=== PATIENT | female | born 1935 | race Caucasian/White ===

== ENCOUNTER → 2017-08-30 15:19 | Outpatient (CLI) | payer MEDICARE, OTHER, SELFPAY ==
[2017-08-30 16:09] LABS: Absolute Lymphocyte Count 1.06 X10^3/ul (0.83-4.51); Absolute Neutrophil Count 4.4 X10^3/uL (2.0-7.7); Basophil# 0.03 X10^3/uL; Basophil% 0.5 % (0-1); Eosinophil# 0.14 X10^3/uL; Eosinophils% 2.2 % (0-5); Hematocrit 41.1 % (37-47); Lymphocyte # 1.06 X10^3/ul (4.0); Mean Corp Hgb Conc 31.6 g/gl (32-36); Mean Corpuscular Hgb 28.8 pg (27.0-32.0); Mean Corpuscular Volume 90.9 fL (81-99); Mean Platelet Vol. 9.9 fl (6.2-12.0); Monocyte# 0.58 X10^3/uL; Monocyte% 9.3 % (0-10); Neutrophil # 4.42 X10^3/uL (2.7-7.7); Neutrophil % 70.8 % (47-70); Platelet Count 260 K/mm3 (150-450); RBC Distribution Width SD 46.3 fl (35.1-43.9); Red Blood Count 4.52 M/mm3 (4.2-5.4); White Blood Count 6.2 K/mm3 (4.4-11.0)
[2017-08-30 16:11] LABS: POSITIVE COUNT NO; POSITIVE DIFFERENTIAL NO; POSITIVE MORPHOLOGY NO
[2017-08-30 16:44] LABS: Albumin, Serum 3.9 g/dL (3.2-5.0); BUN 18 mg/dL (7-18); BUN/Creat Ratio 18.7 RATIO (10-20); Creatinine, Serum 0.96 mg/dL (0.55-1.02); EST Glomerular Filtration Rate 59 mL/min (>60); Est Glom Filt Rate - Afr Amer 72 mL/min (>60); Globulin 3.9 g/dL (2.2-4.2); Glucose 95 mg/dL (70-110); Protein, Total 7.8 g/dL (6.4-8.2)
[2017-08-30 16:45] LABS: AST(SGOT) 28 U/L (15-37); Alanine Aminotransfer ALT/SGPT 30 U/L (13-56); Alkaline Phosphatase 96 U/L (45-117); Anion Gap 6 (5-15); Calcium,Total 8.9 mg/dL (8.5-10.1); Chloride 104 mmol/L (98-107); Potassium 3.7 mmol/L (3.5-5.1); Sodium Level 139 mmol/L (136-145)
== END ==
PROVIDERS: Family Provider Family Medicine Geriatric Medicine; PCP Family Medicine Geriatric Medicine; Visit Provider Internal Medicine Rheumatology
DX: L40.59 Other psoriatic arthropathy (principal); M35.00 Sjogren syndrome, unspecified; L40.9 Psoriasis, unspecified; M17.0 Bilateral primary osteoarthritis of knee
CPT/HCPCS: 36415; 80053; 85025

== ENCOUNTER → 2017-09-15 12:17 | Outpatient (CLI) | payer MEDICARE, OTHER, SELFPAY ==
[2017-09-15 12:48] LABS: Absolute Lymphocyte Count 1.06 X10^3/ul (0.83-4.51); Absolute Neutrophil Count 4.6 X10^3/uL (2.0-7.7); Basophil# 0.03 X10^3/uL; Basophil% 0.5 % (0-1); Eosinophil# 0.19 X10^3/uL; Hematocrit 41.2 % (37-47); Hemoglobin 13.2 g/dl (12.0-15.0); Lymphocyte # 1.06 X10^3/ul (4.0); Lymphocyte % 16.6 % (19-41); Mean Corpuscular Hgb 28.8 pg (27.0-32.0); Mean Corpuscular Volume 89.8 fL (81-99); Mean Platelet Vol. 9.6 fl (6.2-12.0); Monocyte# 0.53 X10^3/uL; Monocyte% 8.3 % (0-10); Neutrophil # 4.58 X10^3/uL (2.7-7.7); Neutrophil % 71.4 % (47-70); Platelet Count 248 K/mm3 (150-450); RBC Distribution Width SD 45.7 fl (35.1-43.9); Red Blood Count 4.59 M/mm3 (4.2-5.4); White Blood Count 6.4 K/mm3 (4.4-11.0)
[2017-09-15 12:49] LABS: POSITIVE COUNT NO; POSITIVE DIFFERENTIAL NO; POSITIVE MORPHOLOGY NO
[2017-09-15 13:41] LABS: Vitamin B12 976 pg/mL (211-911)
[2017-09-15 14:14] LABS: AST(SGOT) 33 U/L (15-37); Alanine Aminotransfer ALT/SGPT 21 U/L (13-56); Albumin, Serum 3.9 g/dL (3.2-5.0); Alkaline Phosphatase 102 U/L (45-117); Anion Gap 7 (5-15); BUN 16 mg/dL (7-18); BUN/Creat Ratio 17.3 RATIO (10-20); Calcium,Total 8.9 mg/dL (8.5-10.1); Chloride 104 mmol/L (98-107); Creatinine, Serum 0.93 mg/dL (0.55-1.02); EST Glomerular Filtration Rate 62 mL/min (>60); Est Glom Filt Rate - Afr Amer 75 mL/min (>60); Glucose 96 mg/dL (74-106); Potassium 3.8 mmol/L (3.5-5.1); Protein, Total 7.9 g/dL (6.4-8.2); Sodium Level 139 mmol/L (136-145); Thyroid Stim Hormone (TSH) 2.67 uIU/mL (0.358-3.74)
== END ==
PROVIDERS: Family Provider Family Medicine Geriatric Medicine; PCP Family Medicine Geriatric Medicine; Visit Provider Family Medicine Geriatric Medicine
DX: F05 Delirium due to known physiological condition (principal); N39.0 Urinary tract infection, site not specified
CPT/HCPCS: 36415; 80053; 82607; 82746; 84443; 85025; 87086; 87088

== ENCOUNTER → 2017-09-15 12:25 | Outpatient (CLI) | payer MEDICARE, OTHER, SELFPAY ==
--- NOTE | 2017-09-15 12:29 | CT_ITS ---
STUDY: CT BRAIN WITHOUT CONTRAST REASON FOR EXAM: Female, 81 years old. Confusion and delirium. RADIATION DOSAGE (If Supplied By Facility): CTDIvol = ( 44.99 ) mGy, DLP = ( 829.85 ) mGycm TECHNIQUE: Transaxial CT imaging of the brain was performed without administration of intravenous contrast material. Individualized dose optimization techniques were used for this CT. COMPARISON: None. FINDINGS: Normal soft tissue structures. Normal calvarium. There is mild cerebral atrophy with widening of the extra-axial spaces and ventricular dilatation. There are areas of decreased attenuation within the white matter tracts of the supratentorial brain, consistent with microvascular disease changes. Normal basal ganglia and thalami. Normal brainstem. Normal cerebellum. There is no intracranial hemorrhage. There are no findings of an acute ischemic infarction. Atherosclerotic calcification of the cavernous portions of the internal carotid arteries bilaterally. Normal visualized paranasal sinuses. CT/Brain/Head without Contrast IMPRESSION: Chronic involutional changes of the brain. Electronically Signed: Edvin Greco MD at 12:59 EST Tel [phone], Service support ,
== END ==
PROVIDERS: Family Provider Family Medicine Geriatric Medicine; PCP Family Medicine Geriatric Medicine; Visit Provider Family Medicine Geriatric Medicine
DX: R41.0 Disorientation, unspecified (principal)
CPT/HCPCS: 36415; 70450; 80053; 82607; 82746; 84443; 85025; 87086; 87088

== ENCOUNTER → 2017-09-28 10:26 | Outpatient (CLI) | payer MEDICARE, OTHER, SELFPAY ==
--- NOTE | 2017-09-28 12:37 | CT_ITS ---
STUDY: CT ABDOMEN AND PELVIS WITH CONTRAST REASON FOR EXAM: Female, 81 years old. Abdominal pain and diarrhea. RADIATION DOSAGE (If Supplied By Facility): CTDIvol = ( 14.05 ) mGy, DLP = ( 527.60 ) mGycm TECHNIQUE: Transaxial images were obtained from the dome of the diaphragm to the symphysis pubis with oral contrast. 100CC ml of Isovue 300 contrast was administered. Sagittal and coronal images were reconstructed. Individualized dose optimization techniques were used for this CT. COMPARISON: None. FINDINGS: Minimally increased linear markings at the left lung base suggestive of left basilar atelectasis and/or scarring. Coronary artery calcification. Normal liver. There are surgical clips in the gallbladder fossa consistent with a prior cholecystectomy. There are multiple benign calcified granulomata of the spleen. Normal pancreas. Normal bilateral adrenal glands. Normal right kidney. Cortical thinning of the left kidney. Normal visualized stomach. Normal small intestine. Moderate amount of fecal material is seen in the colon. The appendix is visualized and appears normal. There is diffuse atherosclerotic calcification of the abdominal aorta, without a demonstrated aneurysm. Normal inferior vena cava. Normal retroperitoneum. Normal urinary bladder. Normal abdominal wall. 50% loss of height of the L1 vertebrae. CT/Abdomen/Pelvis WITH Contrast IMPRESSION: Moderate amount of fecal material is seen in the colon. Electronically Signed: Edvin Greco MD at 13:36 EST Tel [phone], Service support ,
[2017-09-28 13:39] LABS: Absolute Lymphocyte Count 0.76 X10^3/ul (0.83-4.51); Absolute Neutrophil Count 4.7 X10^3/uL (2.0-7.7); Basophil# 0.02 X10^3/uL; Basophil% 0.3 % (0-1); Eosinophil# 0.08 X10^3/uL; Eosinophils% 1.3 % (0-5); Hematocrit 38.7 % (37-47); Hemoglobin 12.4 g/dl (12.0-15.0); Lymphocyte # 0.76 X10^3/ul (4.0); Lymphocyte % 12.4 % (19-41); Mean Corpuscular Hgb 28.6 pg (27.0-32.0); Mean Corpuscular Volume 89.4 fL (81-99); Mean Platelet Vol. 10.3 fl (6.2-12.0); Monocyte# 0.59 X10^3/uL; Monocyte% 9.7 % (0-10); Neutrophil # 4.65 X10^3/uL (2.7-7.7); Neutrophil % 76.1 % (47-70); Platelet Count 216 K/mm3 (150-450); RBC Distribution Width CV 13.9 % (11.6-14.6); RBC Distribution Width SD 45.8 fl (35.1-43.9); Red Blood Count 4.33 M/mm3 (4.2-5.4); White Blood Count 6.1 K/mm3 (4.4-11.0)
[2017-09-28 13:42] LABS: POSITIVE COUNT NO; POSITIVE DIFFERENTIAL NO; POSITIVE MORPHOLOGY NO
[2017-09-28 14:02] LABS: ALB/GLOB Ratio 1.1 RATIO (0.9-2.4); AST(SGOT) 32 U/L (15-37); Alanine Aminotransfer ALT/SGPT 19 U/L (13-56); Albumin, Serum 3.8 g/dL (3.2-5.0); Alkaline Phosphatase 92 U/L (45-117); Anion Gap 7 (5-15); BUN 14 mg/dL (7-18); BUN/Creat Ratio 15.4 RATIO (10-20); Calcium,Total 8.8 mg/dL (8.5-10.1); Chloride 102 mmol/L (98-107); Creatinine, Serum 0.91 mg/dL (0.55-1.02); EST Glomerular Filtration Rate 63 mL/min (>60); Est Glom Filt Rate - Afr Amer 77 mL/min (>60); Globulin 3.4 g/dL (2.2-4.2); Glucose 95 mg/dL (74-106); Potassium 3.9 mmol/L (3.5-5.1); Protein, Total 7.2 g/dL (6.4-8.2); Sodium Level 136 mmol/L (136-145)
== END ==
PROVIDERS: Family Provider Family Medicine Geriatric Medicine; PCP Family Medicine Geriatric Medicine; Visit Provider Family Medicine Geriatric Medicine
DX: N39.0 Urinary tract infection, site not specified (principal); R10.9 Unspecified abdominal pain; R19.7 Diarrhea, unspecified
CPT/HCPCS: 36415; 74177; 80053; 82274; 83630; 85025; 87086; 87088; 87177; 87186; 87209; 87493; 87506; Q9967

== ENCOUNTER → 2017-12-13 08:54 | Outpatient (CLI) | payer MEDICARE, OTHER, SELFPAY ==
[2017-12-13 13:09] LABS: Absolute Lymphocyte Count 0.97 X10^3/ul (0.83-4.51); Absolute Neutrophil Count 5.3 X10^3/uL (2.0-7.7); Basophil# 0.04 X10^3/uL; Basophil% 0.6 % (0-1); Eosinophil# 0.13 X10^3/uL; Eosinophils% 1.9 % (0-5); Hematocrit 41.6 % (37-47); Hemoglobin 13.2 g/dl (12.0-15.0); Lymphocyte # 0.97 X10^3/ul (4.0); Lymphocyte % 13.9 % (19-41); Mean Corp Hgb Conc 31.7 g/gl (32-36); Mean Corpuscular Hgb 29.3 pg (27.0-32.0); Mean Corpuscular Volume 92.2 fL (81-99); Mean Platelet Vol. 10.1 fl (6.2-12.0); Monocyte% 8.6 % (0-10); Neutrophil # 5.25 X10^3/uL (2.7-7.7); Platelet Count 244 K/mm3 (150-450); RBC Distribution Width CV 14.5 % (11.6-14.6); RBC Distribution Width SD 48.9 fl (35.1-43.9); Red Blood Count 4.51 M/mm3 (4.2-5.4)
[2017-12-13 13:10] LABS: POSITIVE COUNT NO; POSITIVE DIFFERENTIAL NO; POSITIVE MORPHOLOGY NO
[2017-12-13 13:44] LABS: AST(SGOT) 25 U/L (15-37); Alanine Aminotransfer ALT/SGPT 25 U/L (13-56); Albumin, Serum 3.8 g/dL (3.2-5.0); Alkaline Phosphatase 85 U/L (45-117); Anion Gap 7 (5-15); BUN 13 mg/dL (7-18); BUN/Creat Ratio 13.2 RATIO (10-20); Chloride 104 mmol/L (98-107); Creatinine, Serum 0.98 mg/dL (0.55-1.02); EST Glomerular Filtration Rate 58 mL/min (>60); Est Glom Filt Rate - Afr Amer 70 mL/min (>60); Globulin 3.7 g/dL (2.2-4.2); Glucose 82 mg/dL (74-106); Potassium 4.4 mmol/L (3.5-5.1); Protein, Total 7.5 g/dL (6.4-8.2); Sodium Level 140 mmol/L (136-145); Thyroid Stim Hormone (TSH) 2.21 uIU/mL (0.358-3.74)
[2017-12-13 13:49] LABS: Vitamin D,25 Hydroxy 86.2 ng/mL (29.95-100.01)
== END ==
PROVIDERS: Family Provider Family Medicine Geriatric Medicine; PCP Family Medicine Geriatric Medicine; Visit Provider Family Medicine Geriatric Medicine
DX: E03.9 Hypothyroidism, unspecified (principal); E55.9 Vitamin D deficiency, unspecified; I10 Essential (primary) hypertension
CPT/HCPCS: 36415; 80053; 82306; 84443; 85025

== ENCOUNTER 2017-12-29 19:55 | Emergency (ER) | payer MEDICARE, OTHER, SELFPAY ==
[2017-12-29 19:56] VITALS: BP 112/53; PULSE 68; RESP 15; TEMP 36.4; BMI 22.6
--- NOTE | 2017-12-29 20:15 | RAD_ITS ---
XR Foot Min 3 Views INDICATION: fell and hit foot on step, bruising and swelling on lateral aspect of foot, pain COMPARISON: None TECHNIQUE: 3 views of the right foot FINDINGS: There is evidence of a nondisplaced fracture at the proximal tip of the right fifth metatarsal. Osseous structures are osteopenic. Plantar calcaneal spurring is noted. RAD/Foot min 3 Views IMPRESSION: Nondisplaced fracture at the proximal fifth metatarsal. at 2116 Reported and signed by: Oanh Pérez MD Electronically Signed: Oanh Pérez MD at 21:15 EDT Tel , Service support ,
--- NOTE | 2017-12-29 21:29 | ED.VISSUMM ---
- ER Visit Summary Date of Service: 12/29/17 Chief Complaint: Right foot pain History of Present Illness: The patient is a 82 F presenting with right foot pain. Patient states that she was sweeping her steps and stepped off a step and twisted her right foot. She fell to the ground but did not lose consciousness. She complains of right foot pain. She has been able to ambulate with pain. She denies other injuries. Physical Examination: Vitals are stable. Patient is afebrile. Alert no acute distress. HEENT exam is unremarkable. Neck is nontender Lungs are clear and equal bilaterally. Heart is regular rate and rhythm. Extremities right lateral foot tenderness and ecchymosis Skin is warm and dry. No focal neurologic deficit. Remainder of exam is unremarkable. Emergency Department Course and Treatment: X-ray of the right foot shows nondisplaced fracture at the proximal fifth metatarsal. Ice pack was applied. She declined pain medications. She was put in a boot orthosis. Discussed with Dr. Arroyo and she will follow-up in the office. Disposition: Discharge home Impression: Right fifth metatarsal fracture This note was generated with [employer] dictation software. It may contain incorrect words, spelling, and punctuation that were not noted in review of the chart prior to signing ED Disposition - Plan for ED Patient: Chief Complaint: Lower Extremity Injury Referrals: Matty Newsome Chi, MD [Primary Care Provider] -
--- NOTE | 2017-12-29 21:32 | ED.DCSUM_ITS ---
- ER Visit Summary Date of Service: 12/29/17 Chief Complaint: Right foot pain History of Present Illness: The patient is a 82 F presenting with right foot pain. Patient states that she was sweeping her steps and stepped off a step and twisted her right foot. She fell to the ground but did not lose consciousness. She complains of right foot pain. She has been able to ambulate with pain. She denies other injuries. Physical Examination: Vitals are stable. Patient is afebrile. Alert no acute distress. HEENT exam is unremarkable. Neck is nontender Lungs are clear and equal bilaterally. Heart is regular rate and rhythm. Extremities right lateral foot tenderness and ecchymosis Skin is warm and dry. No focal neurologic deficit. Remainder of exam is unremarkable. Emergency Department Course and Treatment: X-ray of the right foot shows nondisplaced fracture at the proximal fifth metatarsal. Ice pack was applied. She declined pain medications. She was put in a boot orthosis. Discussed with Dr. Arroyo and she will follow-up in the office. Disposition: Discharge home Impression: Right fifth metatarsal fracture This note was generated with [employer] dictation software. It may contain incorrect words, spelling, and punctuation that were not noted in review of the chart prior to signing ED Disposition - Plan for ED Patient: Chief Complaint: Lower Extremity Injury Referrals: aMtty Newsome Chi, MD [Primary Care Provider] -
--- NOTE | 2017-12-29 21:32 | ED.DEP ---
ED Disposition - Plan for ED Patient: Chief Complaint: Lower Extremity Injury Instructions: ED Fx Foot Referrals: Matty Newsome Chi, MD [Primary Care Provider] - Parag Arroyo MD [STAFF PHYSICIAN] -
[2017-12-29 22:01] VITALS: BP 110/60; PULSE 67; RESP 18; O2SAT 96
== END 2017-12-29 22:01 | disposition home or self-care (01) ==
LOC: ED 20:14
PROVIDERS: Emergency Provider Emergency Medicine; Family Provider Family Medicine Geriatric Medicine; PCP Family Medicine Geriatric Medicine
DX: S92.354A Nondisplaced fracture of fifth metatarsal bone, right foot, initial encounter for closed fracture (principal); X50.1XXA Overexertion from prolonged static or awkward postures, initial encounter; Y93.E9 Activity, other interior property and clothing maintenance; Y92.009 Unspecified place in unspecified non-institutional (private) residence as the place of occurrence of the external cause; Y99.8 Other external cause status
CPT/HCPCS: 73630; 99283

== ENCOUNTER → 2018-02-21 14:22 | Outpatient (CLI) | payer MEDICARE, OTHER, SELFPAY ==
[2018-02-21 15:10] LABS: Absolute Lymphocyte Count 1.16 X10^3/ul (0.83-4.51); Absolute Neutrophil Count 4.6 X10^3/uL (2.0-7.7); Basophil# 0.02 X10^3/uL; Basophil% 0.3 % (0-1); Eosinophil# 0.12 X10^3/uL; Eosinophils% 1.9 % (0-5); Hemoglobin 12.5 g/dl (12.0-15.0); Lymphocyte # 1.16 X10^3/ul (4.0); Mean Corp Hgb Conc 32.1 g/gl (32-36); Mean Corpuscular Hgb 30.1 pg (27.0-32.0); Mean Platelet Vol. 9.7 fl (6.2-12.0); Monocyte# 0.54 X10^3/uL; Monocyte% 8.4 % (0-10); Neutrophil % 71.2 % (47-70); Platelet Count 199 K/mm3 (150-450); RBC Distribution Width CV 14.5 % (11.6-14.6); RBC Distribution Width SD 49.4 fl (35.1-43.9); Red Blood Count 4.15 M/mm3 (4.2-5.4); White Blood Count 6.5 K/mm3 (4.4-11.0)
[2018-02-21 15:11] LABS: POSITIVE COUNT NO; POSITIVE DIFFERENTIAL NO; POSITIVE MORPHOLOGY NO
[2018-02-21 17:05] LABS: ALB/GLOB Ratio 1.1 RATIO (0.9-2.4); AST(SGOT) 30 U/L (15-37); Alanine Aminotransfer ALT/SGPT 18 U/L (13-56); Albumin, Serum 3.6 g/dL (3.2-5.0); Alkaline Phosphatase 60 U/L (45-117); Anion Gap 6 (5-15); BUN 19 mg/dL (7-18); BUN/Creat Ratio 18.8 RATIO (10-20); Calcium,Total 8.5 mg/dL (8.5-10.1); Chloride 106 mmol/L (98-107); Creatinine, Serum 1.01 mg/dL (0.55-1.02); EST Glomerular Filtration Rate 56 mL/min (>60); Est Glom Filt Rate - Afr Amer 68 mL/min (>60); Globulin 3.4 g/dL (2.2-4.2); Glucose 88 mg/dL (74-106); Potassium 4.5 mmol/L (3.5-5.1); Sodium Level 142 mmol/L (136-145)
== END ==
PROVIDERS: Family Provider Family Medicine Geriatric Medicine; PCP Family Medicine Geriatric Medicine; Visit Provider Internal Medicine Rheumatology
DX: L40.59 Other psoriatic arthropathy (principal); M35.00 Sjogren syndrome, unspecified; L40.9 Psoriasis, unspecified; M17.0 Bilateral primary osteoarthritis of knee; K76.0 Fatty (change of) liver, not elsewhere classified; M48.061 Spinal stenosis, lumbar region without neurogenic claudication; I10 Essential (primary) hypertension; E03.9 Hypothyroidism, unspecified; F32.89 Other specified depressive episodes; I25.10 Atherosclerotic heart disease of native coronary artery without angina pectoris
CPT/HCPCS: 36415; 80053; 85025

== ENCOUNTER → 2018-08-01 14:07 | Outpatient (CLI) | payer MEDICARE, OTHER, SELFPAY ==
[2018-08-01 15:09] LABS: Absolute Neutrophil Count 5.4 X10^3/uL (2.0-7.7); Basophil# 0.03 X10^3/uL; Basophil% 0.4 % (0-1); Eosinophils% 1.4 % (0-5); Hematocrit 40.4 % (37-47); Lymphocyte % 15.6 % (19-41); Mean Corp Hgb Conc 32.2 g/gl (32-36); Mean Corpuscular Hgb 29.7 pg (27.0-32.0); Mean Corpuscular Volume 92.2 fL (81-99); Mean Platelet Vol. 9.7 fl (6.2-12.0); Monocyte# 0.46 X10^3/uL; Monocyte% 6.5 % (0-10); Neutrophil # 5.35 X10^3/uL (2.7-7.7); Platelet Count 224 K/mm3 (150-450); RBC Distribution Width CV 13.5 % (11.6-14.6); RBC Distribution Width SD 45.4 fl (35.1-43.9); Red Blood Count 4.38 M/mm3 (4.2-5.4); White Blood Count 7.1 K/mm3 (4.4-11.0)
[2018-08-01 15:10] LABS: POSITIVE COUNT NO; POSITIVE DIFFERENTIAL NO; POSITIVE MORPHOLOGY NO
[2018-08-01 15:33] LABS: ALB/GLOB Ratio 1.1 RATIO (0.9-2.4); AST(SGOT) 30 U/L (15-37); Alanine Aminotransfer ALT/SGPT 14 U/L (13-56); Albumin, Serum 3.6 g/dL (3.2-5.0); Alkaline Phosphatase 75 U/L (45-117); Anion Gap 8 (5-15); BUN 23 mg/dL (7-18); BUN/Creat Ratio 21.9 RATIO (10-20); Calcium,Total 8.5 mg/dL (8.5-10.1); Chloride 105 mmol/L (98-107); Creatinine, Serum 1.05 mg/dL (0.55-1.02); EST Glomerular Filtration Rate 54 mL/min (>60); Est Glom Filt Rate - Afr Amer 65 mL/min (>60); Globulin 3.3 g/dL (2.2-4.2); Glucose 103 mg/dL (74-106); Potassium 4.4 mmol/L (3.5-5.1); Protein, Total 6.9 g/dL (6.4-8.2); Sodium Level 140 mmol/L (136-145)
== END ==
PROVIDERS: Family Provider Family Medicine Geriatric Medicine; PCP Family Medicine Geriatric Medicine; Referring Provider Internal Medicine Rheumatology; Visit Provider Internal Medicine Rheumatology
DX: L40.59 Other psoriatic arthropathy (principal); M35.00 Sjogren syndrome, unspecified; L40.9 Psoriasis, unspecified; M17.0 Bilateral primary osteoarthritis of knee; K76.0 Fatty (change of) liver, not elsewhere classified; M48.061 Spinal stenosis, lumbar region without neurogenic claudication; I10 Essential (primary) hypertension; E03.9 Hypothyroidism, unspecified; F32.89 Other specified depressive episodes; I25.10 Atherosclerotic heart disease of native coronary artery without angina pectoris; G20 Parkinson's disease; M47.892 Other spondylosis, cervical region
CPT/HCPCS: 36415; 80053; 85025

== ENCOUNTER → 2018-10-08 09:59 | Outpatient (CLI) | payer MEDICARE, OTHER, SELFPAY ==
[2018-10-08 12:54] LABS: Absolute Neutrophil Count 4.3 X10^3/uL (2.0-7.7); Basophil# 0.03 X10^3/uL; Basophil% 0.5 % (0-1); Eosinophils% 1.7 % (0-5); Lymphocyte % 15.7 % (19-41); Mean Corp Hgb Conc 31.6 g/gl (32-36); Mean Corpuscular Hgb 29.5 pg (27.0-32.0); Mean Corpuscular Volume 93.4 fL (81-99); Mean Platelet Vol. 10.3 fl (6.2-12.0); Monocyte# 0.43 X10^3/uL; Monocyte% 7.5 % (0-10); Neutrophil # 4.29 X10^3/uL (2.7-7.7); Neutrophil % 74.6 % (47-70); Platelet Count 215 K/mm3 (150-450); RBC Distribution Width CV 13.6 % (11.6-14.6); RBC Distribution Width SD 46.8 fl (35.1-43.9); Red Blood Count 4.07 M/mm3 (4.2-5.4); White Blood Count 5.8 K/mm3 (4.4-11.0)
[2018-10-08 12:56] LABS: POSITIVE COUNT NO; POSITIVE DIFFERENTIAL NO; POSITIVE MORPHOLOGY NO
[2018-10-08 13:11] LABS: Vitamin D,25 Hydroxy 94.6 ng/mL (29.95-100.01)
[2018-10-08 13:15] LABS: AST(SGOT) 31 U/L (15-37); Alanine Aminotransfer ALT/SGPT 15 U/L (13-56); Albumin, Serum 3.5 g/dL (3.2-5.0); Alkaline Phosphatase 71 U/L (45-117); Anion Gap 9 (5-15); BUN 19 mg/dL (7-18); BUN/Creat Ratio 19.8 RATIO (10-20); Calcium,Total 8.1 mg/dL (8.5-10.1); Chloride 105 mmol/L (98-107); Creatinine, Serum 0.96 mg/dL (0.55-1.02); EST Glomerular Filtration Rate 59 mL/min (>60); Est Glom Filt Rate - Afr Amer 72 mL/min (>60); Globulin 3.4 g/dL (2.2-4.2); Glucose 92 mg/dL (74-106); Potassium 4.2 mmol/L (3.5-5.1); Protein, Total 6.9 g/dL (6.4-8.2); Sodium Level 141 mmol/L (136-145); Thyroid Stim Hormone (TSH) 1.31 uIU/mL (0.358-3.74)
== END ==
PROVIDERS: Family Provider Family Medicine Geriatric Medicine; PCP Family Medicine Geriatric Medicine; Visit Provider Family Medicine Geriatric Medicine
DX: E55.9 Vitamin D deficiency, unspecified (principal); I10 Essential (primary) hypertension
CPT/HCPCS: 36415; 80053; 82306; 84443; 85025

== ENCOUNTER → 2018-11-02 09:33 | Outpatient (CLI) | payer MEDICARE, OTHER, SELFPAY ==
[2018-10-16 13:54] VITALS: BMI 24.0
--- NOTE | 2018-11-02 10:00 | RAD_ITS ---
STUDY: SWALLOWING STUDY REASON FOR EXAM: Female, 82 years old. Dysphagia. Parkinson's disease. TECHNIQUE: The examination was performed with Speech Pathology in attendance. Under fluoroscopic observation, the patient ingested thin barium, thick barium, barium pudding, and barium coated cracker. FLUOROSCOPY TIME: 2:23 minutes/seconds. 2054 images were obtained. RADIOLOGIST INVOLVEMENT: Radiologist was present and providing direct supervision. COMPARISON: None. FINDINGS: The following was observed during swallowing of the various mixtures of barium: Thin Barium: Transient penetration with ingestion of thin liquids. This improved with the chin tuck maneuver. Barium Pudding: There was no evidence of aspiration or laryngeal penetration. Barium Coated Cracker: There was no evidence of aspiration or laryngeal penetration. RAD/Swallowing Function w/Video IMPRESSION: Transient penetration with ingestion of thin liquids. This improves with the chin tuck maneuver. The swallow study findings were discussed with the patient by the speech pathologist at the conclusion of the examination. Please see speech pathology report for more information and recommendations. Electronically Signed: Edvin Greco, at 11:14 EDT , Service support ,
--- NOTE | 2018-11-02 11:00 | SP.MBSS_ITS ---
PRIMARY DIAGNOSIS: Parkinson?s disease (G20) SECONDARY DIAGNOSIS: dysphagia (R13.10) REFERRING PHYSICIAN: Dr. Jd Paul MD. CURRENT DIET: regular textures, nectar thickened liquids DENTITION: WFL MENTAL STATUS: sufficient for participation. RESPIRATORY STATUS: O2 via room air REASON FOR REFERRAL: The Patient is an 82 year old female referred for a modified barium swallow (MBS) study to objectively assess the Patients oropharyngeal swallow function under fluoroscopy secondary to the diagnosis of Parkinson?s disease, with concerns identified during a recent outpatient clinical dysphagia examination. MEDICAL HISTORY: Parkinson?s disease, psoriatic arthritis, Raynaud?s disease, status post right sided cervical fusion, prior transient ischemic attacks, skin cancer, coronary artery disease, hyperlipemia, hypothyroid, osteoarthritis (Chronic) PREVIOUS MODIFIED BARIUM SWALLOW STUDY: none ADDITIONAL OBJECTIVE ASSESSMENT RESULTS: 09/15/2017 CT revealed chronic involutional changes of the brain. 03/01/2017 MRI revealed no MRI evidence of acute ischemic infarct, intracranial mass or acute intracranial abnormality; chronic white matter ischemic changes in both cerebral hemispheres. ASSESSMENT PARAMETERS: The Patient participated in a Modified Barium Swallow (MBS) study on 11/02/2018. Dr. Greco was the radiologist present for this evaluation. This study was recorded in the lateral view and images were sent to PACs for storage. Scoring was completed through each trial using the 8-point Penetration-Aspiration Scale (PAS) and Videofluoroscopic Scale Score (VSS), and summarized via the Modified Barium Swallow Impairment Profile (MBSImP), with severity scoring through the Dysphagia Severity Rating Scale (DSRS) and Swallowing Performance Scale (SPS), and recommended diet textures through the International Dysphagia Diet Standardisation Initiative (IDDSI). RESULTS OF THE EVALUATION: The Patient presents with mild oropharyngeal dysphagia (DSRS: 2; SPS: 3) with overt aspiration of thin liquids during sequential ingestion secondary to the diagnosis of Parkinson?s disease. OBJECTIVE ASSESSMENT OF SWALLOW FUNCTION (QUANTITATIVE ? PER TRIAL): PENETRATION / ASPIRATION SCALE (LIU): 1 = does not enter airway 2 = enters airway/above vocal folds/ejected 3 = enters airway/above vocal folds/not ejected 4 = enters airway/contacts vocal folds/ejected 5 = enters airway/contacts vocal folds/not ejected 6 = enters airway/below vocal folds/ejected 7 = enters airway/below vocal folds/not ejected despite effort 8 = enters airway/below vocal folds/no effort VIDEOFLOROSCOPIC SCALE SCORE (LIU): Grade I = aspiration of material that has penetrated into the laryngeal vestibule, intact cough reflex Grade II = aspiration < 10 % of the bolus, intact cough reflex Grade III = aspiration of < 10 % of the bolus, reduced cough reflex or aspiration of > 10 % of the bolus, intact cough reflex Grade IV = aspiration of > 10 % of the bolus, reduced cough reflex PENETRATION / ASPIRATION SCALE (SCORE) WITH VIDEOFLOROSCOPIC SCALE SCORE: Thin liquid - 5 mL tsp.: 1 Thin liquids via cup (single sip): 2 Thin liquids via cup (single sip): 3 Thin liquids via cup (single sip): 2 Thin liquids via straw (single sip): 2 Thin liquids via straw (sequential swallows): 7 ? Grade I Thin liquids via straw (chin tuck): 1 Thin liquids via straw (chin tuck): 1 Thin liquids via straw (chin tuck): 1 Thin liquids via straw (sequential / chin tuck): 1 Pudding via spoon: 1 Regular textured cookie: 1 Thin liquids via straw (chin tuck): 1 OBJECTIVE ASSESSMENT OF SWALLOW FUNCTION (QUANTITATIVE ? AGGREGATE): MODIFIED BARIUM SWALLOW IMPAIRMENT PROFILE (MBSImP) LABIAL SEAL: 0 (of 4) no labial escape TONGUE CONTROL: 2 (of 3) posterior escape < 50% BOLUS PREPARATION / MASTICATION: 0 (of 3) timely and efficient BOLUS TRANSPORT / LINGUAL MOTION: 2 (of 4) slowed (mild with purees) ORAL RESIDUE: 1 (of 4) trace residue lining oral structures INITIATION OF PHARYNGEAL SWALLOW: 3 (of 4) pyriforms SOFT PALATE ELEVATION: 0 (of 4) normal LARYNGEAL ELEVATION: 0 (of 3) complete movement / approximation ANTERIOR HYOID EXCURSION: 1 (of 2) partial movement EPIGLOTTIC MOVEMENT: 1 (of 2) partial inversion LARYNGEAL VESTIBULE CLOSURE: 1 (of 2) incomplete closure PHARYNGEAL STRIPPING WAVE: 0 (of 2) present / complete PE SEGMENT OPENIN (of 3) complete distension / duration; no obstruction TONGUE BASE RETRACTION: 1 (of 4) trace column of contrast PHARYNGEAL RESIDUE: 1 (of 4) trace residue ESOPHAGEAL BOLUS CLEARANCE: could not view DYSPHAGIA SEVERITY RATING SCALE (DSRS): 2 (mild) SWALLOWING PERFORMANCE SCALE (SPS): 3 (mild) OBJECTIVE ASSESSMENT OF SWALLOW FUNCTION (QUALITATIVE): ORAL PREPARATORY PHASE: oral preparatory phase marked by sufficient mastication rate and quality with sufficient oral containment; preserved management of breathing / bolus formation without disrupted E ? S ? E pattern. ORAL TRANSITIONAL PHASE: oral transitional phase marked by slight prolongation with posterior transfer of pureed textures, though overall sufficient bolus transportation free of discoordinated lingual movements (tremor / undulations); sufficient oral clearance; overall sufficient oral containment with occasional posterior bolus loss to the valleculae. PHARYNGEAL PHASE: pharyngeal phase marked by mild pharyngeal phase dyssynchrony resulting in prandial penetration of thin liquids, with inconsistent laryngeal vestibule pressure generated to expel penetrated material directly contributing to post prandial overt aspiration of thin liquids (< 5% bolus); no signs of pharyngeal dysmotility; no signs of velopharyngeal impairments. ESOPHAGEAL PHASE: no obvious esophageal phase abnormalities observed. 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 Anterior cervical fusion hardware located at the C-6 C-7 level associated with a slight esophageal narrowing at the distal portions of the hardware location, though this did not significantly impact motility. Noted calcification along the anterior vocal folds, though this did not significantly impact image quality. RESPONSE TO STRATEGIES: all deficits ameliorated with execution of chin tuck posture. RECOMMENDATIONS AND CONSIDERATIONS: Would consider annual / bi-annual repeat objective assessment of the oropharyngeal swallow function under fluoroscopy to identify changes in the oropharyngeal swallow function associated with Parkinson?s disease due to the progressive nature of the disease and higher proclivity for silent aspiration as the disease progresses. The Patient requires continued skilled speech- language intervention targeting diet texture management and training / implementation of recommended compensatory strategies; and Patient and caregiver education regarding dysphagia associated with Parkinson?s disease, with likely shift in therapeutic focus to more cognitive ? communication based intervention goals. Results and recommendations were discussed with the Patient immediately following MBS completion, with the Patient verbalizing understanding and agreement with all recommendations and education provided. DIET TEXTURE RECOMMENDATIONS: Will recommend a regular textured (IDDSI: 7), thin liquid diet (IDDSI: 0) diet RECOMMENDED COMPENSATORY STRATEGIES: Chin tuck, reduced bolus volume / rate of ingestion, seated upright at 90 degrees during PO intake (forward / anterior lean) remain upright for 30-60 minutes post meal (GERD precaution), medications one at a time with a liquid chaser. IMAGE COUNT: [id number] Jarod Durand M.A., CCC-MACHINE OPERATOR PACKAGING MBSImP Certified, LSVT Certified [facility] Speech-Language Pathology Department [email or web address]
== END ==
PROVIDERS: Family Provider Family Medicine Geriatric Medicine; PCP Family Medicine Geriatric Medicine; Referring Provider Psychiatry & Neurology Neurology; Visit Provider Psychiatry & Neurology Neurology
DX: G20 Parkinson's disease (principal); R13.10 Dysphagia, unspecified
CPT/HCPCS: 74230; 92611

== ENCOUNTER 2018-12-04 13:00 | Outpatient (RCR) | payer MEDICARE, OTHER, SELFPAY ==
--- NOTE | 2018-08-17 14:45 | HP.PTEVAL ---
Patient's Visit Information YUKI CAIN is a 82 year old F referred to Physical Therapy by JESUS KaplanC with a diagnosis of Dizzyness. Date of Evaluation: 08/17/18 Physical Therapist: Narayan Baez DPT, OCS, CSCS - Visit Plan Frequency: 2x /Week Duration: 2-4 Weeks Plan: 2x/week x 4 weeks for. 1. vOR progress HEP and VOR walking ex in PT. 2. FW weight shifting ex. 3. Turning and bending functionally. 4. habituation with head turns and nods. - Subjective Findings: Balance slowly getting worse adn recently diagnosed with Parkinsons. GOes to 2 days per week parkinsons ex class. Seeing neuro due to staggering last year. Is here to try to figure out appropriate ex. Spins when she turns going through a doorway, turning sensation for 2-3 steps. Lie down and bend over feels like she is moving for a few seconds. Has had problems with crystals in ear before. Moved in with son and . Fell in March moving items on porch on lower step ankle twisted and cracked. It is OK now. Also exercises with stretching, walking. Sleeping good. Basic aDLs are OK cleaninig and dressinbg adn bathroom OK, DTR in law cooks. - Objective Walks well on firm flat surface with light but head movements adn VOR make it very challenging. VOR sitting is OK. LE AROM WFL, strength 4/5 B. reflexes 1/3 patella and achilles. Sensation LE WNL to gross light touch. Coordination slight deficits. - Balance Scores Functional Gait Assessment Score: 22 % Disability: 26.6700 CATSIB Score (Max score 120 seconds): 96 - Goals Goal 1:: FGA to diminish fall risk Goal Time Frame: 2-4 Weeks Goal 2:: Walk with head movements without head stop moving safely. Goal Time Frame: 2-4 Weeks Goal 3:: I approp HEP to minimize future problems Goal Time Frame: 2-4 Weeks - Rehabilitation Potential Physical Therapy Diagnosis: Unsteadiness with vestibular weakness Rehabilitation Potential: Fair - Anticipated Interventions Patient/Client Instruction: Educate patient on: Condition, Plan of Care For the Purpose of:: To improve balance, To improve safety Therapeutic Exercise to Include: Balance training Comment: weight shift and VOR For the Purpose of:: To improve balance, To improve safety Thank you for the opportunity to evaluate your patient. For Medicare and Medicare HMO plans, please review the plan of care and approve it. It will need to be FAXED BACK to us at [phone] for Medicare purposes. For Medicare only, by signing this I certify the plan of care. Please let me know if there are questions or concerns regarding this plan of care. Physician Signature: Date:
--- NOTE | 2018-09-12 13:08 | HP.SP.AD ---
History - History Date of Eval: 09/12/18 Medical Diagnosis (from RX): Dysphagia Date of Onset of Diagnosis: Fall 2016 Previous speech therapy: No Other Relevant Medical History/Diagnoses/Surgery: Heart disease. Medications related to this diagnosis: Carbadopa/levadopa twice daily. Smoking Status: Former smoker Hx Smoking: No - QUIT SMOKING 1974 SMOKED FOR 15 YRS Hx Tobacco Use: No Hx Smoking Exposure: Yes - Pain Is pain an issue with your current prescribed condition?: Yes - Personal Education History: 4 year degree Occupation: Retired Right Hearing Abillity: Use of Hearing Aid Left Hearing Abillity: Use of Hearing Aid Visual Assistive Devices: Glasses Patients Living Arrangements: With Family Patient Allergies - Allergies Allergies amlodipine Allergy (Verified 12/29/17 20:01) Swelling amlodipine besylate [From Norvasc] Allergy (Verified 12/29/17 20:01) Other amoxicillin [Amoxicillin] Allergy (Verified 12/29/17 20:01) Rash enalapril maleate [From Vasotec] Allergy (Verified 12/29/17 20:01) Other enalaprilat dihydrate [From Vasotec] Allergy (Verified 12/29/17 20:01) Other Iodinated Contrast- Oral and IV Dye [Iodinated Contrast Media - IV Dye] Allergy (Verified 12/29/17 20:01) Other lisinopril Allergy (Verified 12/29/17 20:01) Other ranolazine [From Ranexa] Allergy (Verified 12/29/17 20:01) Unknown Sulfa (Sulfonamide Antibiotics) Allergy (Verified 12/29/17 20:01) Swelling Objective Oral Motor - Oral Status Dentition: WNL - Labial Impairment: WNL Closure: WNL Pucker: WNL Retraction: WNL Alternating Pucker/Retraction: WNL Involuntary Movement noted: No - Lingual Impairment: WNL Protrusion: WNL Retraction: WNL Lateralization: WNL Involuntary Movement: No - Jaw Impairment: WNL - Respiratory Status Respiratory Status: Room Air Subjective Dysphagia - Symptoms Reported Symptoms/Problems with: Choking, Difficulty Swallowing Liquids, Difficulty Swallowing Pills - Current Diet Solids Current Diet: Regular - Current Diet Liquids Current Liquids: Thin Objective Dysphagia - Administered by Administered by: Self - Thin Liquids Administred via: Cup Symptoms: Couging, Immediate Laryngeal Elevation: Impaired Oral Holding: No Gagging: No Comments: Patient took multiple drinks. Laryngeal elevation was not complete for swallows. When cued for single drinks, - Regular Impaired Mastication: Mastication was adequate. Patient has no reports of difficulty chewing. Laryngeal Elevation: WFL Oral Holding: No Gagging: No Patient Report: Patient reported no deficits. - Results Swallowing Within Normal Limits: No Swallowing Diagnosis: Dysphagia Unspecified Severity: Mild Dysphagia Assessment - Swallowing Impairment Contributing Factors to Swallowing Impairment: Reduced Laryngeal Excursion - Impact Impact on Safety & Functioning: Risk for Aspiration - Recommendations Modified Barium Swallow/Cookie Swallow Recommended: Yes Swallowing Treatment: Yes - Diet Texture Recommendations Solids Other: Regular Liquids: [place] Thick - Safety Saftey Precautions/Swallowing Recommendations (Check all that Apply): Reduce Distractions, Small Sips & Bites when Eating Plan - Plan Plan: Speech therapy is warranted for dysphagia secondary to parkinsons disease. The patient demonstrated s/s of penetration/aspiration which puts her at risk for pnuemonia. - Recommendations MBS: Yes Treatment Warranted: Yes - Frequency Frequency: 1x/Week Duration: 4 Weeks Visits in this POC: 5 - Prognosis Prognosis: Good - Goals that are Established: Determination:: Goals will be added/modified as deemed necessary and appropriate. Therapy will be discontinued when results of re-evaluation indicate therapy is no longer needed or lack of progress has been documented. - Goal #1-5 Goal #1: The Patient will tolerate the least restrictive means of nutrition to facilitate adequate hydration/nutrition with optimum safety and efficiency of swallowing function during P.O. intake without overt signs and symptoms of aspiration. Goal #2: The Patient will demonstrate and utilize recommended compensatory swallowing techniques to facilitate improved airway protection and decreased risk for aspiration during PO intake, across 3 out of 3 sessions. Goal #3: Pending MBS Education - Patient has Indicated that the Following Identified Educational Needs: None The Patient has indicated that they have no educational or learning abilities that may effect their care.: Yes - Patient Instruction Patient Education: Diagnosis, Treatment Plan Person Taught: Patient Teaching Method: Discussion Response to teaching: Reinforcement needed
--- NOTE | 2018-09-19 15:29 | HP.PTDCSUM ---
HP - PT D/C Summary It has been my pleasure to treat YUKI CAIN under orders from Bridgette Grullon, JUAQUIN-C, for the diagnosis of Dizzyness for a total of 7 visit(s). Discharge Date: 09/19/18 Please see the following information for a summary of their discharge status. - Subjective Subjective: More dizzy this week since last . Intermittently getting up from chair. Lasts short time. Started using cane again around home. - Overall Improvement % Improvement: 25 - Objective Objective/Function: - postional HD tests, - roll tests. Blance walking into PT is good.Pt changed medications about a month ago the time her dizzyness started adn this should be addressed with pharmacist/doctor. She also had some tooth surgery and c/o earache. Since she has negative postional tests today I have recommended she return to Dr. Newsome for other medical options(ENT, meds check, etc) Would be happy to see her again as needed iof appropriate. - Goals Goal 1:: FGA to diminish fall risk Goal Progress: Goal Met Goal 2:: Walk with head movements without head stop moving safely. Goal Progress: Not Progressing Goal 3:: I approp HEP to minimize future problems Goal Progress: Not Progressing - Plan Plan: D/C, pt back to doctor. - D/C Information Discharge Comments: Pt has plateaud with progress and is appropriate to f/u with Chelsea Parmar for other options with how she is feeling including some R ear aches, feeling off intermittently especially considering her change in medication possibly coinciding with these feelings. If there are questions or concerns regarding this patient's physical therapy, please feel free to call me at [phone]. Thank you for the referral of this patient. Sincerely, Narayan Baez, DPT, OCS, CSCS
--- NOTE | 2018-12-31 14:28 | HP.SP.DC ---
ST Discharge Summary - Discharged: Discharge: Jemma Lewis is discharged from [facility] as of October 02, 2018. She attended a total of 5 visits after her initial evaluation on 09-12-18. She initial attended for dysphagia therapy but her MBSS stated that she was not aspirating and recommended a regular diet with thin liquids. She was given a chin tuck, pills one at a time with a liquid chaser, small bites and sips as well as staying upright at 90 degrees. She was able to verbalize and demonstrate use of these strategies. CLQT - all within normal limits, except executive functions which was mild. She stated that she is aware of this and now lives with her son who helps take care of things for her. She was given a list of word finding strategies as she verbalized this was the thing she had trouble with. Overall, she did well with using her strategies. No further therapy is warranted at this time. A copy of this discharge summary will be sent to her referring physician.
== END 2018-12-04 19:00 | disposition home or self-care (01) ==
LOC: SP 13:00
PROVIDERS: Family Provider Family Medicine Geriatric Medicine; PCP Family Medicine Geriatric Medicine; Referring Provider Nurse Practitioner Acute Care; Visit Provider Nurse Practitioner Acute Care
DX: R42 Dizziness and giddiness (principal); R49.9 Unspecified voice and resonance disorder; R13.10 Dysphagia, unspecified; R47.89 Other speech disturbances
CPT/HCPCS: 92507; 92526; 92610; 97110; 97116; 97162; 97530

== ENCOUNTER → 2018-12-19 12:01 | Outpatient (CLI) | payer MEDICARE, OTHER, SELFPAY ==
[2018-10-16 13:54] VITALS: BMI 24.0
[2018-12-19 13:17] LABS: Absolute Lymphocyte Count 1.16 X10^3/ul (0.83-4.51); Absolute Neutrophil Count 4.2 X10^3/uL (2.0-7.7); Basophil# 0.02 X10^3/uL; Basophil% 0.3 % (0-1); Eosinophil# 0.14 X10^3/uL; Eosinophils% 2.3 % (0-5); Hematocrit 37.2 % (37-47); Lymphocyte # 1.16 X10^3/ul (4.0); Lymphocyte % 19.1 % (19-41); Mean Corp Hgb Conc 32.3 g/gl (32-36); Mean Corpuscular Hgb 29.4 pg (27.0-32.0); Mean Corpuscular Volume 91.2 fL (81-99); Mean Platelet Vol. 10.1 fl (6.2-12.0); Monocyte# 0.55 X10^3/uL; Neutrophil % 69.1 % (47-70); Platelet Count 199 K/mm3 (150-450); RBC Distribution Width CV 13.6 % (11.6-14.6); RBC Distribution Width SD 45.2 fl (35.1-43.9); Red Blood Count 4.08 M/mm3 (4.2-5.4); White Blood Count 6.1 K/mm3 (4.4-11.0)
[2018-12-19 13:25] LABS: POSITIVE COUNT NO; POSITIVE DIFFERENTIAL NO; POSITIVE MORPHOLOGY NO
[2018-12-19 13:31] LABS: Vitamin D,25 Hydroxy 92.1 ng/mL (29.95-100.01)
[2018-12-19 13:39] LABS: AST(SGOT) 25 U/L (15-37); Alanine Aminotransfer ALT/SGPT 16 U/L (13-56); Albumin, Serum 3.4 g/dL (3.2-5.0); Alkaline Phosphatase 78 U/L (45-117); Anion Gap 5 (5-15); BUN 17 mg/dL (7-18); BUN/Creat Ratio 17.1 RATIO (10-20); Calcium,Total 8.7 mg/dL (8.5-10.1); Chloride 107 mmol/L (98-107); EST Glomerular Filtration Rate 57 mL/min (>60); Est Glom Filt Rate - Afr Amer 69 mL/min (>60); Globulin 3.5 g/dL (2.2-4.2); Glucose 83 mg/dL (74-106); Potassium 4.5 mmol/L (3.5-5.1); Protein, Total 6.9 g/dL (6.4-8.2); Sodium Level 140 mmol/L (136-145); Thyroid Stim Hormone (TSH) 1.73 uIU/mL (0.358-3.74)
== END ==
PROVIDERS: Family Provider Family Medicine Geriatric Medicine; PCP Family Medicine Geriatric Medicine; Visit Provider Family Medicine Geriatric Medicine
DX: E55.9 Vitamin D deficiency, unspecified (principal); I10 Essential (primary) hypertension
CPT/HCPCS: 36415; 80053; 82306; 84443; 85025

== ENCOUNTER → 2019-01-16 12:11 | Outpatient (CLI) | payer MEDICARE, OTHER, SELFPAY ==
[2018-10-16 13:54] VITALS: BMI 24.0
[2019-01-16 13:02] LABS: Absolute Lymphocyte Count 1.24 X10^3/ul (0.83-4.51); Absolute Neutrophil Count 3.8 X10^3/uL (2.0-7.7); Basophil# 0.02 X10^3/uL; Basophil% 0.4 % (0-1); Eosinophil# 0.14 X10^3/uL; Eosinophils% 2.5 % (0-5); Hematocrit 36.7 % (37-47); Lymphocyte # 1.24 X10^3/ul (4.0); Mean Corp Hgb Conc 32.7 g/gl (32-36); Mean Corpuscular Hgb 29.9 pg (27.0-32.0); Mean Corpuscular Volume 91.3 fL (81-99); Mean Platelet Vol. 9.8 fl (6.2-12.0); Monocyte# 0.45 X10^3/uL; Neutrophil # 3.78 X10^3/uL (2.7-7.7); Neutrophil % 66.9 % (47-70); Platelet Count 196 K/mm3 (150-450); RBC Distribution Width CV 13.4 % (11.6-14.6); RBC Distribution Width SD 44.7 fl (35.1-43.9); Red Blood Count 4.02 M/mm3 (4.2-5.4); White Blood Count 5.6 K/mm3 (4.4-11.0)
[2019-01-16 13:04] LABS: POSITIVE COUNT NO; POSITIVE DIFFERENTIAL NO; POSITIVE MORPHOLOGY NO
[2019-01-16 13:32] LABS: AST(SGOT) 29 U/L (15-37); Alanine Aminotransfer ALT/SGPT 12 U/L (13-56); Albumin, Serum 3.5 g/dL (3.2-5.0); Alkaline Phosphatase 77 U/L (45-117); Anion Gap 6 (5-15); BUN 16 mg/dL (7-18); Chloride 102 mmol/L (98-107); Creatinine, Serum 1.07 mg/dL (0.55-1.02); EST Glomerular Filtration Rate 52 mL/min (>60); Est Glom Filt Rate - Afr Amer 63 mL/min (>60); Globulin 3.4 g/dL (2.2-4.2); Glucose 101 mg/dL (74-106); Potassium 4.7 mmol/L (3.5-5.1); Protein, Total 6.9 g/dL (6.4-8.2); Sodium Level 137 mmol/L (136-145)
== END ==
PROVIDERS: Family Provider Family Medicine Geriatric Medicine; PCP Family Medicine Geriatric Medicine; Referring Provider Internal Medicine Rheumatology; Visit Provider Internal Medicine Rheumatology
DX: L40.59 Other psoriatic arthropathy (principal); M35.00 Sjogren syndrome, unspecified; L40.9 Psoriasis, unspecified; M17.0 Bilateral primary osteoarthritis of knee; K76.0 Fatty (change of) liver, not elsewhere classified; M48.061 Spinal stenosis, lumbar region without neurogenic claudication
CPT/HCPCS: 36415; 80053; 85025

== ENCOUNTER → 2019-02-13 11:53 | Outpatient (CLI) | payer MEDICARE, OTHER, SELFPAY ==
[2018-10-16 13:54] VITALS: BMI 24.0
--- NOTE | 2019-02-13 13:28 | NEURO_ITS ---
NCS and/or EMG Patient Report Ordering Doctor: Matty Newsome Chi DATE OF SERVICE: 02/13/19 Jemma Lewis is an 83-year-old female presents for electrodiagnostic testing of the lower limbs. She reports numbness and tingling in both legs for several years. Electrodiagnostic findings: Peroneal motor nerve demonstrates normal distal latency, amplitude and conduction velocity bilaterally. Normal tibial motor response bilaterally. Normal peroneal and tibial F wave bilaterally. H reflex is within normal limits. Sensory responses are normal. Needle EMG testing reveals no evidence of denervation in any muscles tested. Motor unit action potentials were of normal amplitude and duration. Electrodiagnostic assessment: This is a normal study in the lower limbs. There is no electrodiagnostic evidence for peripheral neuropathy or lumbosacral radiculopathy. If symptoms persist, may consider single-fiber EMG or nerve bio psy to evaluate for small fiber neuropathy. If there are any further questions, please do not hesitate to contact me.
== END ==
PROVIDERS: Family Provider Family Medicine Geriatric Medicine; PCP Family Medicine Geriatric Medicine; Referring Provider Family Medicine Geriatric Medicine; Visit Provider Family Medicine Geriatric Medicine
DX: R20.2 Paresthesia of skin (principal)
CPT/HCPCS: 95886; 95912

== ENCOUNTER → 2019-02-21 14:29 | Outpatient (CLI) | payer MEDICARE, OTHER, SELFPAY ==
[2018-10-16 13:54] VITALS: BMI 24.0
[2019-02-21 16:04] LABS: Absolute Lymphocyte Count 1.24 X10^3/uL (0.83-4.51); Absolute Neutrophil Count 4.2 X10^3/uL (2.0-7.7); Basophil# 0.02 X10^3/uL; Basophil% 0.3 % (0-1); Eosinophils% 1.6 % (0-5); Hematocrit 35.8 % (37-47); Hemoglobin 11.6 g/dL (12.0-15.0); Lymphocyte # 1.24 X10^3/ul (4.0); Lymphocyte % 20.2 % (19-41); Mean Corp Hgb Conc 32.4 g/dL (32-36); Mean Corpuscular Hgb 29.7 pg (27.0-32.0); Mean Corpuscular Volume 91.6 fL (81-99); Monocyte# 0.54 X10^3/uL; Monocyte% 8.8 % (0-10); NRBC Flagged by Analyzer 0 % (0-5); Neutrophil # 4.21 X10^3/uL (2.7-7.7); Neutrophil % 68.8 % (47-70); Platelet Count 212 K/mm3 (150-450); RBC Distribution Width CV 12.7 % (11.6-14.6); RBC Distribution Width SD 42.3 fl (35.1-43.9); Red Blood Count 3.91 M/mm3 (4.2-5.4); White Blood Count 6.1 K/mm3 (4.4-11.0)
[2019-02-21 16:27] LABS: AST(SGOT) 23 U/L (15-37); Alanine Aminotransfer ALT/SGPT 11 U/L (13-56); Albumin, Serum 3.4 g/dL (3.2-5.0); Alkaline Phosphatase 76 U/L (45-117); Bilirubin, Direct 0.08 mg/dL (0.00-0.30); Globulin 3.3 g/dL (2.2-4.2); Protein, Total 6.7 g/dL (6.4-8.2)
[2019-02-22 09:55] LABS: HIV - WCH Non-Reactive (Nonreactive); Hepatitis B Surface Antibody Non-Reactive; Hepatitis B Surface Antigen Non-Reactive (Nonreactive); Hepatitis C Antibody Non-Reactive (Nonreactive)
[2019-02-23 16:07] LABS: QNTFERON TB Mitogen Value > 10.00 IU/mL (.); QNTFERON TB Nil Value 1.54 IU/mL (.); QNTFERON TB1+ Ag Value > 10.00 IU/mL (.); QNTFERON TB2+ Ag Value > 10.00 IU/mL (.)
[2019-02-24 17:15] LABS: Hepatitis B Core Ab Total Negative (Negative); QNTIFERON TB Positive Criteria Positive (Negative)
== END ==
PROVIDERS: Family Provider Family Medicine Geriatric Medicine; PCP Family Medicine Geriatric Medicine; Referring Provider Dermatology; Visit Provider Dermatology
DX: Z79.899 Other long term (current) drug therapy (principal); D04.61 Carcinoma in situ of skin of right upper limb, including shoulder; L40.8 Other psoriasis; L40.59 Other psoriatic arthropathy
CPT/HCPCS: 36415; 80076; 85025; 86480; 86703; 86704; 86706; 86803; 87340

== ENCOUNTER → 2019-02-26 13:09 | Outpatient (CLI) | payer MEDICARE, OTHER, SELFPAY ==
[2018-10-16 13:54] VITALS: BMI 24.0
[2019-02-28 14:09] LABS: QNTFERON TB Mitogen Value > 10.00 IU/mL (.); QNTFERON TB Nil Value 0.32 IU/mL (.); QNTFERON TB1+ Ag Value 6.17 IU/mL (.); QNTFERON TB2+ Ag Value 6.63 IU/mL (.)
[2019-02-28 14:50] LABS: QNTIFERON TB Positive Criteria Positive (Negative)
== END ==
PROVIDERS: Family Provider Family Medicine Geriatric Medicine; PCP Family Medicine Geriatric Medicine; Referring Provider Dermatology; Visit Provider Dermatology
DX: Z79.899 Other long term (current) drug therapy (principal)
CPT/HCPCS: 36415; 86480

== ENCOUNTER → 2019-03-21 07:53 | Outpatient (CLI) | payer MEDICARE, OTHER, SELFPAY ==
[2018-10-16 13:54] VITALS: BMI 24.0
--- NOTE | 2019-03-21 14:34 | NEURO ---
NCS and/or EMG Patient Report Ordering Doctor: Matty Newsome Chi DATE OF SERVICE: 03/21/19 Jemma Lewis presents for electrodiagnostic testing of the upper limbs. She reports numbness in both hands, worse on the left side. Electrodiagnostic findings: The left median motor nerve demonstrates normal distal latency, amplitude with reduced conduction velocity. Right median motor nerve demonstrates prolonged distal latency with normal amplitude and reduced conduction velocity. Normal ulnar motor response bilaterally, including conduction across the elbow. Normal median ulnar F waves. Prolonged right median sensory latency noted at the wrist. On needle EMG, all muscles tested in the upper limb showed no evidence of denervation with normal motor unit action potentials. Electrodiagnostic impression: This is an abnormal study in the upper limbs 1. Electrodiagnostic findings demonstrate bilateral median mononeuropathy. This is consistent with a mild left carpal tunnel syndrome and a moderate right carpal tunnel syndrome. 2. No electrodiagnostic evidence is noted for cervical radiculopathy. If there are any further questions, please not hesitate to contact me.
== END ==
PROVIDERS: Family Provider Family Medicine Geriatric Medicine; PCP Family Medicine Geriatric Medicine; Referring Provider Family Medicine Geriatric Medicine; Visit Provider Family Medicine Geriatric Medicine
DX: R20.0 Anesthesia of skin (principal); R20.2 Paresthesia of skin
CPT/HCPCS: 95886; 95913

== ENCOUNTER → 2019-04-24 11:46 | Outpatient (CLI) | payer MEDICARE, OTHER, SELFPAY ==
[2018-10-16 13:54] VITALS: BMI 24.0
[2019-04-24 12:30] LABS: Absolute Lymphocyte Count 0.98 X10^3/uL (0.83-4.51); Basophil# 0.05 X10^3/uL; Basophil% 0.7 % (0-1); Eosinophil# 0.13 X10^3/uL; Eosinophils% 1.9 % (0-5); Hematocrit 39.4 % (37-47); Hemoglobin 12.7 g/dL (12.0-15.0); Lymphocyte # 0.98 X10^3/ul (4.0); Lymphocyte % 14.5 % (19-41); Mean Corp Hgb Conc 32.2 g/dL (32-36); Mean Corpuscular Hgb 30.2 pg (27.0-32.0); Mean Corpuscular Volume 93.6 fL (81-99); Mean Platelet Vol. 9.8 fl (6.2-12.0); Monocyte# 0.57 X10^3/uL; Monocyte% 8.4 % (0-10); NRBC Flagged by Analyzer 0 % (0-5); Neutrophil % 74.2 % (47-70); Platelet Count 203 K/mm3 (150-450); RBC Distribution Width CV 13.5 % (11.6-14.6); RBC Distribution Width SD 46.3 fl (35.1-43.9); Red Blood Count 4.21 M/mm3 (4.2-5.4); White Blood Count 6.8 K/mm3 (4.4-11.0)
[2019-04-24 13:04] LABS: AST(SGOT) 25 U/L (15-37); Alanine Aminotransfer ALT/SGPT 10 U/L (13-56); Albumin, Serum 3.4 g/dL (3.2-5.0); Alkaline Phosphatase 70 U/L (45-117); Anion Gap 5 (5-15); BUN 16 mg/dL (7-18); BUN/Creat Ratio 16.2 RATIO (10-20); Calcium,Total 8.6 mg/dL (8.5-10.1); Chloride 104 mmol/L (98-107); Creatinine, Serum 0.99 mg/dL (0.55-1.02); EST Glomerular Filtration Rate 57 mL/min (>60); Est Glom Filt Rate - Afr Amer 69 mL/min (>60); Globulin 3.5 g/dL (2.2-4.2); Glucose 70 mg/dL (74-106); Potassium 4.4 mmol/L (3.5-5.1); Protein, Total 6.9 g/dL (6.4-8.2); Sodium Level 140 mmol/L (136-145)
== END ==
PROVIDERS: Family Provider Family Medicine Geriatric Medicine; PCP Family Medicine Geriatric Medicine; Referring Provider Internal Medicine Rheumatology; Visit Provider Internal Medicine Rheumatology
DX: L40.59 Other psoriatic arthropathy (principal); M35.00 Sjogren syndrome, unspecified; L40.9 Psoriasis, unspecified; M17.0 Bilateral primary osteoarthritis of knee; K76.0 Fatty (change of) liver, not elsewhere classified; M48.061 Spinal stenosis, lumbar region without neurogenic claudication; I10 Essential (primary) hypertension; E03.9 Hypothyroidism, unspecified; F32.89 Other specified depressive episodes; I25.10 Atherosclerotic heart disease of native coronary artery without angina pectoris; M47.892 Other spondylosis, cervical region; G20 Parkinson's disease
CPT/HCPCS: 36415; 80053; 85025

== ENCOUNTER → 2019-05-01 14:13 | Outpatient (CLI) | payer MEDICARE, OTHER, SELFPAY ==
[2018-10-16 13:54] VITALS: BMI 24.0
--- NOTE | 2019-05-01 14:25 | RAD_ITS ---
STUDY: X-RAY CHEST REASON FOR EXAM: Female, 83 years old. Positive TB test TECHNIQUE: Frontal and lateral views of the chest COMPARISON: 06/20/2017 FINDINGS: The lungs are hyperinflated, but clear. There are no pleural effusions. There is no pneumothorax. The heart is normal in size. The visualized osseous structures are within normal limits. RAD/Chest PA and Lateral IMPRESSION: Hyperinflated, but clear lungs. Electronically Signed: Parag Nino, at 19:38 EDT Tel , Service support ,
== END ==
PROVIDERS: Family Provider Family Medicine Geriatric Medicine; PCP Family Medicine Geriatric Medicine; Referring Provider Internal Medicine Infectious Disease; Visit Provider Internal Medicine Infectious Disease
DX: R76.11 Nonspecific reaction to tuberculin skin test without active tuberculosis (principal)
CPT/HCPCS: 71046

== ENCOUNTER → 2019-06-19 10:42 | Outpatient (CLI) | payer MEDICARE, OTHER, SELFPAY ==
[2018-10-16 13:54] VITALS: BMI 24.0
[2019-06-19 12:32] LABS: Absolute Lymphocyte Count 1.05 X10^3/uL (0.83-4.51); Absolute Neutrophil Count 4.1 X10^3/uL (2.0-7.7); Basophil# 0.05 X10^3/uL; Basophil% 0.8 % (0-1); Eosinophil# 0.13 X10^3/uL; Eosinophils% 2.2 % (0-5); Hematocrit 39.8 % (37-47); Hemoglobin 12.8 g/dL (12.0-15.0); Lymphocyte # 1.05 X10^3/ul (4.0); Lymphocyte % 17.8 % (19-41); Mean Corp Hgb Conc 32.2 g/dL (32-36); Mean Corpuscular Hgb 29.8 pg (27.0-32.0); Mean Corpuscular Volume 92.8 fL (81-99); Mean Platelet Vol. 9.9 fl (6.2-12.0); Monocyte# 0.53 X10^3/uL; NRBC Flagged by Analyzer 0 % (0-5); Neutrophil # 4.14 X10^3/uL (2.7-7.7); Platelet Count 218 K/mm3 (150-450); RBC Distribution Width CV 13.6 % (11.6-14.6); RBC Distribution Width SD 46.2 fl (35.1-43.9); Red Blood Count 4.29 M/mm3 (4.2-5.4); White Blood Count 5.9 K/mm3 (4.4-11.0)
[2019-06-19 12:48] LABS: AST(SGOT) 30 U/L (15-37); Alanine Aminotransfer ALT/SGPT 17 U/L (13-56); Albumin, Serum 3.7 g/dL (3.2-5.0); Alkaline Phosphatase 71 U/L (45-117); Anion Gap 7 (5-15); BUN 22 mg/dL (7-18); BUN/Creat Ratio 23.1 RATIO (10-20); Calcium,Total 8.6 mg/dL (8.5-10.1); Chloride 103 mmol/L (98-107); Creatinine, Serum 0.95 mg/dL (0.55-1.02); EST Glomerular Filtration Rate 60 mL/min (>60); Est Glom Filt Rate - Afr Amer 72 mL/min (>60); Globulin 3.7 g/dL (2.2-4.2); Glucose 70 mg/dL (74-106); Potassium 3.9 mmol/L (3.5-5.1); Protein, Total 7.4 g/dL (6.4-8.2); Sodium Level 138 mmol/L (136-145); Thyroid Stim Hormone (TSH) 2.06 uIU/mL (0.358-3.74)
== END ==
PROVIDERS: Family Provider Family Medicine Geriatric Medicine; PCP Family Medicine Geriatric Medicine; Visit Provider Family Medicine Geriatric Medicine
DX: I10 Essential (primary) hypertension (principal); E55.9 Vitamin D deficiency, unspecified
CPT/HCPCS: 36415; 80053; 82306; 84443; 85025

== ENCOUNTER → 2019-07-12 16:01 | Outpatient (CLI) | payer MEDICARE, OTHER, SELFPAY ==
[2018-10-16 13:54] VITALS: BMI 24.0
[2019-07-12 17:24] LABS: Absolute Lymphocyte Count 1.22 X10^3/uL (0.83-4.51); Absolute Neutrophil Count 5.3 X10^3/uL (2.0-7.7); Basophil# 0.04 X10^3/uL; Basophil% 0.5 % (0-1); Eosinophil# 0.15 X10^3/uL; Eosinophils% 2.1 % (0-5); Hematocrit 41.3 % (37-47); Hemoglobin 13.3 g/dL (12.0-15.0); Lymphocyte # 1.22 X10^3/ul (4.0); Lymphocyte % 16.7 % (19-41); Mean Corp Hgb Conc 32.2 g/dL (32-36); Mean Corpuscular Hgb 30.2 pg (27.0-32.0); Mean Corpuscular Volume 93.9 fL (81-99); Mean Platelet Vol. 10.2 fl (6.2-12.0); Monocyte% 8.2 % (0-10); NRBC Flagged by Analyzer 0 % (0-5); Neutrophil # 5.27 X10^3/uL (2.7-7.7); Neutrophil % 72.1 % (47-70); Platelet Count 233 K/mm3 (150-450); RBC Distribution Width CV 13.4 % (11.6-14.6); RBC Distribution Width SD 46.5 fl (35.1-43.9); White Blood Count 7.3 K/mm3 (4.4-11.0)
[2019-07-12 17:53] LABS: ALB/GLOB Ratio 1.1 RATIO (0.9-2.4); AST(SGOT) 26 U/L (15-37); Alanine Aminotransfer ALT/SGPT 7 U/L (13-56); Albumin, Serum 3.8 g/dL (3.2-5.0); Alkaline Phosphatase 70 U/L (45-117); Anion Gap 6 (5-15); BUN 15 mg/dL (7-18); BUN/Creat Ratio 15.4 RATIO (10-20); Chloride 106 mmol/L (98-107); Creatinine, Serum 0.97 mg/dL (0.55-1.02); EST Glomerular Filtration Rate 58 mL/min (>60); Est Glom Filt Rate - Afr Amer 71 mL/min (>60); Globulin 3.5 g/dL (2.2-4.2); Glucose 100 mg/dL (74-106); Protein, Total 7.3 g/dL (6.4-8.2); Sodium Level 139 mmol/L (136-145)
== END ==
PROVIDERS: Family Provider Family Medicine Geriatric Medicine; PCP Family Medicine Geriatric Medicine; Referring Provider Internal Medicine Rheumatology; Visit Provider Internal Medicine Rheumatology
DX: L40.59 Other psoriatic arthropathy (principal); M35.00 Sjogren syndrome, unspecified; L40.9 Psoriasis, unspecified; M17.0 Bilateral primary osteoarthritis of knee; K76.0 Fatty (change of) liver, not elsewhere classified; M48.061 Spinal stenosis, lumbar region without neurogenic claudication
CPT/HCPCS: 36415; 80053; 85025

== ENCOUNTER → 2019-10-01 14:40 | Outpatient (CLI) | payer MEDICARE, OTHER, SELFPAY ==
[2018-10-16 13:54] VITALS: BMI 24.0
--- NOTE | 2019-10-01 14:45 | CT_ITS ---
STUDY: CT BRAIN WITHOUT CONTRAST REASON FOR EXAM: Female, 83 years old. PT STATED FALL X 6 WEEKS AGO. RADIATION DOSAGE (If Supplied By Facility): CTDIvol = ( 60.81 ) mGy, DLP = ( 2225.39 ) mGycm TECHNIQUE: Transaxial CT imaging of the brain was performed without administration of intravenous contrast material. Individualized dose optimization techniques were used for this CT. COMPARISON: March 01, 2017 MRI FINDINGS: There is cerebral atrophy with widening of the extra-axial spaces and ventricular dilatation. There are areas of decreased attenuation within the white matter tracts of the supratentorial brain, consistent with microvascular disease changes. There is no intracranial hemorrhage. There are no findings of an acute ischemic infarction. Normal soft tissue structures. Normal visualized paranasal sinuses. CT/Brain/Head without Contrast IMPRESSION: Chronic involutional changes of the brain. Electronically Signed: Harrison Mederos MD at 10:13 EST Tel , Service support ,
== END ==
PROVIDERS: PCP Family Medicine Geriatric Medicine; Referring Provider Family Medicine Geriatric Medicine; Visit Provider Family Medicine Geriatric Medicine
DX: S09.90XA Unspecified injury of head, initial encounter (principal)
CPT/HCPCS: 70450

== ENCOUNTER → 2019-10-08 11:08 | Outpatient (CLI) | payer MEDICARE, OTHER, SELFPAY ==
[2018-10-16 13:54] VITALS: BMI 24.0
[2019-10-08 12:40] LABS: Absolute Neutrophil Count 5.4 X10^3/uL (2.0-7.7); Basophil# 0.04 X10^3/uL; Basophil% 0.6 % (0-1); Eosinophil# 0.13 X10^3/uL; Eosinophils% 1.8 % (0-5); Hematocrit 39.3 % (37-47); Mean Corp Hgb Conc 33.1 g/dL (32-36); Mean Corpuscular Hgb 30.6 pg (27.0-32.0); Mean Corpuscular Volume 92.5 fL (81-99); Mean Platelet Vol. 10.2 fl (6.2-12.0); Monocyte# 0.59 X10^3/uL; Monocyte% 8.3 % (0-10); NRBC Flagged by Analyzer 0 % (0-5); Neutrophil # 5.35 X10^3/uL (2.7-7.7); Platelet Count 213 K/mm3 (150-450); RBC Distribution Width CV 13.1 % (11.6-14.6); RBC Distribution Width SD 44.7 fl (35.1-43.9); Red Blood Count 4.25 M/mm3 (4.2-5.4); White Blood Count 7.1 K/mm3 (4.4-11.0)
[2019-10-08 13:01] LABS: ALB/GLOB Ratio 1.1 RATIO (0.9-2.4); AST(SGOT) 35 U/L (15-37); Alanine Aminotransfer ALT/SGPT 9 U/L (13-56); Albumin, Serum 3.8 g/dL (3.2-5.0); Alkaline Phosphatase 66 U/L (45-117); Anion Gap 2 (5-15); BUN 15 mg/dL (7-18); Calcium,Total 8.8 mg/dL (8.5-10.1); Chloride 106 mmol/L (98-107); Creatinine, Serum 0.94 mg/dL (0.55-1.02); EST Glomerular Filtration Rate 61 mL/min (>60); Est Glom Filt Rate - Afr Amer 73 mL/min (>60); Globulin 3.5 g/dL (2.2-4.2); Glucose 93 mg/dL (74-106); Potassium 4.1 mmol/L (3.5-5.1); Protein, Total 7.3 g/dL (6.4-8.2); Sodium Level 139 mmol/L (136-145)
== END ==
PROVIDERS: PCP Family Medicine Geriatric Medicine; Referring Provider Internal Medicine Rheumatology; Visit Provider Internal Medicine Rheumatology
DX: L40.59 Other psoriatic arthropathy (principal); M35.00 Sjogren syndrome, unspecified; L40.9 Psoriasis, unspecified; M17.0 Bilateral primary osteoarthritis of knee; K76.0 Fatty (change of) liver, not elsewhere classified; M48.061 Spinal stenosis, lumbar region without neurogenic claudication; I10 Essential (primary) hypertension; E03.9 Hypothyroidism, unspecified; F32.89 Other specified depressive episodes; I25.10 Atherosclerotic heart disease of native coronary artery without angina pectoris; M47.892 Other spondylosis, cervical region; G20 Parkinson's disease
CPT/HCPCS: 36415; 80053; 85025

== ENCOUNTER → 2019-11-29 12:35 | Outpatient (CLI) | payer MEDICARE, OTHER, SELFPAY ==
[2019-10-15 09:15] VITALS: BMI 22.6
[2019-11-29 14:26] LABS: Vitamin B12 1069 pg/mL (211-911)
== END ==
PROVIDERS: PCP Family Medicine Geriatric Medicine; Referring Provider Psychiatry & Neurology Neurology; Visit Provider Psychiatry & Neurology Neurology
DX: E53.9 Vitamin B deficiency, unspecified (principal); R26.81 Unsteadiness on feet
CPT/HCPCS: 36415; 82607

== ENCOUNTER → 2019-12-25 12:16 | Outpatient (CLI) | payer MEDICARE, OTHER, SELFPAY ==
[2019-10-15 09:15] VITALS: BMI 22.6
[2019-12-25 12:44] LABS: Absolute Lymphocyte Count 0.95 X10^3/uL (0.83-4.51); Absolute Neutrophil Count 4.7 X10^3/uL (2.0-7.7); Basophil# 0.04 X10^3/uL; Basophil% 0.6 % (0-1); Eosinophil# 0.05 X10^3/uL; Eosinophils% 0.8 % (0-5); Hematocrit 35.6 % (37-47); Hemoglobin 11.5 g/dL (12.0-15.0); Lymphocyte # 0.95 X10^3/ul (4.0); Lymphocyte % 15.2 % (19-41); Mean Corp Hgb Conc 32.3 g/dL (32-36); Mean Corpuscular Hgb 30.3 pg (27.0-32.0); Mean Corpuscular Volume 93.7 fL (81-99); Mean Platelet Vol. 10.3 fl (6.2-12.0); Monocyte# 0.52 X10^3/uL; Monocyte% 8.3 % (0-10); NRBC Flagged by Analyzer 0 % (0-5); Neutrophil # 4.68 X10^3/uL (2.7-7.7); Neutrophil % 74.8 % (47-70); Platelet Count 228 K/mm3 (150-450); RBC Distribution Width CV 13.2 % (11.6-14.6); RBC Distribution Width SD 45.1 fl (35.1-43.9); White Blood Count 6.3 K/mm3 (4.4-11.0)
[2019-12-25 13:19] LABS: Vitamin D,25 Hydroxy 88.7 ng/mL
[2019-12-25 13:23] LABS: AST(SGOT) 37 U/L (15-37); Alanine Aminotransfer ALT/SGPT 18 U/L (13-56); Albumin, Serum 3.4 g/dL (3.2-5.0); Alkaline Phosphatase 66 U/L (45-117); Anion Gap 5 (5-15); BUN 22 mg/dL (7-18); BUN/Creat Ratio 20.6 RATIO (10-20); Calcium,Total 8.4 mg/dL (8.5-10.1); Chloride 105 mmol/L (98-107); Creatinine, Serum 1.07 mg/dL (0.55-1.02); EST Glomerular Filtration Rate 52 mL/min (>60); Est Glom Filt Rate - Afr Amer 63 mL/min (>60); Globulin 3.3 g/dL (2.2-4.2); Glucose 104 mg/dL (74-106); Potassium 4.3 mmol/L (3.5-5.1); Protein, Total 6.7 g/dL (6.4-8.2); Sodium Level 138 mmol/L (136-145); Thyroid Stim Hormone (TSH) 1.54 uIU/mL (0.358-3.74)
== END ==
PROVIDERS: PCP Family Medicine Geriatric Medicine; Visit Provider Family Medicine Geriatric Medicine
DX: I10 Essential (primary) hypertension (principal); E55.9 Vitamin D deficiency, unspecified
CPT/HCPCS: 36415; 80053; 82306; 84443; 85025

== ENCOUNTER → 2020-01-17 15:26 | Outpatient (CLI) | payer MEDICARE, OTHER, SELFPAY ==
[2019-10-15 09:15] VITALS: BMI 22.6
--- NOTE | 2020-01-17 15:37 | RAD_ITS ---
STUDY: X-RAY - CERVICAL SPINE REASON FOR EXAM: Female, 84 years old. DIZZINESS WITH BILATERAL ARM PAIN WITH NUMBNESS AND TINGLING TECHNIQUE: 7 view(s) of the cervical spine were obtained. Lateral views were obtained in neutral position, flexion, and extension. COMPARISON: None FINDINGS: There are degenerative changes of the anterior atlantoaxial articulation. Normal odontoid process. Patient has undergone previous anterior spinal fusion at the C5-6 level with placement of an anterior fixation plate and screws as well as bone fusion plug. Hardware is intact and there is continuous bone growth across the disc space, consistent with successful mature fusion. There is partial straightening of the normal lordotic curve and there is decreased range of motion on flexion or extension, which may be due to a combination of degenerative disease and muscle spasm or guarding. There is no evidence for instability/subluxation on flexion or extension. Normal vertebral bodies. There is multilevel spondylosis.. There is decreased disc height at thew C6-7 level. There is multi-level osseous foraminal stenosis. The soft tissue structures are unremarkable. RAD/Cerv Spine Obl/Flex/Ext Comp IMPRESSION: Intact anterior spinal fusion at the C5-6 level. Multilevel degenerative changes. No demonstrated subluxation or instability. Electronically Signed: Bryn Johnson MD at 5:48 EDT , Service support ,
== END ==
PROVIDERS: PCP Family Medicine Geriatric Medicine; Referring Provider Psychiatry & Neurology Neurology; Visit Provider Psychiatry & Neurology Neurology
DX: M54.2 Cervicalgia (principal)
CPT/HCPCS: 72052

== ENCOUNTER → 2020-03-24 14:40 | Outpatient (CLI) | payer MEDICARE, OTHER, SELFPAY ==
[2019-10-15 09:15] VITALS: BMI 22.6
[2020-03-24 16:06] LABS: Absolute Lymphocyte Count 1.08 X10^3/uL (0.83-4.51); Absolute Neutrophil Count 4.4 X10^3/uL (2.0-7.7); Basophil# 0.04 X10^3/uL; Basophil% 0.6 % (0-1); Eosinophil# 0.09 X10^3/uL; Eosinophils% 1.5 % (0-5); Hematocrit 36.1 % (37-47); Hemoglobin 11.7 g/dL (12.0-15.0); Lymphocyte # 1.08 X10^3/ul (4.0); Lymphocyte % 17.5 % (19-41); Mean Corp Hgb Conc 32.4 g/dL (32-36); Mean Corpuscular Hgb 30.1 pg (27.0-32.0); Mean Corpuscular Volume 92.8 fL (81-99); Mean Platelet Vol. 10.5 fl (6.2-12.0); Monocyte# 0.53 X10^3/uL; Monocyte% 8.6 % (0-10); NRBC Flagged by Analyzer 0 % (0-5); Neutrophil # 4.43 X10^3/uL (2.7-7.7); Neutrophil % 71.6 % (47-70); Platelet Count 218 K/mm3 (150-450); RBC Distribution Width CV 12.9 % (11.6-14.6); RBC Distribution Width SD 44.1 fl (35.1-43.9); Red Blood Count 3.89 M/mm3 (4.2-5.4); White Blood Count 6.2 K/mm3 (4.4-11.0)
[2020-03-24 16:19] LABS: Vitamin D,25 Hydroxy 69.2 ng/mL
[2020-03-24 16:39] LABS: ALB/GLOB Ratio 1.1 RATIO (0.9-2.4); AST(SGOT) 28 U/L (15-37); Alanine Aminotransfer ALT/SGPT 24 U/L (13-56); Albumin, Serum 3.5 g/dL (3.2-5.0); Alkaline Phosphatase 65 U/L (45-117); Anion Gap 6 (5-15); BUN 20 mg/dL (7-18); BUN/Creat Ratio 18.7 RATIO (10-20); Calcium,Total 8.7 mg/dL (8.5-10.1); Chloride 107 mmol/L (98-107); Creatinine, Serum 1.07 mg/dL (0.55-1.02); EST Glomerular Filtration Rate 52 mL/min (>60); Est Glom Filt Rate - Afr Amer 63 mL/min (>60); Globulin 3.1 g/dL (2.2-4.2); Glucose 117 mg/dL (74-106); Potassium 4.6 mmol/L (3.5-5.1); Protein, Total 6.6 g/dL (6.4-8.2); Sodium Level 140 mmol/L (136-145); Thyroid Stim Hormone (TSH) 2.46 uIU/mL (0.358-3.74)
== END ==
PROVIDERS: PCP Family Medicine Geriatric Medicine; Visit Provider Family Medicine Geriatric Medicine
DX: E55.9 Vitamin D deficiency, unspecified (principal); I10 Essential (primary) hypertension
CPT/HCPCS: 36415; 80053; 82306; 84443; 85025

== ENCOUNTER → 2020-04-02 15:16 | Outpatient (CLI) | payer MEDICARE, OTHER, SELFPAY ==
[2019-10-15 09:15] VITALS: BMI 22.6
[2020-04-02 18:05] LABS: Absolute Lymphocyte Count 1.22 X10^3/uL (0.83-4.51); Absolute Neutrophil Count 4.6 X10^3/uL (2.0-7.7); Basophil# 0.05 X10^3/uL; Basophil% 0.8 % (0-1); Eosinophil# 0.15 X10^3/uL; Eosinophils% 2.3 % (0-5); Hematocrit 37.8 % (37-47); Hemoglobin 12.3 g/dL (12.0-15.0); Lymphocyte # 1.22 X10^3/ul (4.0); Lymphocyte % 18.5 % (19-41); Mean Corp Hgb Conc 32.5 g/dL (32-36); Mean Corpuscular Hgb 30.2 pg (27.0-32.0); Mean Corpuscular Volume 92.9 fL (81-99); Mean Platelet Vol. 10.3 fl (6.2-12.0); Monocyte# 0.59 X10^3/uL; NRBC Flagged by Analyzer 0 % (0-5); Neutrophil # 4.55 X10^3/uL (2.7-7.7); Neutrophil % 69.1 % (47-70); Platelet Count 242 K/mm3 (150-450); RBC Distribution Width SD 44.2 fl (35.1-43.9); Red Blood Count 4.07 M/mm3 (4.2-5.4); White Blood Count 6.6 K/mm3 (4.4-11.0)
[2020-04-02 18:20] LABS: AST(SGOT) 29 U/L (15-37); Alanine Aminotransfer ALT/SGPT 28 U/L (13-56); Albumin, Serum 3.6 g/dL (3.2-5.0); Alkaline Phosphatase 69 U/L (45-117); Anion Gap 3 (5-15); BUN 21 mg/dL (7-18); BUN/Creat Ratio 18.8 RATIO (10-20); Calcium,Total 8.7 mg/dL (8.5-10.1); Chloride 104 mmol/L (98-107); Creatinine, Serum 1.12 mg/dL (0.55-1.02); EST Glomerular Filtration Rate 50 mL/min (>60); Est Glom Filt Rate - Afr Amer 60 mL/min (>60); Globulin 3.5 g/dL (2.2-4.2); Glucose 114 mg/dL (74-106); Potassium 4.2 mmol/L (3.5-5.1); Protein, Total 7.1 g/dL (6.4-8.2); Sodium Level 138 mmol/L (136-145)
== END ==
PROVIDERS: PCP Family Medicine Geriatric Medicine; Referring Provider Internal Medicine Rheumatology; Visit Provider Internal Medicine Rheumatology
DX: L40.59 Other psoriatic arthropathy (principal); M35.00 Sjogren syndrome, unspecified; L40.9 Psoriasis, unspecified; M15.9 Polyosteoarthritis, unspecified; K76.0 Fatty (change of) liver, not elsewhere classified; M48.061 Spinal stenosis, lumbar region without neurogenic claudication; I10 Essential (primary) hypertension; E03.9 Hypothyroidism, unspecified; F32.89 Other specified depressive episodes; I25.10 Atherosclerotic heart disease of native coronary artery without angina pectoris; M47.892 Other spondylosis, cervical region; G20 Parkinson's disease
CPT/HCPCS: 36415; 80053; 85025

== ENCOUNTER → 2020-04-30 16:34 | Outpatient (CLI) | payer MEDICARE, OTHER, SELFPAY ==
[2019-10-15 09:15] VITALS: BMI 22.6
[2020-04-30 16:58] LABS: Absolute Lymphocyte Count 1.06 X10^3/uL (0.83-4.51); Absolute Neutrophil Count 4.3 X10^3/uL (2.0-7.7); Basophil# 0.04 X10^3/uL; Basophil% 0.7 % (0-1); Eosinophil# 0.16 X10^3/uL; Eosinophils% 2.6 % (0-5); Hematocrit 36.8 % (37-47); Hemoglobin 11.9 g/dL (12.0-15.0); Lymphocyte # 1.06 X10^3/ul (4.0); Lymphocyte % 17.2 % (19-41); Mean Corp Hgb Conc 32.3 g/dL (32-36); Mean Corpuscular Hgb 30.1 pg (27.0-32.0); Mean Corpuscular Volume 92.9 fL (81-99); Mean Platelet Vol. 10.2 fl (6.2-12.0); Monocyte# 0.58 X10^3/uL; Monocyte% 9.4 % (0-10); NRBC Flagged by Analyzer 0 % (0-5); Neutrophil % 69.9 % (47-70); Platelet Count 201 K/mm3 (150-450); RBC Distribution Width CV 13.2 % (11.6-14.6); RBC Distribution Width SD 44.7 fl (35.1-43.9); Red Blood Count 3.96 M/mm3 (4.2-5.4); White Blood Count 6.2 K/mm3 (4.4-11.0)
[2020-04-30 17:26] LABS: AST(SGOT) 26 U/L (15-37); Alanine Aminotransfer ALT/SGPT 29 U/L (13-56); Albumin, Serum 3.2 g/dL (3.2-5.0); Alkaline Phosphatase 65 U/L (45-117); Anion Gap 3 (5-15); BUN 22 mg/dL (7-18); BUN/Creat Ratio 23.7 RATIO (10-20); CPK Total, Creatine Kinase 111 U/L (26-192); Calcium,Total 8.2 mg/dL (8.5-10.1); Chloride 111 mmol/L (98-107); Creatinine, Serum 0.93 mg/dL (0.55-1.02); EST Glomerular Filtration Rate 61 mL/min (>60); Est Glom Filt Rate - Afr Amer 74 mL/min (>60); Globulin 3.3 g/dL (2.2-4.2); Glucose 86 mg/dL (74-106); Protein, Total 6.5 g/dL (6.4-8.2); Sodium Level 142 mmol/L (136-145); Thyroid Stim Hormone (TSH) 3.13 uIU/mL (0.358-3.74)
[2020-05-02 06:16] LABS: Myoglobin, Serum 40 ng/mL (25-58)
== END ==
PROVIDERS: PCP Family Medicine Geriatric Medicine; Visit Provider Family Medicine Geriatric Medicine
DX: R53.83 Other fatigue (principal); R07.9 Chest pain, unspecified
CPT/HCPCS: 36415; 80053; 82550; 83874; 84443; 84484; 85025; 87086

== ENCOUNTER → 2020-04-30 17:47 | Outpatient (CLI) | payer MEDICARE, OTHER, SELFPAY ==
[2019-10-15 09:15] VITALS: BMI 22.6
--- NOTE | 2020-04-30 17:55 | CT_ITS ---
STUDY: CT BRAIN WITHOUT CONTRAST REASON FOR EXAM: Female, 84 years old. memory loss RADIATION DOSAGE (If Supplied By Facility): CTDIvol = ( 44.99 ) mGy, DLP = ( 832.67 ) mGycm TECHNIQUE: Transaxial CT imaging of the brain was performed without administration of intravenous contrast material. Individualized dose optimization techniques were used for this CT. COMPARISON: 10/01/2019. FINDINGS: Normal soft tissue structures. Normal calvarium. Calcification of cavernous carotids Moderate atrophy and periventricular white matter ischemic changes.. Normal basal ganglia and thalami. Normal brainstem. Normal cerebellum. There is no intracranial hemorrhage. There are no findings of an acute ischemic infarction. Postsurgical changes of the orbits. Normal visualized paranasal sinuses. No significant change since prior study CT/Brain/Head without Contrast IMPRESSION: Moderate atrophy and periventricular white matter ischemic change.. No evidence for acute bleed. If concern for acute infarct MRI recommended. Electronically Signed: Kenyon De Paz MD at 18:32 EDT , Service support ,
== END ==
PROVIDERS: PCP Family Medicine Geriatric Medicine; Visit Provider Family Medicine Geriatric Medicine
DX: R40.0 Somnolence (principal); R53.83 Other fatigue; R07.9 Chest pain, unspecified
CPT/HCPCS: 36415; 70450; 80053; 82550; 83874; 84443; 84484; 85025; 87086; 87088; 87186

== ENCOUNTER → 2020-06-22 13:05 | Outpatient (CLI) | payer MEDICARE, OTHER, SELFPAY ==
[2019-10-15 09:15] VITALS: BMI 22.6
[2020-06-22 15:11] LABS: Absolute Lymphocyte Count 1.43 X10^3/uL (0.83-4.51); Absolute Neutrophil Count 4.6 X10^3/uL (2.0-7.7); Basophil# 0.05 X10^3/uL; Basophil% 0.7 % (0-1); Eosinophil# 0.16 X10^3/uL; Eosinophils% 2.3 % (0-5); Hematocrit 38.6 % (37-47); Hemoglobin 12.2 g/dL (12.0-15.0); Lymphocyte # 1.43 X10^3/ul (4.0); Lymphocyte % 20.5 % (19-41); Mean Corp Hgb Conc 31.6 g/dL (32-36); Mean Corpuscular Hgb 29.8 pg (27.0-32.0); Mean Corpuscular Volume 94.1 fL (81-99); Mean Platelet Vol. 10.7 fl (6.2-12.0); Monocyte# 0.67 X10^3/uL; Monocyte% 9.6 % (0-10); NRBC Flagged by Analyzer 0 % (0-5); Neutrophil # 4.63 X10^3/uL (2.7-7.7); Neutrophil % 66.5 % (47-70); Platelet Count 208 K/mm3 (150-450); RBC Distribution Width CV 13.1 % (11.6-14.6)
[2020-06-22 15:38] LABS: Vitamin D,25 Hydroxy 64.4 ng/mL
[2020-06-22 16:07] LABS: AST(SGOT) 31 U/L (15-37); Alanine Aminotransfer ALT/SGPT 35 U/L (13-56); Albumin, Serum 3.5 g/dL (3.2-5.0); Alkaline Phosphatase 76 U/L (45-117); Anion Gap 4 (5-15); BUN 19 mg/dL (7-18); BUN/Creat Ratio 17.8 RATIO (10-20); Calcium,Total 8.9 mg/dL (8.5-10.1); Chloride 102 mmol/L (98-107); Creatinine, Serum 1.07 mg/dL (0.55-1.02); EST Glomerular Filtration Rate 52 mL/min (>60); Est Glom Filt Rate - Afr Amer 63 mL/min (>60); Globulin 3.5 g/dL (2.2-4.2); Glucose 85 mg/dL (74-106); Potassium 4.6 mmol/L (3.5-5.1); Sodium Level 136 mmol/L (136-145); Thyroid Stim Hormone (TSH) 2.93 uIU/mL (0.358-3.74)
== END ==
PROVIDERS: PCP Family Medicine Geriatric Medicine; Visit Provider Family Medicine Geriatric Medicine
DX: E55.9 Vitamin D deficiency, unspecified (principal); I10 Essential (primary) hypertension
CPT/HCPCS: 36415; 80053; 82306; 84443; 85025

== ENCOUNTER → 2020-09-22 14:22 | Outpatient (CLI) | payer MEDICARE, OTHER, SELFPAY ==
[2020-07-08 13:41] VITALS: BMI 24.0
--- NOTE | 2020-09-22 14:50 | RAD_ITS ---
STUDY: X-RAY - ABDOMEN/PELVIS REASON FOR EXAM: Female, 84 years old patient with abdominal pain. TECHNIQUE: AP supine and upright views of the abdomen and pelvis. COMPARISON: CT of abdomen and pelvis dated 09/29/2015. FINDINGS: Normal visualized lung bases. There is an unremarkable bowel gas pattern. Surgical clips are visible in the right upper quadrant. There is no obvious organomegaly, mass, dilated bowel or pathologic calcifications. Normal soft tissue structures. There is mild curvature of the thoracic and lumbar spine with convexity towards the left. There are mild degenerative changes of the spine and both hips. RAD/Abd Inc Decub and/or Erect IMPRESSION: No radiographic evidence of acute intra-abdominal disease. Electronically Signed: Yudi Zavaleta MD at 4:02 EST , Service support ,
[2020-09-22 17:17] LABS: Absolute Lymphocyte Count 1.54 X10^3/uL (0.83-4.51); Absolute Neutrophil Count 4.4 X10^3/uL (2.0-7.7); Basophil# 0.05 X10^3/uL; Basophil% 0.7 % (0-1); Eosinophil# 0.13 X10^3/uL; Eosinophils% 1.9 % (0-5); Hematocrit 38.8 % (37-47); Hemoglobin 12.4 g/dL (12.0-15.0); Lymphocyte # 1.54 X10^3/ul (4.0); Lymphocyte % 22.2 % (19-41); Mean Corpuscular Volume 93.7 fL (81-99); Mean Platelet Vol. 10.7 fl (6.2-12.0); Monocyte# 0.76 X10^3/uL; NRBC Flagged by Analyzer 0 % (0-5); Neutrophil # 4.42 X10^3/uL (2.7-7.7); Neutrophil % 63.8 % (47-70); Platelet Count 239 K/mm3 (150-450); RBC Distribution Width CV 13.2 % (11.6-14.6); RBC Distribution Width SD 45.5 fl (35.1-43.9); Red Blood Count 4.14 M/mm3 (4.2-5.4); White Blood Count 6.9 K/mm3 (4.4-11.0)
[2020-09-22 17:36] LABS: Vitamin D,25 Hydroxy 91.8 ng/mL
[2020-09-22 17:46] LABS: ALB/GLOB Ratio 1.1 RATIO (0.9-2.4); AST(SGOT) 31 U/L (15-37); Alanine Aminotransfer ALT/SGPT 32 U/L (13-56); Albumin, Serum 3.8 g/dL (3.2-5.0); Alkaline Phosphatase 79 U/L (45-117); Anion Gap 5 (5-15); BUN 19 mg/dL (7-18); Calcium,Total 9.2 mg/dL (8.5-10.1); Chloride 104 mmol/L (98-107); Creatinine, Serum 1.12 mg/dL (0.55-1.02); EST Glomerular Filtration Rate 49 mL/min (>60); Est Glom Filt Rate - Afr Amer 60 mL/min (>60); Globulin 3.6 g/dL (2.2-4.2); Glucose 92 mg/dL (74-106); Potassium 4.1 mmol/L (3.5-5.1); Protein, Total 7.4 g/dL (6.4-8.2); Sodium Level 138 mmol/L (136-145); Thyroid Stim Hormone (TSH) 1.91 uIU/mL (0.358-3.74)
== END ==
PROVIDERS: PCP Family Medicine Geriatric Medicine; Referring Provider Family Medicine Geriatric Medicine; Visit Provider Family Medicine Geriatric Medicine
DX: R10.9 Unspecified abdominal pain (principal); I10 Essential (primary) hypertension; E55.9 Vitamin D deficiency, unspecified
CPT/HCPCS: 36415; 74019; 80053; 82306; 84443; 85025

== ENCOUNTER → 2020-10-01 12:24 | Outpatient (CLI) | payer MEDICARE, OTHER, SELFPAY ==
[2020-07-08 13:41] VITALS: BMI 24.0
[2020-10-01 15:08] LABS: Absolute Lymphocyte Count 0.98 X10^3/uL (0.83-4.51); Absolute Neutrophil Count 4.6 X10^3/uL (2.0-7.7); Basophil# 0.04 X10^3/uL; Basophil% 0.6 % (0-1); Eosinophil# 0.08 X10^3/uL; Eosinophils% 1.3 % (0-5); Hematocrit 37.7 % (37-47); Hemoglobin 12.1 g/dL (12.0-15.0); Lymphocyte # 0.98 X10^3/ul (4.0); Lymphocyte % 15.5 % (19-41); Mean Corp Hgb Conc 32.1 g/dL (32-36); Mean Corpuscular Hgb 30.3 pg (27.0-32.0); Mean Corpuscular Volume 94.5 fL (81-99); Mean Platelet Vol. 10.7 fl (6.2-12.0); Monocyte% 9.5 % (0-10); NRBC Flagged by Analyzer 0 % (0-5); Neutrophil % 72.6 % (47-70); Platelet Count 226 K/mm3 (150-450); RBC Distribution Width CV 13.3 % (11.6-14.6); RBC Distribution Width SD 46.5 fl (35.1-43.9); Red Blood Count 3.99 M/mm3 (4.2-5.4); White Blood Count 6.3 K/mm3 (4.4-11.0)
[2020-10-01 15:56] LABS: ALB/GLOB Ratio 1.1 RATIO (0.9-2.4); AST(SGOT) 38 U/L (15-37); Alanine Aminotransfer ALT/SGPT 38 U/L (13-56); Albumin, Serum 3.7 g/dL (3.2-5.0); Alkaline Phosphatase 78 U/L (45-117); Anion Gap 6 (5-15); BUN 18 mg/dL (7-18); BUN/Creat Ratio 17.6 RATIO (10-20); Chloride 108 mmol/L (98-107); Creatinine, Serum 1.02 mg/dL (0.55-1.02); EST Glomerular Filtration Rate 55 mL/min (>60); Est Glom Filt Rate - Afr Amer 67 mL/min (>60); Globulin 3.4 g/dL (2.2-4.2); Glucose 97 mg/dL (74-106); Protein, Total 7.1 g/dL (6.4-8.2); Sodium Level 140 mmol/L (136-145)
== END ==
PROVIDERS: PCP Family Medicine Geriatric Medicine; Referring Provider Internal Medicine Rheumatology; Visit Provider Internal Medicine Rheumatology
DX: L40.59 Other psoriatic arthropathy (principal); M35.00 Sjogren syndrome, unspecified; L40.9 Psoriasis, unspecified; M15.9 Polyosteoarthritis, unspecified; K76.0 Fatty (change of) liver, not elsewhere classified; M48.061 Spinal stenosis, lumbar region without neurogenic claudication; I10 Essential (primary) hypertension
CPT/HCPCS: 36415; 80053; 85025

== ENCOUNTER 2020-11-04 10:33 | Observation (INO) | payer MEDICARE, OTHER, SELFPAY ==
[2020-10-15 09:51] VITALS: BMI 23.6
[2020-11-04] VITALS (11 sets, daily range): BP systolic 102–147; BP diastolic 36–75; PULSE 71–98; RESP 16–19; TEMP 36.5–37.1; O2SAT 95–100; BMI 25.1; BMI 24.3
--- NOTE | 2020-11-04 10:48 | EKG12_ITS ---
Test Reason : CHEST PAIN Blood Pressure : / mmHG Vent. Rate : 077 BPM Atrial Rate : 077 BPM P-R Int : 136 ms QRS Dur : 082 ms QT Int : 422 ms P-R-T Axes : 063 054 062 degrees QTc Int : 477 ms Poor data quality, interpretation may be adversely affected Sinus rhythm with Premature atrial complexes Otherwise normal ECG Confirmed by WENDI JOHNSON, DIETER ([id number]), senior editor CAITLIN AGOSTO ([id number]) on 11/06/2020 2:38:12 PM Referred By: APOORVA Confirmed By:SETH ADAME MD
--- NOTE | 2020-11-04 10:48 | RAD_ITS ---
STUDY: X-RAY CHEST REASON FOR EXAM: Female, 84 years old. chest pain TECHNIQUE: Single AP portable view of the chest. COMPARISON: None. FINDINGS: The lungs are clear and expanded. There is no demonstrated pleural abnormality. Normal size heart. Normal mediastinum and sharon. Normal visualized pulmonary arteries. Normal visualized aortic arch and descending thoracic aorta. Normal visualized thoracic spine. There is degenerative osteoarthritis of the bilateral shoulders. There is no demonstrated abnormality of the visualized soft tissue structures of the upper abdomen. RAD/Chest 1 View (Portable) IMPRESSION: Degenerative changes, as described above. No demonstrated acute cardiopulmonary process. Electronically Signed: Sea Gay MD at 12:05 EDT Tel , Service support ,
[2020-11-04 10:58] LABS: Absolute Lymphocyte Count 1.63 X10^3/uL (0.83-4.51); Absolute Neutrophil Count 5.5 X10^3/uL (2.0-7.7); Basophil# 0.04 X10^3/uL; Basophil% 0.5 % (0-1); Eosinophil# 0.16 X10^3/uL; Hematocrit 38.4 % (37-47); Hemoglobin 12.6 g/dL (12.0-15.0); Lymphocyte # 1.63 X10^3/ul (4.0); Lymphocyte % 20.3 % (19-41); Mean Corp Hgb Conc 32.8 g/dL (32-36); Mean Corpuscular Hgb 30.1 pg (27.0-32.0); Mean Corpuscular Volume 91.6 fL (81-99); Mean Platelet Vol. 10.4 fl (6.2-12.0); Monocyte# 0.67 X10^3/uL; Monocyte% 8.3 % (0-10); NRBC Flagged by Analyzer 0 % (0-5); Neutrophil # 5.52 X10^3/uL (2.7-7.7); Neutrophil % 68.7 % (47-70); Platelet Count 203 K/mm3 (150-450); RBC Distribution Width CV 13.1 % (11.6-14.6); RBC Distribution Width SD 43.4 fl (35.1-43.9); Red Blood Count 4.19 M/mm3 (4.2-5.4)
[2020-11-04 11:07] LABS: D-Dimer Quantitative (DVT/PE) 0.82 FEU/ug/m (0.27-0.49)
[2020-11-04] MEDS: Morphine 4 MG/ML Syringe 2 MG IV (11:10)
[2020-11-04] MEDS: Ondansetron 4 MG/2 ML Vial IV (11:10)
[2020-11-04 11:11] LABS: Anion Gap 3 (5-15); BUN 19 mg/dL (7-18); BUN/Creat Ratio 17.3 RATIO (10-20); Calcium,Total 9.3 mg/dL (8.5-10.1); Chloride 109 mmol/L (98-107); EST Glomerular Filtration Rate 50 mL/min (>60); Est Glom Filt Rate - Afr Amer 61 mL/min (>60); Estimated Creatinine Clearance 34.05 ml/min; Glucose 101 mg/dL (74-106); Potassium 3.9 mmol/L (3.5-5.1); Sodium Level 139 mmol/L (136-145)
--- NOTE | 2020-11-04 13:30 | PCM.HP.STD ---
Problem List (1) Chest pain Status: Acute Qualifiers: Chest pain type: unspecified Qualified Code(s): R07.9 - Chest pain, unspecified (2) HTN (hypertension) Status: Chronic Qualifiers: Hypertension type: essential hypertension Qualified Code(s): I10 - Essential (primary) hypertension (3) Anxiety and depression Status: Chronic (4) Dementia Status: Chronic Qualifiers: Dementia type: unspecified type Dementia behavioral disturbance: without behavioral disturbance Qualified Code(s): F03.90 - Unspecified dementia without behavioral disturbance (5) Atherosclerosis of coronary artery of [place] heart without angina pectoris Status: Chronic Qualifiers: Coronary Disease-Associated Artery/Lesion type: unspecified vessel or lesion type Qualified Code(s): I25.10 - Atherosclerotic heart disease of [place] coronary artery without angina pectoris (6) TIA (transient ischemic attack) Status: Chronic Qualifiers: Transient cerebral ischemia type: unspecified Qualified Code(s): G45.9 - Transient cerebral ischemic attack, unspecified (7) Hyperlipemia Status: Chronic Qualifiers: Hyperlipidemia type: pure hypercholesterolemia Qualified Code(s): E78.00 - Pure hypercholesterolemia, unspecified; E78.0 - Pure hypercholesterolemia History of Present Illness Date of Admission: 11/04/20 Chief Complaint: Chest pain The patient is a 84 y/o F w/ PMHx: CAD s/p PCI diag and LAD, Hx DVT RLE s/p knee replacement, HTN, HLD, Hypothyroidism, Hx TIA, Dementia unclear type with unclear behavioral disturbance history, Anxiety and Depression, Psoriatic arthritis who presents to the [facility] ED on 11/04/20 with history of onset chest pain at approximately 8:45 AM while seated watching television, specifically a new show she notes with sudden onset left-sided sharp stabbing chest pain described as 10 out of 10 in severity although noted to be intermittent with dyspnea associated when occurring, 7 out of 10 in severity upon arrival and upon evaluation 0-10 however reproducible with palpation although not as severe with self administration EMS also administration nitroglycerin with no relief prompting ED evaluation. Patient notes no specific alteration activity or any recent strain. Patient is extremely anxious that this is possibly cardiac in nature. Work-up in the ED included T 98.3, heart 78, BP 139/75, respiratory rate 19, on her percent on room air, CBC with WBC 8, hemoglobin 12.6, platelet 2 3 without marked shift, D-dimer 0.82 which is age-appropriate, troponin 0.016, EKG with SR with no acute evidence of ischemia, difficult to obtain given underlying frequent movement. In the ED patient ministered Zofran, morphine. Past Medical History Past Medical History (Chronic Problems): Chronic Problems (Last Reviewed 10/15/20 @ 10:[address] Ruddy Howard MD) HTN (hypertension) (Chronic) Anxiety and depression (Chronic) Dementia (Chronic) Atherosclerosis of coronary artery of [place] heart without angina pectoris (Chronic) TIA (transient ischemic attack) (Chronic 01/2015) Hyperlipemia (Chronic) Medical History: Medical History (Last Reviewed 10/15/20 @ 10:[address] 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 Skin cancer C44.90 Deep vein blood clot of right lower extremity Onset Date: 09/2013 I82.401 s/p knee replacement Angina pectoris (Inactive) I20.9 Tachycardia (Inactive) R00.0 Allergies amlodipine Allergy (Verified 10/15/20 09:51) Swelling amlodipine besylate [From Norvasc] Allergy (Verified 10/15/20 09:51) Other amoxicillin [Amoxicillin] Allergy (Verified 10/15/20 09:51) Rash enalapril maleate [From Vasotec] Allergy (Verified 10/15/20 09:51) Other enalaprilat dihydrate [From Vasotec] Allergy (Verified 10/15/20 09:51) Other Iodinated Contrast Media [Iodinated Contrast Media - IV Dye] Allergy (Verified 10/15/20 09:51) Other lisinopril Allergy (Verified 10/15/20 09:51) Other ranolazine [From Ranexa] Allergy (Verified 10/15/20 09:51) Unknown Sulfa (Sulfonamide Antibiotics) Allergy (Verified 10/15/20 09:51) Swelling Home Medications: Ambulatory Orders Medication Instructions Recorded Nitroglycerin (INPATIENT USE) 0.4 mg SUBLINGUAL Q5M PRN 08/21/15 [Nitrostat] Ergocalciferol [Vitamin D] 50,000 unit PO SA 10/18/16 famotidine 40 mg tablet 40 mg PO QDAY tab 09/11/17 escitalopram oxalate 10 mg tablet 10 mg PO DAILY 10/15/19 levothyroxine 75 mcg tablet 75 mcg PO DAILY 10/15/19 clopidogrel 75 mg tablet 75 mg PO DAILY #90 tab 01/03/20 memantine 10 mg tablet 10 mg PO BID 07/08/20 Apremilast [Otezla] 30 mg PO DAILY 11/04/20 Atorvastatin Calcium [Lipitor] 40 mg PO QHS 11/04/20 Biotin 5,000 mcg PO DAILY 11/04/20 Galantamine Hbr [Razadyne] 8 mg PO DAILY 11/04/20 Isosorbide Mononitrate [Isosorbide 30 mg PO BID 11/04/20 Mononitrate ER] Magnesium Oxide [Magnesium Oxide 240 mg PO DAILY 11/04/20 400] Metoprolol Succinate [Toprol Xl] 12.5 mg PO DAILY 11/04/20 Surgical History: Surgical History (Last Reviewed 10/15/20 @ 10:[address] Ruddy Howard MD) History of percutaneous transluminal coronary angioplasty (Resolved) Onset Date: 1995 Z.61 PTCA Diagonal Branch 1995 in [facility] [place]; PTCA of LAD July 1991 H/O: knee surgery Onset Date: 09/2013 Z98.890 History of appendectomy Z90.49 History of hysterectomy Z90.710 History of left heart catheterization Onset Date: 08/24/15 Z98.890 2006, 07/04/2012, 08/30/2015 History of tonsillectomy and adenoidectomy Z98.890 Hx of cholecystectomy Z90.49 Surgical History: angioplasty - 1991, 1995, appendectomy - 1952, cholecystectomy - 1992, hysterectomy - 1978, - - cervical fusion 2001 Psychiatric History: Anxiety, Depression 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 Smoking Status: Former smoker Tobacco Use: Non-smoker Alcohol: None Drugs: None - *Family History Maternal Family History: Family History (Last Reviewed 10/15/20 @ 10:[address] Ruddy Howard MD) Father CVA (cerebral vascular accident) Mother Heart disease CVA (cerebral vascular accident) Hypertension Sister Diabetes History Items: High Cholesterol, Heart Disease, Hypertension, Stroke Paternal Family History: Family History (Last Reviewed 10/15/20 @ 10:[address] Ruddy Howard MD) Father CVA (cerebral vascular accident) Mother Heart disease CVA (cerebral vascular accident) Hypertension Sister Diabetes History Items: Hypertension, Stroke Review of Systems Constitutional: Reports: Fatigue. Denies: Anorexia, Chills, Fever, Malaise, Weakness, Weight Change HEENT: Denies: Head Aches, Sinus Congestion, Sinus Drainage Cardiovascular: Reports: Chest Pain. Denies: Chest Pressure, Chest Tightness, Light Headedness, Orthopnea, Palpitations, Syncope Respiratory: Reports: Shortness of Breath. Denies: Cough, Shortness of breath at rest, Shortness of breath upon exertion, Sputum production Gastrointestinal: Denies: Abdominal Pain, Nausea, Vomiting Genitourinary: Denies: Dysuria Musculoskeletal: Reports: Back Pain, Joint Pain. Denies: Joint Tenderness Skin: Denies: Rash, Wounds Neurological: Denies: Numbness, Tingling, Focal weakness Psychiatric: Reports: Anxiety, Depression. Denies: Homicidal Ideations, Suicidal Ideations Hematologic/ Lymphatic: Reports: Easy Bruising, Easy Bleeding VTE Information - Inpt Only VTE Present on Admission: No VTE Mechan Device Prophylaxis: SCD's VTE Pharm Prophylaxis ordered?: Yes Patient Problems: Active and Suspected Problems (Last Reviewed 10/15/20 @ 10:[address] Ruddy Howard MD) Chest pain (Acute) Subjective: Patient seated upright in ED bed, mildly fatigued, denies any current chest pain but upon palpation does report recurrence, reproducible to some degree. Objective: Physical Examination: General: awake, alert, oriented x 3 and cooperative, seated upright in the ED bed in no apparent distress initially but with palpation does complain of some left-sided chest discomfort. Skin: normal color, turgor, no icterus, cyanosis. HEENT: AT/NC, EOMI, PERRLA, mildly dry MM, no carotid bruits or JVD noted. Lungs: Diminished breath sounds bases, moderate effort, no evidence of any distress, no rales, ronchi or wheezing. Heart: Regular rate and rhythm; no gallop, rub audible, +SM, some mild reproducible discomfort with palpation of the left side of the chest. Abdomen: soft, NTTP, ND, normal BS, no HSM. Extremities: no cyanosis, clubbing, or edema. Neurological: patient awake, alert, oriented as noted; cognitive function intact; pupils equally reactive to light and accomodation; cranial nerves II-XII grossly normal, moving all 4 extremities, no focal deficits, strength mildly to moderately global decrease secondary to acute presentation and suspected chronic debility. Psychiatric: affect appears mildly anxious otherwise normal, no acute evidence of depressive feelings. - Physical Exam Vitals/I&O's: Vital Signs Temp Pulse Resp BP Pulse Ox 98.3 F 71 17 127/65 H 99 11/04/20 10:34 11/04/20 12:44 11/04/20 12:44 11/04/20 12:44 11/04/20 12:44 Oxygen Delivery Method Room Air Weight: 146 lb 6.191 oz Body Mass Index (BMI) 25.1 Laboratory Results 11/04/20 10:40: WBC 8.0, RBC 4.19 L, Hgb 12.6, Hct 38.4, MCV 91.6, MCH 30.1, MCHC 32.8, RDW Std Deviation 43.4, RDW Coeff of Tal 13.1, Plt Count 203, MPV 10.4, Immature Gran % (Auto) 0.200, Neut % (Auto) 68.7, Lymph % (Auto) 20.3, [place] % (Auto) 8.3, Eos % (Auto) 2.0, Baso % (Auto) 0.5, Absolute Neuts (auto) 5.5, Absolute Lymphs (auto) 1.63, Nucleated RBC % 0 11/04/20 10:40: D-Dimer Quant (PE/DVT) 0.82 H* 11/04/20 10:40: Sodium 139, Potassium 3.9, Chloride 109 H, Carbon Dioxide 27.0, Anion Gap 3 L, BUN 19 H, Creatinine 1.10 H, Estim Creat Clear Calc 34.05, Est GFR (MDRD) Af Amer 61, Est GFR (MDRD) Non-Af 50 L, BUN/Creatinine Ratio 17.3, Glucose 101, Calcium 9.3, Troponin I 0.016 Assessment/Plan All Active Problems (Last Reviewed 10/15/20 @ 10:[address] Ruddy Howard MD) Chest pain (Acute) History of percutaneous transluminal coronary angioplasty (Resolved 1995) The patient is a 84 y/o F w/ PMHx: CAD s/p PCI diag and LAD, Hx DVT RLE s/p knee replacement, HTN, HLD, Hypothyroidism, Hx TIA, Dementia unclear type with unclear behavioral disturbance history, Anxiety and Depression, Psoriatic arthritis who presents to the [facility] ED on 11/04/20 with history of onset chest pain at approximately 8:45 AM while seated watching television, specifically a new show she notes with sudden onset left-sided sharp stabbing chest pain. 1. Chest Pain, lower suspicion for cardiac etiology, suspect musculoskeletal but significant underlying cardiac disease and risk factors: EKG in ED with sinus rhythm with no acute evidence of ischemia, CXR w/ no acute cardiopulmonary findings, initial trop 0.016. Will admit to PCU, place on a monitored bed to assure no acute myocardial infarction with serial cardiac enzymes and EKGs. Given D-dimer is age-appropriate will defer any CTPA. If cardiac enzymes and repeat EKGs remain unremarkable will pursue a.m. cardiac stress testing. Mag pending. FLP in AM. ASA, NG, morphine. 2. CAD: Status post PCI diagonal as well as LAD, will continue aspirin, Plavix, metoprolol regimen, patient not on ALICIA inhibitor or ARB. 3. Anxiety and depression: We will continue patient home escitalopram regimen. 4. Hypertension: Continue home regimen including isosorbide, metoprolol with hold parameters, PRN hydralazine. 5. Hyperlipidemia: Continue home statin regimen. AM FLP. 6. Dementia unclear type with unclear behavioral disturbance history: Family unaware of type, we will continue patient home memantine and galantamine regimen, maintain on fall precautions. 7. GERD: We will continue patient home famotidine regimen. 8. History TIA: We will continue patient aspirin, Plavix, statin, hypertensive regimen. 9. Psoriatic Arthritis: Patient on apremilast, will continue, encourage outpatient continued follow-up. 10. Hypothyroidism: Continue home synthroid regimen. 11. DVT prophylaxis: SCDs, Lovenox. 12. CODE status: Patient AB is her eldest son Daniel and living will is currently in place however her [id number] who is present and herself discussed that they have actually never discussed CODE STATUS. Discussed CODE status at length including difference between FULL code, DNR-CCA and DNR-CC status. Following discussions about the differences in these status, requested Full Code status especially until family and herself have discussions regarding these items which was encouraged. Advanced Care Planning Face to Face Time: 16 minutes. OBSV E&M: 32028 Initial observation care L3 Procedures: 86611 Advncd Care Plan 30 Min
--- NOTE | 2020-11-04 13:43 | ED.DCSUM_ITS ---
- ER Visit Summary Date of Service: 11/04/20 Chief Complaint: Chest pain History of Present Illness: The patient is a [address] Newsome and Dr. Howard. She reports today 47 this morning while at rest she had the onset of a left-sided chest pain that she describes as sharp. No radiation. She states th at it is 10 of 10 worsened 7-10 currently. Worsened by nothing. Also relieved by nothing including nitroglycerin. She does report made her short of breath. She denies any nausea, vomiting, or diaphoresis. Physical Examination: Vitals: Stable. Afebrile. General: Well-nourished and well-developed. Head: Normocephalic atraumatic. Neck: Supple, no lymphadenopathy. No JVD. Nontender. Cardiovascular: Regular rate and rhythm. 2 out of 6 systolic murmur. Respiratory: No respiratory distress. Clear to auscultation bilaterally. Abdominal: Soft, nontender, nondistended, normal bowel sounds. No guarding, rebound, or peritoneal signs. Back: Nontender. Extremities: Nontender, no edema. Skin: Normal color, no rash. Neurologic: Alert and oriented ?3. Cranial nerves II through XII are intact. Normal strength and sensation. Psych: Normal affect. Test Results: EKG is sinus at [address] changes and artifact in lead V6. It is unchanged from last month. Troponin 0 0.016. D-dimer is negative when corrected for age. Chem-7 shows a chloride of 109, BUN 19, creatinine 1.1. CBC is normal. Clinical Impression(s) from Imaging Studies Chest X-Ray 11/04/20 10:48 IMPRESSION: Degenerative changes, as described above. No demonstrated acute cardiopulmonary process. Electronically Signed: Sea Gay MD at 12:05 EDT Tel , Service support , Emergency Department Course and Treatment: Patient was given aspirin by EMS. This was not repeated. She was given morphine and Zofran IV. She is resting comfortably. Treatment Plan: Patient does have a history of coronary artery disease and had angioplasty of her circumflex in 1989 and again in 1991. She had a heart catheterization in 2015 that did not require any stents. She has not had a stress test since. She was discussed with Dr. Adams and will be admitted to hospital for further evaluation and treatment. Disposition: Admitted in improved condition. Impression: 1. Chest pain. 2. Heart score of 6. This note was generated with [employer] dictation software. It may contain incorrect words, spelling, and punctuation that were not noted in review of the chart prior to signing ED Disposition - Plan for ED Patient: Referrals: Matty Newsome Chi, MD [Primary Care Provider] -
--- NOTE | 2020-11-04 14:45 | EKG12_ITS ---
Test Reason : CP Blood Pressure : / mmHG Vent. Rate : 075 BPM Atrial Rate : 073 BPM P-R Int : 152 ms QRS Dur : 078 ms QT Int : 376 ms P-R-T Axes : 068 044 066 degrees QTc Int : 419 ms Sinus rhythm with Premature atrial complexes Confirmed by OLGA JOHNSON, CATHI ([id number]), editor publications DENISHA PATEL ([id number]) on 11/12/2020 11:23:56 AM Referred By: MARK Confirmed By:CATHI ESPINOZA MD
[2020-11-04 15:03] LABS: Magnesium 2.3 mg/dL (1.6-2.6)
[2020-11-04] MEDS: Atorvastatin Calcium 40 MG Tablet PO (20:48)
[2020-11-04] MEDS: Memantine Hydrochloride 10 MG Tablet PO (20:49)
[2020-11-04] MEDS: Galantamine Hydrobromide 4 MG Tablet PO (20:49)
[2020-11-04] MEDS: Isosorbide Mononitrate 30 MG Tablet PO (20:49)
[2020-11-04] MEDS: Escitalopram Oxalate 10 MG Tablet PO (20:52)
[2020-11-04] MEDS: Clopidogrel Bisulfate 75 MG Tablet PO (20:55)
[2020-11-05] VITALS (7 sets, daily range): BP systolic 109–135; BP diastolic 45–60; PULSE 66–74; RESP 18; TEMP 36.9–37; O2SAT 92–97
[2020-11-05 05:35] LABS: Absolute Lymphocyte Count 1.07 X10^3/uL (0.83-4.51); Basophil# 0.03 X10^3/uL; Basophil% 0.4 % (0-1); Eosinophil# 0.16 X10^3/uL; Eosinophils% 2.3 % (0-5); Hemoglobin 11.4 g/dL (12.0-15.0); Lymphocyte # 1.07 X10^3/ul (4.0); Lymphocyte % 15.6 % (19-41); Mean Corp Hgb Conc 31.7 g/dL (32-36); Mean Corpuscular Hgb 30.2 pg (27.0-32.0); Mean Corpuscular Volume 95.2 fL (81-99); Mean Platelet Vol. 9.9 fl (6.2-12.0); Monocyte# 0.55 X10^3/uL; NRBC Flagged by Analyzer 0 % (0-5); Neutrophil # 5.04 X10^3/uL (2.7-7.7); Neutrophil % 73.6 % (47-70); Platelet Count 190 K/mm3 (150-450); RBC Distribution Width CV 13.2 % (11.6-14.6); RBC Distribution Width SD 46.5 fl (35.1-43.9); Red Blood Count 3.78 M/mm3 (4.2-5.4); White Blood Count 6.9 K/mm3 (4.4-11.0)
--- NOTE | 2020-11-05 05:47 | NURSING ---
Pts primary rn aware of d dimer result of 0.73 at this time.
[2020-11-05 05:49] LABS: D-Dimer Quantitative (DVT/PE) 0.73 FEU/ug/m (0.27-0.49)
[2020-11-05 05:54] LABS: AST(SGOT) 21 U/L (15-37); Alanine Aminotransfer ALT/SGPT 23 U/L (13-56); Albumin, Serum 3.1 g/dL (3.2-5.0); Alkaline Phosphatase 67 U/L (45-117); Anion Gap 3 (5-15); BUN 22 mg/dL (7-18); BUN/Creat Ratio 20.8 RATIO (10-20); Calcium,Total 8.1 mg/dL (8.5-10.1); Chloride 108 mmol/L (98-107); Cholesterol 133 mg/dL (200); Creatinine, Serum 1.06 mg/dL (0.55-1.02); EST Glomerular Filtration Rate 53 mL/min (>60); Est Glom Filt Rate - Afr Amer 64 mL/min (>60); Estimated Creatinine Clearance 35.33 ml/min; Globulin 3.1 g/dL (2.2-4.2); Glucose 109 mg/dL (74-106); High Density Lipoprotein 71 mg/dL; Potassium 4.2 mmol/L (3.5-5.1); Protein, Total 6.2 g/dL (6.4-8.2); Sodium Level 138 mmol/L (136-145); Triglycerides 71 mg/dL; Very Low Density Lipoprotein 14 mg/dL (5-40)
--- NOTE | 2020-11-05 05:55 | EKG12_ITS ---
Test Reason : AM EKG Blood Pressure : / mmHG Vent. Rate : 073 BPM Atrial Rate : 073 BPM P-R Int : 136 ms QRS Dur : 076 ms QT Int : 388 ms P-R-T Axes : 063 041 062 degrees QTc Int : 427 ms Sinus rhythm with Premature atrial complexes Otherwise normal ECG When compared with ECG of 04-NOV-2020 14:44, MANUAL COMPARISON REQUIRED, DATA IS UNCONFIRMED Confirmed by EDMAR JOHNSON, KLAUDIA ([id number]), editor map DENISHA PATEL ([id number]) on 11/11/2020 1:11:43 PM Referred By: DR FLORES Confirmed By:KLAUDIA HYATT MD
[2020-11-05] MEDS: Clopidogrel Bisulfate 75 MG Tablet PO (07:33)
[2020-11-05] MEDS: Aspirin E.C. 81 MG Tablet PO (07:33)
[2020-11-05] MEDS: Memantine Hydrochloride 10 MG Tablet PO (10:12)
[2020-11-05] MEDS: Escitalopram Oxalate 10 MG Tablet PO (10:12)
[2020-11-05] MEDS: Metoprolol(XL)Succ 25 MG Tablet 12.5 MG PO (10:12)
[2020-11-05] MEDS: Famotidine 20 MG Tablet 40 MG PO (10:12)
[2020-11-05] MEDS: Isosorbide Mononitrate 30 MG Tablet PO (10:13)
[2020-11-05] MEDS: Galantamine Hydrobromide 4 MG Tablet PO (10:13)
--- NOTE | 2020-11-05 11:34 | DCINST_ITS ---
- Discharge Diagnoses Current Active Problems: Current Active and Chronic Problems (Last Reviewed 10/15/20 @ 10:[address] Ruddy Howard MD) Chest pain (Acute) HTN (hypertension) (Chronic) Anxiety and depression (Chronic) Dementia (Chronic) Atherosclerosis of coronary artery of [place] heart without angina pectoris (Chronic) TIA (transient ischemic attack) (Chronic 01/2015) Hyperlipemia (Chronic) You will use the following diet at home:: Cardiac Discharge Activity: Return to Normal Activity Call your doctor if you observe: Shortness of breath, Dizziness, Fainting spells, Chest pain Allergies/Adverse Reactions: Allergies amlodipine Allergy (Verified 11/04/20 14:34) Leg Swelling amlodipine besylate [From Norvasc] Allergy (Verified 11/04/20 14:34) leg swelling amoxicillin [Amoxicillin] Allergy (Verified 10/15/20 09:51) Rash castor oil Allergy (Verified 11/04/20 14:51) PT UNSURE OF REACTION enalapril maleate [From Vasotec] Allergy (Verified 10/15/20 09:51) Other enalaprilat dihydrate [From Vasotec] Allergy (Verified 10/15/20 09:51) Other Iodinated Contrast Media [Iodinated Contrast Media - IV Dye] Allergy (Verified 10/15/20 09:51) Other iodine Allergy (Verified 11/04/20 14:51) PT UNSURE OF REACTION lisinopril Allergy (Verified 10/15/20 09:51) Other ranolazine [From Ranexa] Allergy (Verified 10/15/20 09:51) Unknown Sulfa (Sulfonamide Antibiotics) Allergy (Verified 10/15/20 09:51) Swelling sulfasalazine Allergy (Verified 11/04/20 14:51) PT UNSURE OF REACTION Medications to take at Discharge Nitroglycerin (INPATIENT USE) [Nitrostat] 0.4 mg SUBLINGUAL Q5M PRN 08/21/15 Ergocalciferol [Vitamin D] 50,000 unit PO SA 10/18/16 famotidine 40 mg tablet 40 mg PO QDAY tab 09/11/17 escitalopram oxalate 10 mg tablet 10 mg PO DAILY 10/15/19 levothyroxine 75 mcg tablet 75 mcg PO DAILY 10/15/19 clopidogrel 75 mg tablet 75 mg PO DAILY #90 tab 01/03/20 memantine 10 mg tablet 10 mg PO BID 07/08/20 Apremilast [Otezla] 30 mg PO DAILY 11/04/20 Atorvastatin Calcium [Lipitor] 40 mg PO QHS 11/04/20 Biotin 5,000 mcg PO DAILY 11/04/20 Galantamine Hbr [Razadyne] 8 mg PO DAILY 11/04/20 Isosorbide Mononitrate [Isosorbide Mononitrate ER] 30 mg PO BID 11/04/20 Magnesium Oxide [Magnesium Oxide 400] 240 mg PO DAILY 11/04/20 Metoprolol Succinate [Toprol Xl] 12.5 mg PO DAILY 11/04/20 Primary Care Physician: Matty Newsome Chi, MD [Primary Care Provider] - Please follow up with your Primary Care Physician in: 1 Week Test Results: Test results from this visit will be discussed in further detail at your follow- up appointment, if applicable. Please Follow Up With: Audrey Garzon PA When: As scheduled Proposed Discharge Date: 11/05/20
--- NOTE | 2020-11-05 11:48 | CASEMGMT ---
JOVAN SYED NOTE: Pt being discharged home. JOVAN SYED to room to talk with pt/discuss discharge planning. Pt states she lives with her son and dtr-in-law and they are supportive/helpful. She states she is independent and denies needs/concerns w/going home @ discharge. [place] JOVAN SYED
--- NOTE | 2020-11-05 13:50 | PCM.DC.SUM ---
<Viviane Mobley [employer] - Last Filed: 11/05/20 14:04> Discharge Date and Diagnosis - Problem List Patient Problems: Active and Suspected Problems (Last Reviewed 10/15/20 @ 10:[address] Ruddy Howard MD) Chest pain (Acute) Date of Admission: 11/04/20 Date of Discharge: 11/05/20 - Primary Discharge Diagnosis Acute Problems: Active Problems (Last Reviewed 10/15/20 @ 10:[address] Ruddy Howard MD) 1. Musculoskeletal chest pain 2. CAD with history of PCI 3. Hypertension 4. Hyperlipidemia 5. Dementia with unknown behavioral disturbance history 6. Anxiety/depression 7. History of TIA 8. GERD 9. Psoriatic arthritis 10. Hypothyroidism - Secondary Discharge Diagnosis Chronic Problems: Chronic Problems (Last Reviewed 10/15/20 @ 10:[address] Ruddy Howard MD) HTN (hypertension) (Chronic) Anxiety and depression (Chronic) Dementia (Chronic) Atherosclerosis of coronary artery of [place] heart without angina pectoris (Chronic) TIA (transient ischemic attack) (Chronic 01/2015) Hyperlipemia (Chronic) Hospital Course and Treatment Imaging Results: Diagnostic Data Chest X-Ray 11/04/20 10:48 IMPRESSION: Degenerative changes, as described above. No demonstrated acute cardiopulmonary process. Electronically Signed: Sea Gay MD at 12:05 EDT Tel , Service support , Operations: None Procedures: Stress test Summary of Care Provided: The patient is a 84 year old F admitted for 721 due to chest pain. 1. Musculoskeletal chest pain-patient has reproducible pain on the left side of her chest. She denies injury to that area. Troponin negative. Patient underwent nuclear stress test which was negative for ischemia. As needed Tylenol for musculoskeletal pain. Follow-up with PCP in 1 week. 2. CAD with history of PCI-stable, continue outpatient follow-up with cardiology. On Plavix, statin, isosorbide, metoprolol. 3. Hypertension-stable, continue isosorbide, metoprolol. 4. Hyperlipidemia-continue statin. 5. Dementia with unknown behavioral disturbance history-on memantine, galantamine. 6. Anxiety/depression-on escitalopram. 7. History of TIA-on Plavix, statin. 8. GERD-continue famotidine. 9. Psoriatic arthritis-continue home apremilast. 10. Hypothyroidism-continue Synthroid regimen. Patient seen and examined prior to discharge. Physical assessment as noted below. Patient is stable for discharge with follow up recommendations as noted above. This patient was seen by KEVIN Maxwell under the supervision of Dr. Espitia. Patient Problems: Active and Suspected Problems (Last Reviewed 10/15/20 @ 10:[address] Ruddy Howard MD) Chest pain (Acute) - Physical Exam Vitals/I&O's: Vital Signs Temp Pulse Resp BP Pulse Ox 98.5 F 69 18 135/60 H 97 11/05/20 10:09 11/05/20 10:12 11/05/20 10:09 11/05/20 10:12 11/05/20 10:09 Oxygen Delivery Method Room Air Weight: 145 lb 1.027 oz Body Mass Index (BMI) 24.3 Intake and Output for Last 24 Hours 11/03/20 11/04/20 11/05/20 23:59 23:59 23:59 Intake Total 360 / 1360 1400 / 1400 Balance 360 / 1360 1400 / 1400 General: Alert, Oriented x3, Cooperative HEENT: Atraumatic, PERRLA, EOMI, Normocephalic Neck: Supple, No JVD, Negative Carotid Bruits Lungs: Clear to auscultation, Normal air movement Cardiovascular: Regular rate, No murmurs Abdomen: Bowel Sounds Present, Soft, Non Tender, Non-Distended Extremities: No cyanosis, No edema, Capillary Refill Less than 3 Seconds Skin: No rashes, No breakdown Musculoskeletal: - - Left chest wall tenderness with palpation Neurological: Cranial nerves II-XII grossly intact, Neuro grossly intact Psych/Mental Status: Normal Affect, Appropriate Laboratory Results 11/04/20 10:40: Magnesium 2.3 11/04/20 15:28: Troponin I 0.021 11/04/20 17:52: Troponin I 0.024 11/05/20 05:28: WBC 6.9, RBC 3.78 L, Hgb 11.4 L, Hct 36.0 L, MCV 95.2, MCH 30.2, MCHC 31.7 L, RDW Std Deviation 46.5 H, RDW Coeff of Tal 13.2, Plt Count 190, MPV 9.9, Immature Gran % (Auto) 0.100, Neut % (Auto) 73.6 H, Lymph % (Auto) 15.6 L, Larue % (Auto) 8.0, Eos % (Auto) 2.3, Baso % (Auto) 0.4, Absolute Neuts (auto) 5.0, Absolute Lymphs (auto) 1.07, Nucleated RBC % 0 11/05/20 05:28: Sodium 138, Potassium 4.2, Chloride 108 H, Carbon Dioxide 27.0, Anion Gap 3 L, BUN 22 H, Creatinine 1.06 H, Estim Creat Clear Calc 35.33, Est GFR (MDRD) Af Amer 64, Est GFR (MDRD) Non-Af 53 L, BUN/Creatinine Ratio 20.8 H, Glucose 109 H, Calcium 8.1 L, Total Bilirubin 0.40, AST 21, ALT 23, Alkaline Phosphatase 67, Total Protein 6.2 L, Albumin 3.1 L, Globulin 3.1, Albumin/Globulin Ratio 1.0, Triglycerides 71, Cholesterol 133, LDL Cholesterol 48, VLDL Cholesterol 14, HDL Cholesterol 71 11/05/20 05:28: D-Dimer Quant (PE/DVT) 0.73 H* Current Medications Acetaminophen (Acetaminophen 325 Mg Tablet) 650 mg PO Q6H PRN PRN PRN Reason: Pain Score 1-10/Temp > 100.7 F Al Hydroxide/Mg Hydroxide (Mag Hydrox/Al Hydrox/Simeth 30 Ml Udc) 30 ml PO Q6H PRN PRN PRN Reason: Gastric Burning Albuterol Sulfate (Albuterol 2.5 Mg/3 Ml Vial.Neb.) 2.5 mg INHALATION Q2H PRN PRN PRN Reason: Dyspnea, wheezing Aspirin (Aspirin E.C. 81 Mg Tablet) 81 mg PO DAILY@0800 [facility] Last Admin: 11/05/20 07:33 Dose: 81 mg Documented by: Atorvastatin Calcium (Atorvastatin Calcium 40 Mg Tablet) 40 mg PO QHS [facility] Last Admin: 11/04/20 20:48 Dose: 40 mg Documented by: Clopidogrel Bisulfate (Clopidogrel Bisulfate 75 Mg Tablet) 75 mg PO DAILY [facility] Last Admin: 11/05/20 07:33 Dose: 75 mg Documented by: Enoxaparin Sodium (Enoxaparin 40 Mg/0.4 Ml Syringe) 40 mg SC DAILY [facility] Last Admin: 11/05/20 09:26 Dose: Not Given Documented by: Escitalopram Oxalate (Escitalopram Oxalate 10 Mg Tablet) 10 mg PO DAILY [facility] Last Admin: 11/05/20 10:12 Dose: 10 mg Documented by: Famotidine (Famotidine 20 Mg Tablet) 40 mg PO DAILY [facility] Last Admin: 11/05/20 10:12 Dose: 40 mg Documented by: Galantamine Hydrobromide (Galantamine Hydrobromide 4 Mg Tablet) 4 mg PO BID [facility] Last Admin: 11/05/20 10:13 Dose: 4 mg Documented by: Guaifenesin (Guaifenesin 10 Ml Udc (200mg/10ml)) 20 ml PO Q4H PRN PRN PRN Reason: COUGH Hydralazine HCl (Hydralazine 20 Mg/Ml Vial) 10 mg IV Q4H PRN PRN PRN Reason: SBP > 160 Isosorbide Mononitrate (Isosorbide Mononitrate 30 Mg Tablet) 30 mg PO BID [facility] Last Admin: 11/05/20 10:13 Dose: 30 mg Documented by: Magnesium Hydroxide (Magnesium Hydroxide 30 Ml Udc) 30 ml PO DAILY PRN PRN PRN Reason: Constipation Melatonin (Melatonin 3 Mg Tablet) 3 mg PO QHS PRN PRN PRN Reason: INSOMNIA Memantine (Memantine Hydrochloride 10 Mg Tablet) 10 mg PO BID [facility] Last Admin: 11/05/20 10:12 Dose: 10 mg Documented by: Metoprolol Succinate (Metoprolol(Xl)Succ 25 Mg Tablet) 12.5 mg PO DAILY [facility] Last Admin: 11/05/20 10:12 Dose: 12.5 mg Documented by: Morphine Sulfate (Morphine 2 Mg/Ml Syringe) 2 mg IV Q3H PRN PRN PRN Reason: Pain Score 6-10 Nitroglycerin (Nitroglycerin (Inpatient Use) 0.4 Mg Tab.Subl) 0.4 mg SL Q5M PRN PRN Reason: CARDIAC/CHEST PAIN Ondansetron HCl (Ondansetron 4 Mg/2 Ml Vial) 4 mg IV Q8H PRN PRN PRN Reason: NAUSEA/VOMITING Oxycodone HCl (Oxycodone 5 Mg Tablet) 5 mg PO Q4H PRN PRN PRN Reason: Pain Score 4-5 Prochlorperazine Edisylate (Prochlorperazine 10 Mg/2 Ml Vial) 5 mg IV Q4H PRN PRN PRN Reason: Breakthrough Nausea/Vomiting Psyllium Hydrophilic Mucilloid (Psyllium 1 Packet) 1 packet PO DAILY PRN PRN PRN Reason: Constipation Senna/Docusate Sodium (Senna/Docusate Sodium 1 Tablet) 2 tablet PO BID PRN PRN PRN Reason: Constipation Sodium Chloride (0.9% Saline Lock 10 Ml Syringe) 10 - 40 ml IV UD PRN PRN Reason: SALINE FLUSH Throat Lozenges (Benzocaine/Menthol 1 Lozenge) 1 lozenge MUCOUS MEM Q2H PRN PRN PRN Reason: SORE THROAT Discharge Diet: Low fat/ Low Cholesterol Discharge Activity: Return to Normal Activity Call your doctor if you observe: Shortness of breath, Dizziness, Fainting spells, Chest pain Home Medications: Medications to take at Discharge Nitroglycerin (INPATIENT USE) [Nitrostat] 0.4 mg SUBLINGUAL Q5M PRN 08/21/15 Ergocalciferol [Vitamin D] 50,000 unit PO SA 10/18/16 famotidine 40 mg tablet 40 mg PO QDAY tab 09/11/17 escitalopram oxalate 10 mg tablet 10 mg PO DAILY 10/15/19 levothyroxine 75 mcg tablet 75 mcg PO DAILY 10/15/19 clopidogrel 75 mg tablet 75 mg PO DAILY #90 tab 01/03/20 memantine 10 mg tablet 10 mg PO BID 07/08/20 Apremilast [Otezla] 30 mg PO DAILY 11/04/20 Atorvastatin Calcium [Lipitor] 40 mg PO QHS 11/04/20 Biotin 5,000 mcg PO DAILY 11/04/20 Galantamine Hbr [Razadyne] 8 mg PO DAILY 11/04/20 Isosorbide Mononitrate [Isosorbide Mononitrate ER] 30 mg PO BID 11/04/20 Magnesium Oxide [Magnesium Oxide 400] 240 mg PO DAILY 11/04/20 Metoprolol Succinate [Toprol Xl] 12.5 mg PO DAILY 11/04/20 Primary Care Physician: Matty Newsome Chi, MD [Primary Care Provider] - Please follow up with your Primary Care Physician in: 1 Week Please Follow Up With: Audrey Garzon, PA When: As scheduled Disposition: Home Minutes spent on discharge:: 35 Patient Condition:: Stable Medical Necessity - Tobacco Use Smoking Status: Former smoker Tobacco Use: Cigarettes Meaningful Use Info Meaningful Use Diagnoses (Choose all that apply): None applicable <Swetha Espitia - Last Filed: 11/06/20 16:02> Discharge Date and Diagnosis - Primary Discharge Diagnosis Acute Problems: Active Problems (Last Reviewed 10/15/20 @ 10:[address] Ruddy Howard MD) Chest pain (Acute) - Secondary Discharge Diagnosis Chronic Problems: Chronic Problems (Last Reviewed 10/15/20 @ 10:[address] Ruddy Howard MD) HTN (hypertension) (Chronic) Anxiety and depression (Chronic) Dementia (Chronic) Atherosclerosis of coronary artery of [place] heart without angina pectoris (Chronic) TIA (transient ischemic attack) (Chronic 01/2015) Hyperlipemia (Chronic) Hospital Course and Treatment Summary of Care Provided: Patient seen by Viviane BROWN under my supervision The patient is a 84 year old F with a past medical history as outlined was admitted with a complaint of chest pain. Chest pain was mainly reproducible with palpation. Troponins x3 were negative and EKG showed no acute ST changes. Chest x-ray also showed no acute cardiopulmonary process. She was admitted and managed for chest pain to rule out ACS. She had a stress test on 11/05/2020 which was negative for any evidence of ischemia. Chest pain was therefore deemed to be musculoskeletal and she was discharged with a prescription for p.o. Tylenol. She is follow-up with her primary care doctor within 1 week. Patient seen and examined prior to discharge. She had no complaints. Chest pain had improved. Review of symptoms otherwise negative. Labs and vitals reviewed. Home medication reviewed and reconciled. O/E: Vital Signs Temp Pulse Resp BP Pulse Ox 98.5 F 69 18 135/60 H 97 11/05/20 10:09 11/05/20 10:12 11/05/20 10:09 11/05/20 10:12 11/05/20 10:09 General: Alert, Oriented x3, Cooperative HEENT: Atraumatic, PERRLA, EOMI, Normocephalic Neck: Supple, No JVD, Negative Carotid Bruits Lungs: Clear to auscultation, Normal air movement Cardiovascular: Regular rate, No murmurs Abdomen: Bowel Sounds Present, Soft, Non Tender, Non-Distended Extremities: No cyanosis, No edema, Capillary Refill Less than 3 Seconds Skin: No rashes, No breakdown Musculoskeletal: - - Left chest wall tenderness with palpation Neurological: Cranial nerves II-XII grossly intact, Neuro grossly intact Psych/Mental Status: Normal Affect, Appropriate Plan is for discharge home as above. Rest as per Viviane Mobley NP-C's note which I reviewed and endorsed. - Physical Exam Vitals/I&O's: Vital Signs Temp Pulse Resp BP Pulse Ox 98.5 F 69 18 135/60 H 97 11/05/20 10:09 11/05/20 10:12 11/05/20 10:09 11/05/20 10:12 11/05/20 10:09 Oxygen Delivery Method Room Air Weight: 145 lb 1.027 oz Body Mass Index (BMI) 24.3 Intake and Output for Last 24 Hours 11/04/20 11/05/20 11/06/20 23:59 23:59 23:59 Intake Total 360 / 1360 1400 / 1400 Balance 360 / 1360 1400 / 1400 OBSV E&M: [id number] Observation care discharge
--- NOTE | 2020-11-05 14:13 | PHA.DC.MR ---
Pharmacy Service has performed discharge medication reconciliation for this patient. No new medications issued at time of discharge medication review. Home Medications Nitroglycerin (INPATIENT USE) [Nitrostat] 0.4 mg SUBLINGUAL Q5M PRN 08/21/15 Ergocalciferol [Vitamin D] 50,000 unit PO SA 10/18/16 famotidine 40 mg tablet 40 mg PO QDAY tab 09/11/17 escitalopram oxalate 10 mg tablet 10 mg PO DAILY 10/15/19 levothyroxine 75 mcg tablet 75 mcg PO DAILY 10/15/19 clopidogrel 75 mg tablet 75 mg PO DAILY #90 tab 01/03/20 memantine 10 mg tablet 10 mg PO BID 07/08/20 Apremilast [Otezla] 30 mg PO DAILY 11/04/20 Atorvastatin Calcium [Lipitor] 40 mg PO QHS 11/04/20 Biotin 5,000 mcg PO DAILY 11/04/20 Galantamine Hbr [Razadyne] 8 mg PO DAILY 11/04/20 Isosorbide Mononitrate [Isosorbide Mononitrate ER] 30 mg PO BID 11/04/20 Magnesium Oxide [Magnesium Oxide 400] 240 mg PO DAILY 11/04/20 Metoprolol Succinate [Toprol Xl] 12.5 mg PO DAILY 11/04/20 The patient's discharge medication list was reviewed for discrepancies and discrepancies were resolved.
--- NOTE | 2020-11-05 18:08 | STRESSREP ---
Stress Test Report Pharmacologic myocardial perfusion stress test. 84-year-old lady with a history of chest pain. Medications aspirin, Lipitor, Plavix, isosorbide. Stress protocol: Resting EKG demonstrates normal sinus rhythm with a rate of 71 bpm normal intervals are noted premature atrial complexes are present. Resting blood pressure is 114/62 mmHg. 0.4 mg of regadenoson was infused per usual protocol. Continuous EKG monitoring was performed. The maximum heart rate attained was 102 bpm which was 73% of max impacted heart rate the maximum workload was 1 metabolic equivalent. At rest there were no ST or T wave changes noted to suggest abnormal flow reserve and at peak infusion nonspecific ST changes were noted with did not meet the criteria for ischemia. No clinical angina was noted. Myocardial perfusion protocol. 11.8 mCi of technetium 99m sestamibi was injected at rest. 0.4 mg of regadenoson was infused per usual protocol. Peak infusion 35.0 mCi of technetium 99m sestamibi was injected stress images were obtained stress and rest images were reconstructed and compared in the short axis vertical long horizontal long axis. Gated images were also obtained Perfusion SPECT analysis: Review of the stress images demonstrate normal uptake of tracer noted in all areas of the myocardium. The resting images similarly demonstrate normal uptake of tracer noted in all areas of the myocardium. No obvious areas of reversibility are noted to suggest ischemia and no previous infarct is noted. Gated SPECT analysis: The gated ejection fraction was noted to be 80%. Conclusion: Pharmacologic myocardial perfusion stress test with no evidence of ischemia. Preserved ejection fraction.
== END 2020-11-05 11:34 | disposition home or self-care (01) ==
LOC: ED 14:01 → PCU 14:13
PROVIDERS: Admitting Provider Family Medicine; Emergency Provider Emergency Medicine; PCP Family Medicine Geriatric Medicine; Visit Provider Student in an Organized Health Care Education/Training Program
DX: R07.89 Other chest pain (principal); I25.10 Atherosclerotic heart disease of native coronary artery without angina pectoris; E78.5 Hyperlipidemia, unspecified; I10 Essential (primary) hypertension; F03.91 Unspecified dementia, unspecified severity, with behavioral disturbance; F32.9 Major depressive disorder, single episode, unspecified; F41.9 Anxiety disorder, unspecified; K21.9 Gastro-esophageal reflux disease without esophagitis; E03.9 Hypothyroidism, unspecified; L40.50 Arthropathic psoriasis, unspecified; Z79.899 Other long term (current) drug therapy; Z79.02 Long term (current) use of antithrombotics/antiplatelets; Z86.718 Personal history of other venous thrombosis and embolism; Z86.73 Personal history of transient ischemic attack (TIA), and cerebral infarction without residual deficits; Z87.891 Personal history of nicotine dependence
CPT/HCPCS: 36415; 71045; 78452; 80048; 80053; 80061; 83735; 84484; 85025; 85379; 93005; 93017; 96374; 96375; 99218; 99251; 99285; A9500; A4216; G0378; G0463; J2405; J2785

== ENCOUNTER → 2020-12-31 14:28 | Outpatient (CLI) | payer MEDICARE, OTHER, SELFPAY ==
[2020-11-04 14:47] VITALS: BMI 24.3
[2020-12-31 17:27] LABS: Absolute Lymphocyte Count 1.04 X10^3/uL (0.83-4.51); Absolute Neutrophil Count 5.9 X10^3/uL (2.0-7.7); Basophil# 0.03 X10^3/uL; Basophil% 0.4 % (0-1); Eosinophil# 0.15 X10^3/uL; Hematocrit 41.5 % (37-47); Hemoglobin 13.4 g/dL (12.0-15.0); Lymphocyte # 1.04 X10^3/ul (0.83-4.51); Lymphocyte % 13.6 % (19-41); Mean Corp Hgb Conc 32.3 g/dL (32-36); Mean Corpuscular Hgb 30.5 pg (27.0-32.0); Mean Corpuscular Volume 94.5 fL (81-99); Mean Platelet Vol. 10.6 fl (6.2-12.0); Monocyte# 0.47 X10^3/uL; Monocyte% 6.1 % (0-10); NRBC Flagged by Analyzer 0 % (0-5); Neutrophil # 5.93 X10^3/uL (2.7-7.7); Neutrophil % 77.5 % (47-70); Platelet Count 229 K/mm3 (150-450); RBC Distribution Width CV 13.6 % (11.6-14.6); RBC Distribution Width SD 47.6 fl (35.1-43.9); Red Blood Count 4.39 M/mm3 (4.2-5.4); White Blood Count 7.7 K/mm3 (4.4-11.0)
[2020-12-31 17:41] LABS: Vitamin D,25 Hydroxy 86.4 ng/mL
[2020-12-31 17:47] LABS: ALB/GLOB Ratio 1.1 RATIO (0.9-2.4); AST(SGOT) 38 U/L (15-37); Alanine Aminotransfer ALT/SGPT 33 U/L (13-56); Albumin, Serum 3.8 g/dL (3.2-5.0); Alkaline Phosphatase 80 U/L (45-117); Anion Gap 7 (5-15); BUN 20 mg/dL (7-18); BUN/Creat Ratio 17.4 RATIO (10-20); Chloride 105 mmol/L (98-107); Creatinine, Serum 1.15 mg/dL (0.55-1.02); EST Glomerular Filtration Rate 48 mL/min (>60); Est Glom Filt Rate - Afr Amer 58 mL/min (>60); Globulin 3.6 g/dL (2.2-4.2); Glucose 121 mg/dL (74-106); Potassium 4.3 mmol/L (3.5-5.1); Protein, Total 7.4 g/dL (6.4-8.2); Sodium Level 141 mmol/L (136-145); Thyroid Stim Hormone (TSH) 4.56 uIU/mL (0.358-3.74)
== END ==
PROVIDERS: PCP Family Medicine Geriatric Medicine; Visit Provider Family Medicine Geriatric Medicine
DX: E55.9 Vitamin D deficiency, unspecified (principal); I10 Essential (primary) hypertension
CPT/HCPCS: 36415; 80053; 82306; 84443; 85025

== ENCOUNTER 2021-03-16 13:49 | Emergency (ER) | payer MEDICARE, OTHER, SELFPAY ==
[2020-11-04 14:47] VITALS: BMI 24.3
[2021-03-16] VITALS (7 sets, daily range): BP systolic 119–151; BP diastolic 55–91; PULSE 69–101; RESP 13–18; TEMP 36.2; O2SAT 97–100; BMI 22.6
--- NOTE | 2021-03-16 14:41 | CT_ITS ---
STUDY: CT BRAIN WITHOUT CONTRAST REASON FOR EXAM: Female, 85 years old. Syncope RADIATION DOSAGE (If Supplied By Facility): CTDIvol = ( 44.99 ) mGy, DLP = ( 815.79 ) mGycm TECHNIQUE: Transaxial CT imaging of the brain was performed without administration of intravenous contrast material. Individualized dose optimization techniques were used for this CT. COMPARISON: Comparison is made with prior study dated 04/30/2020. FINDINGS: Normal soft tissue structures. Normal calvarium. There is mild cerebral atrophy with widening of the extra-axial spaces and ventricular dilatation. There are areas of decreased attenuation within the white matter tracts of the supratentorial brain, consistent with microvascular disease changes. Normal basal ganglia and thalami. Normal brainstem. Normal cerebellum. There is no intracranial hemorrhage. There are no findings of an acute ischemic infarction. Atherosclerotic calcification of the vertebral arteries and cavernous portions of the internal carotid arteries bilaterally. Normal visualized paranasal sinuses. CT/Brain/Head without Contrast IMPRESSION: Chronic involutional changes of the brain. Electronically Signed: Edvin Greco MD at 15:34 EDT , Service support ,
--- NOTE | 2021-03-16 14:42 | EKG12_ITS ---
Test Reason : Blood Pressure : / mmHG Vent. Rate : 075 BPM Atrial Rate : 075 BPM P-R Int : 142 ms QRS Dur : 078 ms QT Int : 402 ms P-R-T Axes : 072 050 062 degrees QTc Int : 448 ms Sinus rhythm with Premature atrial complexes Otherwise normal ECG When compared with ECG of 05-NOV-2020 05:38, No significant change was found Confirmed by EDMAR JOHNSON, KLAUDIA ([id number]), news videotape editor DENISHA PATEL ([id number]) on 03/22/2021 1:15:50 PM Referred By: JOHN Confirmed By:KLAUDIA HYATT MD
[2021-03-16 15:19] LABS: Absolute Lymphocyte Count 0.67 X10^3/uL (0.83-4.51); Basophil# 0.04 X10^3/uL; Basophil% 0.4 % (0-1); Eosinophil# 0.04 X10^3/uL; Eosinophils% 0.4 % (0-5); Hematocrit 38.3 % (37-47); Hemoglobin 12.4 g/dL (12.0-15.0); Lymphocyte # 0.67 X10^3/ul (0.83-4.51); Lymphocyte % 6.5 % (19-41); Mean Corp Hgb Conc 32.4 g/dL (32-36); Mean Corpuscular Hgb 30.2 pg (27.0-32.0); Mean Corpuscular Volume 93.2 fL (81-99); Monocyte# 0.59 X10^3/uL; Monocyte% 5.7 % (0-10); NRBC Flagged by Analyzer 0 % (0-5); Neutrophil # 8.98 X10^3/uL (2.7-7.7); Neutrophil % 86.5 % (47-70); Platelet Count 210 K/mm3 (150-450); RBC Distribution Width CV 12.9 % (11.6-14.6); RBC Distribution Width SD 44.3 fl (35.1-43.9); Red Blood Count 4.11 M/mm3 (4.2-5.4); White Blood Count 10.4 K/mm3 (4.4-11.0)
[2021-03-16 15:39] LABS: AST(SGOT) 34 U/L (15-37); Alanine Aminotransfer ALT/SGPT 35 U/L (13-56); Albumin, Serum 3.6 g/dL (3.2-5.0); Alkaline Phosphatase 78 U/L (45-117); Anion Gap 4 (5-15); BUN 18 mg/dL (7-18); BUN/Creat Ratio 16.4 RATIO (10-20); Calcium,Total 8.9 mg/dL (8.5-10.1); Chloride 109 mmol/L (98-107); EST Glomerular Filtration Rate 50 mL/min (>60); Est Glom Filt Rate - Afr Amer 61 mL/min (>60); Estimated Creatinine Clearance 33.46 ml/min; Globulin 3.5 g/dL (2.2-4.2); Glucose 90 mg/dL (74-106); Potassium 4.1 mmol/L (3.5-5.1); Protein, Total 7.1 g/dL (6.4-8.2); Sodium Level 140 mmol/L (136-145); Troponin-I HS 18.1 pg/mL (3.0-53.7)
[2021-03-16] MEDS: Diphth,Pertuss(Acell),Tet Vac 0.5 ML Vial IM (15:50)
[2021-03-16 16:15] LABS: Bacteria 0 SEEN /hpf (None Seen); Mucous, Urine 0 SEEN /hpf (<or=2+); Red Blood Cells-Urine 0 SEEN /hpf (0-5); Squamous Epithelial Cells - UA 0 SEEN /hpf (5-10)
[2021-03-16 16:20] LABS: Color, Urine Yellow (Yellow); Glucose, Dipstick Normal (Normal); Ketone-Dipstick Negative (Negative); Leukocyte Esterase-Dipstick 100 /ul (Negative); Nitrite-Dipstick Negative (Negative); Occult Blood-Urine Negative /ul (Negative); Protein-Dipstick Negative (Negative); Urine Bilirubin Dipstick Negative (Negative); Urine Clarity Clear (Clear); Urine Urobilinogen Normal (Normal)
--- NOTE | 2021-03-16 16:30 | EDS_ITS ---
HPI History of Present Illness Chief Complaint: Fall Informant: patient and family Onset/Context/Timing Onset: Today Context: Sudden Onset Timing: Intermittent and Lasts (Few seconds) Location: Generalized Worsened by: Nothing Relieved by: Nothing Narrative Narrative: Patient presents after a fall that occurred today. Patient states she was standing waiting to eat breakfast this morning. Patient states she thinks her vision went black and she woke up on the floor. Family states the patient may have only been unconscious for a few seconds. Patient did hit her head. Patient is unsure of her last tetanus. Patient denies any chest pain. Patient states she was having some palpitations when she woke up on the floor. Patient denies any nausea or vomiting. Patient denies any shortness of breath or cough. [facility] Medical History Angina pectoris Atherosclerosis of coronary artery of [place] heart without angina pectoris Deep vein blood clot of right lower extremity (09/2013) Hyperlipemia Hypothyroidism Osteoarthritis Psoriatic arthritis Wolfe syndrome Skin cancer Stroke/cerebrovascular accident Tachycardia TIA (transient ischemic attack) (01/2015) Home Medications nitroglycerin 0.4 mg SUBLINGUAL Q5M PRN 08/21/15 [History Last Taken Unknown] ergocalciferol (vitamin D2) 50,000 unit PO SA 10/18/16 [History Last Taken 10/31/20] famotidine 40 mg tablet 40 mg PO QDAY tab 09/11/17 [History Last Taken 11/03/20] escitalopram oxalate 10 mg tablet 10 mg PO DAILY 10/15/19 [History Last Taken 11/03/20] levothyroxine 75 mcg tablet 75 mcg PO DAILY 10/15/19 [History Last Taken 11/03/20] memantine 10 mg tablet 10 mg PO BID 07/08/20 [History Last Taken 11/03/20] apremilast 30 mg PO DAILY 11/04/20 [History Last Taken 11/03/20] atorvastatin 40 mg PO QHS 11/04/20 [History Last Taken 11/03/20] biotin 5,000 mcg PO DAILY 11/04/20 [History Last Taken Unknown] galantamine 8 mg PO DAILY 11/04/20 [History Last Taken 11/03/20] isosorbide mononitrate 30 mg PO BID 11/04/20 [History Last Taken 11/03/20] magnesium oxide 240 mg PO DAILY 11/04/20 [History Last Taken Unknown] metoprolol succinate 12.5 mg PO DAILY 11/04/20 [History Last Taken 11/03/20] clopidogrel 75 mg tablet 75 mg PO DAILY #90 tab 12/29/20 [Rx Last Taken Unknown] Allergy/AdvReac Type Severity Reaction Status Date / Time amlodipine Allergy Leg Verified 03/16/21 13:53 Swelling amlodipine besylate Allergy leg Verified 03/16/21 13:53 [From Norvasc] swelling amoxicillin [Amoxicillin] Allergy Rash Verified 03/16/21 13:53 castor oil Allergy PT UNSURE Verified 03/16/21 13:53 OF REACTION enalapril maleate Allergy Other Verified 03/16/21 13:53 [From Vasotec] enalaprilat dihydrate Allergy Other Verified 03/16/21 13:53 [From Vasotec] Iodinated Contrast Media Allergy Other Verified 03/16/21 13:53 [Iodinated Contrast Media - IV Dye] iodine Allergy PT UNSURE Verified 03/16/21 13:53 OF REACTION lisinopril Allergy Other Verified 03/16/21 13:53 ranolazine [From Ranexa] Allergy Unknown Verified 03/16/21 13:53 Sulfa (Sulfonamide Allergy Swelling Verified 03/16/21 13:53 Antibiotics) sulfasalazine Allergy PT UNSURE Verified 03/16/21 13:53 OF REACTION Family History Father CVA (cerebral vascular accident) Mother Heart disease CVA (cerebral vascular accident) Hypertension Sister Diabetes Surgical History H/O: knee surgery (09/2013) History of appendectomy History of hysterectomy History of left heart catheterization (08/24/15) History of percutaneous transluminal coronary angioplasty (1995) History of tonsillectomy and adenoidectomy Hx of cholecystectomy Social History household members: other details: son and [id number] housing: house current occupational status: retired Smoking Status: Former smoker alcohol intake: never what type of physical activity do you participate in: none ROS ROS ED Constitutional Constitutional ED: Denies chills or fever(s) Eyes Eyes: Denies blurry vision or change in vision ENT ENT ED: Denies rhinorrhea or sore throat Cardiovascular Cardiovascular: Reports palpitations; Denies chest pain Respiratory/Chest Respiratory/Chest: Denies cough or dyspnea Gastrointestinal Gastrointestinal: Denies nausea or vomiting Genitourinary Genitourinary ED: Denies dysuria or hematuria Musculoskeletal Musculoskeletal: Reports back pain; Denies neck pain Integumentary Denies abscess or rash Neurologic Neurologic: Denies headache(s) or weakness Allergic/Immunologic Allergic/Immunologic ED: Denies mouth swelling or urticaria EXAM Physical Exam Const Vital Signs: 03/16/21 13:50 03/16/21 14:10 03/16/21 15:12 Temperature 97.2 F L Temperature Source Temporal Pulse Rate 84 70 Pulse Rate [Lying] Pulse Rate [Sitting] Pulse Rate [Standing] Respiratory Rate 18 13 Respiratory Effort Normal Respiratory Depth Normal Respiratory Pattern Normal Blood Pressure 124/73 H 121/68 H Blood Pressure [Lying] Blood Pressure [Sitting] Blood Pressure [Standing] Blood Pressure Mean 90 85 Blood Pressure Mean [Lying] Blood Pressure Mean [Sitting] Blood Pressure Mean [Standing] Pulse Ox 100 98 97 Oxygen Delivery Method Room Air Room Air Room Air 03/16/21 16:10 03/16/21 17:49 Temperature Temperature Source Pulse Rate 71 Pulse Rate [Lying] 74 Pulse Rate [Sitting] 85 Pulse Rate [Standing] 101 H Respiratory Rate 17 Respiratory Effort Respiratory Depth Respiratory Pattern Blood Pressure 126/55 H Blood Pressure [Lying] 129/59 H Blood Pressure [Sitting] 142/64 H Blood Pressure [Standing] 151/68 H Blood Pressure Mean 78 Blood Pressure Mean [Lying] 82 Blood Pressure Mean [Sitting] 90 Blood Pressure Mean [Standing] 95 Pulse Ox 97 Oxygen Delivery Method Room Air Positive well nourished and well developed General Appearance ED: well developed HEENT HEENT Narrative: There is a 1.5 cm full-thickness linear laceration over the right temporal area. There is mild bleeding. There is no bony crepitance or step-off. There are no foreign bodies noted. Eyes PERRL and EOMs intact bilaterally Neck supple and no JVD Resp normal respiratory effort and clear to auscultation bilaterally Cardio regular rate and regular rhythm GI normal to inspection, nondistended, normoactive bowel sounds and non-tender Palpation: soft Neuro oriented x3, CN's II-XII intact bilaterally and no sensory deficits noted Sensorium / Orientation: alert Motor Exam: strength 5/5 throughout Psych mental status grossly normal MDM MDM MDM Narrative Medical decision making narrative: EKG was obtained. On my interpretation, it showed a normal sinus rhythm with a rate of [address] interval, QRS interval, and QTc intervals were all normal. [place] was normal. There are no acute ST or T wave changes. CT scan of the brain was obtained. There is no acute intracranial abnormality noted. CBC and comprehensive metabolic profile were obtained and were within normal limits. High-sensitivity troponin was normal. Urinalysis was obtained. There is no evidence of urinary tract infection. The right temporal laceration was cleaned with chlorhexidine. The wound was closed with Dermabond skin adhesive. Patient tolerated the procedure well. 2-hour repeat high-sensitivity troponin was ordered. Patient is low risk according to the [place]linger syncope rule and [place]ley syncope risk score. If the repeat troponin is normal, patient will be able to go home. Patient was instructed to follow-up with her primary care physician in 5 to 7 days. Patient and family understood and were agreeable with the plan. All questions were answered. Lab Data Attestation: I reviewed the patient's lab results. Labs: Laboratory Results - last 24 hr 03/16/21 03/16/21 03/16/21 15:10 15:10 16:08 WBC 10.4 RBC 4.11 L Hgb 12.4 Hct 38.3 MCV 93.2 MCH 30.2 MCHC 32.4 RDW Std Deviation 44.3 H RDW Coeff of Tal 12.9 Plt Count 210 MPV 10.0 Immature Gran % (Auto) 0.500 Neut % (Auto) 86.5 H Lymph % (Auto) 6.5 L [place] % (Auto) 5.7 Eos % (Auto) 0.4 Baso % (Auto) 0.4 Absolute Neuts (auto) 9.0 H Absolute Lymphs (auto) 0.67 L Nucleated RBC % 0 Sodium 140 Potassium 4.1 Chloride 109 H Carbon Dioxide 27.0 Anion Gap 4 L BUN 18 Creatinine 1.10 H Estim Creat Clear Calc 33.46 Est GFR (MDRD) Af Amer 61 Est GFR (MDRD) Non-Af 50 L BUN/Creatinine Ratio 16.4 Glucose 90 Calcium 8.9 Total Bilirubin 0.60 AST 34 ALT 35 Alkaline Phosphatase 78 Troponin I High Sens 18.1 Total Protein 7.1 Albumin 3.6 Globulin 3.5 Albumin/Globulin Ratio 1.0 Urine Color Yellow Urine Clarity Clear Urine pH 7.0 Ur Specific [place] 1.010 Urine Protein Negative Urine Glucose (UA) Normal Urine Ketones Negative Urine Occult Blood Negative Urine Nitrite Negative Urine Bilirubin Negative Urine Urobilinogen Normal Ur Leukocyte Esterase 100 H Urine RBC 0 SEEN Urine WBC 0-5 SEEN Ur Squamous Epith Cells 0 SEEN Urine Bacteria 0 SEEN Urine Mucus 0 SEEN Radiography Diagnostic Testing: Radiology Impression Brain CT 03/16/21 14:41 IMPRESSION: Chronic involutional changes of the brain. Electronically Signed: Edvin Greco MD at 15:34 EDT , Service support , EKG Initial EKG: Attestation: I personally reviewed and interpreted this EKG as follows: Interpretation: Sinus Rhythm (75 with occasional PACs) and No Acute Injury Pattern Procedures Lacerations Right temporal: Length: 1.5 cm Depth: Sub Q Shape: Linear Prep: Sterile Conditions and Chlorhexadine Laceration repair: Dermabond Discharge Plan Triage Chief Complaint: Fall ED Provider: Narayan Fatima Dx/Rx/DC Orders Clinical Impression: Syncope and collapse, Forehead laceration Instructions: ED Head Injury (Adult), ED Laceration, Face: Skin Glue, ED Fainting, Uncertain Cause Prescriptions: No Action famotidine 40 mg tablet 40 mg PO QDAY RF: 0 levothyroxine [Synthroid] 75 mcg tablet 75 mcg PO DAILY RF: 0 escitalopram oxalate [Lexapro] 10 mg tablet 10 mg PO DAILY RF: 0 memantine 10 mg tablet 10 mg PO BID RF: 0 nitroglycerin 0.4 MG tablet 0.4 mg SUBLINGUAL Q5M PRN (Reason: Chest Pain) RF: 0 ergocalciferol (vitamin D2) 50,000 UNIT capsule 50,000 unit PO SA RF: 0 apremilast 30 MG tablet 30 mg PO DAILY RF: 0 magnesium oxide 240 MG powder in packet 240 mg PO DAILY RF: 0 metoprolol succinate 25 MG tablet extended release 24 hr 12.5 mg PO DAILY RF: 0 galantamine 4 MG tablet 8 mg PO DAILY RF: 0 biotin 2,500 MCG capsule 5,000 mcg PO DAILY RF: 0 atorvastatin 40 MG tablet 40 mg PO QHS RF: 0 isosorbide mononitrate 30 MG tablet extended release 24 hr 30 mg PO BID RF: 0 clopidogrel 75 mg tablet 75 mg PO DAILY Qty: 90 RF: 3 Primary Care Provider: Matty Newsome Chi Referrals: Matty Newsome Chi, MD [Primary Care Provider] - 5-7 Days Disposition Disposition: Home, Self Care
[2021-03-16 16:41] LABS: White Blood Cells 0-5 SEEN /hpf (0-5)
[2021-03-16 17:57] LABS: Troponin-I HS 19.8 pg/mL (3.0-53.7)
== END 2021-03-16 18:42 | disposition home or self-care (01) ==
PROVIDERS: Emergency Medicine; Emergency Provider Emergency Medicine; PCP Family Medicine Geriatric Medicine
DX: S01.81XA Laceration without foreign body of other part of head, initial encounter (principal); W18.39XA Other fall on same level, initial encounter; Y93.89 Activity, other specified; Y92.9 Unspecified place or not applicable; Y99.8 Other external cause status; R55 Syncope and collapse; I49.1 Atrial premature depolarization; I25.119 Atherosclerotic heart disease of native coronary artery with unspecified angina pectoris; E78.5 Hyperlipidemia, unspecified; E03.9 Hypothyroidism, unspecified; M19.90 Unspecified osteoarthritis, unspecified site; L40.50 Arthropathic psoriasis, unspecified; Z79.02 Long term (current) use of antithrombotics/antiplatelets; Z79.899 Other long term (current) drug therapy; Z87.891 Personal history of nicotine dependence; Z86.73 Personal history of transient ischemic attack (TIA), and cerebral infarction without residual deficits
CPT/HCPCS: 12011; 70450; 80053; 81001; 84484; 85025; 90471; 90715; 93005; 99285; A4216

== ENCOUNTER → 2021-03-31 15:22 | Outpatient (CLI) | payer MEDICARE, OTHER, SELFPAY ==
[2020-11-04 14:47] VITALS: BMI 24.3
[2021-03-31 17:16] LABS: Absolute Lymphocyte Count 0.96 X10^3/uL (0.83-4.51); Absolute Neutrophil Count 4.2 X10^3/uL (2.0-7.7); Basophil# 0.05 X10^3/uL; Basophil% 0.8 % (0-1); Eosinophil# 0.13 X10^3/uL; Eosinophils% 2.2 % (0-5); Hematocrit 35.5 % (37-47); Hemoglobin 11.4 g/dL (12.0-15.0); Lymphocyte # 0.96 X10^3/ul (0.83-4.51); Lymphocyte % 16.2 % (19-41); Mean Corp Hgb Conc 32.1 g/dL (32-36); Mean Corpuscular Hgb 30.3 pg (27.0-32.0); Mean Corpuscular Volume 94.4 fL (81-99); Mean Platelet Vol. 10.6 fl (6.2-12.0); Monocyte# 0.53 X10^3/uL; NRBC Flagged by Analyzer 0 % (0-5); Neutrophil # 4.23 X10^3/uL (2.7-7.7); Neutrophil % 71.5 % (47-70); Platelet Count 210 K/mm3 (150-450); RBC Distribution Width CV 13.1 % (11.6-14.6); RBC Distribution Width SD 45.1 fl (35.1-43.9); Red Blood Count 3.76 M/mm3 (4.2-5.4); White Blood Count 5.9 K/mm3 (4.4-11.0)
[2021-03-31 17:37] LABS: Vitamin D,25 Hydroxy 58.6 ng/mL
[2021-03-31 17:55] LABS: AST(SGOT) 26 U/L (15-37); Alanine Aminotransfer ALT/SGPT 32 U/L (13-56); Albumin, Serum 3.6 g/dL (3.2-5.0); Alkaline Phosphatase 81 U/L (45-117); Anion Gap 6 (5-15); BUN 25 mg/dL (7-18); BUN/Creat Ratio 25.1 RATIO (10-20); Calcium,Total 8.9 mg/dL (8.5-10.1); Chloride 106 mmol/L (98-107); EST Glomerular Filtration Rate 57 mL/min (>60); Est Glom Filt Rate - Afr Amer 68 mL/min (>60); Globulin 3.5 g/dL (2.2-4.2); Glucose 98 mg/dL (74-106); Potassium 4.1 mmol/L (3.5-5.1); Protein, Total 7.1 g/dL (6.4-8.2); Sodium Level 139 mmol/L (136-145); Thyroid Stim Hormone (TSH) 1.62 uIU/mL (0.358-3.74)
== END ==
PROVIDERS: PCP Family Medicine Geriatric Medicine; Referring Provider Family Medicine Geriatric Medicine; Visit Provider Family Medicine Geriatric Medicine
DX: E03.9 Hypothyroidism, unspecified (principal); E55.9 Vitamin D deficiency, unspecified; I10 Essential (primary) hypertension
CPT/HCPCS: 36415; 80053; 82306; 84443; 85025

== ENCOUNTER → 2021-04-02 16:25 | Outpatient (CLI) | payer MEDICARE, OTHER, SELFPAY ==
[2021-04-02 17:06] LABS: Absolute Lymphocyte Count 1.24 X10^3/uL (0.83-4.51); Absolute Neutrophil Count 4.1 X10^3/uL (2.0-7.7); Basophil# 0.05 X10^3/uL; Basophil% 0.8 % (0-1); Eosinophil# 0.16 X10^3/uL; Eosinophils% 2.6 % (0-5); Hematocrit 38.3 % (37-47); Hemoglobin 12.4 g/dL (12.0-15.0); Lymphocyte # 1.24 X10^3/ul (0.83-4.51); Lymphocyte % 20.3 % (19-41); Mean Corp Hgb Conc 32.4 g/dL (32-36); Mean Corpuscular Hgb 30.3 pg (27.0-32.0); Mean Corpuscular Volume 93.6 fL (81-99); Mean Platelet Vol. 10.4 fl (6.2-12.0); Monocyte# 0.53 X10^3/uL; Monocyte% 8.7 % (0-10); NRBC Flagged by Analyzer 0 % (0-5); Neutrophil % 67.3 % (47-70); Platelet Count 218 K/mm3 (150-450); RBC Distribution Width CV 13.1 % (11.6-14.6); RBC Distribution Width SD 44.9 fl (35.1-43.9); Red Blood Count 4.09 M/mm3 (4.2-5.4); White Blood Count 6.1 K/mm3 (4.4-11.0)
[2021-04-02 18:02] LABS: ALB/GLOB Ratio 1.1 RATIO (0.9-2.4); AST(SGOT) 30 U/L (15-37); Alanine Aminotransfer ALT/SGPT 33 U/L (13-56); Alkaline Phosphatase 85 U/L (45-117); Anion Gap 7 (5-15); BUN 26 mg/dL (7-18); BUN/Creat Ratio 23.2 RATIO (10-20); Calcium,Total 9.5 mg/dL (8.5-10.1); Chloride 106 mmol/L (98-107); Creatinine, Serum 1.12 mg/dL (0.55-1.02); EST Glomerular Filtration Rate 49 mL/min (>60); Est Glom Filt Rate - Afr Amer 60 mL/min (>60); Globulin 3.7 g/dL (2.2-4.2); Glucose 99 mg/dL (74-106); Potassium 4.1 mmol/L (3.5-5.1); Protein, Total 7.7 g/dL (6.4-8.2); Sodium Level 139 mmol/L (136-145)
== END ==
PROVIDERS: PCP Family Medicine Geriatric Medicine; Referring Provider Internal Medicine Rheumatology; Visit Provider Internal Medicine Rheumatology
DX: L40.59 Other psoriatic arthropathy (principal); M35.00 Sjogren syndrome, unspecified; L40.9 Psoriasis, unspecified; M15.9 Polyosteoarthritis, unspecified; M17.0 Bilateral primary osteoarthritis of knee; K76.0 Fatty (change of) liver, not elsewhere classified; M48.061 Spinal stenosis, lumbar region without neurogenic claudication; I10 Essential (primary) hypertension; E03.9 Hypothyroidism, unspecified; F32.89 Other specified depressive episodes; I25.10 Atherosclerotic heart disease of native coronary artery without angina pectoris; M47.892 Other spondylosis, cervical region
CPT/HCPCS: 36415; 80053; 85025

== ENCOUNTER 2021-06-05 20:15 | Observation (INO) | payer MEDICARE, OTHER, SELFPAY ==
[2021-06-05 20:20] VITALS: BP 135/76; PULSE 72; RESP 16; TEMP 36.6; O2SAT 100; BMI 25.4
--- NOTE | 2021-06-05 20:30 | EKG12_ITS ---
Test Reason : CP Blood Pressure : / mmHG Vent. Rate : 075 BPM Atrial Rate : 075 BPM P-R Int : 120 ms QRS Dur : 074 ms QT Int : 382 ms P-R-T Axes : 019 058 067 degrees QTc Int : 426 ms Sinus rhythm with Premature supraventricular complexes Confirmed by OLGA JOHNSON, CATHI ([id number]), magazine editor DENISHA PATEL ([id number]) on 06/07/2021 10:32:47 AM Referred By: KENDY Confirmed By:CATHI ESPINOZA MD
--- NOTE | 2021-06-05 20:30 | ED.VIS.CHEST ---
HPI History of Present Illness Chief Complaint: Chest Pain Detail of Chief Complaint: Chest pain that started approximately 7:40 PM. Onset/Context/Timing Current Severity: 11/07 Narrative Narrative: Patient presents with left-sided chest pain that started about 7:40 PM. She describes a sharp pain that goes down her left arm. She denies nausea or vomiting or shortness of breath. Patient states that she took 3 of her nitroglycerin tablets without any pain relief. Patient states the pain is relatively continuous. Patient has history of coronary artery disease and cardiac stents. He has had history of prior TIAs. She denies recent travel or surgery. Patient has been vaccinated against COVID-19. Patient currently rates her pain at 3 or 4 out of 10. Patient somewhat of a poor historian and has some mild expressive aphasia. Prior Similar Symptoms: Yes PFSH PFSH Allergy/AdvReac Type Severity Reaction Status Date / Time Unable to Assess Allergy Verified 06/05/21 20:42 Social History Smoking Status: Never smoker ROS ROS ED Review of Systems ROS Unobtainable: other Constitutional Constitutional ED: Reports lethargy; Denies chills, fever(s), sweats or weight loss Eyes Eyes: Denies blurry vision, change in vision or diplopia ENT ENT ED: Denies rhinorrhea or sore throat Cardiovascular Cardiovascular: Reports chest pain and racing heartbeat; Denies orthopnea Respiratory/Chest Respiratory/Chest: Reports dyspnea and dyspnea on exertion; Denies cough, orthopnea or sputum Gastrointestinal Gastrointestinal: Denies abdominal pain, diarrhea, nausea or vomiting Genitourinary Genitourinary ED: Denies dysuria, hematuria or urinary frequency Musculoskeletal Musculoskeletal: Denies arthralgias, back pain, myalgias or neck pain Integumentary Denies abscess, Abrasions or rash Neurologic Neurologic: Denies headache(s) or weakness Psychiatric Psychiatric: Denies anxiety, depression or suicidal thoughts Endocrine Endocrinology: Denies polydipsia, polyphagia or polyuria Hematologic/Lymphatic Hematologic/Lymphatic: Denies easy bleeding, easy bruising or lymphadenopathy Allergic/Immunologic Allergic/Immunologic ED: Denies mouth swelling, tongue swelling or urticaria EXAM Physical Exam Const Vital Signs: 06/05/21 20:20 06/05/21 21:31 Temperature 97.8 F Temperature Source Oral Pulse Rate 72 71 Respiratory Rate 16 13 Blood Pressure 135/76 H 128/65 H Blood Pressure Mean 95 86 Pulse Ox 100 Oxygen Delivery Method Room Air Positive well nourished and well developed General Appearance ED: well developed and NAD HEENT Reports TM's clear and moist mucous membranes normocephalic and atraumatic; Negative for trauma or tenderness Tympanic Membrane ED: Yes TM's clear Eyes PERRL and EOMs intact bilaterally General Eye ED: Negative for pale conjunctiva or scleral icterus Neck no lymphadenopathy, supple and no JVD General: Negative for tenderness Chest Wall inspection of chest normal and palpation of chest normal Chest Narrative: Mild discomfort over left anterior chest wall that somewhat reproduces her pain. Chest: Negative for tenderness Resp normal respiratory effort and clear to auscultation bilaterally Effort and Inspection: Negative for respiratory distress or pain with movement Auscultation: Negative for rhonchi, wheezes or diminished lung sounds Cardio regular rate, regular rhythm, S1 normal heart sound, S2 normal heart sound and no murmurs Peripheral Pulses: pulses 2+ throughout GI normal to inspection, nondistended, normoactive bowel sounds, soft to palpation, non-tender, non-distended and no masses Back/Spine no CVA tenderness and no thoracic nor lumbar tenderness Extremity normal to inspection General Extremety ED: Negative for edema General Extremity: Negative for edema Neuro oriented x3, CN's II-XII intact bilaterally, no sensory deficits noted and gait normal Sensorium / Orientation: awake, alert, oriented to person, oriented to place and oriented to time Motor Exam: strength 5/5 throughout and strength abnormal Psych mental status grossly normal Skin no rashes or lesions noted and no wounds Heart Score History: Moderately Suspicious ECG: Normal Age: >/= 65 years Risk Factors: >/= 3 Risk Factors or History of CAD Troponin: </= Normal Limit Score: 5 MDM MDM MDM Narrative Medical decision making narrative: IV line established on arrival. Patient received nitroglycerin and pain resolved. She had an inch and paste placed to the anterior chest wall. Case discussed with hospitalist will evaluate patient for admission. Patient with known heart history and heart score of 5. Lab Data Attestation: I reviewed the patient's lab results. Labs: Laboratory Results - last 24 hr 06/05/21 06/05/21 06/05/21 20:45 20:45 20:45 WBC 5.9 RBC 3.98 L Hgb 11.8 L Hct 36.3 L MCV 91.2 MCH 29.6 MCHC 32.5 RDW Std Deviation 43.9 RDW Coeff of Tal 13.2 Plt Count 196 MPV 10.6 Immature Gran % (Auto) 0.200 Neut % (Auto) 55.7 Lymph % (Auto) 29.7 [place] % (Auto) 10.8 H Eos % (Auto) 3.1 Baso % (Auto) 0.5 Absolute Neuts (auto) 3.3 Absolute Lymphs (auto) 1.75 Nucleated RBC % 0 D-Dimer Quant (PE/DVT) 0.56 H* Sodium 138 Potassium 3.8 Chloride 106 Carbon Dioxide 24.0 Anion Gap 8 BUN 20 H Creatinine 1.08 H Estim Creat Clear Calc 40.06 Est GFR (MDRD) Af Amer 64 Est GFR (MDRD) Non-Af 53 L BUN/Creatinine Ratio 18.5 Glucose 103 Calcium 8.9 Troponin I High Sens 28 Radiography Chest X-Ray - ED: 1 View Diagnostic Testing: Clinical Impression(s) from Imaging Studies Chest X-Ray 06/05/21 21:00 IMPRESSION: Moderate emphysema, no acute disease. Electronically Signed: Airam Caldwell MD at 21:13 EDT Tel , Service support , 1 view chest x-ray obtained interpreted by myself as hyperinflation otherwise no acute disease process. Radiology felt patient had moderate emphysematous changes otherwise nothing acute. EKG Initial EKG: Attestation: I personally reviewed and interpreted this EKG as follows: Comments: Sinus rhythm with a ventricular rate of 75 bpm with occasional PACs. Discharge Plan Triage Chief Complaint: Chest Pain ED Provider: Toney Zaragoza Dx/Rx/DC Orders Clinical Impression: Chest pain Primary Care Provider: Matty Newsome Chi Referrals: Matty Newsome Chi, MD [Primary Care Provider] - Disposition Disposition: [facility]
[2021-06-05] MEDS: 0.9% Normal Saline 1,000 ML 150 ML IV (20:35)
[2021-06-05 21:00] LABS: Absolute Lymphocyte Count 1.75 X10^3/uL (0.83-4.51); Absolute Neutrophil Count 3.3 X10^3/uL (2.0-7.7); Basophil# 0.03 X10^3/uL; Basophil% 0.5 % (0-1); Eosinophil# 0.18 X10^3/uL; Eosinophils% 3.1 % (0-5); Hematocrit 36.3 % (37-47); Hemoglobin 11.8 g/dL (12.0-15.0); Lymphocyte # 1.75 X10^3/ul (0.83-4.51); Lymphocyte % 29.7 % (19-41); Mean Corp Hgb Conc 32.5 g/dL (32-36); Mean Corpuscular Hgb 29.6 pg (27.0-32.0); Mean Corpuscular Volume 91.2 fL (81-99); Mean Platelet Vol. 10.6 fl (6.2-12.0); Monocyte# 0.64 X10^3/uL; Monocyte% 10.8 % (0-10); NRBC Flagged by Analyzer 0 % (0-5); Neutrophil # 3.29 X10^3/uL (2.7-7.7); Neutrophil % 55.7 % (47-70); Platelet Count 196 K/mm3 (150-450); RBC Distribution Width CV 13.2 % (11.6-14.6); RBC Distribution Width SD 43.9 fl (35.1-43.9); Red Blood Count 3.98 M/mm3 (4.2-5.4); White Blood Count 5.9 K/mm3 (4.4-11.0)
--- NOTE | 2021-06-05 21:00 | RAD_ITS ---
STUDY: X-RAY CHEST REASON FOR EXAM: Female, 75 years old. chest pain TECHNIQUE: Frontal portable view of the chest COMPARISON: None. FINDINGS: The lungs are clear and hyperinflated. There is no demonstrated pleural abnormality. Normal size heart. Normal mediastinum and sharon. Normal visualized pulmonary arteries. Normal visualized aortic arch and descending thoracic aorta. Osseous structures are intact with ACDF. There is no demonstrated abnormality of the visualized soft tissue structures of the upper abdomen. RAD/Chest 1 View (Portable) IMPRESSION: Moderate emphysema, no acute disease. Electronically Signed: Airam Caldwell MD at 21:13 EDT Tel , Service support ,
[2021-06-05 21:18] LABS: Anion Gap 8 (5-15); BUN 20 mg/dL (7-18); BUN/Creat Ratio 18.5 RATIO (10-20); Calcium,Total 8.9 mg/dL (8.5-10.1); Chloride 106 mmol/L (98-107); Creatinine, Serum 1.08 mg/dL (0.55-1.02); D-Dimer Quantitative (DVT/PE) 0.56 FEU/ug/m (0.27-0.49); EST Glomerular Filtration Rate 53 mL/min (>60); Est Glom Filt Rate - Afr Amer 64 mL/min (>60); Estimated Creatinine Clearance 40.06 ml/min; Glucose 103 mg/dL (74-106); Potassium 3.8 mmol/L (3.5-5.1); Sodium Level 138 mmol/L (136-145); Troponin-I HS 28 pg/mL (3.0-54.0)
[2021-06-05 21:31] VITALS: BP 128/65; PULSE 71; RESP 13
[2021-06-05 21:40] VITALS: BP 128/65; PULSE 66
[2021-06-05] MEDS: Nitroglycerin Oint 1 INCH PACKET TD (21:40)
[2021-06-05 21:45] VITALS: BP 128/65; PULSE 83; RESP 15; TEMP 36.6; O2SAT 95
--- NOTE | 2021-06-05 22:14 | ED.RN ---
pt's family whom she lives with is out of town. daughter in law Skylar called in and was given update and informed that patient is being admitted to PCU room #120. daughter in law said her phone is not working and said to contact her on her friend's phone @ [phone]. daughter in law will be back in town tomorrow and will visit patient and give updated contact info at that time
[2021-06-05 22:20] VITALS: BP 140/68; PULSE 71; PULSE 73; RESP 18; TEMP 36.5; O2SAT 98; BMI 23.9
--- NOTE | 2021-06-05 22:37 | HP.PCM.HOS_ITS ---
HPI - General General Date of Admission: 06/05/21 Date of Service: 06/05/21 Chief Complaint: Chest pain HPI Narrative YUKI CAIN, is a 75 F who presents presents with left-sided chest pain today. Patient was reading when she developed sharp left chest pain that radiated down her left arm. Patient has had similar chest pain like this before but did not know the etiology of it when I spoke with her. Patient received some nitroglycerin at home did not help so she presented to the emergency room. Patient did receive some nitroglycerin which seemed to alleviate her pain. [facility] Medical History (Updated 06/05/21 @ 22:[address] Narayan Iverson, DO) CAD (coronary artery disease) Allergy/AdvReac Type Severity Reaction Status Date / Time Unable to Assess Allergy Verified 06/05/21 20:42 Social History Smoking Status: Never smoker ROS ROS Narrative Shortness of breath. All review of systems were negative except as mentioned above in the history of present illness and the other review of systems. Vital Signs Vital Signs Vital Signs: 06/05/21 20:20 06/05/21 21:31 06/05/21 21:40 Temperature 36.6 C Temperature Source Oral Pulse Rate 72 71 66 Respiratory Rate 16 13 Blood Pressure 135/76 H 128/65 H 128/65 H Blood Pressure [BP] Blood Pressure Mean 95 86 Blood Pressure Mean [BP] Blood Pressure Source [BP] Blood Pressure Position [BP] Blood Pressure Location [BP] Pulse Ox 100 Oxygen Delivery Method Room Air 06/05/21 21:45 06/05/21 22:20 Temperature 36.6 C 36.5 C L Temperature Source Temporal Oral Pulse Rate 83 73 Respiratory Rate 15 18 Blood Pressure 128/65 H Blood Pressure [BP] 140/68 H Blood Pressure Mean 86 Blood Pressure Mean [BP] 92 Blood Pressure Source [BP] Monitor Blood Pressure Position [BP] Sitting Blood Pressure Location [BP] Left Arm Pulse Ox 95 98 Oxygen Delivery Method Room Air Room Air Weight Weight: 63.3 kg Body Mass Index (BMI) 23.9 Physical Exam Const alert General Appearance: cooperative Resp normal respiratory effort, no retractions, no use of accessory muscles and clear to auscultation bilaterally Cardio regular rate, regular rhythm, S1 normal heart sound and S2 normal heart sound GI normal to inspection, nondistended, normoactive bowel sounds, soft to palpation, non-tender and non-distended Extremity normal to inspection Skin no rashes or lesions noted Neuro Sensorium / Orientation: awake and alert Psych affect normal Results Lab / Micro Data Attestation: I reviewed the patient's lab results. Result Diagrams: 06/05/21 20:45 06/05/21 20:45 Labs: Laboratory Results - last 24 hr 06/05/21 20:45: WBC 5.9, RBC 3.98 L, Hgb 11.8 L, Hct 36.3 L, MCV 91.2, MCH 29.6, MCHC 32.5, RDW Std Deviation 43.9, RDW Coeff of Tal 13.2, Plt Count 196, MPV 10.6, Immature Gran % (Auto) 0.200, Neut % (Auto) 55.7, Lymph % (Auto) 29.7, [place] % (Auto) 10.8 H, Eos % (Auto) 3.1, Baso % (Auto) 0.5, Absolute Neuts (auto) 3.3, Absolute Lymphs (auto) 1.75, Nucleated RBC % 0 06/05/21 20:45: D-Dimer Quant (PE/DVT) 0.56 H* 06/05/21 20:45: Sodium 138, Potassium 3.8, Chloride 106, Carbon Dioxide 24.0, Anion Gap 8, BUN 20 H, Creatinine 1.08 H, Estim Creat Clear Calc 40.06, Est GFR (MDRD) Af Amer 64, Est GFR (MDRD) Non-Af 53 L, BUN/Creatinine Ratio 18.5, Glucose 103, Calcium 8.9, Troponin I High Sens 28 EKG Initial EKG: Attestation: I personally reviewed and interpreted this EKG as follows: EKG Rhythm Intrepretation: Sinus Rhythm (With LVH) Radiology Impression Chest X-Ray 06/05/21 21:00 IMPRESSION: Moderate emphysema, no acute disease. Electronically Signed: Airam Caldwell MD at 21:13 EDT Tel , Service support , Assessment & Plan Assessment/Plan (1) Chest pain: QUALIFIERS: Chest pain type: unspecified Qualified Code(s): R07.9 - Chest pain, unspecified PLAN: Registration put patient under the wrong birthdate which should be rather than October 26, 1945. Her medical record number previous is [id number]. Refer to this for further details. 1. Chest pain * Concern for unstable angina but patient has had a history of musculoskeletal chest pain in the past that could be the though it is not reproducible at this time. * Patient had a stress test in October that was negative. * Given her history of CAD, will order another nuclear stress test which will not be able to be performed until the . 2. VTE prophylaxis: Not indicated given observation status 3. Advanced care planning: Discussed with patient. Patient wishes to be full code. Charges/Coding Visit Charges OBSV E&M: 29390 Initial observation care L2
--- NOTE | 2021-06-05 22:39 | EKG12_ITS ---
Test Reason : AM EKG Blood Pressure : / mmHG Vent. Rate : 079 BPM Atrial Rate : 079 BPM P-R Int : 134 ms QRS Dur : 078 ms QT Int : 382 ms P-R-T Axes : 088 036 073 degrees QTc Int : 438 ms Sinus rhythm with Premature atrial complexes Otherwise normal ECG Confirmed by OLGA JOHNSON, CATHI ([id number]), editor publications DENISHA PATEL ([id number]) on 06/08/2021 8:38:09 AM Referred By: JENNY Confirmed By:CATHI ESPINOZA MD
[2021-06-05 23:00] VITALS: O2SAT 98
[2021-06-05 23:32] LABS: Troponin-I HS 30 pg/mL (3.0-54.0)
[2021-06-06] VITALS (9 sets, daily range): BP systolic 115–131; BP diastolic 51–73; PULSE 73–82; RESP 14–18; TEMP 36.7–37.1; O2SAT 97–98
[2021-06-06 02:10] LABS: Troponin-I HS 35 pg/mL (3.0-54.0)
[2021-06-06 03:36] LABS: Cholesterol 130 mg/dL (200); High Density Lipoprotein 65 mg/dL; Triglycerides 49 mg/dL; Very Low Density Lipoprotein 10 mg/dL (5-40)
[2021-06-06] MEDS: Aspirin E.C. 81 MG Tablet PO (08:21)
[2021-06-06] MEDS: 0.9% Saline Lock 10 ML Syringe IV (08:21)
--- NOTE | 2021-06-06 11:19 | PCM.PN.HOSP ---
Documented by User: Annie Shah NP-C 06/06/21 11:30 Subjective Subjective Patient seen and examined. Patient states that she continues to have intermittent dull chest pain however she has not had any severe sharp shooting pains since presentation to ER. Patient currently denies chest pain and shortness of breath. Objective Data Objective Data Vital Signs: Vital Signs Temp Pulse Resp BP Pulse Ox 98.1 F 73 16 131/73 H 98 06/06/21 08:12 06/06/21 08:12 06/06/21 08:12 06/06/21 08:12 06/06/21 08:12 Oxygen Delivery Method Room Air Weight: 139 lb 8.842 oz Body Mass Index (BMI) 23.9 Intake & Output: Intake and Output for Last 24 Hours 06/04/21 06/05/21 06/06/21 23:59 23:59 22:59 Intake Total 1000 / 1200 200 / 200 Balance 1000 / 1200 200 / 200 Lab / Micro Data Result Diagrams: 06/06/21 12:14 06/06/21 12:14 Labs: Laboratory Results - last 24 hr 06/05/21 20:45: WBC 5.9, RBC 3.98 L, Hgb 11.8 L, Hct 36.3 L, MCV 91.2, MCH 29.6, MCHC 32.5, RDW Std Deviation 43.9, RDW Coeff of Tal 13.2, Plt Count 196, MPV 10.6, Immature Gran % (Auto) 0.200, Neut % (Auto) 55.7, Lymph % (Auto) 29.7, [place] % (Auto) 10.8 H, Eos % (Auto) 3.1, Baso % (Auto) 0.5, Absolute Neuts (auto) 3.3, Absolute Lymphs (auto) 1.75, Nucleated RBC % 0 06/05/21 20:45: D-Dimer Quant (PE/DVT) 0.56 H* 06/05/21 20:45: Sodium 138, Potassium 3.8, Chloride 106, Carbon Dioxide 24.0, Anion Gap 8, BUN 20 H, Creatinine 1.08 H, Estim Creat Clear Calc 40.06, Est GFR (MDRD) Af Amer 64, Est GFR (MDRD) Non-Af 53 L, BUN/Creatinine Ratio 18.5, Glucose 103, Calcium 8.9, Troponin I High Sens 28 06/05/21 23:00: Troponin I High Sens 30 06/06/21 01:45 EST: Triglycerides 49, Cholesterol 130, LDL Cholesterol 55, VLDL Cholesterol 10, HDL Cholesterol 65 06/06/21 01:45 EST: Troponin I High Sens 35 Radiography Diagnostic Testing: Radiology Impression Chest X-Ray 06/05/21 21:00 IMPRESSION: Moderate emphysema, no acute disease. Electronically Signed: Airam Caldwell MD at 21:13 EDT Tel , Service support , Physical Exam Const alert, oriented x3 and no apparent distress General Appearance: cooperative HEENT head/scalp atraumatic Head and Scalp: normocephalic Eyes conjunctivae normal and no scleral icterus Resp normal respiratory effort, normal air movement and clear to auscultation bilaterally Effort and Inspection: able to speak in complete sentences and symmetric chest movement Cardio regular rate, regular rhythm, S1 normal heart sound and S2 normal heart sound GI normal to inspection, nondistended, normoactive bowel sounds, soft to palpation, non-tender and non-distended Extremity normal to inspection, full ROM, normal capillary refill and no clubbing, cyanosis or edema Skin no rashes or lesions noted, no wounds and skin turgor normal Neuro moves all extremities, no focal motor deficits and no sensory deficits noted Sensorium / Orientation: awake and alert Psych mental status grossly normal, thought process normal, cooperative and affect normal Assessment & Plan Assessment/Plan (1) Chest pain: QUALIFIERS: Chest pain type: unspecified Qualified Code(s): R07.9 - Chest pain, unspecified (2) CAD (coronary artery disease): QUALIFIERS: Associated angina: unspecified whether angina present Coronary Disease-Associated Artery/Lesion type: unspecified vessel or lesion type [place] vs. transplanted heart: unspecified whether [place] or transplanted heart Qualified Code(s): I25.10 - Atherosclerotic heart disease of [place] coronary artery without angina pectoris PLAN: Patient is a 75-year-old female who initially presented with chest pain with radiation to the right arm. Pain was relieved by nitroglycerin patient was admitted for observation. 1. Chest pain -Patient has a history of CAD and has had a few stents placed. However patient also has history of musculoskeletal chest pain as well. Pain is not reproducible at this time -Stress test ordered for Monday morning, discussed with patient. -N.p.o. at midnight -Patient is currently not on any medication regimen at home. DVT prophylaxis-not indicated due to observation status This patient was seen by KEVIN Connolly under the supervision of Dr. Ochoa. Documented by User: Dr. Jaime Ochoa MD 06/06/21 14:40 Subjective Subjective Patient complain of severe midsternal chest pain with radiation to left arm. Objective Data Lab / Micro Data Result Diagrams: 06/06/21 12:14 06/06/21 12:14 Physical Exam Narrative Chest pain has resolved. General: Alert, Oriented x3, Cooperative HEENT: Atraumatic, PERRLA, EOMI, Normocephalic Oral: No Gingival or Mucosal Lesions/ Ulcerations Neck: Supple, No JVD, Negative Carotid Bruits Lungs: Air entry diminished in bilateral lung bases. No crepitation/rhonchi Cardiovascular: Regular rate, Regular Rhythm, Normal S1, Normal S2, No murmurs Abdomen: Bowel Sounds Present, Soft, Non Tender, Non-Distended : No renal angle tenderness. No suprapubic tenderness. Extremities: No edema, Capillary Refill Less than 3 Seconds Skin: No rashes, No breakdown Musculoskeletal: No Tenderness to Palpation of Joints or Extremities Neurological: Cranial nerves II-XII grossly intact, DTR 2+/4 and Symmetrical, Neuro grossly intact Psych/Mental Status: Normal Affect, Appropriate. Assessment & Plan Assessment/Plan (1) Chest pain: QUALIFIERS: Chest pain type: unspecified Qualified Code(s): R07.9 - Chest pain, unspecified PLAN: This patient was seen in conjunction with JUAQUIN Valencia. I have independently interviewed and examined the patient and reviewed pertinent history, examination findings, laboratory and plan of management. I have reviewed the note and agree with the documented findings with the few additional points. In brief, patient is admitted for atypical chest pain with radiation to left arm. Patient has history of coronary artery disease with stents. Stress test tomorrow morning. Further work-up depending on the results of her stress test. I have discussed my assessment with JUAQUIN Valencia and orders have been reviewed. Charges/Coding Visit Charges OBSV E&M: 34911 Subsequent observation care L2
[2021-06-06 12:33] LABS: Absolute Lymphocyte Count 1.02 X10^3/uL (0.83-4.51); Absolute Neutrophil Count 4.2 X10^3/uL (2.0-7.7); Basophil# 0.03 X10^3/uL; Basophil% 0.5 % (0-1); Eosinophil# 0.14 X10^3/uL; Eosinophils% 2.4 % (0-5); Hematocrit 36.4 % (37-47); Lymphocyte # 1.02 X10^3/ul (0.83-4.51); Lymphocyte % 17.2 % (19-41); Mean Corpuscular Hgb 30.1 pg (27.0-32.0); Mean Corpuscular Volume 91.2 fL (81-99); Mean Platelet Vol. 10.5 fl (6.2-12.0); Monocyte# 0.56 X10^3/uL; Monocyte% 9.4 % (0-10); NRBC Flagged by Analyzer 0 % (0-5); Neutrophil # 4.18 X10^3/uL (2.7-7.7); Neutrophil % 70.3 % (47-70); Platelet Count 198 K/mm3 (150-450); RBC Distribution Width CV 13.1 % (11.6-14.6); RBC Distribution Width SD 43.6 fl (35.1-43.9); Red Blood Count 3.99 M/mm3 (4.2-5.4); White Blood Count 5.9 K/mm3 (4.4-11.0)
[2021-06-06 12:48] LABS: Anion Gap 3 (5-15); BUN 16 mg/dL (7-18); Calcium,Total 8.5 mg/dL (8.5-10.1); Chloride 109 mmol/L (98-107); EST Glomerular Filtration Rate 58 mL/min (>60); Est Glom Filt Rate - Afr Amer 70 mL/min (>60); Estimated Creatinine Clearance 43.27 ml/min; Glucose 100 mg/dL (74-106); Sodium Level 140 mmol/L (136-145)
[2021-06-07] VITALS (7 sets, daily range): BP systolic 115–131; BP diastolic 61–68; PULSE 63–82; RESP 18; TEMP 36.7–36.8; O2SAT 96–98
--- NOTE | 2021-06-07 05:55 | EKG12_ITS ---
Test Reason : CP ADMISSION Blood Pressure : / mmHG Vent. Rate : 070 BPM Atrial Rate : 070 BPM P-R Int : 152 ms QRS Dur : 090 ms QT Int : 418 ms P-R-T Axes : 079 041 065 degrees QTc Int : 451 ms Sinus rhythm with sinus arrhythmia with occasional Premature ventricular complexes Otherwise normal ECG Confirmed by OLGA JOHNSON, CATHI ([id number]), desk editor DENISHA PATEL ([id number]) on 06/08/2021 8:45:13 AM Referred By: JENNY Confirmed By:CATHI ESPINOZA MD
[2021-06-07] MEDS: Aspirin E.C. 81 MG Tablet PO (06:05)
[2021-06-07 07:17] LABS: Absolute Lymphocyte Count 1.16 X10^3/uL (0.83-4.51); Absolute Neutrophil Count 4.1 X10^3/uL (2.0-7.7); Basophil# 0.04 X10^3/uL; Basophil% 0.7 % (0-1); Eosinophil# 0.22 X10^3/uL; Eosinophils% 3.6 % (0-5); Hematocrit 40.6 % (37-47); Lymphocyte # 1.16 X10^3/ul (0.83-4.51); Mean Corpuscular Hgb 29.3 pg (27.0-32.0); Mean Corpuscular Volume 91.4 fL (81-99); Mean Platelet Vol. 10.9 fl (6.2-12.0); Monocyte# 0.57 X10^3/uL; Monocyte% 9.3 % (0-10); NRBC Flagged by Analyzer 0 % (0-5); Neutrophil # 4.09 X10^3/uL (2.7-7.7); Neutrophil % 67.1 % (47-70); Platelet Count 210 K/mm3 (150-450); RBC Distribution Width CV 13.2 % (11.6-14.6); RBC Distribution Width SD 43.8 fl (35.1-43.9); Red Blood Count 4.44 M/mm3 (4.2-5.4); White Blood Count 6.1 K/mm3 (4.4-11.0)
[2021-06-07 07:59] LABS: Anion Gap 6 (5-15); BUN 21 mg/dL (7-18); BUN/Creat Ratio 18.1 RATIO (10-20); Calcium,Total 8.7 mg/dL (8.5-10.1); Chloride 108 mmol/L (98-107); Creatinine, Serum 1.16 mg/dL (0.55-1.02); EST Glomerular Filtration Rate 49 mL/min (>60); Est Glom Filt Rate - Afr Amer 59 mL/min (>60); Glucose 101 mg/dL (74-106); Potassium 4.4 mmol/L (3.5-5.1); Sodium Level 139 mmol/L (136-145)
--- NOTE | 2021-06-07 09:53 | CASEMGMT ---
This RN CM to room to complete SMITH form and pt is out of the dept for testing. CM to f/u. Kike ALDANA CM
--- NOTE | 2021-06-07 11:15 | PCM.DC ---
Discharge Instructions Diet Discharge Diet: Low fat / Low cholesterol Activity Discharge Activity: Return to Normal Activity Dressing / Incision Call your doctor if you observe: Shortness of breath, Dizziness, Chest pain and Increased palpitations (irregular heartbeat) Follow Up Care Please Follow Up With: Matty Newsome Chi, MD When: 1-2 weeks Test Results: Test results from this visit will be discussed in further detail at your follow-up appointment, if applicable. Discharge Plan Admission Admit Date/Time: 06/05/21 21:43 Primary Reason for Your Visit: Chest Pain Attending Provider: Jaime Ochoa Primary Care Provider: Matty Newsome Chi Discharge Orders/Prescriptions Prescriptions: New aspirin 81 mg Tablet,Delayed Release (Dr/Ec) 81 mg PO BREAKFAST Qty: 0 RF: 0 Continued isosorbide mononitrate 30 mg Tablet Extended Release 24 Hr 30 mg PO BID RF: 0 clopidogrel [Plavix] 75 mg Tablet 75 mg PO DAILY RF: 0 metoprolol succinate 25 mg Tablet Extended Release 24 Hr 25 mg PO DAILY RF: 0 atorvastatin [Lipitor] 40 mg Tablet 40 mg PO DAILY RF: 0 famotidine 40 mg Tablet 40 mg PO DAILY RF: 0 levothyroxine [Synthroid] 75 mcg Tablet 112 mcg PO DAILY RF: 0 nitroglycerin 0.4 mg Tablet, Sublingual 0.4 mg SUBLINGUAL Q5M PRN (Reason: Chest Pain) RF: 0 memantine 10 mg Tablet 10 mg PO BID RF: 0 galantamine 8 mg Capsule,Ext Rel. Pellets 24 Hr 8 mg PO DAILY RF: 0 cholecalciferol (vitamin D3) [Vitamin D3] 25 mcg (1,000 unit) Tablet 25 mcg PO DAILY RF: 0 Otezla 30 mg Tablet 30 mg PO DAILY RF: 0 Referrals / Follow Up: Matty Newsome Chi, MD [Primary Care Provider] - Disposition Disposition (needs filled in before D/C Order can be placed): Home, Self Care
--- NOTE | 2021-06-07 11:18 | DS.PCM_ITS ---
Documented by User: KEVIN Connolly 06/07/21 13:10 Providers Date of Admission: 06/05/21 Primary Care Physician: Dr. Matty Newsome MD Reason For Visit: CHEST PAINS Diagnosis Discharge Diagnosis (1) Chest pain: Status: Acute Code(s): R07.9 - Chest pain, unspecified Qualifiers: Chest pain type: unspecified Qualified Code(s): R07.9 - Chest pain, unspecified Medications at Discharge Home Medications Otezla 30 mg PO DAILY 06/06/21 atorvastatin [Lipitor] 40 mg PO DAILY 06/06/21 cholecalciferol (vitamin D3) [Vitamin D3] 25 mcg PO DAILY 06/06/21 clopidogrel [Plavix] 75 mg PO DAILY 06/06/21 famotidine 40 mg PO DAILY 06/06/21 galantamine 8 mg PO DAILY 06/06/21 isosorbide mononitrate 30 mg PO BID 06/06/21 levothyroxine [Synthroid] 112 mcg PO DAILY 06/06/21 memantine 10 mg PO BID 06/06/21 metoprolol succinate 25 mg PO DAILY 06/06/21 nitroglycerin 0.4 mg SUBLINGUAL Q5M PRN 06/06/21 aspirin 81 mg PO BREAKFAST #0 tab 06/07/21 Hospital Course Procedures EKG and Stress test Summary of Care Provided Minutes Spent on Discharge: 20 Hospital Course: Patient is an 85-year-old female who presented originally with complaints of chest pain. Patient states that she has not had any sharp chest pain since arrival to hospital which is a dull ache intermittently. Patient underwent a stress test which was negative. Patient will continue home medications and follow-up with Dr. Newsome in 1 to 2 weeks. Physical Exam Const alert, oriented x3 and no apparent distress General Appearance: cooperative HEENT head/scalp atraumatic Eyes conjunctivae normal and no scleral icterus Resp normal respiratory effort, normal air movement and clear to auscultation bilaterally Effort and Inspection: able to speak in complete sentences and symmetric chest movement Cardio regular rate, regular rhythm, S1 normal heart sound and S2 normal heart sound GI normal to inspection, nondistended, normoactive bowel sounds, soft to palpation, non-tender and non-distended Extremity normal to inspection, full ROM, normal capillary refill and no clubbing, cyanosis or edema Skin no rashes or lesions noted, no wounds and skin turgor normal Neuro moves all extremities, no focal motor deficits and no sensory deficits noted Sensorium / Orientation: awake and alert Psych mental status grossly normal, thought process normal, cooperative and affect normal Weight / BMI Weight Weight: 139 lb 8.842 oz Body Mass Index (BMI) 23.9 ABG / Lab / Microbiology Data Result Diagrams: 06/07/21 06:25 06/07/21 06:25 Laboratory: Laboratory Results - last 24 hr 06/06/21 12:14: WBC 5.9, RBC 3.99 L, Hgb 12.0, Hct 36.4 L, MCV 91.2, MCH 30.1, MCHC 33.0, RDW Std Deviation 43.6, RDW Coeff of Tal 13.1, Plt Count 198, MPV 10.5, Immature Gran % (Auto) 0.200, Neut % (Auto) 70.3 H, Lymph % (Auto) 17.2 L, [place] % (Auto) 9.4, Eos % (Auto) 2.4, Baso % (Auto) 0.5, Absolute Neuts (auto) 4.2, Absolute Lymphs (auto) 1.02, Nucleated RBC % 0 06/06/21 12:14: Sodium 140, Potassium 4.0, Chloride 109 H, Carbon Dioxide 28.0, Anion Gap 3 L, BUN 16, Creatinine 1.00, Estim Creat Clear Calc 43.27, Est GFR (MDRD) Af Amer 70, Est GFR (MDRD) Non-Af 58 L, BUN/Creatinine Ratio 16.0, Glucose 100, Calcium 8.5 06/07/21 06:25: WBC 6.1, RBC 4.44, Hgb 13.0, Hct 40.6, MCV 91.4, MCH 29.3, MCHC 32.0, RDW Std Deviation 43.8, RDW Coeff of Tal 13.2, Plt Count 210, MPV 10.9, Immature Gran % (Auto) 0.300, Neut % (Auto) 67.1, Lymph % (Auto) 19.0, [place] % (Auto) 9.3, Eos % (Auto) 3.6, Baso % (Auto) 0.7, Absolute Neuts (auto) 4.1, Absolute Lymphs (auto) 1.16, Nucleated RBC % 0 06/07/21 06:25: Sodium 139, Potassium 4.4, Chloride 108 H, Carbon Dioxide 25.0, Anion Gap 6, BUN 21 H, Creatinine 1.16 H, Estim Creat Clear Calc 37.30, Est GFR (MDRD) Af Amer 59 L, Est GFR (MDRD) Non-Af 49 L, BUN/Creatinine Ratio 18.1, Glucose 101, Calcium 8.7 D/C Instructions Discharge Diet: Low fat / Low cholesterol Call your doctor if you observe: Shortness of breath, Dizziness, Chest pain and Increased palpitations (irregular heartbeat) Please Follow Up With: Matty Newsome Chi, MD When: 1-2 weeks Meaningful Use Info Meaningful Use Diagnoses (Choose all that apply): None applicable Discharge Plan Admission Admit Date/Time: 06/05/21 22:34 Primary Reason for Your Visit: Chest Pain Attending Provider: Jaime Ochoa Primary Care Provider: Matty Newsome Chi Instructions Additional Instructions / Restrictions: Patient Problems: Altered Health Status related to Hospitalization Patient Goals: *Optimal Level of Health *Keep Appointments *Medication Compliance *Remain Safe Discharge Orders/Prescriptions Prescriptions: New aspirin 81 mg Tablet,Delayed Release (Dr/Ec) 81 mg PO BREAKFAST Qty: 0 RF: 0 Continued isosorbide mononitrate 30 mg Tablet Extended Release 24 Hr 30 mg PO BID RF: 0 clopidogrel [Plavix] 75 mg Tablet 75 mg PO DAILY RF: 0 metoprolol succinate 25 mg Tablet Extended Release 24 Hr 25 mg PO DAILY RF: 0 atorvastatin [Lipitor] 40 mg Tablet 40 mg PO DAILY RF: 0 famotidine 40 mg Tablet 40 mg PO DAILY RF: 0 levothyroxine [Synthroid] 75 mcg Tablet 112 mcg PO DAILY RF: 0 nitroglycerin 0.4 mg Tablet, Sublingual 0.4 mg SUBLINGUAL Q5M PRN (Reason: Chest Pain) RF: 0 memantine 10 mg Tablet 10 mg PO BID RF: 0 galantamine 8 mg Capsule,Ext Rel. Pellets 24 Hr 8 mg PO DAILY RF: 0 cholecalciferol (vitamin D3) [Vitamin D3] 25 mcg (1,000 unit) Tablet 25 mcg PO DAILY RF: 0 Otezla 30 mg Tablet 30 mg PO DAILY RF: 0 Referrals / Follow Up: Matty Newsome Chi, MD [Primary Care Provider] - Disposition Disposition (needs filled in before D/C Order can be placed): Home, Self Care Documented by User: Dr. Jaime Ochoa MD 06/07/21 16:42 Providers Date of Admission: 06/05/21 Reason For Visit: CHEST PAINS Medications at Discharge Home Medications Otezla 30 mg PO DAILY 06/06/21 atorvastatin [Lipitor] 40 mg PO DAILY 06/06/21 cholecalciferol (vitamin D3) [Vitamin D3] 25 mcg PO DAILY 06/06/21 clopidogrel [Plavix] 75 mg PO DAILY 06/06/21 famotidine 40 mg PO DAILY 06/06/21 galantamine 8 mg PO DAILY 06/06/21 isosorbide mononitrate 30 mg PO BID 06/06/21 levothyroxine [Synthroid] 112 mcg PO DAILY 06/06/21 memantine 10 mg PO BID 06/06/21 metoprolol succinate 25 mg PO DAILY 06/06/21 nitroglycerin 0.4 mg SUBLINGUAL Q5M PRN 06/06/21 aspirin 81 mg PO BREAKFAST #0 tab 06/07/21 Hospital Course Summary of Care Provided Hospital Course: This patient was seen in conjunction with JUAQUIN Valencia. I have independently interviewed and examined the patient and reviewed pertinent history, examination findings, laboratory and plan of management. I have reviewed the note and agree with the documented findings with the few additional points. In brief, patient is admitted for atypical chest pain with radiation to left arm. Patient has history of coronary artery disease with stents. Patient had a stress test and reported myocardial perfusion within normal limit. Calculated EF 82%. Patient is discharged home. Discharge medication reconciliation done. Discharge follow-up instructions completed. Discharge process discussed with the patient and all questions were answered to patient's satisfaction. Total time spent, exact 35 minutes on discharge meds reconciliation, ex amination, coordination of care with nurses and ancillary staff, review of imaging and blood test and discussion with the patient on follow-up instructions I have discussed my assessment with JUAQUIN Valencia and orders have been reviewed. Physical Exam Narrative Patient tolerated the stress test in the morning well. No chest pain. General: Alert, Oriented x3, Cooperative HEENT: Atraumatic, PERRLA, EOMI, Normocephalic Oral: No Gingival or Mucosal Lesions/ Ulcerations Neck: Supple, No JVD, Negative Carotid Bruits Lungs: Air entry equal in bilateral lung bases. No crepitation/rhonchi Cardiovascular: Regular rate, Regular Rhythm, Normal S1, Normal S2, No murmurs Abdomen: Bowel Sounds Present, Soft, Non Tender, Non-Distended : No renal angle tenderness. No suprapubic tenderness. Extremities: No edema, Capillary Refill Less than 3 Seconds Skin: No rashes, No breakdown Musculoskeletal: No Tenderness to Palpation of Joints or Extremities Neurological: Cranial nerves II-XII grossly intact, DTR 2+/4 and Symmetrical, Neuro grossly intact Psych/Mental Status: Normal Affect, Appropriate. ABG / Lab / Microbiology Data Result Diagrams: 06/07/21 06:25 06/07/21 06:25 Discharge Plan Admission Admit Date/Time: 06/05/21 22:34 Primary Reason for Your Visit: Chest Pain Attending Provider: Jaime Ochoa Primary Care Provider: Matty Newsome Chi Instructions Additional Instructions / Restrictions: Patient Problems: Altered Health Status related to Hospitalization Patient Goals: *Optimal Level of Health *Keep Appointments *Medication Compliance *Remain Safe Discharge Orders/Prescriptions Prescriptions: New aspirin 81 mg Tablet,Delayed Release (Dr/Ec) 81 mg PO BREAKFAST Qty: 0 RF: 0 Continued isosorbide mononitrate 30 mg Tablet Extended Release 24 Hr 30 mg PO BID RF: 0 clopidogrel [Plavix] 75 mg Tablet 75 mg PO DAILY RF: 0 metoprolol succinate 25 mg Tablet Extended Release 24 Hr 25 mg PO DAILY RF: 0 atorvastatin [Lipitor] 40 mg Tablet 40 mg PO DAILY RF: 0 famotidine 40 mg Tablet 40 mg PO DAILY RF: 0 levothyroxine [Synthroid] 75 mcg Tablet 112 mcg PO DAILY RF: 0 nitroglycerin 0.4 mg Tablet, Sublingual 0.4 mg SUBLINGUAL Q5M PRN (Reason: Chest Pain) RF: 0 memantine 10 mg Tablet 10 mg PO BID RF: 0 galantamine 8 mg Capsule,Ext Rel. Pellets 24 Hr 8 mg PO DAILY RF: 0 cholecalciferol (vitamin D3) [Vitamin D3] 25 mcg (1,000 unit) Tablet 25 mcg PO DAILY RF: 0 Otezla 30 mg Tablet 30 mg PO DAILY RF: 0 Referrals / Follow Up: Matty Newsome Chi, MD [Primary Care Provider] - Disposition Disposition (needs filled in before D/C Order can be placed): Home, Self Care Charges/Coding Visit Charges OBSV E&M: 14059 Observation care discharge
--- NOTE | 2021-06-07 11:35 | CASEMGMT ---
Pt returned from stress test. This RN CM to room with SMITH form, explanation done-pt voices understanding, and signed SMITH form. Original to chart and copy to pt. Pt voices no further questions/concerns/needs. SStaten JOVAN CM
--- NOTE | 2021-06-07 11:42 | STRESSREP_ITS ---
Stress Test Report Date: 06-07-2021 Procedure: Pharmacologic stress nuclear imaging study Indications: Chest pain; CAD Consent: Per the patient Procedure: The patient underwent pharmacologic (Regadenoson 0.4mg ) evaluation with a peak heart rate of 101 beats per minute (73%predicted maximal heart rate) and a peak blood pressure of 116/66 mmHg. The baseline ECG demonstrated sinus rhythm; PACs. The peak pharmacologic ECG demonstrated no obvious ECG changes. There were occasional PACs preinfusion and post infusion . There was no complaint of chest discomfort during pharmacologic infusion or recovery. The examination was discontinued secondary to completion of protocol. Impression: 1. Pharmacologic (Regadenoson) evaluation 2. Peak pharmacologic ECG with no obvious ECG changes. 3. There were occasional PACs preinfusion and post infusion. 4. Nuclear images pending Myocardial perfusion imaging study: Technique: The patient was injected with 11.7 millicuries of technetium 99m Cardiolite and subsequently rest SPECT Cardiolite nuclear imaging was obtained in the horizontal long, vertical long, and short axis views. The patient underwent pharmacologic (Regadenoson) evaluation with a peak heart rate of 101 beats per minute (73% percent predicted maximal heart rate) and a peak blood pressure of 116/66 mmHg. The patient was injected with 34 point millicuries of technetium 99m Cardiolite and subsequently stress SPECT Cardiolite nuclear imaging was obtained in the horizontal long, vertical long, and short axis views. A gated Cardiolite study at peak stress was obtained. Interpretation: Rest and stress SPECT Cardiolite nuclear imaging status post realignment, normalization, and attenuation correction demonstrate relative uniform tracer uptake and myocardial perfusion appearing within normal limits. There is end systolic thickening and brightening. The gated Cardiolite study demonstrates myocardial thickening and inward wall motion. The reported LVEF is 82%. Impression: 1. Relative uniform tracer uptake and myocardial perfusion appearing within normal limits. 2. The gated Cardiolite study reports an LVEF of 82%. This note was generated with [employer] software. It may contain incorrect words, spelling, and punctuation that were not noted in checking the note before signing.
--- NOTE | 2021-06-07 14:05 | PHA.DC.MC ---
Pharmacy Service has performed discharge medication reconciliation and counseling for this patient. 1. ASPIRIN 81MG PO BREAKFAST The patient's discharge medication list was reviewed for discrepancies and discrepancies were resolved. Home Medications Otezla 30 mg PO DAILY 06/06/21 atorvastatin [Lipitor] 40 mg PO DAILY 06/06/21 cholecalciferol (vitamin D3) [Vitamin D3] 25 mcg PO DAILY 06/06/21 clopidogrel [Plavix] 75 mg PO DAILY 06/06/21 famotidine 40 mg PO DAILY 06/06/21 galantamine 8 mg PO DAILY 06/06/21 isosorbide mononitrate 30 mg PO BID 06/06/21 levothyroxine [Synthroid] 112 mcg PO DAILY 06/06/21 memantine 10 mg PO BID 06/06/21 metoprolol succinate 25 mg PO DAILY 06/06/21 nitroglycerin 0.4 mg SUBLINGUAL Q5M PRN 06/06/21 aspirin 81 mg PO BREAKFAST #0 tab 06/07/21 The patient was counseled on the following discharge medications and changes in medications for homegoing were reviewed. The Reason for Use, instructions for use, and potential side effects were reviewed for all new medications. The patient's questions regarding all of their medications were answered. The patient was able to verbally demonstrate an understanding of their discharge medications.
== END 2021-06-07 13:10 | disposition home or self-care (01) ==
LOC: ED 21:39 → PCU 21:44
PROVIDERS: Nurse Practitioner Family; Emergency Provider Emergency Medicine; PCP Family Medicine Geriatric Medicine; Visit Provider Internal Medicine
DX: R07.89 Other chest pain (principal); I25.10 Atherosclerotic heart disease of native coronary artery without angina pectoris; R47.01 Aphasia; Z79.899 Other long term (current) drug therapy; Z79.02 Long term (current) use of antithrombotics/antiplatelets; Z79.890 Hormone replacement therapy; Z95.5 Presence of coronary angioplasty implant and graft; Z86.73 Personal history of transient ischemic attack (TIA), and cerebral infarction without residual deficits
CPT/HCPCS: 36415; 71045; 78452; 80048; 80061; 84484; 85025; 85379; 93005; 93017; 96360; 96361; 99218; 99285; A9500; A4216; G0378; J2785

== ENCOUNTER 2021-06-08 21:17 | Emergency (ER) | payer MEDICARE, OTHER, SELFPAY ==
[2021-06-08 21:18] VITALS: BP 162/136; PULSE 80; RESP 17; TEMP 36.8; O2SAT 99; BMI 22.1
--- NOTE | 2021-06-08 21:46 | RAD_ITS ---
INDICATION: chest pain EXAMINATION/TECHNIQUE: X-RAY - XR Chest 1 View COMPARISON: None. FINDINGS: LINES/DEVICES: None. LUNGS: Bilaterally symmetric, highly increased lung volumes but without flattening of the diaphragm to confirm air trapping. There is mild increase pulmonary lucency upper lobes. Lungs otherwise clear. No nodule, mass, airspace opacity or pleural effusion. No pneumothorax. MEDIASTINUM AND CARDIOVASCULAR STRUCTURES: Normal size and contour of the cardiomediastinal silhouette. No evidence of pulmonary vascular congestion. There are a few subcentimeter, calcifications left upper hilar region suggesting prior granulomatous infection. BONES AND SOFT TISSUES: Age expected degenerative changes. No appreciable fracture. Lytic or blastic bone lesion. C6-7 anterior cervical fusion hardware is present. RAD/Chest 1 View (Portable) IMPRESSION: 1. Increased lung volumes without definite air-trapping likely due to deep inspiratory effort. 2. Stigmata of prior glomus infection. Electronically Signed: Conor Coe DO at 23:54 EST Tel , Service support ,
--- NOTE | 2021-06-08 21:46 | EKG12_ITS ---
Test Reason : ABDOMINAL PAIN Blood Pressure : / mmHG Vent. Rate : 074 BPM Atrial Rate : 074 BPM P-R Int : 142 ms QRS Dur : 080 ms QT Int : 386 ms P-R-T Axes : 065 044 058 degrees QTc Int : 428 ms Sinus rhythm with Premature supraventricular complexes Otherwise normal ECG Confirmed by OLGA JOHNSON, CATHI ([id number]), school photograph editor DENISHA PATEL ([id number]) on 06/10/2021 8:53:22 AM Referred By: SONIA Confirmed By:CATHI ESPINOZA MD
[2021-06-08] MEDS: Ondansetron 4 MG/2 ML Vial IV (21:52)
[2021-06-08] MEDS: Morphine 4 MG/ML Syringe IV (21:52)
[2021-06-08 22:03] LABS: Absolute Lymphocyte Count 1.32 X10^3/uL (0.83-4.51); Absolute Neutrophil Count 6.6 X10^3/uL (2.0-7.7); Basophil# 0.05 X10^3/uL; Basophil% 0.5 % (0-1); Eosinophil# 0.22 X10^3/uL; Eosinophils% 2.4 % (0-5); Hematocrit 39.2 % (37-47); Hemoglobin 12.8 g/dL (12.0-15.0); Lymphocyte # 1.32 X10^3/ul (0.83-4.51); Lymphocyte % 14.4 % (19-41); Mean Corp Hgb Conc 32.7 g/dL (32-36); Mean Corpuscular Hgb 29.8 pg (27.0-32.0); Mean Corpuscular Volume 91.2 fL (81-99); Mean Platelet Vol. 10.8 fl (6.2-12.0); Monocyte# 0.92 X10^3/uL; Monocyte% 10.1 % (0-10); NRBC Flagged by Analyzer 0 % (0-5); Neutrophil % 72.3 % (47-70); Platelet Count 202 K/mm3 (150-450); RBC Distribution Width CV 13.6 % (11.6-14.6); RBC Distribution Width SD 45.4 fl (35.1-43.9); White Blood Count 9.1 K/mm3 (4.4-11.0)
[2021-06-08 22:17] LABS: AST(SGOT) 23 U/L (15-37); Alanine Aminotransfer ALT/SGPT 23 U/L (13-56); Albumin, Serum 3.3 g/dL (3.2-5.0); Alkaline Phosphatase 82 U/L (45-117); Anion Gap 5 (5-15); BUN 35 mg/dL (7-18); BUN/Creat Ratio 29.2 RATIO (10-20); Bilirubin, Direct 0.12 mg/dL (0.00-0.30); Calcium,Total 8.6 mg/dL (8.5-10.1); Chloride 107 mmol/L (98-107); EST Glomerular Filtration Rate 46 mL/min (>60); Est Glom Filt Rate - Afr Amer 55 mL/min (>60); Estimated Creatinine Clearance 30.67 ml/min; Globulin 3.9 g/dL (2.2-4.2); Glucose 108 mg/dL (74-106); Lipase 241 U/L (73-393); Potassium 4.2 mmol/L (3.5-5.1); Protein, Total 7.2 g/dL (6.4-8.2); Sodium Level 138 mmol/L (136-145); Troponin-I HS 25 pg/mL (3.0-54.0)
--- NOTE | 2021-06-08 23:01 | EDS_ITS ---
HPI History of Present Illness Chief Complaint: Abd Pain Narrative Narrative: Patient is an 85-year-old female who presents to the ER with left- sided chest/abdomen pain. She states she took a shower today around 1 or 1:30 in the afternoon and following this noticed pain in her left upper abdomen/chest wall. She denies any recent trauma and states that there is been no associated sick symptoms such as congestion cough nausea vomiting or diarrhea. She states the pain has been constant since its onset and has is not improving at home was brought in for evaluation [facility] Medical History Angina pectoris Atherosclerosis of coronary artery of [place] heart without angina pectoris Deep vein blood clot of right lower extremity (09/2013) Hyperlipemia Hypothyroidism Osteoarthritis Psoriatic arthritis Wolfe syndrome Skin cancer Stroke/cerebrovascular accident Tachycardia TIA (transient ischemic attack) (01/2015) Home Medications ergocalciferol (vitamin D2) 50,000 unit PO SA 10/18/16 [History Last Taken 10/31/20] famotidine 40 mg tablet 40 mg PO QDAY tab 09/11/17 [History Last Taken 11/03/20] levothyroxine 75 mcg tablet 75 mcg PO DAILY 10/15/19 [History Last Taken 11/03/20] memantine 10 mg tablet 10 mg PO BID 07/08/20 [History Last Taken 11/03/20] apremilast [Otezla] 30 mg PO DAILY 11/04/20 [History Last Taken 11/03/20] atorvastatin 40 mg PO QHS 11/04/20 [History Last Taken 11/03/20] galantamine 8 mg PO DAILY 11/04/20 [History Last Taken 11/03/20] metoprolol succinate 12.5 mg PO DAILY 11/04/20 [History Last Taken 11/03/20] clopidogrel 75 mg tablet 75 mg PO DAILY #90 tab 12/29/20 [Rx Last Taken Unknown] nitroglycerin 0.4 mg sublingual tablet 0.4 mg SUBLINGUAL Q5M PRN #25 tab 04/20/21 [Rx Last Taken Unknown] gabapentin 300 mg PO DAILY #33 cap 06/08/21 [Rx Last Taken Unknown] isosorbide mononitrate 30 mg PO BID 06/08/21 [History Last Taken Unknown] ondansetron 4 mg PO Q8H PRN #21 tab 06/08/21 [Rx Last Taken Unknown] oxycodone-acetaminophen [Percocet] 1 tab PO Q6H PRN 3 Days #12 tab 06/08/21 [Rx Last Taken Unknown] valacyclovir [Valtrex] 1,000 mg PO TID #21 tab 06/08/21 [Rx Last Taken Unknown] Allergy/AdvReac Type Severity Reaction Status Date / Time amlodipine Allergy Leg Verified 04/20/21 10:13 Swelling amlodipine besylate Allergy leg Verified 04/20/21 10:13 [From Norvasc] swelling amoxicillin [Amoxicillin] Allergy Rash Verified 04/20/21 10:13 castor oil Allergy PT UNSURE Verified 04/20/21 10:13 OF REACTION enalapril maleate Allergy Other Verified 04/20/21 10:13 [From Vasotec] enalaprilat dihydrate Allergy Other Verified 04/20/21 10:13 [From Vasotec] Iodinated Contrast Media Allergy Other Verified 04/20/21 10:13 [Iodinated Contrast Media - IV Dye] iodine Allergy PT UNSURE Verified 04/20/21 10:13 OF REACTION lisinopril Allergy Other Verified 04/20/21 10:13 ranolazine [From Ranexa] Allergy Unknown Verified 04/20/21 10:13 Sulfa (Sulfonamide Allergy Swelling Verified 04/20/21 10:13 Antibiotics) sulfasalazine Allergy PT UNSURE Verified 04/20/21 10:13 OF REACTION Family History Father CVA (cerebral vascular accident) Mother Heart disease CVA (cerebral vascular accident) Hypertension Sister Diabetes Surgical History H/O: knee surgery (09/2013) History of appendectomy History of hysterectomy History of left heart catheterization (08/24/15) History of percutaneous transluminal coronary angioplasty (1995) History of tonsillectomy and adenoidectomy Hx of cholecystectomy Social History household members: other details: son and [id number] housing: house current occupational status: retired Smoking Status: Former smoker alcohol intake: never what type of physical activity do you participate in: none ROS ROS ED Constitutional Constitutional ED: Denies chills or fever(s) ENT ENT ED: Denies sore throat Cardiovascular Cardiovascular: Reports chest pain Respiratory/Chest Respiratory/Chest: Denies cough or dyspnea Gastrointestinal Gastrointestinal: Reports abdominal pain; Denies diarrhea, nausea or vomiting Genitourinary Genitourinary ED: Denies dysuria Musculoskeletal Musculoskeletal: Denies myalgias Integumentary Denies rash Neurologic Neurologic: Denies headache(s) Hematologic/Lymphatic Hematologic/Lymphatic: Denies easy bleeding or easy bruising EXAM Physical Exam Const Vital Signs: 06/08/21 21:18 06/08/21 23:37 Temperature 98.2 F Temperature Source Temporal Pulse Rate 80 61 Respiratory Rate 17 18 Blood Pressure 162/136 H 127/48 H Blood Pressure Mean 144 74 Pulse Ox 99 97 Oxygen Delivery Method Room Air Room Air Positive well nourished and well developed General Appearance ED: well developed Eyes PERRL and EOMs intact bilaterally Neck supple Chest Wall Chest Narrative: Patient has a erythematous vesicular rash located along the T4- T5 dermatome of the left chest wall that does not cross midline most consistent with shingles. There is pain on palpation at this site Resp normal respiratory effort and clear to auscultation bilaterally Cardio regular rate and regular rhythm Rate: other Other Details: Radial pulses are plus 2 out of 4 bilaterally they are equal and symmetric GI normal to inspection, nondistended, normoactive bowel sounds, non-tender, non- distended and no masses GI Narrative: No voluntary guarding no rigidity no pulsatile mass Auscultation: normoactive bowel sounds Palpation: soft Extremity normal to inspection Extremity Narrative: No asymmetric edema no pitting edema negative Homans' sign bilaterally Neuro oriented x3 and CN's II-XII intact bilaterally Sensorium / Orientation: alert Motor Exam: strength 5/5 throughout Psych mental status grossly normal Skin Skin Narrative: Rash to the left chest wall most consistent with shingles as documented above MDM MDM MDM Narrative Medical decision making narrative: Patient presented to the ER with constant chest/abdominal pain for approximately 8 hours with no associated sick symptoms. She recently underwent a stress test to evaluate her heart which was reportedly normal and on exam she has a rash most consistent with shingles as a cause of her pain but based on her advanced age and medical comorbidities I did elect to perform repeat laboratory studies. Blood work revealed no clinically significant findings and chest x-ray revealed no obvious lung pathology. Therefore this time I feel patient can be placed on medication for the shingles and be safely discharged home. Lab Data Attestation: I reviewed the patient's lab results. Labs: Laboratory Results - last 24 hr 06/08/21 06/08/21 21:22 21:22 WBC 9.1 RBC 4.30 Hgb 12.8 Hct 39.2 MCV 91.2 MCH 29.8 MCHC 32.7 RDW Std Deviation 45.4 H RDW Coeff of Tal 13.6 Plt Count 202 MPV 10.8 Immature Gran % (Auto) 0.300 Neut % (Auto) 72.3 H Lymph % (Auto) 14.4 L [place] % (Auto) 10.1 H Eos % (Auto) 2.4 Baso % (Auto) 0.5 Absolute Neuts (auto) 6.6 Absolute Lymphs (auto) 1.32 Nucleated RBC % 0 Sodium 138 Potassium 4.2 Chloride 107 Carbon Dioxide 26.0 Anion Gap 5 BUN 35 H Creatinine 1.20 H Estim Creat Clear Calc 30.67 Est GFR (MDRD) Af Amer 55 L Est GFR (MDRD) Non-Af 46 L BUN/Creatinine Ratio 29.2 H Glucose 108 H Calcium 8.6 Total Bilirubin 0.30 Direct Bilirubin 0.12 AST 23 ALT 23 Alkaline Phosphatase 82 Troponin I High Sens 25 Total Protein 7.2 Albumin 3.3 Globulin 3.9 Lipase 241 Discharge Plan Triage Chief Complaint: Abd Pain ED Provider: Kam Lee Dx/Rx/DC Orders Clinical Impression: Shingles rash Instructions: Shingles (Herpes Zoster) Prescriptions: New valacyclovir [Valtrex] 1 gram tablet 1,000 mg PO TID Qty: 21 RF: 0 oxycodone-acetaminophen [Percocet] 5-325 mg tablet 1 tab PO Q6H PRN (Reason: pain) 3 Days Qty: 12 RF: 0 ondansetron 4 mg tablet,disintegrating 4 mg PO Q8H PRN (Reason: nausea and vomiting) Qty: 21 RF: 0 gabapentin 300 mg capsule 300 mg PO DAILY Qty: 33 RF: 0 No Action famotidine 40 mg tablet 40 mg PO QDAY RF: 0 levothyroxine [Synthroid] 75 mcg tablet 75 mcg PO DAILY RF: 0 memantine 10 mg tablet 10 mg PO BID RF: 0 nitroglycerin 0.4 mg tablet, sublingual 0.4 mg sublingual Q5M PRN (Reason: Chest Pain) Qty: 25 RF: 3 ergocalciferol (vitamin D2) 50,000 UNIT capsule 50,000 unit PO SA RF: 0 Otezla 30 MG tablet 30 mg PO DAILY RF: 0 metoprolol succinate 25 MG tablet extended release 24 hr 12.5 mg PO DAILY RF: 0 galantamine 4 MG tablet 8 mg PO DAILY RF: 0 atorvastatin 40 MG tablet 40 mg PO QHS RF: 0 isosorbide mononitrate 30 mg tablet extended release 24 hr 30 mg PO BID RF: 0 clopidogrel 75 mg tablet 75 mg PO DAILY Qty: 90 RF: 3 Primary Care Provider: Matty Newsome Chi Referrals: Matty Newsome Chi, MD [Primary Care Provider] - Disposition Disposition: Home, Self Care
[2021-06-08 23:37] VITALS: BP 127/48; PULSE 61; RESP 18; O2SAT 97
[2021-06-09 00:09] VITALS: BP 127/48; PULSE 61; RESP 16; O2SAT 97
== END 2021-06-09 00:18 | disposition home or self-care (01) ==
PROVIDERS: Emergency Provider Emergency Medicine; PCP Family Medicine Geriatric Medicine
DX: B02.9 Zoster without complications (principal); I25.10 Atherosclerotic heart disease of native coronary artery without angina pectoris; E03.9 Hypothyroidism, unspecified; E78.5 Hyperlipidemia, unspecified; L40.50 Arthropathic psoriasis, unspecified; M19.90 Unspecified osteoarthritis, unspecified site; Z79.02 Long term (current) use of antithrombotics/antiplatelets; Z79.899 Other long term (current) drug therapy; Z87.891 Personal history of nicotine dependence; Z86.718 Personal history of other venous thrombosis and embolism; Z86.73 Personal history of transient ischemic attack (TIA), and cerebral infarction without residual deficits
CPT/HCPCS: 71045; 80048; 80076; 83690; 84484; 85025; 93005; 96374; 96375; 99285; A4216; J2405

== ENCOUNTER → 2021-07-05 14:41 | Outpatient (CLI) | payer MEDICARE, OTHER, SELFPAY ==
[2021-07-05 16:26] LABS: Absolute Lymphocyte Count 0.97 X10^3/uL (0.83-4.51); Absolute Neutrophil Count 4.3 X10^3/uL (2.0-7.7); Basophil# 0.04 X10^3/uL; Basophil% 0.7 % (0-1); Eosinophil# 0.08 X10^3/uL; Eosinophils% 1.3 % (0-5); Hematocrit 36.4 % (37-47); Hemoglobin 11.6 g/dL (12.0-15.0); Lymphocyte # 0.97 X10^3/ul (0.83-4.51); Lymphocyte % 16.2 % (19-41); Mean Corp Hgb Conc 31.9 g/dL (32-36); Mean Corpuscular Hgb 29.6 pg (27.0-32.0); Mean Corpuscular Volume 92.9 fL (81-99); Mean Platelet Vol. 10.7 fl (6.2-12.0); Monocyte# 0.55 X10^3/uL; Monocyte% 9.2 % (0-10); NRBC Flagged by Analyzer 0 % (0-5); Neutrophil # 4.33 X10^3/uL (2.7-7.7); Neutrophil % 72.3 % (47-70); Platelet Count 216 K/mm3 (150-450); RBC Distribution Width CV 13.5 % (11.6-14.6); Red Blood Count 3.92 M/mm3 (4.2-5.4)
[2021-07-05 16:43] LABS: Vitamin D,25 Hydroxy 51.2 ng/mL
[2021-07-05 17:05] LABS: ALB/GLOB Ratio 0.9 RATIO (0.9-2.4); AST(SGOT) 26 U/L (15-37); Alanine Aminotransfer ALT/SGPT 27 U/L (13-56); Albumin, Serum 3.4 g/dL (3.2-5.0); Alkaline Phosphatase 82 U/L (45-117); Anion Gap 6 (5-15); BUN 23 mg/dL (7-18); BUN/Creat Ratio 21.1 RATIO (10-20); Calcium,Total 8.9 mg/dL (8.5-10.1); Chloride 105 mmol/L (98-107); Creatinine, Serum 1.09 mg/dL (0.55-1.02); EST Glomerular Filtration Rate 51 mL/min (>60); Est Glom Filt Rate - Afr Amer 62 mL/min (>60); Globulin 3.8 g/dL (2.2-4.2); Glucose 118 mg/dL (74-106); Potassium 4.2 mmol/L (3.5-5.1); Protein, Total 7.2 g/dL (6.4-8.2); Sodium Level 139 mmol/L (136-145); Thyroid Stim Hormone (TSH) 2.54 uIU/mL (0.358-3.74)
== END ==
PROVIDERS: PCP Family Medicine Geriatric Medicine; Visit Provider Family Medicine Geriatric Medicine
DX: E55.9 Vitamin D deficiency, unspecified (principal); I10 Essential (primary) hypertension
CPT/HCPCS: 36415; 80053; 82306; 84443; 85025

== ENCOUNTER 2021-09-20 16:48 | Outpatient (CLI) | payer MEDICARE, OTHER, SELFPAY ==
[2021-09-20 17:20] LABS: Absolute Lymphocyte Count 1.05 X10^3/uL (0.83-4.51); Absolute Neutrophil Count 4.3 X10^3/uL (2.0-7.7); Basophil# 0.04 X10^3/uL; Basophil% 0.7 % (0-1); Eosinophil# 0.09 X10^3/uL; Eosinophils% 1.5 % (0-5); Hematocrit 34.5 % (37-47); Hemoglobin 11.5 g/dL (12.0-15.0); Lymphocyte # 1.05 X10^3/ul (0.83-4.51); Lymphocyte % 17.6 % (19-41); Mean Corp Hgb Conc 33.3 g/dL (32-36); Mean Corpuscular Hgb 30.4 pg (27.0-32.0); Mean Corpuscular Volume 91.3 fL (81-99); Mean Platelet Vol. 9.5 fl (6.2-12.0); Monocyte# 0.48 X10^3/uL; Monocyte% 8.1 % (0-10); NRBC Flagged by Analyzer 0 % (0-5); Neutrophil # 4.29 X10^3/uL (2.7-7.7); Neutrophil % 71.9 % (47-70); Platelet Count 214 K/mm3 (150-450); RBC Distribution Width CV 13.2 % (11.6-14.6); RBC Distribution Width SD 44.7 fl (35.1-43.9); Red Blood Count 3.78 M/mm3 (4.2-5.4)
[2021-09-20 18:09] LABS: Anion Gap 4 (5-15); BUN 25 mg/dL (7-18); BUN/Creat Ratio 22.7 RATIO (10-20); Chloride 107 mmol/L (98-107); EST Glomerular Filtration Rate 50 mL/min (>60); Est Glom Filt Rate - Afr Amer 61 mL/min (>60); Glucose 116 mg/dL (74-106); Potassium 4.1 mmol/L (3.5-5.1); Sodium Level 139 mmol/L (136-145)
== END 2021-09-20 23:59 | disposition home or self-care (01) ==
LOC: POLAB3 16:50
PROVIDERS: PCP Family Medicine Geriatric Medicine; Visit Provider Family Medicine Geriatric Medicine
DX: N39.0 Urinary tract infection, site not specified (principal); G93.40 Encephalopathy, unspecified
CPT/HCPCS: 36415; 80048; 85025; 87086; 87088

== ENCOUNTER 2021-09-21 13:35 | Outpatient (CLI) | payer MEDICARE, OTHER, SELFPAY ==
--- NOTE | 2021-09-21 13:41 | MRI_ITS ---
STUDY: MRA NECK WITH AND WITHOUT CONTRAST REASON FOR EXAM: Female, 85 years old. NEURO DEFICIT TECHNIQUE: 3-D szvp-ui-zngbko (TOF) imaging was performed in an 1.5 T MRI scanner. 12 ml iv Dotarem was administered for the contrast enhanced images. COMPARISON: MRA neck 03/01/2017 FINDINGS: Metallic hardware C5-6 causes local magnetic susceptibility artifact. RIGHT CAROTID ARTERIES: Normal right common carotid artery (CCA). Normal right common carotid bulb. Normal origin of the right internal carotid (ICA) artery without a hemodynamically significant stenosis. Normal visualized cervical portion of the right internal carotid artery. Normal origin of the right external carotid artery (ECA). LEFT CAROTID ARTERIES: Normal left common carotid artery (CCA). Normal left common carotid bulb. Normal origin of the left internal carotid (ICA) artery without a hemodynamically significant stenosis. Normal visualized cervical portion of the left internal carotid artery. Normal origin of the left external carotid artery (ECA). VERTEBRAL ARTERIES: Normal antegrade flow within the bilateral vertebral artery without a hemodynamically significant stenosis. MRI/MRA Neck WITH and W/O Contrast IMPRESSION: Normal bilateral cervical carotid and vertebral arteries. Electronically Signed: Micah Hawley MD at 17:42 EST ,
--- NOTE | 2021-09-21 13:41 | MRI_ITS ---
STUDY: MRI BRAIN WITHOUT CONTRAST REASON FOR EXAM: Female, 85 years old. ACUTE NEURO DEFICIT TECHNIQUE: Standardized multiplanar fat and water weighted pulse sequences were obtained. COMPARISON: CT brain 03/16/2021 and MRI brain 03/01/2017 FINDINGS: There is moderate cerebral atrophy with widening of the extra-axial spaces and ventricular dilatation. There are multiple white matter hyperintensities, distributed throughout the deep white matter tracts of the cerebral hemispheres, consistent with moderate chronic white matter ischemic changes. There is no evidence for recent intracranial ischemia or other cause of cytotoxic edema on diffusion weighted imaging (DWI). Normal bilateral basal ganglia. Normal thalami. There is no extra-axial fluid accumulation. Normal flow voids within the major intracranial circulation suggesting patency by spin echo criteria. Normal sella turcica, pituitary gland, infundibular stalk, optic chiasm and hypothalamus. Normal tectal plate and pineal gland. Normal midbrain, [place] and medulla. Normal cerebellum. Normal basal cisterns. Normal bilateral temporal bones. Normal bilateral internal auditory canals. No demonstrated orbital abnormality, within the constraints of a routine brain study. Normal visualized paranasal sinuses. Normal calvarium and skull base. Normal visualized soft tissue structures. Normal visualized upper cervical spine. MRI/Brain without Contrast IMPRESSION: Involutional changes of the brain, as described above. Electronically Signed: Micah Hawley MD at 16:34 EST ,
--- NOTE | 2021-09-21 13:41 | MRI_ITS ---
STUDY: MRA OF THE HEAD WITHOUT CONTRAST REASON FOR EXAM: Female, 85 years old. ACUTE NEURO DEFICIT TECHNIQUE: 3-D uttk-ap-iavzdi (TOF) imaging was performed with MIPs. The study was performed unenhanced. COMPARISON: MR brain 09/21/[address] brain 03/16/2021 and MRA brain 03/01/2017 FINDINGS: Normal bilateral petrous carotid arteries. Normal right cavernous carotid artery with a normal supraclinoid bifurcation. Normal left cavernous carotid artery with a normal supraclinoid bifurcation. Normal right A1 segments of the anterior cerebral artery. Normal left A1 segments of the anterior cerebral artery. There is non-visualization of the anterior communicating artery (ACOM). Normal bilateral A2 segments of the anterior cerebral arteries. Normal right M1 and M2 segments of the middle cerebral arteries, with a normal M1 bifurcation. Normal left M1 and M2 segments of the middle cerebral arteries, with a normal M1 bifurcation. Normal right posterior communicating artery (PCOM). 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 Normal bilateral vertebral arteries. Normal basilar artery with a normal basilar bifurcation. The visualized bilateral superior cerebellar (SCA) arteries are normal. Normal bilateral P1, P2 and visualized P3 segments of the posterior cerebral arteries. There is no demonstrated aneurysm of the andreafski of [place]. There is no major vessel occlusion or hemodynamically significant stenosis. There is no demonstrated abnormality of the visualized brain. MRI/MRA Head ONLY without Contrast IMPRESSION: Normal MRA of the head Electronically Signed: Micah Hawley MD at 16:40 EST ,
== END 2021-09-21 23:59 | disposition home or self-care (01) ==
LOC: MRI 13:39
PROVIDERS: PCP Family Medicine Geriatric Medicine; Referring Provider Family Medicine Geriatric Medicine; Visit Provider Family Medicine Geriatric Medicine
DX: Z86.73 Personal history of transient ischemic attack (TIA), and cerebral infarction without residual deficits (principal)
CPT/HCPCS: 70544; 70549; 70551; A9575

== ENCOUNTER 2021-09-28 10:37 | Outpatient (CLI) | payer MEDICARE, OTHER, SELFPAY ==
[2021-09-28 12:25] LABS: Absolute Neutrophil Count 4.8 X10^3/uL (2.0-7.7); Basophil# 0.04 X10^3/uL; Basophil% 0.7 % (0-1); Eosinophil# 0.06 X10^3/uL; Hematocrit 39.1 % (37-47); Hemoglobin 12.9 g/dL (12.0-15.0); Lymphocyte % 11.4 % (19-41); Mean Corpuscular Hgb 30.5 pg (27.0-32.0); Mean Corpuscular Volume 92.4 fL (81-99); Mean Platelet Vol. 10.6 fl (6.2-12.0); Monocyte% 8.1 % (0-10); NRBC Flagged by Analyzer 0 % (0-5); Neutrophil # 4.83 X10^3/uL (2.7-7.7); Neutrophil % 78.5 % (47-70); Platelet Count 223 K/mm3 (150-450); RBC Distribution Width CV 13.2 % (11.6-14.6); RBC Distribution Width SD 44.7 fl (35.1-43.9); Red Blood Count 4.23 M/mm3 (4.2-5.4); White Blood Count 6.2 K/mm3 (4.4-11.0)
[2021-09-28 13:01] LABS: AST(SGOT) 24 U/L (15-37); Alanine Aminotransfer ALT/SGPT 22 U/L (13-56); Albumin, Serum 3.6 g/dL (3.2-5.0); Alkaline Phosphatase 85 U/L (45-117); Anion Gap 1 (5-15); BUN 23 mg/dL (7-18); BUN/Creat Ratio 20.4 RATIO (10-20); Calcium,Total 9.3 mg/dL (8.5-10.1); Chloride 109 mmol/L (98-107); Creatinine, Serum 1.13 mg/dL (0.55-1.02); EST Glomerular Filtration Rate 49 mL/min (>60); Est Glom Filt Rate - Afr Amer 59 mL/min (>60); Globulin 3.7 g/dL (2.2-4.2); Glucose 75 mg/dL (74-106); Potassium 4.2 mmol/L (3.5-5.1); Protein, Total 7.3 g/dL (6.4-8.2); Sodium Level 140 mmol/L (136-145)
== END 2021-09-28 23:59 | disposition home or self-care (01) ==
LOC: MTLAB 10:40
PROVIDERS: PCP Family Medicine Geriatric Medicine; Referring Provider Internal Medicine Rheumatology; Visit Provider Internal Medicine Rheumatology
DX: L40.59 Other psoriatic arthropathy (principal); M35.00 Sjogren syndrome, unspecified; G56.03 Carpal tunnel syndrome, bilateral upper limbs; M17.0 Bilateral primary osteoarthritis of knee; K76.0 Fatty (change of) liver, not elsewhere classified; M48.061 Spinal stenosis, lumbar region without neurogenic claudication; I10 Essential (primary) hypertension; E03.9 Hypothyroidism, unspecified; Z79.899 Other long term (current) drug therapy
CPT/HCPCS: 36415; 80053; 85025

== ENCOUNTER 2021-10-04 14:16 | Outpatient (CLI) | payer MEDICARE, OTHER, SELFPAY ==
[2021-10-04 17:22] LABS: Absolute Neutrophil Count 4.7 X10^3/uL (2.0-7.7); Basophil# 0.05 X10^3/uL; Basophil% 0.8 % (0-1); Eosinophils% 1.5 % (0-5); Hematocrit 35.5 % (37-47); Hemoglobin 11.8 g/dL (12.0-15.0); Lymphocyte % 16.6 % (19-41); Mean Corp Hgb Conc 33.2 g/dL (32-36); Mean Corpuscular Hgb 30.3 pg (27.0-32.0); Mean Corpuscular Volume 91.3 fL (81-99); Mean Platelet Vol. 10.8 fl (6.2-12.0); Monocyte# 0.65 X10^3/uL; Monocyte% 9.8 % (0-10); NRBC Flagged by Analyzer 0 % (0-5); Neutrophil # 4.71 X10^3/uL (2.7-7.7); Platelet Count 225 K/mm3 (150-450); RBC Distribution Width CV 13.1 % (11.6-14.6); RBC Distribution Width SD 43.8 fl (35.1-43.9); Red Blood Count 3.89 M/mm3 (4.2-5.4); White Blood Count 6.6 K/mm3 (4.4-11.0)
[2021-10-04 17:37] LABS: Vitamin D,25 Hydroxy 50.2 ng/mL
[2021-10-04 17:41] LABS: ALB/GLOB Ratio 0.9 RATIO (0.9-2.4); AST(SGOT) 26 U/L (15-37); Alanine Aminotransfer ALT/SGPT 30 U/L (13-56); Albumin, Serum 3.4 g/dL (3.2-5.0); Alkaline Phosphatase 81 U/L (45-117); Anion Gap 4 (5-15); BUN 22 mg/dL (7-18); Calcium,Total 8.8 mg/dL (8.5-10.1); Chloride 104 mmol/L (98-107); Creatinine, Serum 1.16 mg/dL (0.55-1.02); EST Glomerular Filtration Rate 47 mL/min (>60); Est Glom Filt Rate - Afr Amer 57 mL/min (>60); Globulin 3.6 g/dL (2.2-4.2); Glucose 99 mg/dL (74-106); Potassium 4.3 mmol/L (3.5-5.1); Sodium Level 138 mmol/L (136-145); Thyroid Stim Hormone (TSH) 0.45 uIU/mL (0.358-3.74)
== END 2021-10-04 23:59 | disposition home or self-care (01) ==
LOC: POLAB3 14:17
PROVIDERS: PCP Family Medicine Geriatric Medicine; Visit Provider Family Medicine Geriatric Medicine
DX: I10 Essential (primary) hypertension (principal); E55.9 Vitamin D deficiency, unspecified
CPT/HCPCS: 36415; 80053; 82306; 84443; 85025

== ENCOUNTER 2021-10-14 15:07 | Outpatient (CLI) | payer MEDICARE, OTHER, SELFPAY ==
[2021-10-14 17:26] LABS: Absolute Neutrophil Count 5.9 X10^3/uL (2.0-7.7); Basophil# 0.07 X10^3/uL; Basophil% 0.9 % (0-1); Eosinophil# 0.27 X10^3/uL; Eosinophils% 3.4 % (0-5); Hematocrit 36.4 % (37-47); Hemoglobin 11.9 g/dL (12.0-15.0); Lymphocyte % 14.9 % (19-41); Mean Corp Hgb Conc 32.7 g/dL (32-36); Mean Corpuscular Hgb 29.7 pg (27.0-32.0); Mean Corpuscular Volume 90.8 fL (81-99); Monocyte# 0.56 X10^3/uL; NRBC Flagged by Analyzer 0 % (0-5); Neutrophil # 5.93 X10^3/uL (2.7-7.7); Neutrophil % 73.6 % (47-70); Platelet Count 290 K/mm3 (150-450); RBC Distribution Width CV 13.2 % (11.6-14.6); RBC Distribution Width SD 43.6 fl (35.1-43.9); Red Blood Count 4.01 M/mm3 (4.2-5.4); White Blood Count 8.1 K/mm3 (4.4-11.0)
[2021-10-14 17:28] LABS: ALB/GLOB Ratio 0.9 RATIO (0.9-2.4); AST(SGOT) 23 U/L (15-37); Alanine Aminotransfer ALT/SGPT 28 U/L (13-56); Albumin, Serum 3.5 g/dL (3.2-5.0); Alkaline Phosphatase 80 U/L (45-117); Anion Gap 2 (5-15); BUN 25 mg/dL (7-18); BUN/Creat Ratio 22.1 RATIO (10-20); Calcium,Total 9.1 mg/dL (8.5-10.1); Chloride 104 mmol/L (98-107); Creatinine, Serum 1.13 mg/dL (0.55-1.02); EST Glomerular Filtration Rate 49 mL/min (>60); Est Glom Filt Rate - Afr Amer 59 mL/min (>60); Globulin 3.7 g/dL (2.2-4.2); Glucose 103 mg/dL (74-106); Potassium 4.5 mmol/L (3.5-5.1); Protein, Total 7.2 g/dL (6.4-8.2); Sodium Level 135 mmol/L (136-145)
== END 2021-10-14 23:59 | disposition home or self-care (01) ==
LOC: POLAB3 15:08
PROVIDERS: PCP Family Medicine Geriatric Medicine; Visit Provider Family Medicine Geriatric Medicine
DX: I10 Essential (primary) hypertension (principal); R05.9 Cough, unspecified
CPT/HCPCS: 36415; 80053; 85025

== ENCOUNTER 2021-11-30 05:34 | Day surgery (SDC) | payer MEDICARE, OTHER, SELFPAY ==
[2021-11-30] VITALS (9 sets, daily range): BP systolic 101–141; BP diastolic 52–77; PULSE 70–83; RESP 14–18; TEMP 36.3–37.1; O2SAT 94–100; BMI 23.3
[2021-11-30] MEDS: Lactated Ringers 1,000 ML 15 ML IV (06:35)
[2021-11-30] MEDS: Lidocaine 1% /Epi 1:100 (50ml) 50 ML VIAL (07:09)
--- NOTE | 2021-11-30 07:14 | PCM.HP.BLA ---
History and Physical Date of Admission: 11/30/21 [facility] [id number] [facility] [address] [place] [address] [phone] OFFICE VISITDate of Service: 09/27/21 MR#:[id number]: YUKI CAIN [facility] #:[id number]:[id number] Provider:Dr. Suleiman Horta, DOAge/Sex: 85/F Location:[place]:Signed Intake Intake Visit Reasons: RIGHT HAND Allergies amlodipine Allergy (Verified 06/15/21 13:51) Leg Swelling amlodipine besylate [From Norvasc] Allergy (Verified 06/15/21 13:51) leg swelling amoxicillin [Amoxicillin] Allergy (Verified 06/15/21 13:51) Rash castor oil Allergy (Verified 06/15/21 13:51) PT UNSURE OF REACTION enalapril maleate [From Vasotec] Allergy (Verified 06/15/21 13:51) Other enalaprilat dihydrate [From Vasotec] Allergy (Verified 06/15/21 13:51) Other Iodinated Contrast Media [Iodinated Contrast Media - IV Dye] Allergy (Verified 06/15/21 13:51) Other iodine Allergy (Verified 06/15/21 13:51) PT UNSURE OF REACTION lisinopril Allergy (Verified 06/15/21 13:51) Other ranolazine [From Ranexa] Allergy (Verified 06/15/21 13:51) Unknown Sulfa (Sulfonamide Antibiotics) Allergy (Verified 06/15/21 13:51) Swelling sulfasalazine Allergy (Verified 06/15/21 13:51) PT UNSURE OF REACTION Medications ergocalciferol (vitamin D2) 50,000 unit PO SA 10/18/16 [History Confirmed 09/27/21] Otezla 30 mg PO DAILY 06/06/21 [History Confirmed 09/27/21] atorvastatin [Lipitor] 40 mg PO DAILY 06/06/21 [History Confirmed 09/27/21] cholecalciferol (vitamin D3) [Vitamin D3] 25 mcg PO DAILY 06/06/21 [History Confirmed 09/27/21] clopidogrel [Plavix] 75 mg PO DAILY 06/06/21 [History Confirmed 09/27/21] famotidine 40 mg PO DAILY 06/06/21 [History Confirmed 09/27/21] galantamine 8 mg PO DAILY 06/06/21 [History Confirmed 09/27/21] levothyroxine [Synthroid] 112 mcg PO DAILY 06/06/21 [History Confirmed 09/27/21] memantine 10 mg PO BID 06/06/21 [History Confirmed 09/27/21] metoprolol succinate 25 mg PO DAILY 06/06/21 [History Confirmed 09/27/21] nitroglycerin 0.4 mg SUBLINGUAL Q5M PRN 06/06/21 [History Confirmed 09/27/21] aspirin 81 mg PO BREAKFAST #0 tab 06/07/21 [Rx Confirmed 09/27/21] gabapentin 300 mg PO DAILY #33 cap 06/08/21 [Rx Confirmed 09/27/21] isosorbide mononitrate 30 mg PO BID 06/08/21 [History Confirmed 09/27/21] ondansetron 4 mg PO Q8H PRN #21 tab 06/08/21 [Rx Confirmed 09/27/21] oxycodone-acetaminophen [Percocet] 1 tab PO Q6H PRN 3 Days #12 tab 06/08/21 [Rx Confirmed 09/27/21] valacyclovir [Valtrex] 1,000 mg PO TID #21 tab 06/08/21 [Rx Confirmed 09/27/21] PFSH Medical History Angina pectoris Atherosclerosis of coronary artery of [place] heart without angina pectoris Deep vein blood clot of right lower extremity (09/2013) Hyperlipemia Hypothyroidism Osteoarthritis Psoriatic arthritis Wolfe syndrome Skin cancer Stroke/cerebrovascular accident Tachycardia TIA (transient ischemic attack) (01/2015) Surgical History H/O: knee surgery (09/2013) History of appendectomy History of hysterectomy History of left heart catheterization (08/24/15) History of percutaneous transluminal coronary angioplasty (1995) History of tonsillectomy and adenoidectomy Hx of cholecystectomy Family History (System 06/15/21 @ 13:51 by Alexey Porras) Father CVA (cerebral vascular accident) Mother Heart disease CVA (cerebral vascular accident) Hypertension Sister Diabetes Social History (System 06/15/21 @ 13:51 by Alexey Porras) household members: other details: son and [id number] housing: house current occupational status: retired Smoking Status: Never smoker alcohol intake: never what type of physical activity do you participate in: none HPI RIGHT HAND Details: Parts of this documentation were recorded by a scribe, this documentation accurately reflects the service provided and the decisions made by me, Dr. Suleiman Horta, DO 09/27/21 0913. YUKI CAIN is a 85 year old F here today for BL wrists. Patient was referred by Dr. Newsome for bilateral wrist pain, with her right being the worst. She has had these symptoms for about 4-5 years now. Patient had tried bilateral wrist injections, with some relief. Denies any accident or injury. Patient is currently retired. Pain with her right radial wrist radiates to her mid forearm. Limited technical asst. Left wrist occasionally has issues with gripping. Right hand is numb into the 1st through 4th digits. Has intermittant numbness of the left hand. She has tried wrist bracing that she wears during the day. Her last injections where in 02/[address] Arreola. Denies any surgery of the wrists. Injections into the carpal tunnel in the past have given her significant relief she does feel that she is dropping things because of this Her left 5th digit becomes cramped and twisted at times. Ortho Exam General General: Yes no acute distress Neurologic: Yes alert and Yes oriented x3 Psychologic: Yes reasonable and appropriate Right Wrist/Hand Skin/Wound: No Swelling and No Ecchymosis Right Wrist: Yes Sandie's Test, tender to palpate 1st dorsal compartment, tender to palpate carpometacarpal joint and Thenar Atrophy; No CMC Grind Left Wrist/Hand Skin/Wound: No Swelling and No Ecchymosis Left Wrist: No Durken's Test, No Sandie's Test, No Tinel's, No Phalen's, No CMC Grind, No tender to palpate 1st dorsal compartment and No tender to palpate carpometacarpal joint WRIST: no collateral instability extensor flexor tendon intact no extensor tendon subluxation no rotational deformity Office Procedures Ortho Injections Injections Details: Obtained consent for injection. Under sterile conditions, injected the patients right de quervains with 0.5cc kenalog and 0.5cc bupivacaine. The patient tolerated the injection well without any noted complication. Patient should call our office if redness develops, pain worsens or if they have any concerns. Office [facility] Performing Provider: Suleiman Horta DO Administered by: Suleiman Horta DO on 09/27/21 15:09 Dose Route Admin Location Lot Number Expiration Date NDC Inside Sales Director 20 mg intra-articular right de quervains [id number] 06/30/22 7704-7609-57 [facility] Supplemental Info 03/21/2019 EMG nerve conduction study bilateral upper extremity:1. Electrodiagnostic findings demonstrate bilateral median mononeuropathy. This is consistent with a mild left carpal tunnel syndrome and a moderate right carpal tunnel syndrome. 2. No electrodiagnostic evidence is noted for cervical radiculopathy. 07/08/2020 x-ray right wrist there is mild radiocarpal arthrosis and moderate first CMC joint arthrosis 07/08/2020 x-ray left wrist: Moderate radiocarpal arthrosis and moderate first CMC joint arthrosis Coding Level of Care Code Off vis,est,level 4 Diagnoses De Quervain's tenosynovitis, right M65.4 Carpal tunnel syndrome, bilateral G56.03 Assessment and Plan Assessment and Plan (1) De Quervain's tenosynovitis, right: Status: Acute (2) Carpal tunnel syndrome, bilateral: Status: Acute Orders: Orders: Ortho Injections Today M65.4 Plan - Dr. Suleiman Horta DO: reviewed previous X-rays of patient's BL wrists. Patient educated that her EMG from 2019 showed carpal tunnel syndrome which has more than likely progressed. We can get a new EMG or night splinting or she can have a carpal tunnel release if she wishes. Patient educated that she also has de Quervain syndrome of the right wrist which is causing the pain over the radial side of the wrist. Treatment options are do nothing or bracing or injection. She states that the de Quervain syndrome is worse over the right wrist therefore she wishes to have the injection into the right wrist and she wishes to proceed with left CTR. Reviewed the pre-operative plans with the patient. Risks and benefits of the procedure were fully explained, including but not limited to infection, neurovascular injury, continued pain, arthritis, stiffness, need for further surgery, re-injury, DVT, PE, general risks of anesthesia, and loss of limb or life. The patient understands all the risks and does wish to proceed with written consent. Follow up at 2 week post op or sooner if pain, swelling, numbness or associated symptoms, or concerns develop. All questions answered. Patient in agreement of plan. 09/27/21 1516<Electronically signed by Suleiman Horta DO>Date Suleiman Kebede Signature:Date (if applicable) CC: ~ I have re-examined the patient. There are no clinical changes since date of exam
--- NOTE | 2021-11-30 07:22 | EX.PCM.DISCH ---
Discharge Instructions Diet Discharge Diet: No restrictions Activity Keep extremity elevated above heart level: Operative Extremity Dressing / Incision Call your doctor if you observe: Shortness of breath and Chest pain Additional Dressing/Incision Instructions:: Ice and elevate operative extremity next 72 hours. Keep dressing on clean and dry for 48 hours then may remove and allow warm soapy water to rinse over incision but do not submerge until sutures are out. Then apply bandaid over incision and change daily. encourage finger range of motion. Not lift more than 1/2 pound. Minimize narcotic use only as needed and directed, may use OTC NSAID and Tylenol to supplement/substitute for pain control. Follow Up Care Please Follow Up With: Suleiman Horta DO When: 2 weeks Test Results: Test results from this visit will be discussed in further detail at your follow-up appointment, if applicable. Discharge Plan Admission Attending Provider: Suleiman Horta Primary Care Provider: Matty Newsome Chi Discharge Orders/Prescriptions Prescriptions: New oxycodone 5 mg tablet 2.5 - 5 mg PO Q6H PRN (Reason: pain) 2 Days Qty: 7 RF: 0 No Action clopidogrel [Plavix] 75 mg Tablet 75 mg PO DAILY RF: 0 atorvastatin [Lipitor] 40 mg Tablet 40 mg PO DAILY RF: 0 famotidine 40 mg Tablet 40 mg PO DAILY RF: 0 nitroglycerin 0.4 mg Tablet, Sublingual 0.4 mg SUBLINGUAL Q5M PRN (Reason: Chest Pain) RF: 0 memantine 10 mg Tablet 10 mg PO BID RF: 0 galantamine 8 mg Capsule,Ext Rel. Pellets 24 Hr 8 mg PO DAILY RF: 0 cholecalciferol (vitamin D3) [Vitamin D3] 25 mcg (1,000 unit) Tablet 25 mcg PO DAILY RF: 0 Otezla 30 mg Tablet 30 mg PO DAILY RF: 0 aspirin 81 mg Tablet,Delayed Release (Dr/Ec) 81 mg PO BREAKFAST Qty: 0 RF: 0 isosorbide mononitrate 30 mg tablet extended release 24 hr 30 mg PO BID RF: 0 magnesium oxide 400 mg magnesium Tablet 400 mg PO DAILY RF: 0 levothyroxine [Levoxyl] 112 mcg Tablet 112 mcg PO DAILY RF: 0 metoprolol succinate 25 mg tablet extended release 24 hr See Rx Instructions .ROUTE .COMPLEX Qty: 45 RF: 3 Referrals / Follow Up: Matty Newsome Chi, MD [Primary Care Provider] - Disposition Disposition (needs filled in before D/C Order can be placed): Home, Self Care
[2021-11-30] MEDS: Cefazolin 2 GM in 0.9% Normal Saline 100 ML IV (07:26)
--- NOTE | 2021-11-30 07:45 | PCM.OPRPT ---
Report of Operation Date of Procedure: 11/30/21 Description of Surgical Findings:: Preoperative diagnosis; left carpal tunnel syndrome Postoperative diagnosis; same Procedure: Left open carpal tunnel release Anesthesia: Local with MAC Tourniquet time; 10 minutes 250 mm Hg Complications: None Indication for procedure; This is a 86-year-old female with long-standing symptoms consistent with carpal tunnel syndrome the patient did have electrodiagnostic evidence of this and has failed conservative treatment. Risks benefits and alternatives were reviewed including risks of bleeding infection nerve artery tissue damage need for further surgery and continued pain and symptoms, hypersensitivity to scar and Pillar pain. Procedure; The patient was met in the preoperative holding area the operative extremity was identified by both patient and physician and was marked the patient was met by anesthesia and brought back to the operating room and transferred to the operating table in the supine position. Anesthesia was started. A well-padded tourniquet was placed on the operative upper extremity. The patient was prepped and draped in the usual sterile fashion. A timeout was called to ensure the proper patient procedure and extremity were being contemplated. 0.5 percent lidocaine with epinephrine was injected into the incisional area. An Esmarch was used to exsanguinate the extremity. The tourniquet was inflated to 250 mmHg. A midline incision was made with a 15 blade scalpel between the thenar and hypothenar eminence. This was carried down through the skin and subcutaneous tissue. Gentry retractors were then used, a deep blade scalpel was used to make a deep incision in the palmar aponeurosis. The gentry retractors were then placed deep to this and the transverse carpal ligament was identified a perforation was made with a scalpel and a Littler scissors were used to complete the release of the transverse carpal ligament distally under direct visualization with the tips facing ulnarly until the perivascular fat was reached. Then turning our attention proximally using a tension slide technique the proximal extent of the transverse carpal ligament was released . There was noted to be hourglass configuration to the median nerve and hypertrophy of the transverse carpal ligament without other findings. The wound was thoroughly irrigated and was closed with 4-0 nylon vertical mattress stitches. Dressing was applied in the form of xeroform 4 x 4, web roll and an fiorella wrap. Tourniquet was let down there is no intraoperative complications patient tolerated the procedure well and was transferred to the PACU. All counts were correct.
== END 2021-11-30 09:40 | disposition home or self-care (01) ==
LOC: SDC 05:35 → AC 05:35
PROVIDERS: PCP Family Medicine Geriatric Medicine; Referring Provider Orthopaedic Surgery; Visit Provider Orthopaedic Surgery
PROC: (CPT 64721; principal; 2021-11-30 07:15)
DX: G56.02 Carpal tunnel syndrome, left upper limb (principal); F03.90 Unspecified dementia, unspecified severity, without behavioral disturbance, psychotic disturbance, mood disturbance, and anxiety; I47.1 Supraventricular tachycardia; I25.10 Atherosclerotic heart disease of native coronary artery without angina pectoris; I10 Essential (primary) hypertension; M65.4 Radial styloid tenosynovitis [de Quervain]; E78.5 Hyperlipidemia, unspecified; E03.9 Hypothyroidism, unspecified; M19.90 Unspecified osteoarthritis, unspecified site; Z79.02 Long term (current) use of antithrombotics/antiplatelets; Z79.82 Long term (current) use of aspirin; Z79.899 Other long term (current) drug therapy; Z86.73 Personal history of transient ischemic attack (TIA), and cerebral infarction without residual deficits; Z87.891 Personal history of nicotine dependence; Z20.822 Contact with and (suspected) exposure to COVID-19
CPT/HCPCS: 64721; 01810; 87426; J7120; J2405

== ENCOUNTER → 2022-01-05 | Outpatient (CLI) | payer MEDICARE, OTHER, SELFPAY ==
[2022-01-05 12:03] LABS: Absolute Lymphocyte Count 0.84 X10^3/uL (0.83-4.51); Absolute Neutrophil Count 5.3 X10^3/uL (2.0-7.7); Basophil# 0.04 X10^3/uL; Basophil% 0.6 % (0-1); Eosinophil# 0.08 X10^3/uL; Eosinophils% 1.2 % (0-5); Hematocrit 39.1 % (37-47); Hemoglobin 12.4 g/dL (12.0-15.0); Lymphocyte # 0.84 X10^3/ul (0.83-4.51); Lymphocyte % 12.4 % (19-41); Mean Corp Hgb Conc 31.7 g/dL (32-36); Mean Corpuscular Hgb 30.4 pg (27.0-32.0); Mean Corpuscular Volume 95.8 fL (81-99); Mean Platelet Vol. 10.4 fl (6.2-12.0); Monocyte% 7.4 % (0-10); NRBC Flagged by Analyzer 0 % (0-5); Neutrophil # 5.27 X10^3/uL (2.7-7.7); Neutrophil % 78.1 % (47-70); Platelet Count 245 K/mm3 (150-450); RBC Distribution Width CV 13.7 % (11.6-14.6); RBC Distribution Width SD 48.6 fl (35.1-43.9); Red Blood Count 4.08 M/mm3 (4.2-5.4); White Blood Count 6.8 K/mm3 (4.4-11.0)
[2022-01-05 12:21] LABS: Vitamin D,25 Hydroxy 57.4 ng/mL
[2022-01-05 12:36] LABS: AST(SGOT) 33 U/L (15-37); Alanine Aminotransfer ALT/SGPT 36 U/L (13-56); Albumin, Serum 3.7 g/dL (3.2-5.0); Alkaline Phosphatase 78 U/L (45-117); Anion Gap 6 (5-15); BUN 18 mg/dL (7-18); BUN/Creat Ratio 14.6 RATIO (10-20); Calcium,Total 8.9 mg/dL (8.5-10.1); Chloride 106 mmol/L (98-107); Creatinine, Serum 1.23 mg/dL (0.55-1.02); EST Glomerular Filtration Rate 44 mL/min (>60); Est Glom Filt Rate - Afr Amer 54 mL/min (>60); Globulin 3.6 g/dL (2.2-4.2); Glucose 111 mg/dL (74-106); Protein, Total 7.3 g/dL (6.4-8.2); Sodium Level 139 mmol/L (136-145)
[2022-01-10 11:03] LABS: Phosphorus 3.1 mg/dL (2.5-4.9)
== END | disposition home or self-care (01) ==
LOC: POLAB3 09:18
PROVIDERS: PCP Family Medicine Geriatric Medicine; Visit Provider Family Medicine Geriatric Medicine
DX: I10 Essential (primary) hypertension (principal); E55.9 Vitamin D deficiency, unspecified
CPT/HCPCS: 36415; 80053; 82306; 84100; 84443; 85025

== ENCOUNTER → 2022-03-21 | Outpatient (CLI) | payer MEDICARE, OTHER, SELFPAY ==
[2022-03-21 12:33] LABS: Absolute Lymphocyte Count 0.99 X10^3/uL (0.83-4.51); Absolute Neutrophil Count 5.1 X10^3/uL (2.0-7.7); Basophil# 0.04 X10^3/uL; Basophil% 0.6 % (0-1); Eosinophils% 1.5 % (0-5); Hematocrit 37.9 % (37-47); Hemoglobin 12.3 g/dL (12.0-15.0); Lymphocyte # 0.99 X10^3/ul (0.83-4.51); Lymphocyte % 14.6 % (19-41); Mean Corp Hgb Conc 32.5 g/dL (32-36); Mean Corpuscular Hgb 30.6 pg (27.0-32.0); Mean Corpuscular Volume 94.3 fL (81-99); Mean Platelet Vol. 10.6 fl (6.2-12.0); Monocyte# 0.54 X10^3/uL; Monocyte% 7.9 % (0-10); NRBC Flagged by Analyzer 0 % (0-5); Neutrophil # 5.11 X10^3/uL (2.7-7.7); Neutrophil % 75.1 % (47-70); Platelet Count 191 K/mm3 (150-450); RBC Distribution Width CV 13.2 % (11.6-14.6); RBC Distribution Width SD 45.7 fl (35.1-43.9); Red Blood Count 4.02 M/mm3 (4.2-5.4); White Blood Count 6.8 K/mm3 (4.4-11.0)
[2022-03-21 13:32] LABS: AST(SGOT) 39 U/L (15-37); Alanine Aminotransfer ALT/SGPT 33 U/L (13-56); Albumin, Serum 3.6 g/dL (3.2-5.0); Alkaline Phosphatase 73 U/L (45-117); Anion Gap 2 (5-15); BUN 17 mg/dL (7-18); BUN/Creat Ratio 15.2 RATIO (10-20); Chloride 106 mmol/L (98-107); Creatinine, Serum 1.12 mg/dL (0.55-1.02); EST Glomerular Filtration Rate 49 mL/min (>60); Est Glom Filt Rate - Afr Amer 60 mL/min (>60); Globulin 3.6 g/dL (2.2-4.2); Glucose 103 mg/dL (74-106); Potassium 4.3 mmol/L (3.5-5.1); Protein, Total 7.2 g/dL (6.4-8.2); Sodium Level 138 mmol/L (136-145)
== END | disposition home or self-care (01) ==
PROVIDERS: PCP Family Medicine Geriatric Medicine; Referring Provider Internal Medicine Rheumatology; Visit Provider Internal Medicine Rheumatology
DX: L40.59 Other psoriatic arthropathy (principal); M35.00 Sjogren syndrome, unspecified; G56.03 Carpal tunnel syndrome, bilateral upper limbs; M17.0 Bilateral primary osteoarthritis of knee; K76.0 Fatty (change of) liver, not elsewhere classified; M48.061 Spinal stenosis, lumbar region without neurogenic claudication; I10 Essential (primary) hypertension; E03.9 Hypothyroidism, unspecified; Z79.899 Other long term (current) drug therapy
CPT/HCPCS: 36415; 80053; 85025

== ENCOUNTER → 2022-04-11 | Outpatient (CLI) | payer MEDICARE, OTHER, SELFPAY ==
[2022-04-11 12:04] LABS: Absolute Lymphocyte Count 0.94 X10^3/uL (0.83-4.51); Absolute Neutrophil Count 5.4 X10^3/uL (2.0-7.7); Basophil# 0.05 X10^3/uL; Basophil% 0.7 % (0-1); Eosinophil# 0.05 X10^3/uL; Eosinophils% 0.7 % (0-5); Hematocrit 36.3 % (37-47); Hemoglobin 11.9 g/dL (12.0-15.0); Lymphocyte # 0.94 X10^3/ul (0.83-4.51); Lymphocyte % 13.3 % (19-41); Mean Corp Hgb Conc 32.8 g/dL (32-36); Mean Corpuscular Hgb 31.2 pg (27.0-32.0); Mean Platelet Vol. 10.6 fl (6.2-12.0); Monocyte# 0.56 X10^3/uL; Monocyte% 7.9 % (0-10); NRBC Flagged by Analyzer 0 % (0-5); Neutrophil # 5.44 X10^3/uL (2.7-7.7); Neutrophil % 77.1 % (47-70); Platelet Count 188 K/mm3 (150-450); RBC Distribution Width CV 13.6 % (11.6-14.6); RBC Distribution Width SD 47.7 fl (35.1-43.9); Red Blood Count 3.82 M/mm3 (4.2-5.4); White Blood Count 7.1 K/mm3 (4.4-11.0)
[2022-04-11 12:28] LABS: ALB/GLOB Ratio 1.1 RATIO (0.9-2.4); AST(SGOT) 27 U/L (15-37); Alanine Aminotransfer ALT/SGPT 29 U/L (13-56); Albumin, Serum 3.7 g/dL (3.2-5.0); Alkaline Phosphatase 71 U/L (45-117); Anion Gap 4 (5-15); BUN 25 mg/dL (7-18); BUN/Creat Ratio 21.6 RATIO (10-20); Calcium,Total 9.1 mg/dL (8.5-10.1); Chloride 105 mmol/L (98-107); Creatinine, Serum 1.16 mg/dL (0.55-1.02); EST Glomerular Filtration Rate 47 mL/min (>60); Est Glom Filt Rate - Afr Amer 57 mL/min (>60); Globulin 3.5 g/dL (2.2-4.2); Glucose 81 mg/dL (74-106); Protein, Total 7.2 g/dL (6.4-8.2); Sodium Level 140 mmol/L (136-145); Thyroid Stim Hormone (TSH) 4.98 uIU/mL (0.358-3.74)
[2022-04-11 12:32] LABS: Vitamin D,25 Hydroxy 46.6 ng/mL
== END | disposition home or self-care (01) ==
LOC: POLAB3 09:40
PROVIDERS: PCP Family Medicine Geriatric Medicine; Visit Provider Family Medicine Geriatric Medicine
DX: I10 Essential (primary) hypertension (principal); E55.9 Vitamin D deficiency, unspecified
CPT/HCPCS: 36415; 80053; 82306; 84443; 85025

== ENCOUNTER → 2022-08-05 | Outpatient (CLI) | payer MEDICARE, OTHER, SELFPAY ==
[2022-08-05 13:08] LABS: Absolute Lymphocyte Count 0.73 X10^3/uL (0.83-4.51); Absolute Neutrophil Count 2.2 X10^3/uL (2.0-7.7); Basophil# 0.02 X10^3/uL; Basophil% 0.6 % (0-1); Eosinophil# 0.07 X10^3/uL; Eosinophils% 2.1 % (0-5); Hematocrit 39.2 % (37-47); Hemoglobin 12.7 g/dL (12.0-15.0); Lymphocyte # 0.73 X10^3/ul (0.83-4.51); Lymphocyte % 21.7 % (19-41); Mean Corp Hgb Conc 32.4 g/dL (32-36); Mean Corpuscular Hgb 30.2 pg (27.0-32.0); Mean Corpuscular Volume 93.3 fL (81-99); Mean Platelet Vol. 11.1 fl (6.2-12.0); Monocyte% 8.9 % (0-10); NRBC Flagged by Analyzer 0 % (0-5); Neutrophil # 2.24 X10^3/uL (2.7-7.7); Neutrophil % 66.4 % (47-70); Platelet Count 176 K/mm3 (150-450); RBC Distribution Width CV 13.1 % (11.6-14.6); RBC Distribution Width SD 44.7 fl (35.1-43.9); White Blood Count 3.4 K/mm3 (4.4-11.0)
== END | disposition home or self-care (01) ==
LOC: POLAB3 09:41
PROVIDERS: PCP Family Medicine Geriatric Medicine; Visit Provider Family Medicine Geriatric Medicine
DX: I10 Essential (primary) hypertension (principal); E03.9 Hypothyroidism, unspecified; E55.9 Vitamin D deficiency, unspecified
CPT/HCPCS: 36415; 80053; 82306; 84443; 85025

== ENCOUNTER → 2022-08-15 | Outpatient (CLI) | payer MEDICARE, OTHER, SELFPAY ==
[2022-08-15 13:05] LABS: Absolute Lymphocyte Count 0.98 X10^3/uL (0.83-4.51); Absolute Neutrophil Count 5.5 X10^3/uL (2.0-7.7); Basophil# 0.04 X10^3/uL; Basophil% 0.6 % (0-1); Eosinophils% 1.4 % (0-5); Hematocrit 37.5 % (37-47); Hemoglobin 12.5 g/dL (12.0-15.0); Lymphocyte # 0.98 X10^3/ul (0.83-4.51); Lymphocyte % 13.6 % (19-41); Mean Corp Hgb Conc 33.3 g/dL (32-36); Mean Corpuscular Hgb 30.9 pg (27.0-32.0); Mean Corpuscular Volume 92.6 fL (81-99); Mean Platelet Vol. 10.4 fl (6.2-12.0); Monocyte# 0.59 X10^3/uL; Monocyte% 8.2 % (0-10); NRBC Flagged by Analyzer 0 % (0-5); Neutrophil # 5.48 X10^3/uL (2.7-7.7); Neutrophil % 75.9 % (47-70); Platelet Count 205 K/mm3 (150-450); RBC Distribution Width CV 13.3 % (11.6-14.6); RBC Distribution Width SD 45.3 fl (35.1-43.9); Red Blood Count 4.05 M/mm3 (4.2-5.4); White Blood Count 7.2 K/mm3 (4.4-11.0)
[2022-08-15 13:25] LABS: AST(SGOT) 28 U/L (15-37); Alanine Aminotransfer ALT/SGPT 26 U/L (13-56); Albumin, Serum 3.5 g/dL (3.2-5.0); Alkaline Phosphatase 60 U/L (45-117); Anion Gap 5 (5-15); BUN 25 mg/dL (7-18); BUN/Creat Ratio 22.5 RATIO (10-20); Calcium,Total 8.7 mg/dL (8.5-10.1); Chloride 107 mmol/L (98-107); Creatinine, Serum 1.11 mg/dL (0.55-1.02); EST Glomerular Filtration Rate 50 mL/min (>60); Est Glom Filt Rate - Afr Amer 60 mL/min (>60); Globulin 3.5 g/dL (2.2-4.2); Glucose 90 mg/dL (74-106); Potassium 4.1 mmol/L (3.5-5.1); Sodium Level 139 mmol/L (136-145); Thyroid Stim Hormone (TSH) 2.94 uIU/mL (0.358-3.74)
[2022-08-15 13:39] LABS: Vitamin D,25 Hydroxy 42.2 ng/mL
== END | disposition home or self-care (01) ==
LOC: POLAB3 08-16 07:56
PROVIDERS: PCP Family Medicine Geriatric Medicine; Visit Provider Family Medicine Geriatric Medicine
DX: E55.9 Vitamin D deficiency, unspecified (principal); I10 Essential (primary) hypertension
CPT/HCPCS: 36415; 80053; 82306; 84443; 85025

== ENCOUNTER 2022-09-13 07:16 | Day surgery (SDC) | payer MEDICARE, OTHER, SELFPAY ==
[2022-09-13] VITALS (7 sets, daily range): BP systolic 120–140; BP diastolic 56–70; PULSE 58–77; RESP 16–17; TEMP 36.6–37.2; O2SAT 96–97; BMI 22.3
--- NOTE | 2022-09-13 07:23 | HP.PCM_ITS ---
History and Physical Date of Admission: 09/13/22 [facility] [address] [place] [address] OFFICE VISIT Date of Service:? 08/15/22 MR#: [id number] Acct: [id number] Name:YUKI CHAPIN Rep #: [id number] : 1935 ? ? Provider: Dr. Suleiman Horta, DO Age/Sex:? 86/F ? ? Location: [facility] [place] Status: Signed Intake Vital Signs ? 08/10/2309:21 Height 5 ft 4 in Intake Visit Reasons:?RIGHT HAND Allergies amlodipine Allergy (Verified 02/09/22 11:05) Leg Swellingamlodipine besylate [From Norvasc] Allergy (Verified 02/09/22 11:05) leg swellingamoxicillin [Amoxicillin] Allergy (Verified 02/09/22 11:05) Rashcastor oil Allergy (Verified 02/09/22 11:05) PT UNSURE OF REACTIONenalapril maleate [From Vasotec] Allergy (Verified 02/09/22 11:05) Otherenalaprilat dihydrate [From Vasotec] Allergy (Verified 02/09/22 11:05) OtherIodinated Contrast Media [Iodinated Contrast Media - IV Dye] Allergy (Verified 02/09/22 11:05) Otheriodine Allergy (Verified 02/09/22 11:05) PT UNSURE OF REACTIONlisinopril Allergy (Verified 02/09/22 11:05) Otherranolazine [From Ranexa] Allergy (Verified 02/09/22 11:05) UnknownSulfa (Sulfonamide Antibiotics) Allergy (Verified 02/09/22 11:05) Swellingsulfasalazine Allergy (Verified 02/09/22 11:05) PT UNSURE OF REACTION Medications galantamine 8 mg 24 hr capsule,extended release 8 mg PO DAILY memory 06/06/21 [History Confirmed 08/15/22] memantine 10 mg tablet 10 mg PO BID memory 06/06/21 [History Confirmed 08/15/22] nitroglycerin 0.4 mg sublingual tablet 0.4 mg sublingual Q5M PRN Chest Pain 06/06/21 [History Confirmed 08/15/22] clopidogrel 75 mg tablet (Plavix) 75 mg PO DAILY blood thinner #90 tabs 12/28/21 [Rx Confirmed 08/15/22] levothyroxine 75 mcg tablet (Levoxyl) 75 mcg PO DAILY 02/09/22 [History Confirmed 08/15/22] PFSH Medical History? Angina pectoris Anxiety and depression Arthritis Atherosclerosis of coronary artery of [place] heart without angina pectoris Back pain Cardiology follow-up encounter Carpal tunnel syndrome, bilateral Chronic kidney disease (CKD) De Quervain's tenosynovitis, right Deep vein blood clot of right lower extremity (09/2013) Dementia Essential hypertension Forehead laceration Former smoker Gastric reflux Hyperlipemia Hypothyroidism Leg cramps Loss of consciousness Osteoarthritis Psoriatic arthritis Wolfe syndrome Skin cancer Stroke/cerebrovascular accident Syncope Syncope and collapse Tachycardia TIA (transient ischemic attack) (01/2015) Wears glasses Wears hearing aid Surgical History? H/O: knee surgery (09/2013) History of appendectomy History of carpal tunnel surgery of left wrist History of hysterectomy History of left heart catheterization (08/24/15) History of percutaneous transluminal coronary angioplasty (1995) History of tonsillectomy and adenoidectomy Hx of cholecystectomy Family History? Father CVA (cerebral vascular accident)Mother Heart disease CVA (cerebral vascular accident) HypertensionSister Diabetes Social History? household members:? other details: son and [id number]-hns housing:? house current occupational status:? retired Smoking Status:? Former smoker how long ago did patient quit smoking:? In her 20's alcohol intake:? never substance use type:? does not use caffeine:? No what type of physical activity do you participate in:? none frequency:? 1-2 times per week HPI RIGHT HAND Details: Parts of this documentation were recorded by a scribe, this documentation accurately reflects the service provided and the decisions made by me, Dr. Suleiman Horta, DO 08/15/22 [id number]. YUKI CAIN is a 86 year old F here today for her right hand carpal tunnel syndrome. She has right hand also has numbness and tingling into the right 1st through 3rd digits.? She had an EMG in 02/2019 which showed moderate right carpal tunnel syndrome. Denies any night bracing. Denies any injections on the right wrist that she recalls. She does have memory issues and her daughter in law is here with her today.? Is also complaining of pain over the radial side of the wrist. Ortho Exam General General: Yes no acute distress Neurologic: Yes alert and Yes oriented x3 Psychologic: Yes reasonable and appropriate Right Wrist/Hand Skin/Wound: No Swelling, No Ecchymosis and Yes capillary refill normal Right Wrist: Yes Sandie's Test, Tinel's, Phalen's and tender to palpate 1st dorsal compartment; No tender to palpate carpometacarpal joint Left Wrist/Hand Skin/Wound: No Swelling and No Ecchymosis Office Procedures Ortho Injections Injections Details: Obtained consent for injection.? Under sterile conditions, injected the patients right first dorsal compartment injection with 0.5cc Bupivacaine and 0.5cc Depomedrol.? The patient tolerated the injection well without any noted com plication.? Patient should call our office if redness develops, pain worsens or if they have any concerns. Office Meds Depo-Medrol Performing Provider: Suleiman Horta DO Administered by: Suleiman Horta DO on 08/15/22 11:57 Dose Route Admin Location Lot Number Expiration Date [facility] [employer] 20 mg intra-articular right 1st dorsal compartm [id number] 10/29 8465-7703-43 [employer] Supplemental Info 03/21/2019 EMG nerve conduction study bilateral upper extremity:1.? Electrodiagnostic findings demonstrate bilateral median mononeuropathy.? This is consistent with a mild left carpal tunnel syndrome and a moderate right carpal tunnel syndrome. 2.? No electrodiagnostic evidence is noted for cervical radiculopathy. 07/08/2020 x-ray right wrist there is mild radiocarpal arthrosis and moderate first CMC joint arthrosis 07/08/2020 x-ray left wrist: Moderate radiocarpal arthrosis and moderate first CMC joint arthrosis Coding Level of Care Code Off vis,est,level 3 Diagnoses De Quervain's tenosynovitis, right? M65.4 Right carpal tunnel syndrome? G56.01 Arthritis of carpometacarpal (CMC) joint of right thumb? M18.11 Assessment and Plan Assessment and Plan (1) De Quervain's tenosynovitis, right: ?Status:?Acute (2) Right carpal tunnel syndrome: ?Status:?Acute (3) Arthritis of carpometacarpal (CMC) joint of right thumb: ?Status:?Acute ? ? ? Orders: Orders Ortho Injections Today M65.4 - Radial styloid tenosynovitis [de Quervain] ? Plan Patient educated that the numbness and tingling of the hand/fingers is from the carpal tunnel syndrome of the right hand. Treatment for the carpal tunnel syndrome is bracing or injection or CTR. Reviewed the pre-operative plans with the patient. Risks and benefits of the procedure were fully explained, including but not limited to infection, neurovascular injury, continued pain, arthritis, stiffness, need for further surgery, re-injury, DVT, PE, general risks of anesthesia, and loss of limb or life. The patient understands all the risks and does wish to proceed with written consent for right carpal tunnel release. Educated that she also has CMC joint arthritis which can cause pain and stiffness at the base of the thumb, treatment for this is do nothing or topical pain cream or injection or bracing she will proceed with a thumb spica brace. She also has findings of de-Quervain syndrome of the right hand, tretment for this is bracing or steroid injection to start. She will proceed with right 1st dorsal compartment injection, thumb spica bracing and signed surgery concern for right CTR. Follow up after surgery or sooner if pain, swelling, numbness or associated symptoms, or concerns develop.? All questions answered. Patient in agreement of plan. 08/15/22 1304 <Electronically signed by Suleiman Horta DO> Date Suleiman Horta DO I have examined the patient and the H&P has been reviewed. There are no clinical changes since date of exam.
[2022-09-13] MEDS: Lactated Ringers 1,000 ML 15 ML IV (08:13)
[2022-09-13] MEDS: Cefazolin 2 GM in 0.9% Normal Saline 100 ML IV (09:26)
[2022-09-13] MEDS: Bupiv/Epi 0.25% 30 ML Vial (09:43)
--- NOTE | 2022-09-13 09:51 | OP.PCM_ITS ---
Operative Report Date of Procedure: 09/13/22 Preoperative diagnosis; right carpal tunnel syndrome Postoperative diagnosis; same Procedure: Right open carpal tunnel release Anesthesia: Local with MAC Tourniquet time; 10 minutes 250 mm Hg Complications: None Indication for procedure; This is a 86-year-old female with long-standing s ymptoms consistent with carpal tunnel syndrome the patient did have electrodiagnostic evidence of this and has failed conservative treatment. Risks benefits and alternatives were reviewed including risks of bleeding infection nerve artery tissue damage need for further surgery and continued pain and symptoms, hypersensitivity to scar and Pillar pain. Procedure; The patient was met in the preoperative holding area the operative extremity was identified by both patient and physician and was marked the patient was met by anesthesia and brought back to the operating room and transferred to the operating table in the supine position. Anesthesia was started. A well-padded tourniquet was placed on the operative upper extremity. The patient was prepped and draped in the usual sterile fashion. A timeout was called to ensure the proper patient procedure and extremity were being contemplated. 0.25 percent bupivacaine with epinephrine was injected into the incisional area. An Esmarch was used to exsanguinate the extremity. The tourniquet was inflated to 250 mmHg. A midline incision was made with a 15 blade scalpel between the thenar and hypothenar eminence. This was carried down through the skin and subcutaneous tissue. Gentry retractors were then used, a deep blade scalpel was used to make a deep incision in the palmar aponeurosis. The gentry retractors were then placed deep to this and the transverse carpal ligament was identified a perforation was made with a scalpel and a Littler scissors were used to complete the release of the transverse carpal ligament distally under direct visualization with the tips facing ulnarly until the perivascular fat was reached. Then turning our attention proximally using a tension slide technique the proximal extent of the transverse carpal ligament was released . There was noted to be flattening of the median nerve. The wound was thoroughly irrigated and was closed with 4-0 nylon vertical mattress stitches. Dressing was applied in the form of xeroform 4 x 4, web roll and an fiorella wrap. Tourniquet was let down there is no intraoperative complications patient tolerated the procedure well and was transferred to the PACU. All co unts were correct.
--- NOTE | 2022-09-13 09:53 | DCINST_ITS ---
Discharge Instructions Dressing / Incision Call your doctor if you observe: Shortness of breath and Chest pain Additional Dressing/Incision Instructions:: Ice and elevate operative extremity next 72 hours. Keep dressing on clean and dry for 48 hours then may remove and allow warm soapy water to rinse over incision but do not submerge until sutures are out. Then apply bandaid over incision and change daily. encourage finger range of motion. Not lift more than 1/2 pound. Minimize narcotic use only as needed and directed, may use OTC NSAID and Tylenol to supplement/substitute for pain control. Follow Up Care Please Follow Up With: Sulieman Horta DO When: 2 weeks Test Results: Test results from this visit will be discussed in further detail at your follow- up appointment, if applicable. Discharge Plan Admission Primary Reason for Your Visit: Right carpal tunnel release Attending Provider: Suleiman Horta Primary Care Provider: Matty Newsome Chi Discharge Orders/Prescriptions Prescriptions: New oxycodone 5 mg tablet 2.5 - 5 mg PO Q4H PRN (Reason: pain) 3 Days Qty: 10 0RF No Action levothyroxine [Levoxyl] 75 mcg tablet 112 mcg PO DAILY memantine 10 mg Tablet 10 mg PO BID galantamine 8 mg Capsule,Ext Rel. Pellets 24 Hr 8 mg PO DAILY clopidogrel [Plavix] 75 mg tablet 75 mg PO DAILY Qty: 90 3RF Label Comments: LAST DOSE 09/07/22 Referrals / Follow Up: Matty Newsome Chi, MD [Primary Care Provider] -
== END 2022-09-13 11:59 | disposition home or self-care (01) ==
LOC: SDC 07:19 → AC 07:20
PROVIDERS: PCP Family Medicine Geriatric Medicine; Referring Provider Orthopaedic Surgery; Visit Provider Orthopaedic Surgery
PROC: (CPT 64721; principal; 2022-09-13 08:45)
DX: G56.01 Carpal tunnel syndrome, right upper limb (principal); L40.50 Arthropathic psoriasis, unspecified; M65.4 Radial styloid tenosynovitis [de Quervain]; M18.11 Unilateral primary osteoarthritis of first carpometacarpal joint, right hand; N18.9 Chronic kidney disease, unspecified; I25.10 Atherosclerotic heart disease of native coronary artery without angina pectoris; I12.9 Hypertensive chronic kidney disease with stage 1 through stage 4 chronic kidney disease, or unspecified chronic kidney disease; E03.9 Hypothyroidism, unspecified; K21.9 Gastro-esophageal reflux disease without esophagitis; Z86.73 Personal history of transient ischemic attack (TIA), and cerebral infarction without residual deficits; Z79.899 Other long term (current) drug therapy; Z87.891 Personal history of nicotine dependence; Z79.01 Long term (current) use of anticoagulants; Z86.718 Personal history of other venous thrombosis and embolism
CPT/HCPCS: 64721; 01810; J7120

== ENCOUNTER → 2022-10-10 | Outpatient (CLI) | payer MEDICARE, OTHER, SELFPAY ==
[2022-10-10 13:22] LABS: Hemoglobin 12.7 g/dL (12.0-15.0); Mean Corp Hgb Conc 31.8 g/dL (32-36); Mean Corpuscular Hgb 30.8 pg (27.0-32.0); Mean Corpuscular Volume 97.1 fL (81-99); Mean Platelet Vol. 10.7 fl (6.2-12.0); Platelet Count 228 K/mm3 (150-450); RBC Distribution Width CV 13.5 % (11.6-14.6); RBC Distribution Width SD 48.8 fl (35.1-43.9); Red Blood Count 4.12 M/mm3 (4.2-5.4); White Blood Count 7.5 K/mm3 (4.4-11.0)
[2022-10-10 13:37] LABS: Albumin, Serum 3.6 g/dL (3.2-5.0); BUN 26 mg/dL (7-18); BUN/Creat Ratio 27.7 RATIO (10-20); Calcium,Total 8.9 mg/dL (8.5-10.1); Chloride 106 mmol/L (98-107); Creatinine, Serum 0.94 mg/dL (0.55-1.02); EST Glomerular Filtration Rate 60 mL/min (>60); Est Glom Filt Rate - Afr Amer 73 mL/min (>60); Glucose 66 mg/dL (74-106); Phosphorus 3.2 mg/dL (2.5-4.9); Potassium 4.1 mmol/L (3.5-5.1); Sodium Level 139 mmol/L (136-145)
== END | disposition home or self-care (01) ==
LOC: POLAB3 10:34
PROVIDERS: PCP Family Medicine Geriatric Medicine; Visit Provider Internal Medicine Nephrology
DX: N18.32 Chronic kidney disease, stage 3b (principal)
CPT/HCPCS: 36415; 80069; 85027

== ENCOUNTER → 2022-10-18 | Outpatient (CLI) | payer MEDICARE, OTHER, SELFPAY ==
[2022-10-18 13:08] LABS: Absolute Lymphocyte Count 0.75 X10^3/uL (0.83-4.51); Absolute Neutrophil Count 5.2 X10^3/uL (2.0-7.7); Basophil# 0.04 X10^3/uL; Basophil% 0.6 % (0-1); Eosinophil# 0.08 X10^3/uL; Eosinophils% 1.2 % (0-5); Hematocrit 37.8 % (37-47); Hemoglobin 12.2 g/dL (12.0-15.0); Lymphocyte # 0.75 X10^3/ul (0.83-4.51); Lymphocyte % 11.5 % (19-41); Mean Corp Hgb Conc 32.3 g/dL (32-36); Mean Corpuscular Hgb 31.2 pg (27.0-32.0); Mean Corpuscular Volume 96.7 fL (81-99); Mean Platelet Vol. 10.8 fl (6.2-12.0); Monocyte% 7.6 % (0-10); NRBC Flagged by Analyzer 0 % (0-5); Neutrophil # 5.16 X10^3/uL (2.7-7.7); Neutrophil % 78.8 % (47-70); Platelet Count 214 K/mm3 (150-450); RBC Distribution Width CV 13.7 % (11.6-14.6); RBC Distribution Width SD 49.1 fl (35.1-43.9); Red Blood Count 3.91 M/mm3 (4.2-5.4); White Blood Count 6.6 K/mm3 (4.4-11.0)
[2022-10-18 13:22] LABS: Vitamin D,25 Hydroxy 46.5 ng/mL
[2022-10-18 13:29] LABS: AST(SGOT) 32 U/L (15-37); Alanine Aminotransfer ALT/SGPT 32 U/L (13-56); Albumin, Serum 3.5 g/dL (3.2-5.0); Alkaline Phosphatase 60 U/L (45-117); Anion Gap 7 (5-15); BUN 20 mg/dL (7-18); BUN/Creat Ratio 19.2 RATIO (10-20); Calcium,Total 8.7 mg/dL (8.5-10.1); Chloride 109 mmol/L (98-107); Creatinine, Serum 1.04 mg/dL (0.55-1.02); EST Glomerular Filtration Rate 54 mL/min (>60); Est Glom Filt Rate - Afr Amer 65 mL/min (>60); Globulin 3.6 g/dL (2.2-4.2); Glucose 84 mg/dL (74-106); Potassium 4.1 mmol/L (3.5-5.1); Protein, Total 7.1 g/dL (6.4-8.2); Sodium Level 142 mmol/L (136-145); Thyroid Stim Hormone (TSH) 0.89 uIU/mL (0.358-3.74)
== END | disposition home or self-care (01) ==
LOC: POLAB3 10:46
PROVIDERS: PCP Family Medicine Geriatric Medicine; Visit Provider Family Medicine Geriatric Medicine
DX: E55.9 Vitamin D deficiency, unspecified (principal); I10 Essential (primary) hypertension
CPT/HCPCS: 36415; 80053; 82306; 84443; 85025

== ENCOUNTER → 2023-01-18 | Outpatient (CLI) | payer MEDICARE, OTHER, SELFPAY ==
[2023-01-18 14:58] LABS: Absolute Lymphocyte Count 0.88 X10^3/uL (0.83-4.51); Absolute Neutrophil Count 4.9 X10^3/uL (2.0-7.7); Basophil# 0.05 X10^3/uL; Basophil% 0.8 % (0-1); Eosinophil# 0.08 X10^3/uL; Eosinophils% 1.2 % (0-5); Hematocrit 38.2 % (37-47); Hemoglobin 12.2 g/dL (12.0-15.0); Lymphocyte # 0.88 X10^3/ul (0.83-4.51); Lymphocyte % 13.6 % (19-41); Mean Corp Hgb Conc 31.9 g/dL (32-36); Mean Corpuscular Hgb 30.2 pg (27.0-32.0); Mean Corpuscular Volume 94.6 fL (81-99); Mean Platelet Vol. 10.1 fl (6.2-12.0); Monocyte# 0.51 X10^3/uL; Monocyte% 7.9 % (0-10); NRBC Flagged by Analyzer 0 % (0-5); Neutrophil # 4.91 X10^3/uL (2.7-7.7); Neutrophil % 76.2 % (47-70); Platelet Count 240 K/mm3 (150-450); RBC Distribution Width CV 12.7 % (11.6-14.6); RBC Distribution Width SD 43.9 fl (35.1-43.9); Red Blood Count 4.04 M/mm3 (4.2-5.4); White Blood Count 6.5 K/mm3 (4.4-11.0)
[2023-01-18 16:30] LABS: AST(SGOT) 27 U/L (15-37); Alanine Aminotransfer ALT/SGPT 25 U/L (13-56); Albumin, Serum 3.7 g/dL (3.2-5.0); Alkaline Phosphatase 64 U/L (45-117); Anion Gap 7 (5-15); BUN 21 mg/dL (7-18); Calcium,Total 9.3 mg/dL (8.5-10.1); Chloride 105 mmol/L (98-107); EST Glomerular Filtration Rate 56 mL/min (>60); Est Glom Filt Rate - Afr Amer 68 mL/min (>60); Globulin 3.6 g/dL (2.2-4.2); Glucose 97 mg/dL (74-106); Potassium 4.1 mmol/L (3.5-5.1); Protein, Total 7.3 g/dL (6.4-8.2); Sodium Level 137 mmol/L (136-145); Thyroid Stim Hormone (TSH) 0.21 uIU/mL (0.358-3.74)
== END | disposition home or self-care (01) ==
LOC: LAB 13:50
PROVIDERS: PCP Family Medicine Geriatric Medicine; Referring Provider Family Medicine Geriatric Medicine; Visit Provider Family Medicine Geriatric Medicine
DX: I10 Essential (primary) hypertension (principal)
CPT/HCPCS: 36415; 80053; 82306; 84443; 85025

== ENCOUNTER → 2023-05-01 | Outpatient (CLI) | payer MEDICARE, OTHER, SELFPAY ==
[2023-05-01 15:20] LABS: Absolute Lymphocyte Count 0.98 X10^3/uL (0.83-4.51); Absolute Neutrophil Count 3.7 X10^3/uL (2.0-7.7); Basophil# 0.03 X10^3/uL; Basophil% 0.6 % (0-1); Eosinophil# 0.07 X10^3/uL; Eosinophils% 1.3 % (0-5); Hematocrit 38.1 % (37-47); Lymphocyte # 0.98 X10^3/ul (0.83-4.51); Lymphocyte % 18.8 % (19-41); Mean Corp Hgb Conc 31.5 g/dL (32-36); Mean Corpuscular Hgb 30.1 pg (27.0-32.0); Mean Corpuscular Volume 95.5 fL (81-99); Mean Platelet Vol. 10.7 fl (6.2-12.0); Monocyte# 0.46 X10^3/uL; Monocyte% 8.8 % (0-10); NRBC Flagged by Analyzer 0 % (0-5); Neutrophil # 3.65 X10^3/uL (2.7-7.7); Neutrophil % 70.1 % (47-70); Platelet Count 203 K/mm3 (150-450); RBC Distribution Width CV 13.8 % (11.6-14.6); RBC Distribution Width SD 48.8 fl (35.1-43.9); Red Blood Count 3.99 M/mm3 (4.2-5.4); White Blood Count 5.2 K/mm3 (4.4-11.0)
[2023-05-01 16:00] LABS: AST(SGOT) 33 U/L (15-37); Alanine Aminotransfer ALT/SGPT 35 U/L (13-56); Albumin, Serum 3.6 g/dL (3.2-5.0); Alkaline Phosphatase 55 U/L (45-117); Anion Gap 2 (5-15); BUN 24 mg/dL (7-18); BUN/Creat Ratio 21.1 RATIO (10-20); Calcium,Total 8.7 mg/dL (8.5-10.1); Chloride 106 mmol/L (98-107); Creatinine, Serum 1.14 mg/dL (0.55-1.02); EST Glomerular Filtration Rate 48 mL/min (>60); Est Glom Filt Rate - Afr Amer 58 mL/min (>60); Globulin 3.5 g/dL (2.2-4.2); Glucose 79 mg/dL (74-106); Potassium 4.1 mmol/L (3.5-5.1); Protein, Total 7.1 g/dL (6.4-8.2); Sodium Level 139 mmol/L (136-145)
== END | disposition home or self-care (01) ==
LOC: MTLAB 11:51
PROVIDERS: PCP Family Medicine Geriatric Medicine; Referring Provider Internal Medicine Rheumatology; Visit Provider Internal Medicine Rheumatology
DX: L40.59 Other psoriatic arthropathy (principal); Z79.899 Other long term (current) drug therapy
CPT/HCPCS: 36415; 80053; 85025

== ENCOUNTER → 2023-08-24 | Outpatient (CLI) | payer MEDICARE, OTHER, SELFPAY ==
[2023-08-24 12:46] LABS: Absolute Lymphocyte Count 1.26 X10^3/uL (0.83-4.51); Absolute Neutrophil Count 5.1 X10^3/uL (2.0-7.7); Basophil# 0.07 X10^3/uL; Eosinophil# 0.16 X10^3/uL; Eosinophils% 2.2 % (0-5); Hematocrit 36.3 % (37-47); Hemoglobin 11.7 g/dL (12.0-15.0); Lymphocyte # 1.26 X10^3/ul (0.83-4.51); Lymphocyte % 17.3 % (19-41); Mean Corp Hgb Conc 32.2 g/dL (32-36); Mean Corpuscular Hgb 30.7 pg (27.0-32.0); Mean Corpuscular Volume 95.3 fL (81-99); Mean Platelet Vol. 10.4 fl (6.2-12.0); Monocyte# 0.73 X10^3/uL; NRBC Flagged by Analyzer 0 % (0-5); Neutrophil # 5.05 X10^3/uL (2.7-7.7); Neutrophil % 69.1 % (47-70); Platelet Count 240 K/mm3 (150-450); RBC Distribution Width CV 13.4 % (11.6-14.6); RBC Distribution Width SD 47.6 fl (35.1-43.9); Red Blood Count 3.81 M/mm3 (4.2-5.4); White Blood Count 7.3 K/mm3 (4.4-11.0)
[2023-08-24 12:55] LABS: Vitamin D,25 Hydroxy 34.3 ng/mL
[2023-08-24 13:03] LABS: AST(SGOT) 26 U/L (15-37); Alanine Aminotransfer ALT/SGPT 25 U/L (13-56); Albumin, Serum 3.6 g/dL (3.2-5.0); Alkaline Phosphatase 65 U/L (45-117); Anion Gap 5 (5-15); BUN 31 mg/dL (7-18); BUN/Creat Ratio 27.9 RATIO (10-20); Calcium,Total 9.1 mg/dL (8.5-10.1); Chloride 105 mmol/L (98-107); Creatinine, Serum 1.11 mg/dL (0.55-1.02); EST Glomerular Filtration Rate 50 mL/min (>60); Est Glom Filt Rate - Afr Amer 60 mL/min (>60); Globulin 3.7 g/dL (2.2-4.2); Glucose 83 mg/dL (74-106); Protein, Total 7.3 g/dL (6.4-8.2); Sodium Level 138 mmol/L (136-145); Thyroid Stim Hormone (TSH) 0.82 uIU/mL (0.358-3.74)
== END | disposition home or self-care (01) ==
LOC: POLAB3 10:25
PROVIDERS: PCP Family Medicine Geriatric Medicine; Visit Provider Family Medicine Geriatric Medicine
DX: I10 Essential (primary) hypertension (principal); E55.9 Vitamin D deficiency, unspecified
CPT/HCPCS: 36415; 80053; 82306; 84443; 85025

== ENCOUNTER → 2023-08-30 | Outpatient (CLI) | payer MEDICARE, OTHER, SELFPAY ==
--- NOTE | 2023-08-30 09:37 | VDLE_ITS ---
Reason For Study: Left leg swelling RIGHT LEFT CFV is compressible, spontaneous, phasic, GSV is normal. competent and demonstrates normal CFV is compressible, spontaneous, phasic, augmentation. competent, and demonstrates normal Procedure augmentation. This is a venous duplex using B-mode, color FV is compressible, spontaneous, phasic, flow and spectral Doppler. competent and demonstrates normal Exam performed in department. augmentation. A preliminary report was called and/or faxed POP V is compressible, spontaneous, phasic, to Dr. Newsome. competent and demonstrates normal augmentation. T/P Trunk is compressible. PTV is compressible. LT PerV is compressible. VL/Venous Duplex US, Unilateral Interpretation Summary Deep veins of the left lower extremity are patent and compressible segmentally. There is no evidence of left lower extremity deep vein thrombosis. The left great saphenous vein avelina ears patent and compressible segmentally. Ordering Physician: Matty Newsome Chi Referring Physician: Matty Newsome Chi Performed By: Leslie Padilla RVT
== END | disposition home or self-care (01) ==
LOC: CVS 09:36
PROVIDERS: PCP Family Medicine Geriatric Medicine; Referring Provider Family Medicine Geriatric Medicine; Visit Provider Family Medicine Geriatric Medicine
DX: M79.89 Other specified soft tissue disorders (principal)
CPT/HCPCS: 93971

== ENCOUNTER 2023-11-01 11:57 | Inpatient (IN) | payer MEDICARE, OTHER, SELFPAY ==
[2023-11-01] VITALS (37 sets, daily range): BP systolic 93–185; BP diastolic 59–100; PULSE 66–101; RESP 16–28; TEMP 36.1–37.2; O2SAT 95–100; BMI 22.3; BMI 21.0
--- NOTE | 2023-11-01 12:17 | RAD_ITS ---
HISTORY: Neuro deficit, acute, stroke suspected. TECHNIQUE: XR Chest 1 View. COMPARISON: None. FINDINGS: CARDIOMEDIASTINAL BORDERS: Cardiac silhouette within normal limits in size. Mediastinal contour unremarkable with calcification of the aortic knob and small calcified lymph nodes. LUNGS: Radiographically clear. PLEURA: No pleural effusion or pneumothorax seen. OSSEOUS STRUCTURES: Cervical spinal fusion hardware present. Degenerative change. RAD/Chest 1 View IMPRESSION: No acute cardiopulmonary process identified. Electronically Signed: Christina Bell MD at 13:51 EDT ,
--- NOTE | 2023-11-01 12:17 | CT_ITS ---
We are attempting to reach an attending provider to discuss findings. An addendum with communication details will be sent when the communication is complete. HISTORY: Neuro deficit, acute, stroke suspected. TECHNIQUE: Multiple axial images were obtained of the head without intravenous contrast. A radiation dose optimization technique was used for this scan. 244 images. COMPARISON: None. FINDINGS: BRAIN PARENCHYMA: Multiple foci and zones of low attenuation in the bilateral cerebral white matter compatible with chronic small vessel ischemic gliosis. No acute intra-axial hemorrhage identified. CSF SPACES: Generalized volume loss. No midline shift or other significant mass effect. No acute extra-axial hemorrhage seen. OTHER: Intact calvarium. No significant air fluid levels in the paranasal sinuses or mastoid air cells. Unremarkable orbits. ASPECTS Score for Acute Strokes: 10 CT/STROKE Brain/Head without Cont IMPRESSION: No acute intracranial process identified. Chronic involutional and white matter changes. Electronically Signed: Christina Bell MD at 12:43 EDT ,
--- NOTE | 2023-11-01 12:19 | EX.ED.DYSGE1 ---
HPI History of Present Illness Chief Complaint: Dizziness Narrative Narrative: Patient is 87-year-old female who is presenting to the ER today with chief complaint of strokelike signs or symptoms. Patient history is very difficult to understand Or obtain secondary to patient's difficulty speaking/expressive aphasia., family members are hopefully coming but have not arrived yet. Patient arrived by EMS. Initially EMS states that around 8-8 30 this morning, she was going into the library with her son and daughter. Patient has a history of dementia. Uncertain if patient is currently at her baseline for dementia or not. Patient stated she had acute onset of vertigo, no nausea or vomiting. Patient did not fall. She also had some lightheaded dizziness. Patient states that she fell onto her desk, was able to sit down. She currently has no headache or neck pain. Her vertigo has completely resolved. Patient has bilateral hearing aids in. Patient is displaying expressive aphasia, mild to moderate. Patient realizes she is having expressive aphasia as well. Patient states that she does live at home, unclear who she lives with. EMS had a blood sugar in the 120s. Patient was hemodynamically stable. Additional history will be provided from family once we speak to them. Patient came in by EMS. It is reported the patient is on Plavix. Patient had no type of head injury. She has no headache or neck pain. No injury noted. [facility] Medical History Angina pectoris Anxiety and depression Arthritis Atherosclerosis of coronary artery of [place] heart without angina pectoris Back pain Cardiology follow-up encounter Carpal tunnel syndrome, bilateral Chronic kidney disease (CKD) De Quervain's tenosynovitis, right Deep vein blood clot of right lower extremity (09/2013) Dementia Essential hypertension Forehead laceration Former smoker Gastric reflux Hyperlipemia Hypothyroidism Leg cramps Loss of consciousness Osteoarthritis Psoriatic arthritis Wolfe syndrome Skin cancer Stroke/cerebrovascular accident Syncope Syncope and collapse Tachycardia TIA (transient ischemic attack) (01/2015) Wears glasses Wears hearing aid Home Medications galantamine 8 mg 24 hr capsule,extended release 8 mg PO DAILY memory 06/06/21 [History Last Taken 09/12/22] memantine 10 mg tablet 10 mg PO BID memory 06/06/21 [History Last Taken 09/12/22] apremilast 30 mg tablet (Otezla) 30 mg PO DAILY 11/15/22 [History Last Taken Unknown] levothyroxine 112 mcg tablet 112 mcg PO DAILY 11/15/22 [History Last Taken Unknown] clopidogrel 75 mg tablet See Rx Instructions .Route .COMPLEX #90 tabs 12/23/22 [Rx Last Taken Unknown] Allergy/AdvReac Type Severity Reaction Status Date / Time amlodipine Allergy Leg Verified 11/01/23 12:18 Swelling amlodipine besylate Allergy leg Verified 11/01/23 12:18 [From Norvasc] swelling amoxicillin [Amoxicillin] Allergy Rash Verified 11/01/23 12:18 castor oil Allergy PT UNSURE Verified 11/01/23 12:18 OF REACTION enalapril maleate Allergy Other Verified 11/01/23 12:18 [From Vasotec] enalaprilat dihydrate Allergy Other Verified 11/01/23 12:18 [From Vasotec] Iodinated Contrast Media Allergy Other Verified 11/01/23 12:18 [Iodinated Contrast Media - IV Dye] iodine Allergy PT UNSURE Verified 11/01/23 12:18 OF REACTION lisinopril Allergy Other Verified 11/01/23 12:18 ranolazine [From Ranexa] Allergy Unknown Verified 11/01/23 12:18 Sulfa (Sulfonamide Allergy Swelling Verified 11/01/23 12:18 Antibiotics) sulfasalazine Allergy PT UNSURE Verified 11/01/23 12:18 OF REACTION Family History Father CVA (cerebral vascular accident) Mother Heart disease CVA (cerebral vascular accident) Hypertension Sister Diabetes Surgical History H/O: knee surgery (09/2013) History of appendectomy History of carpal tunnel surgery of left wrist History of carpal tunnel surgery of right wrist (~08/2022) History of hysterectomy History of left heart catheterization (08/24/15) History of percutaneous transluminal coronary angioplasty (1995) History of tonsillectomy and adenoidectomy Hx of cholecystectomy Social History household members: other details: son and uhjanmqk-xp-ngq housing: house current occupational status: retired Smoking Status: Former smoker how long ago did patient quit smoking: In her 20's alcohol intake: never substance use type: does not use caffeine: No what type of physical activity do you participate in: none frequency: 1-2 times per week EXAM Physical Exam Narrative Exam Narrative: Vital signs reviewed and patient is not hypoxic. Glucose was 120s for EMS. Family is not here at bedside yet for additional history and information. General: The patient appears mild distress secondary to expressive aphasia, confusion. Patient is resting uncomfortably on cart. Not toxic, lethargic, or listless. Skin: Warm, dry, no pallor noted. There is no rash noted. Head: Normocephalic, atraumatic no midline or paracervical tenderness to palpation. Full range of motion of cervical spine no difficulty. Eye: Normal conjunctiva, no drainage, EOMI. PERRL. No nystagmus, lateral, horizontal, rotary. Ears, Nose, Mouth, and Throat: oral mucosa is moist. Nares patent. Mouth without vesicles. Patient has 2 hearing aids and at this time. No acute new changes in the patient's hearing aids. Cardiovascular: Regular Rate and Rhythm, no murmurs, gallops, or rubs Respiratory: Patient is in no distress, no accessory muscle use, lungs are clear to auscultation, no wheezing, rales or rhonchi Back: non-tender, no CVA tenderness bilaterally to percussion. NO CTLS midline or paraspinal tenderness to palpation. GI: Soft, no tenderness to palpation, no masses appreciated. No rebound, guarding, or rigidity noted. Musculoskeletal: The patient has full range of motion of all extremities and joints with no difficulty. Patient has no motor, no sensory deficits. Neurological: A&O x2, Confused to time. Patient was her name, hospital, cannot currently tell me month or year, will reevaluate when patient returns from CT. , patient does have mild to moderate dysphagia, patient has some resistance to gravity to bilateral legs, equal, bilateral. No pronator drift to bilateral upper extremities. Bilateral lower extremities are equal. Initial fast evaluation of stroke scale before patient went to CT of the head shows NIH is 3, mild to moderate dysphagia, and patient does have a significant drift of bilateral lower extremities, equal, but patient does not hit the bed with her lower leg/heel to both legs, equal, bilateral. Patient stroke evaluation will be repeated. Psychiatric: Cooperative Const Vital Signs: 11/01/23 11:58 11/01/23 12:14 11/01/23 12:28 Temperature 97.8 F 97.8 F 97.8 F Temperature Source Temporal Oral Oral Pulse Rate 71 70 74 Respiratory Rate 16 16 19 H Blood Pressure 103/92 H 103/92 H 171/81 H Blood Pressure Mean 95 95 111 Blood Pressure Source Blood Pressure Position Blood Pressure Location Pulse Ox 100 100 100 Oxygen Delivery Method Room Air Room Air Room Air 11/01/23 12:47 11/01/23 12:50 11/01/23 13:20 Temperature Temperature Source Pulse Rate 91 84 Respiratory Rate 22 H 17 Blood Pressure 160/96 H Blood Pressure Mean 117 Blood Pressure Source Blood Pressure Position Blood Pressure Location Pulse Ox 98 100 100 Oxygen Delivery Method Room Air Room Air Room Air 11/01/23 13:30 11/01/23 14:02 11/01/23 14:00 Temperature Temperature Source Pulse Rate 84 87 87 Respiratory Rate 16 20 H 16 Blood Pressure 157/100 H 172/92 H 172/92 H Blood Pressure Mean 119 118 118 Blood Pressure Source Blood Pressure Position Blood Pressure Location Pulse Ox 100 99 100 Oxygen Delivery Method Room Air 11/01/23 14:56 11/01/23 14:30 11/01/23 14:49 Temperature 97.6 F L 97.6 F L Temperature Source Temporal Temporal Pulse Rate 72 72 Respiratory Rate 20 H 20 H Blood Pressure 170/73 H 185/80 H 141/76 H Blood Pressure Mean 115 97 Blood Pressure Source Monitor Blood Pressure Position Supine Blood Pressure Location Left Arm Pulse Ox 97 100 Oxygen Delivery Method Room Air Room Air 11/01/23 15:00 11/01/23 15:09 11/01/23 15:19 Temperature 97.6 F L 97.5 F L Temperature Source Oral Oral Pulse Rate 74 73 73 Respiratory Rate 16 17 19 H Blood Pressure 141/76 H 155/64 H 146/71 H Blood Pressure Mean 97 94 96 Blood Pressure Source Monitor Monitor Blood Pressure Position Supine Supine Blood Pressure Location Left Arm Left Arm Pulse Ox 100 99 99 Oxygen Delivery Method Room Air Room Air Room Air 11/01/23 15:37 11/01/23 15:37 Temperature 97.5 F L 97.5 F L Temperature Source Oral Temporal Pulse Rate 75 70 Respiratory Rate 17 16 Blood Pressure 152/66 H 152/66 H Blood Pressure Mean 94 94 Blood Pressure Source Monitor Blood Pressure Position Supine Blood Pressure Location Left Arm Pulse Ox 98 98 Oxygen Delivery Method Room Air Room Air MDM MDM MDM Narrative Medical decision making narrative: 1230 I have spoken to patient's son Polo and also, his who is patient's jtaksjsg-vg-kth. Patient lives with Dandre And his ., His is the main historian to help with information, it sounds like most of patient's symptoms at this time are chronic and nothing acute. Patient has had expressive aphasia for approximately 2 years. Patient typically goes to the [employer] on Wednesdays for [employer]. Patient was dropped off at the library, she had dropped her purse, in the library, bent down to pick it up, and then had onset of dizziness/vertigo. Patient does have chronic vertigo. Patient also was shaky. Patient did not fall down, no head injury or trauma. Patient was sitting in a chair, patient's oztvrbev-ih-yuc was called to come pick the patient up. Patient was taken back home, she seemed to be more shaky. She had no new expressive aphasia, at same aphasia she has had for 2 years. No other strokelike signs or symptoms. EMS was called secondary to shakiness into the air and the side of caution At approximately 11:20 AM. Patient has had TIAs in the early 1999's. Bkwoqqkl-zf-qdn stated that when she was on the cot for EMS, she was more anxious, shaky, and sllhspnq-gr-iwe noticed that her expressive aphasia did worsen. 1245 patient was reevaluated again, stroke scale was reassessed. Difficult to assess what is at baseline or not. Patient is noticeably becoming more upset, anxious, tearful, it appears that expressive aphasia may be worse than what it normally is at baseline. It is also questionable whether patient being upset, slightly anxious is making expressive aphasia worse or if it is worse because of a acute on chronic type of situation with expressive aphasia. Reevaluation of stroke scale, patient says that it is July, does not know The month initially and when she was told it was October, she agreed that yes it is October several times. She is not able to tell me her age, she had difficulty with questions a month in age and is not able to answer these questions appropriately. Patient has no difficulty with jujczk-dj-nzzq, she does have difficulty with eaof-vk-bedk equal, bilateral And equal difficulty to both legs. It appears that patient is not understanding what I am asking her to do nmmf-uc-eusf, she has equal movements to bilateral lower extremities, giving her 0 points for this. It appears during this reassessment the patient is having more severe aphasia compared to mild to moderate initially. We did not have an acute onset of time as well, patient's current NIH 6. Dr Hartmann from [facility] stroke neurology has seen and evaluated this patient as well. It was initially thought with my Conversation on the phone with Polo and msgyzjaz-dq-bas that expresses aphasia is chronic, Patient was at her normal speaking baseline when patient was picked up from the library and taken back on an evaluated by gyvqblok-zr-xox. Initially when the initial stroke evaluation was done from the stroke neurologist, Dr. Hartmann, we are not certain as to the level of expressive aphasia if it is much worse today or not, It was determined and agreed upon with myself and Dr. Hartmann that patient is currently not a TNKase candidate at this time and we did not have the onset of time as well. Srmthuki-ih-inc will be coming to provide more history at bedside as well. 1430 It was concerning to me that patient is a structure of aphasia may be more than her normal baseline, especially when patient is getting upset, tearful, slightly anxious and agitated because she is not speaking normal. I did not initially have any family at bedside for several hours, but I was concerned the patient's expressive aphasia may be worse than her normal baseline and I was waiting for her wbcdfapp-zz-kfd to come at bedside. Once rvfiwhat-ju-vom had come to bedside, she agreed that the patient's expressive aphasia is much worse than it is normally at baseline. I then called the stroke neurologist again, and I spoke to the [facility] stroke neurologist again on the phone and then we had a teleconference with Dr. Hartmann, patient's anskhgcs-ey-hif, patient, and Cristina ALDANA Were at bedside. Patient case was discussed again with Dr. Hartmann, and she stated there is a 30% chance patient could most likely improved, and a 6% chance that patient could possibly have intracranial bleed. Giettheq-ws-ozd who is been at bedside and very helpful is very persistent that patients word finding, able to name objects, able to name time, month, president, read sentences and do any of the aphasia testing is not her normal baseline at all In much worse than her normal baseline. I was then able to have a conference call for 10 minutes with Patient's power of tax associate attorney/son Fernando. After the conversation with sfsrnsxb-vs-ezo at bedside, Fernando, and speaking to the [facility] neurologist Dr Hartmann the second time, it was determined that the risk and benefits were discussed, patient does have a disabling speech at this time that could be debilitating for the rest of her life. Fernando who is the son the power of tax associate attorney agree to give the TNKase. 1445 after the lengthy conversations with the [facility] neurologist Dr Hartmann, fykqwcku-zu-wct, Fernando son; it is agreed to give the TNKase secondary to the benefits currently outweigh the risks at this time. [address] Don Donahue Hospitalist came to see and evaluate the patient in the ER as well and agrees to admission 1600 a conversation was had with myself, patient's son Polo, and the robjhnhw-bt-bvt who has been at bedside After TNKase have been given. Patient is currently speaking better with her words and sentences intermittently. Polo who is a son at bedside currently believes that patient is now speaking what her normal baseline is For her chronic expressive aphasia. Patient is also very calm, not anxious, looks well. Patient's had no side effects, headaches, no other acute side effects with TNKase. Please see Sarah equipment hire manager. Patient had some mild left leg abnormality is, potassium was 5.9. Patient was given 2 separate 500 cc bolus of IV fluid. Patient's chloride and BUN and creatinine are slightly elevated, patient has a [place] that has been placed to obtain urine, we did not obtain urine admission time yet. Patient will be admitted to the intensive care unit. Patient has been accepted by Dr. Ochoa. We are currently waiting for transfer to the inpatient floor. Dr Brady is aware of the patient and will watch the patient as needed before patient is transferred to the ICU. Critical care time 65 minutes exclusive from separate billable procedures that were performed. The following was considered in the determination of critical care but not limited to the level of medical decision making, intensive cardiac and/or respiratory monitoring, frequent vital sign monitoring, evaluation of laboratory studies, evaluation of radiographic studies, oxygen monitoring, and constant monitoring and speaking to family at bedside Lab Data Labs: Laboratory Results - last 24 hr 11/01/23 11/01/23 11/01/23 12:20 12:44 13:35 WBC 8.1 RBC 4.11 L Hgb 12.4 Hct 37.7 MCV 91.7 MCH 30.2 MCHC 32.9 RDW Std Deviation 43.7 RDW Coeff of Tal 13.0 Plt Count 193 MPV 10.3 Immature Gran % (Auto) 0.400 Neut % (Auto) 75.1 H Lymph % (Auto) 15.1 L [place] % (Auto) 7.6 Eos % (Auto) 1.1 Baso % (Auto) 0.7 Absolute Neuts (auto) 6.1 Absolute Lymphs (auto) 1.23 Nucleated RBC % 0 PT Cancelled Cancelled 12.3 INR Cancelled Cancelled 0.9 APTT Cancelled Cancelled 33.6 Sodium 136 Potassium 5.9 H Chloride 108 H Carbon Dioxide 24.0 Anion Gap 4 L BUN 23 H Creatinine 1.11 H Estim Creat Clear Calc 34.69 Est GFR (MDRD) Af Amer 60 Est GFR (MDRD) Non-Af 50 L BUN/Creatinine Ratio 20.7 H Glucose 85 Calcium 9.4 Troponin I High Sens 22 Urine Color Urine Clarity Urine pH Ur Specific Tracy Urine Protein Urine Glucose (UA) Urine Ketones Urine Occult Blood Urine Nitrite Urine Bilirubin Urine Urobilinogen Ur Leukocyte Esterase Urine RBC Urine WBC Ur Squamous Epith Cells Urine Bacteria Urine Mucus 11/01/23 15:03 WBC RBC Hgb Hct MCV MCH MCHC RDW Std Deviation RDW Coeff of Tal Plt Count MPV Immature Gran % (Auto) Neut % (Auto) Lymph % (Auto) [place] % (Auto) Eos % (Auto) Baso % (Auto) Absolute Neuts (auto) Absolute Lymphs (auto) Nucleated RBC % PT INR APTT Sodium Potassium Chloride Carbon Dioxide Anion Gap BUN Creatinine Estim Creat Clear Calc Est GFR (MDRD) Af Amer Est GFR (MDRD) Non-Af BUN/Creatinine Ratio Glucose Calcium Troponin I High Sens Urine Color Straw Urine Clarity Clear Urine pH 8.0 Ur Specific Tracy 1.010 Urine Protein Negative Urine Glucose (UA) Normal Urine Ketones Negative Urine Occult Blood Negative Urine Nitrite Negative Urine Bilirubin Negative Urine Urobilinogen Normal Ur Leukocyte Esterase Negative Urine RBC 0 SEEN Urine WBC 0 SEEN Ur Squamous Epith Cells 0 SEEN Urine Bacteria 0 SEEN Urine Mucus 0 SEEN Radiography Diagnostic Testing: Clinical Impression(s) from Imaging Studies Brain CT 11/01/23 12:17 IMPRESSION: No acute intracranial process identified. Chronic involutional and white matter changes. Electronically Signed: Christina Bell MD at 12:43 EDT , ADDENDUM: 11/01/23 1309 IMPRESSION: undefined Chest X-Ray 11/01/23 12:17 IMPRESSION: No acute cardiopulmonary process identified. Electronically Signed: Christina Bell MD at 13:51 EDT , EKG Initial EKG: Comments: EKG interpretation. Normal sinus rhythm at 85 beats a minute. Normal axis deviation. Artifact noted. QTc of 464. Discharge Plan Triage Chief Complaint: Dizziness ED Provider: Kenyon Castano Dx/Rx/DC Orders Clinical Impression: Expressive aphasia, Acute CVA (cerebrovascular accident) Primary Care Provider: Matty Newsome Chi
[2023-11-01 12:28] LABS: Absolute Lymphocyte Count 1.23 X10^3/uL (0.83-4.51); Absolute Neutrophil Count 6.1 X10^3/uL (2.0-7.7); Basophil# 0.06 X10^3/uL; Basophil% 0.7 % (0-1); Eosinophil# 0.09 X10^3/uL; Eosinophils% 1.1 % (0-5); Hematocrit 37.7 % (37-47); Hemoglobin 12.4 g/dL (12.0-15.0); Lymphocyte # 1.23 X10^3/ul (0.83-4.51); Lymphocyte % 15.1 % (19-41); Mean Corp Hgb Conc 32.9 g/dL (32-36); Mean Corpuscular Hgb 30.2 pg (27.0-32.0); Mean Corpuscular Volume 91.7 fL (81-99); Mean Platelet Vol. 10.3 fl (6.2-12.0); Monocyte# 0.62 X10^3/uL; Monocyte% 7.6 % (0-10); NRBC Flagged by Analyzer 0 % (0-5); Neutrophil # 6.11 X10^3/uL (2.7-7.7); Neutrophil % 75.1 % (47-70); Platelet Count 193 K/mm3 (150-450); RBC Distribution Width SD 43.7 fl (35.1-43.9); Red Blood Count 4.11 M/mm3 (4.2-5.4); White Blood Count 8.1 K/mm3 (4.4-11.0)
[2023-11-01 12:48] LABS: Anion Gap 4 (5-15); BUN 23 mg/dL (7-18); BUN/Creat Ratio 20.7 RATIO (10-20); Calcium,Total 9.4 mg/dL (8.5-10.1); Chloride 108 mmol/L (98-107); Creatinine, Serum 1.11 mg/dL (0.55-1.02); EST Glomerular Filtration Rate 50 mL/min (>60); Est Glom Filt Rate - Afr Amer 60 mL/min (>60); Estimated Creatinine Clearance 34.69 ml/min; Glucose 85 mg/dL (74-106); Potassium 5.9 mmol/L (3.5-5.1); Sodium Level 136 mmol/L (136-145); Troponin-I HS 22 pg/mL (3.0-54.0)
--- NOTE | 2023-11-01 13:17 | ED.RN ---
FELIPECK PLACED, PT IS UNABLE TO BE ASSISTED INTO A STANDING POSITION TO GET ON BSC. PT IS PUSHING BACK AGAINST HELP AND NOT ABLE TO FOLLOW COMMANDS. PT IS VERY AGITATED WHICH MAKES HER CONDITION WORSE. PT THINKS FAMILY IS AT THE HOSPITAL AND NOT ACCEPTING THAT THEY ARE NOT HERE BUT ARE SUPPOSED TO BE ON THEIR WAY. PHYSICIAN AWARE OF PTS BEHAVIOR. TRIAGE NURSE AWARE PT FAMILY IS TO BE SENT BACK WHEN THEY ARRIVE
[2023-11-01 13:55] LABS: International Normalized Ratio 0.9; Partial Thromboplast Time 33.6 Seconds (24.1-36.2); Prothrombin Time (Protime)PT. 12.3 SECONDS (11.7-14.9)
[2023-11-01] MEDS: 0.9% Normal Saline (500mL Bag) 500 ML IV (14:08)
[2023-11-01] MEDS: TENECTEPLASE 2260.8 MG IV (14:56)
[2023-11-01] MEDS: 0.9% Saline Lock 10 ML Syringe IV (14:58)
[2023-11-01] MEDS: 0.9% Normal Saline (1000mL) 1,000 ML 100 ML IV (15:00)
[2023-11-01 15:09] LABS: Bacteria 0 SEEN /hpf (None Seen); Mucous, Urine 0 SEEN /hpf (<or=2+); Red Blood Cells-Urine 0 SEEN /hpf (0-5); Squamous Epithelial Cells - UA 0 SEEN /hpf (5-10); White Blood Cells 0 SEEN /hpf (0-5)
[2023-11-01 15:23] LABS: Color, Urine Straw (Yellow); Glucose, Dipstick Normal (Normal); Ketone-Dipstick Negative (Negative); Leukocyte Esterase-Dipstick Negative /ul (Negative); Nitrite-Dipstick Negative (Negative); Occult Blood-Urine Negative /ul (Negative); Protein-Dipstick Negative (Negative); Urine Bilirubin Dipstick Negative (Negative); Urine Clarity Clear (Clear); Urine Urobilinogen Normal (Normal)
--- NOTE | 2023-11-01 15:28 | PCM.HP.STD ---
[facility] - General General Date of Admission: 11/01/23 Date of Service: 11/01/23 Chief Complaint: Speech difficulty today about the level of 11:00 a.m. today HPI Narrative YUKI CAIN, is a 87 F who arrived ED by EMS with chief complaint of difficulty to understand/communicate, language deficit around 11 AM although in the beginning there was confusion as patient has dementia, difficult history taking and probably patient also has baseline mild linguist difficulty. In the morning patient had some vertigo while going to the library. There was also confusion with bilateral lower extremity weakness. History is mainly taken from the chart and patient's son and [id number] present in the room and the nursing staff as patient herself has dementia and baseline speech difficulty/expressive language deficit. As per son and [id number] who lives with the patient, she had difficulty in understanding the speech/comprehension, could not express also much worse than her baseline. After initial workup and CT head was negative, it was decided after [facility] neurology consult to give tenecteplase. After giving tenecteplase when I saw her, her vertigo has resolved. Lower extremity weakness is also improved. Patient is further admitted to the ICU. [facility] Medical History (Updated 11/01/23 @ 16:[address] Jaime Ochoa MD) Angina pectoris Anxiety and depression Arthritis Atherosclerosis of coronary artery of sun'aq heart without angina pectoris Back pain Cardiology follow-up encounter Carpal tunnel syndrome, bilateral Chronic kidney disease (CKD) De Quervain's tenosynovitis, right Deep vein blood clot of right lower extremity (09/2013) Dementia Essential hypertension Forehead laceration Former smoker Gastric reflux Hyperlipemia Hypothyroidism Leg cramps Loss of consciousness Osteoarthritis Psoriatic arthritis Wolfe syndrome Skin cancer Stroke/cerebrovascular accident Syncope Syncope and collapse Tachycardia TIA (transient ischemic attack) (01/2015) Wears glasses Wears hearing aid Home Medications galantamine 8 mg 24 hr capsule,extended release 8 mg PO DAILY memory 06/06/21 [History Last Taken 09/12/22] memantine 10 mg tablet 10 mg PO BID memory 06/06/21 [History Last Taken 09/12/22] apremilast 30 mg tablet (Otezla) 30 mg PO DAILY 11/15/22 [History Last Taken Unknown] levothyroxine 112 mcg tablet 112 mcg PO DAILY 11/15/22 [History Last Taken Unknown] clopidogrel 75 mg tablet See Rx Instructions .Route .COMPLEX #90 tabs 12/23/22 [Rx Last Taken Unknown] Allergy/AdvReac Type Severity Reaction Status Date / Time amlodipine Allergy Leg Verified 11/01/23 12:18 Swelling amlodipine besylate Allergy leg Verified 11/01/23 12:18 [From Norvasc] swelling amoxicillin [Amoxicillin] Allergy Rash Verified 11/01/23 12:18 castor oil Allergy PT UNSURE Verified 11/01/23 12:18 OF REACTION enalapril maleate Allergy Other Verified 11/01/23 12:18 [From Vasotec] enalaprilat dihydrate Allergy Other Verified 11/01/23 12:18 [From Vasotec] Iodinated Contrast Media Allergy Other Verified 11/01/23 12:18 [Iodinated Contrast Media - IV Dye] iodine Allergy PT UNSURE Verified 11/01/23 12:18 OF REACTION lisinopril Allergy Other Verified 11/01/23 12:18 ranolazine [From Ranexa] Allergy Unknown Verified 11/01/23 12:18 Sulfa (Sulfonamide Allergy Swelling Verified 11/01/23 12:18 Antibiotics) sulfasalazine Allergy PT UNSURE Verified 11/01/23 12:18 OF REACTION Family History Father CVA (cerebral vascular accident) Mother Heart disease CVA (cerebral vascular accident) Hypertension Sister Diabetes Surgical History H/O: knee surgery (09/2013) History of appendectomy History of carpal tunnel surgery of left wrist History of carpal tunnel surgery of right wrist (~08/2022) History of hysterectomy History of left heart catheterization (08/24/15) History of percutaneous transluminal coronary angioplasty (1995) History of tonsillectomy and adenoidectomy Hx of cholecystectomy Social History household members: other details: son and [id number] housing: house current occupational status: retired Smoking Status: Former smoker how long ago did patient quit smoking: In her 20's alcohol intake: never substance use type: does not use caffeine: No what type of physical activity do you participate in: none frequency: 1-2 times per week ROS ROS Narrative 14 system ROS difficult to obtain as patient has dementia with worse language deficit as mentioned in HPI. She denies burning micturition. Napier catheter inserted in ED prior to tenecteplase as per protocol. To the nurse once he said she does not have chest pain pressure but to me she said she had chest pressure yesterday not today. Her chest pressure/pain is nondescriptive difficult to understand. As per son she sometimes complain of neck and back pain probably musculoskeletal. Review of Systems ROS Unobtainable: due to mental condition Vital Signs Vital Signs Vital Signs: 11/01/23 11:58 11/01/23 12:14 11/01/23 12:28 Temperature 97.8 F 97.8 F 97.8 F Temperature Source Temporal Oral Oral Pulse Rate 71 70 74 Respiratory Rate 16 16 19 H Blood Pressure 103/92 H 103/92 H 171/81 H Blood Pressure Mean 95 95 111 Blood Pressure Source Blood Pressure Position Blood Pressure Location Pulse Ox 100 100 100 Oxygen Delivery Method Room Air Room Air Room Air 11/01/23 12:47 11/01/23 12:50 11/01/23 13:20 Temperature Temperature Source Pulse Rate 91 84 Respiratory Rate 22 H 17 Blood Pressure 160/96 H Blood Pressure Mean 117 Blood Pressure Source Blood Pressure Position Blood Pressure Location Pulse Ox 98 100 100 Oxygen Delivery Method Room Air Room Air Room Air 11/01/23 13:30 11/01/23 14:02 11/01/23 14:00 Temperature Temperature Source Pulse Rate 84 87 87 Respiratory Rate 16 20 H 16 Blood Pressure 157/100 H 172/92 H 172/92 H Blood Pressure Mean 119 118 118 Blood Pressure Source Blood Pressure Position Blood Pressure Location Pulse Ox 100 99 100 Oxygen Delivery Method Room Air 11/01/23 14:56 11/01/23 14:30 11/01/23 14:49 Temperature 97.6 F L 97.6 F L Temperature Source Temporal Temporal Pulse Rate 72 72 Respiratory Rate 20 H 20 H Blood Pressure 170/73 H 185/80 H 141/76 H Blood Pressure Mean 115 97 Blood Pressure Source Monitor Blood Pressure Position Supine Blood Pressure Location Left Arm Pulse Ox 97 100 Oxygen Delivery Method Room Air Room Air 11/01/23 15:00 11/01/23 15:09 11/01/23 15:19 Temperature 97.6 F L 97.5 F L Temperature Source Oral Oral Pulse Rate 74 73 73 Respiratory Rate 16 17 19 H Blood Pressure 141/76 H 155/64 H 146/71 H Blood Pressure Mean 97 94 96 Blood Pressure Source Monitor Monitor Blood Pressure Position Supine Supine Blood Pressure Location Left Arm Left Arm Pulse Ox 100 99 99 Oxygen Delivery Method Room Air Room Air Room Air Weight Weight: 138 lb 7.205 oz Body Mass Index (BMI) 22.3 Physical Exam Narrative General: Awake, alert. Oriented to place and person. HEENT: Atraumatic, PERRLA, EOMI, Normocephalic Oral: No Gingival or Mucosal Lesions/ Ulcerations Neck: Supple, No JVD, Negative Carotid Bruits Chest wall/Lungs: Air entry diminished in bilateral lung bases. No crepitation/rhonchi Cardiovascular: Regular rate, Regular Rhythm, Normal S1, Normal S2, systolic murmur present. Abdomen: Bowel Sounds Present, Soft, Non Tender, Non-Distended : No dysuria. No renal angle tenderness. No suprapubic tenderness. Extremities: No edema, Capillary Refill Less than 3 Seconds Skin: No rashes, No breakdown Musculoskeletal: No Tenderness to Palpation of Joints or Extremities Neurological: Cranial nerves II-XII grossly intact, DTR 2+/4. NIHSS improved from 3-2. Could not tell month. Language deficit. Psych/Mental Status: Flat affect, dementia Results Lab / Micro Data 11/01/23 12:20 11/01/23 12:20 Labs: Laboratory Results - last 24 hr 11/01/23 12:20: WBC 8.1, RBC 4.11 L, Hgb 12.4, Hct 37.7, MCV 91.7, MCH 30.2, MCHC 32.9, RDW Std Deviation 43.7, RDW Coeff of Tal 13.0, Plt Count 193, MPV 10.3, Immature Gran % (Auto) 0.400, Neut % (Auto) 75.1 H, Lymph % (Auto) 15.1 L, Sunflower % (Auto) 7.6, Eos % (Auto) 1.1, Baso % (Auto) 0.7, Absolute Neuts (auto) 6.1, Absolute Lymphs (auto) 1.23, Nucleated RBC % 0, PT Cancelled, INR Cancelled, APTT Cancelled, Sodium 136, Potassium 5.9 H, Chloride 108 H, Carbon Dioxide 24.0, Anion Gap 4 L, BUN 23 H, Creatinine 1.11 H, Estim Creat Clear Calc 34.69, Est GFR (MDRD) Af Amer 60, Est GFR (MDRD) Non-Af 50 L, BUN/Creatinine Ratio 20.7 H, Glucose 85, Calcium 9.4, Troponin I High Sens 22 11/01/23 12:44: PT Cancelled, INR Cancelled, APTT Cancelled 11/01/23 13:35: PT 12.3, INR 0.9, APTT 33.6 11/01/23 15:03: Urine Color Straw, Urine Clarity Clear, Urine pH 8.0, Ur Specific [place] 1.010, Urine Protein Negative, Urine Glucose (UA) Normal, Urine Ketones Negative, Urine Occult Blood Negative, Urine Nitrite Negative, Urine Bilirubin Negative, Urine Urobilinogen Normal, Ur Leukocyte Esterase Negative Imaging Radiology Impression Brain CT 11/01/23 12:17 IMPRESSION: No acute intracranial process identified. Chronic involutional and white matter changes. Electronically Signed: Christina Bell MD at 12:43 EDT , ADDENDUM: 11/01/23 1309 IMPRESSION: undefined Chest X-Ray 11/01/23 12:17 IMPRESSION: No acute cardiopulmonary process identified. Electronically Signed: Christina Bell MD at 13:51 EDT , Assessment & Plan Assessment/Plan (1) Stroke/cerebrovascular accident: QUALIFIERS: CVA mechanism: unspecified Qualified Code(s): I63.9 - Cerebral infarction, unspecified PLAN: Plan This 87-year-old female came to ED for mild confusion, vertigo and language deficit with baseline dementia and history of TIA in the past 1. Acute clinically suspected stroke status post tenecteplase: Patient is being admitted in ICU post tenecteplase as per protocol. CT head shows no acute intracranial process. Chest x-ray no acute cardiopulmonary process. Twelve-lead EKG individually reviewed and shows NSR, PAC at 85 bpm. No acute change from previous EKG of May 2021. MRI brain after 24 hours ordered. MRA head and neck ordered. PT, OT, speech therapy/swallow evaluation and management, nursing NIH stroke scale, BP and glucose monitoring and control as per stroke protocol. TSH, A1c fasting lipid profile tomorrow AM. 2D echo with bubble contrast study ordered. [facility] teleneurology and fixed route operator consult requested 2. Acute encephalopathy on baseline dementia, possible related to stroke: Treat the underlying disorder. Patient does not have burning micturition and UA is negative for WBC, RBC and LE and nitrite negative. 3. Variable/conflicting history of chest pressure with remote history of CAD status post PTCA 1991: Patient to me said she had chest pressure yesterday but not today. Patient denied chest pressure to the nursing staff. First troponin is negative. Second troponin ordered. 4. CKD stage IIIb: Patient BUNs/creatinine 23/1.11. Patient creatinine has been similar 1.1, to 1.14 in April 2023 to July 2023. IV fluid normal saline 75 mill per hour. Patient is allergic to iodine but unsure of reaction and also has CKD stage IIIb therefore we will avoid CTA of head and neck. Avoid nephrotoxic medications. 5. Other multiple comorbidities include hypertension, dyslipidemia, dementia, anxiety and depression: Home medications reconciliation done Living will/advanced directive/end of life care: Advance directive mainly discussed with the patient and daughter in law in ED. As per son, the patient does have living will or advanced directive. He and his brother is power of employee benefits attorney for health. After discussion of benefits/risks procedures involved with full code, DNR CC arrest and DNR CC, the patient's son is not clear what she wanted therefore until further decision, full code ordered. It is unclear whether the patient want artificial life support including intubation, tube feed, ventilator and/chest compression, central venous catheter, vasopressor and DC shock if needed and she is confused and demented therefore cannot make decision by herself Total time spent in [id number] encounter in discussion of advanced directive 17 minutes. Laboratory Results Laboratory Results 11/01/23 12:20: WBC 8.1, RBC 4.11 L, Hgb 12.4, Hct 37.7, MCV 91.7, MCH 30.2, MCHC 32.9, RDW Std Deviation 43.7, RDW Coeff of Tal 13.0, Plt Count 193, MPV 10.3, Immature Gran % (Auto) 0.400, Neut % (Auto) 75.1 H, Lymph % (Auto) 15.1 L, Sunflower % (Auto) 7.6, Eos % (Auto) 1.1, Baso % (Auto) 0.7, Absolute Neuts (auto) 6.1, Absolute Lymphs (auto) 1.23, Nucleated RBC % 0, PT Cancelled, INR Cancelled, APTT Cancelled, Sodium 136, Potassium 5.9 H, Chloride 108 H, Carbon Dioxide 24.0, Anion Gap 4 L, BUN 23 H, Creatinine 1.11 H, Estim Creat Clear Calc 34.69, Est GFR (MDRD) Af Amer 60, Est GFR (MDRD) Non-Af 50 L, BUN/Creatinine Ratio 20.7 H, Glucose 85, Calcium 9.4, Troponin I High Sens 22 11/01/23 12:44: PT Cancelled, INR Cancelled, APTT Cancelled 11/01/23 13:35: PT 12.3, INR 0.9, APTT 33.6 11/01/23 15:03: Urine Color Straw, Urine Clarity Clear, Urine pH 8.0, Ur Specific [place] 1.010, Urine Protein Negative, Urine Glucose (UA) Normal, Urine Ketones Negative, Urine Occult Blood Negative, Urine Nitrite Negative, Urine Bilirubin Negative, Urine Urobilinogen Normal, Ur Leukocyte Esterase Negative, Urine RBC 0 SEEN, Urine WBC 0 SEEN, Ur Squamous Epith Cells 0 SEEN, Urine Bacteria 0 SEEN, Urine Mucus 0 SEEN Clinical Impression(s) from Imaging Studies Brain CT 11/01/23 12:17 IMPRESSION: No acute intracranial process identified. Chronic involutional and white matter changes. Chest X-Ray 11/01/23 12:17 IMPRESSION: No acute cardiopulmonary process identified. Electronically Signed: Christina Bell MD at 13:51 EDT Reading Location ID and State: [facility] / [place] Tel , Service support , Charges/Coding Visit Charges Inpatient E&M: 42250 Init Hosp L3 Procedures Hospitalists Procedures: 87633 Advncd Care Plan 30 Min
[2023-11-01 16:49] LABS: Troponin-I HS 44 pg/mL (3.0-54.0)
[2023-11-01 17:00] LABS: Thyroid Stim Hormone (TSH) 0.42 uIU/mL (0.358-3.74)
--- NOTE | 2023-11-01 18:12 | ECHOD_ITS ---
Reason For Study: CVA Procedure This was a 2D Doppler, Color Flow transthoracic echocardiogram. Exam performed portable in ICU/CCU. Left Ventricle Normal LV size. Left ventricular systolic function is normal. The left ventricular ejection fraction is 60 %. No regional wall motion abnormalities noted. Right Ventricle Normal RV size. Normal systolic function. Atria Normal left atrium. Normal right atrium. Bubble contrast study negative for right to left interatrial shunt. Mitral Valve There is moderate mitral annular calcification. Mild (1+) eccentric mitral valve insufficiency. Tricuspid Valve Normal tricuspid valve. Aortic Valve Normal aortic valve. Pulmonic Valve Normal pulmonic valve. Great Vessels Normal aortic root. The pulmonary artery is normal size. Inferior vena cava collapse with respiration. Pericardium/Pleural No pericardial effusion. Medication Performed a rapid injection of agitated mix of 9 cc saline and 1cc air to assess for atrial septal defect. MMode/2D Measurements & Calculations LVIDd: 3.7 cm IVSd: 0.88 cm Ao root diam: 2.7 cm LVIDs: 2.6 cm LVPWd: 1.5 cm FS: 31.0 % LAV(MOD-sp4): 39.5 ml LVAd ap4: 19.3 cm2 SV(MOD-sp4): 29.1 ml LVLd ap4: 6.8 cm EDV(MOD-sp4): 47.0 ml EDV(sp4-el): 46.7 ml LVAs ap4: 10.5 cm2 LVLs ap4: 5.3 cm ESV(MOD-sp4): 17.9 ml ESV(sp4-el): 17.8 ml EF(MOD-sp4): 62.0 % EF(sp4-el): 61.9 % SV(sp4-el): 28.9 ml LA A4 area: 16.8 cm2 RA A4 area: 19.1 cm2 TAPSE: 2.8 cm Time Measurements MV dec time: 0.24 sec Doppler Measurements & Calculations MV E max akhil: 95.1 cm/sec Lat Peak E' Akhil: 6.9 cm/sec Med Peak E' Akhil: 7.6 cm/sec MV A max akhil: 82.9 cm/sec E/E' lat: 13.7 E/E' med: 12.5 MV E/A: 1.1 MV V2 max: 103.5 cm/sec Ao V2 max: 117.3 cm/sec MV max P.3 mmHg MV dec slope: 388.1 cm/sec2 Ao max P.5 mmHg MV V2 mean: 67.4 cm/sec Ao V2 mean: 78.0 cm/sec MV mean P.1 mmHg Ao mean P.8 mmHg MV V2 VTI: 33.9 cm Ao V2 VTI: 22.8 cm AV (velocity ratio): 0.92 LV V1 max: 109.9 cm/sec PA V2 max: 77.4 cm/sec LV V1 max P.9 mmHg PA V2 mean: 51.2 cm/sec LV V1 mean P.4 mmHg LV V1 mean: 70.2 cm/sec LV V1 VTI: 21.0 cm ECHO/Echo Complete Interpretation Summary Normal LV size. Left ventricular systolic function is normal. The left ventricular ejection fraction is 60 %. Bubble contrast study negative for right to left interatrial shunt. Ordering Physician: Jaime Ochoa Referring Physician: Matty Newsome Chi Performed By: Brandi Zamora and Student
--- NOTE | 2023-11-01 18:12 | MRI_ITS ---
STUDY: MRA NECK WITHOUT CONTRAST REASON FOR EXAM: Female, 87 years old. STROKE TECHNIQUE: Source images were obtained, MIPs were performed. The study was performed unenhanced. COMPARISON: None. FINDINGS: RIGHT CAROTID ARTERIES: Normal right common carotid artery (CCA). Normal right common carotid bulb. Normal origin of the right internal carotid (ICA) artery without a hemodynamically significant stenosis. Normal visualized cervical portion of the right internal carotid artery. Normal origin of the right external carotid artery (ECA). LEFT CAROTID ARTERIES: Normal left common carotid artery (CCA). Normal left common carotid bulb. Normal origin of the left internal carotid (ICA) artery without a hemodynamically significant stenosis. Normal visualized cervical portion of the left internal carotid artery. Normal origin of the left external carotid artery (ECA). VERTEBRAL ARTERIES: Normal antegrade flow within the bilateral vertebral artery without a hemodynamically significant stenosis. MRI/MRA Neck without Contrast IMPRESSION: Normal bilateral cervical carotid and vertebral arteries. Electronically Signed: Kenyon De Paz MD at 16:20 EDT ,
--- NOTE | 2023-11-01 18:12 | MRI_ITS ---
STUDY: MRA OF THE HEAD WITHOUT CONTRAST REASON FOR EXAM: Female, 87 years old. STROKE TECHNIQUE: 3-D [id number] (TOF) imaging was performed with MIPs. The study was performed unenhanced. COMPARISON: None. FINDINGS: Normal bilateral petrous carotid arteries. Normal right cavernous carotid artery with a normal supraclinoid bifurcation. Normal left cavernous carotid artery with a normal supraclinoid bifurcation. Normal right A1 segments of the anterior cerebral artery. Normal left A1 segments of the anterior cerebral artery. Anterior communicating artery not visualized consistent with normal variant). Normal bilateral A2 segments of the anterior cerebral arteries. Normal right M1 and M2 segments of the middle cerebral arteries, with a normal M1 bifurcation. Normal left M1 and M2 segments of the middle cerebral arteries, with a normal M1 bifurcation. Right posterior communicating artery not visualized consistent with normal variant). Normal left posterior communicating artery (PCOM). Normal bilateral vertebral arteries. Normal basilar artery with a normal basilar bifurcation. The visualized bilateral superior cerebellar (SCA) arteries are normal. Normal right posterior cerebral artery. Hypoplastic left posterior cerebral artery consistent with normal variant. There is no demonstrated aneurysm of the [place]. There is no major vessel occlusion or hemodynamically significant stenosis. MRI/MRA Head ONLY without Contrast IMPRESSION: Normal MRA of the head Electronically Signed: Kenyon De Paz MD at 16:19 EDT ,
[2023-11-01] MEDS: 0.9% Normal Saline (1000mL) 1,000 ML 75 ML IV (18:41)
--- NOTE | 2023-11-01 19:52 | NURSING ---
Patient arrived to ICU at 1749 confused and anxious. Per Cristina ALDANA patient was behaving like this in ER prior to Tenecteplase dose. NIH done at bedside with QUALITY ASSURANCE LEAD. 183-Patient remains confused, anxious and agitated. Son Polo at bedside states this behavior is not patients norm and worse than what is was like in ER. Patient denies pain. Last NIH score was a 3. Dr. Ochoa paged. 185- Dr. Ochoa called this RN back and was notified of patients behavior and recent NIH score of a 2. No headache reported. stated to this RN to obtain a CT of head if patient worsens of headache. 191- Patient pleasantly confused at this time, handoff given to nightshift RN ,NIH done together- scored a 3. See NIH charting.
--- NOTE | 2023-11-01 22:28 | NURSING ---
2200- pt becoming more restless/ agitated. NIH remains @ 3. Harder to get pt to follow commands d/t restlessness. Able to redirect patient for a few minutes before she becomes restless again
[2023-11-02] VITALS (32 sets, daily range): BP systolic 100–153; BP diastolic 48–94; PULSE 74–98; RESP 14–22; TEMP 36.6–36.9; O2SAT 92–99; BMI 21.0
[2023-11-02 03:42] LABS: Absolute Lymphocyte Count 0.91 X10^3/uL (0.83-4.51); Absolute Neutrophil Count 6.7 X10^3/uL (2.0-7.7); Basophil# 0.05 X10^3/uL; Basophil% 0.6 % (0-1); Eosinophil# 0.11 X10^3/uL; Eosinophils% 1.3 % (0-5); Hematocrit 36.7 % (37-47); Hemoglobin 12.2 g/dL (12.0-15.0); Lymphocyte # 0.91 X10^3/ul (0.83-4.51); Lymphocyte % 10.9 % (19-41); Mean Corp Hgb Conc 33.2 g/dL (32-36); Mean Corpuscular Volume 90.4 fL (81-99); Monocyte# 0.59 X10^3/uL; Monocyte% 7.1 % (0-10); NRBC Flagged by Analyzer 0 % (0-5); Neutrophil # 6.65 X10^3/uL (2.7-7.7); Neutrophil % 79.7 % (47-70); Platelet Count 194 K/mm3 (150-450); RBC Distribution Width SD 43.1 fl (35.1-43.9); Red Blood Count 4.06 M/mm3 (4.2-5.4); White Blood Count 8.3 K/mm3 (4.4-11.0)
[2023-11-02 03:56] LABS: Anion Gap 5 (5-15); BUN 20 mg/dL (7-18); BUN/Creat Ratio 18.2 RATIO (10-20); Calcium,Total 8.2 mg/dL (8.5-10.1); Chloride 111 mmol/L (98-107); EST Glomerular Filtration Rate 50 mL/min (>60); Est Glom Filt Rate - Afr Amer 61 mL/min (>60); Glucose 115 mg/dL (74-106); Potassium 3.9 mmol/L (3.5-5.1); Sodium Level 140 mmol/L (136-145)
[2023-11-02 04:21] LABS: Cholesterol 169 mg/dL (200); High Density Lipoprotein 65 mg/dL; Triglycerides 47 mg/dL; Very Low Density Lipoprotein 9 mg/dL (5-40)
[2023-11-02] MEDS: Pantoprazole Sodium 40 MG Tablet PO (08:22)
--- NOTE | 2023-11-02 08:55 | PCM.PN.HOSP ---
Reason for Visit Reason for Visit: Diagnoses Cerebral infarction, unspecified (11/01/23) Subjective Subjective Patient is an 87-year-old lady with underlying history of dementia admitted with altered mental status with bilateral lower extremity weakness expressive aphasia as well as vertigo. Suspicion of acute ischemic stroke made patient did receive tenecteplase and subsequently admitted to the intensive care unit for further management Objective Data Objective Data Vital Signs: Vital Signs Temp Pulse Resp BP Pulse Ox O2 Del Method 98.2 F 74 16 133/69 H 95 Room Air 11/02/23 06:19 11/02/23 07:19 11/02/23 07:19 11/02/23 07:19 11/02/23 07:19 11/02/23 07:19 Oxygen Delivery Method Room Air Weight: 59.5 kg Body Mass Index (BMI) 21.0 Intake & Output: Intake and Output for Last 24 Hours 10/31/23 11/01/23 11/02/23 23:59 23:59 23:59 Intake Total 980 / 980 1000 / 1000 Output Total 1575 / 1575 400 / 400 Balance -595 / -595 600 / 600 Lab / Micro Data 11/02/23 03:33 11/02/23 03:33 Labs: Laboratory Results - last 24 hr 11/01/23 12:20: WBC 8.1, RBC 4.11 L, Hgb 12.4, Hct 37.7, MCV 91.7, MCH 30.2, MCHC 32.9, RDW Std Deviation 43.7, RDW Coeff of Tal 13.0, Plt Count 193, MPV 10.3, Immature Gran % (Auto) 0.400, Neut % (Auto) 75.1 H, Lymph % (Auto) 15.1 L, [place] % (Auto) 7.6, Eos % (Auto) 1.1, Baso % (Auto) 0.7, Absolute Neuts (auto) 6.1, Absolute Lymphs (auto) 1.23, Nucleated RBC % 0, PT Cancelled, INR Cancelled, APTT Cancelled, Sodium 136, Potassium 5.9 H, Chloride 108 H, Carbon Dioxide 24.0, Anion Gap 4 L, BUN 23 H, Creatinine 1.11 H, Estim Creat Clear Calc 34.69, Est GFR (MDRD) Af Amer 60, Est GFR (MDRD) Non-Af 50 L, BUN/Creatinine Ratio 20.7 H, Glucose 85, Calcium 9.4, Troponin I High Sens 22 11/01/23 12:44: PT Cancelled, INR Cancelled, APTT Cancelled 11/01/23 13:35: PT 12.3, INR 0.9, APTT 33.6 11/01/23 15:03: Urine Color Straw, Urine Clarity Clear, Urine pH 8.0, Ur Specific [place] 1.010, Urine Protein Negative, Urine Glucose (UA) Normal, Urine Ketones Negative, Urine Occult Blood Negative, Urine Nitrite Negative, Urine Bilirubin Negative, Urine Urobilinogen Normal, Ur Leukocyte Esterase Negative, Urine RBC 0 SEEN, Urine WBC 0 SEEN, Ur Squamous Epith Cells 0 SEEN, Urine Bacteria 0 SEEN, Urine Mucus 0 SEEN 11/01/23 16:25: Troponin I High Sens 44, TSH 0.42 11/02/23 03:33: WBC 8.3, RBC 4.06 L, Hgb 12.2, Hct 36.7 L, MCV 90.4, MCH 30.0, MCHC 33.2, RDW Std Deviation 43.1, RDW Coeff of Tal 13.0, Plt Count 194, MPV 10.0, Immature Gran % (Auto) 0.400, Neut % (Auto) 79.7 H, Lymph % (Auto) 10.9 L, [place] % (Auto) 7.1, Eos % (Auto) 1.3, Baso % (Auto) 0.6, Absolute Neuts (auto) 6.7, Absolute Lymphs (auto) 0.91, Nucleated RBC % 0, Sodium 140, Potassium 3.9, Chloride 111 H, Carbon Dioxide 24.0, Anion Gap 5, BUN 20 H, Creatinine 1.10 H, Estim Creat Clear Calc 35.00, Est GFR (MDRD) Af Amer 61, Est GFR (MDRD) Non-Af 50 L, BUN/Creatinine Ratio 18.2, Glucose 115 H, Calcium 8.2 L, Triglycerides 47, Cholesterol 169, LDL Cholesterol 95, VLDL Cholesterol 9, HDL Cholesterol 65 Radiography Diagnostic Testing: Radiology Impression Brain CT 11/01/23 12:17 IMPRESSION: No acute intracranial process identified. Chronic involutional and white matter changes. Electronically Signed: Christina Bell MD at 12:43 EDT , ADDENDUM: 11/01/23 1309 IMPRESSION: undefined Chest X-Ray 11/01/23 12:17 IMPRESSION: No acute cardiopulmonary process identified. Electronically Signed: Christina Bell MD at 13:51 EDT , Physical Exam Narrative GENERAL: cooperative, oriented to self and knows she is in the hospital HEENT: Atraumatic; normocephalic EYES; Anicteric, Normal Conjunctiva NECK; supple, normal thyroid, RESPIRATORY: Diminished to auscultation CARDIOVASCULAR: Regular S1 S2, GI: soft, normoactive bowel sounds, : No Renal angle tenderness; EXTREMITIES: No edema, no clubbing, MUSCULOSKELETAL: no muscle wasting NEURO: Awake; no lateralizing signs. SKIN: No Rash PSYCH; Flat affect Assessment & Plan Assessment/Plan (1) Stroke/cerebrovascular accident: QUALIFIERS: CVA mechanism: unspecified Qualified Code(s): I63.9 - Cerebral infarction, unspecified PLAN: Plan Patient is an 87-year-old lady with underlying history of dementia admitted with altered mental status with bilateral lower extremity weakness expressive aphasia as well as vertigo. Suspicion of acute ischemic stroke made patient did receive tenecteplase and subsequently admitted to the intensive care unit for further management 1. Acute ischemic stroke ? Patient did receive tenecteplase subsequently admitted to the intensive care unit post tenecteplase CVA orders initiated. Consult was placed to teleneurology. As part of her management TSH hemoglobin A1c lipid panel and 2D echo ordered. Plan is to initiate antiplatelet therapy 24 hours after receiving tenecteplase 2. Acute metabolic encephalopathy ? Suspected to be secondary to underlying CVA management as discussed above 3.Chronic kidney disease stage III ? Kidney function at baseline monitoring with daily BMPs 4. Dementia ? Patient is on Namenda 5. Coronary artery disease ? With previous PTCA. Patient was on clopidogrel prior to her admission 6. Hypothyroidism - Patient is on levothyroxine home dose continued 7. DVT prophylaxis ? Bilateral SCDs for now Time spent in the patient's overall evaluation,decision-making process, review of diagnostic data, adjustment of management, discussion with other providers, nursing nursing and ancillary staff involved in patient's care documentation,52 Minutes Charges/Coding Visit Charges Inpatient E&M: 79992 [facility] L3
[2023-11-02 10:58] LABS: Hemoglobin A1c 5.7 % (3.8-5.6)
--- NOTE | 2023-11-02 11:25 | STROKE.CONS ---
Assessment and Plan: Stroke Assessment/Plan YUKI CAIN is a 87 F with worsening baseline dementia-related deficits s/p TNK. Imaging including CT And MR does not demonstrate stroke. 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 No further neurovascular work up recommended. HPI Consult Data Date of Consult: 11/02/23 HPI Narrative HPI Narrative: YUKI CAIN, is a 87 F who presents [facility] Medical History Angina pectoris Anxiety and depression Arthritis Atherosclerosis of coronary artery of [place] heart without angina pectoris Back pain Cardiology follow-up encounter Carpal tunnel syndrome, bilateral Chronic kidney disease (CKD) De Quervain's tenosynovitis, right Deep vein blood clot of right lower extremity (09/2013) Dementia Essential hypertension Forehead laceration Former smoker Gastric reflux Hyperlipemia Hypothyroidism Leg cramps Loss of consciousness Osteoarthritis Psoriatic arthritis Wolfe syndrome Skin cancer Stroke/cerebrovascular accident Syncope Syncope and collapse Tachycardia TIA (transient ischemic attack) (01/2015) Wears glasses Wears hearing aid Home Medications galantamine 8 mg 24 hr capsule,extended release 8 mg PO DAILY memory 06/06/21 [History Last Taken 09/12/22] memantine 10 mg tablet 10 mg PO BID memory 06/06/21 [History Last Taken 09/12/22] apremilast 30 mg tablet (Otezla) 30 mg PO DAILY 11/15/22 [History Last Taken Unknown] levothyroxine 112 mcg tablet 112 mcg PO DAILY 11/15/22 [History Last Taken Unknown] clopidogrel 75 mg tablet See Rx Instructions .Route .COMPLEX #90 tabs 12/23/22 [Rx Last Taken Unknown] Allergy/AdvReac Type Severity Reaction Status Date / Time amlodipine Allergy Leg Verified 11/01/23 12:18 Swelling amlodipine besylate Allergy leg Verified 11/01/23 12:18 [From Norvasc] swelling amoxicillin [Amoxicillin] Allergy Rash Verified 11/01/23 12:18 castor oil Allergy PT UNSURE Verified 11/01/23 12:18 OF REACTION enalapril maleate Allergy Other Verified 11/01/23 12:18 [From Vasotec] enalaprilat dihydrate Allergy Other Verified 11/01/23 12:18 [From Vasotec] Iodinated Contrast Media Allergy Other Verified 11/01/23 12:18 [Iodinated Contrast Media - IV Dye] iodine Allergy PT UNSURE Verified 11/01/23 12:18 OF REACTION lisinopril Allergy Other Verified 11/01/23 12:18 ranolazine [From Ranexa] Allergy Unknown Verified 11/01/23 12:18 Sulfa (Sulfonamide Allergy Swelling Verified 11/01/23 12:18 Antibiotics) sulfasalazine Allergy PT UNSURE Verified 11/01/23 12:18 OF REACTION Family History Father CVA (cerebral vascular accident) Mother Heart disease CVA (cerebral vascular accident) Hypertension Sister Diabetes Surgical History H/O: knee surgery (09/2013) History of appendectomy History of carpal tunnel surgery of left wrist History of carpal tunnel surgery of right wrist (~08/2022) History of hysterectomy History of left heart catheterization (08/24/15) History of percutaneous transluminal coronary angioplasty (1995) History of tonsillectomy and adenoidectomy Hx of cholecystectomy Social History household members: other details: son and [id number] housing: house current occupational status: retired Smoking Status: Former smoker how long ago did patient quit smoking: In her 20's alcohol intake: never substance use type: does not use caffeine: No what type of physical activity do you participate in: none frequency: 1-2 times per week Vital Signs Vital Signs Vital Signs: 11/01/23 11:58 11/01/23 12:14 11/01/23 12:28 Temperature 97.8 F 97.8 F 97.8 F Temperature Source Temporal Oral Oral Pulse Rate 71 70 74 Pulse Strength Respiratory Rate 16 16 19 H Respiratory Effort Respiratory Depth Respiratory Pattern Blood Pressure 103/92 H 103/92 H 171/81 H Blood Pressure Mean 95 95 111 Blood Pressure Source Blood Pressure Position Blood Pressure Location Pulse Ox 100 100 100 Oxygen Delivery Method Room Air Room Air Room Air 11/01/23 12:47 11/01/23 12:50 11/01/23 13:20 Temperature Temperature Source Pulse Rate 91 84 Pulse Strength Respiratory Rate 22 H 17 Respiratory Effort Respiratory Depth Respiratory Pattern Blood Pressure 160/96 H Blood Pressure Mean 117 Blood Pressure Source Blood Pressure Position Blood Pressure Location Pulse Ox 98 100 100 Oxygen Delivery Method Room Air Room Air Room Air 11/01/23 13:30 11/01/23 14:02 11/01/23 14:00 Temperature Temperature Source Pulse Rate 84 87 87 Pulse Strength Respiratory Rate 16 20 H 16 Respiratory Effort Respiratory Depth Respiratory Pattern Blood Pressure 157/100 H 172/92 H 172/92 H Blood Pressure Mean 119 118 118 Blood Pressure Source Blood Pressure Position Blood Pressure Location Pulse Ox 100 99 100 Oxygen Delivery Method Room Air 11/01/23 14:56 11/01/23 14:30 11/01/23 14:49 Temperature 97.6 F L 97.6 F L Temperature Source Temporal Temporal Pulse Rate 72 72 Pulse Strength Respiratory Rate 20 H 20 H Respiratory Effort Respiratory Depth Respiratory Pattern Blood Pressure 170/73 H 185/80 H 141/76 H Blood Pressure Mean 115 97 Blood Pressure Source Monitor Blood Pressure Position Supine Blood Pressure Location Left Arm Pulse Ox 97 100 Oxygen Delivery Method Room Air Room Air 11/01/23 15:00 11/01/23 15:09 11/01/23 15:19 Temperature 97.6 F L 97.5 F L Temperature Source Oral Oral Pulse Rate 74 73 73 Pulse Strength Respiratory Rate 16 17 19 H Respiratory Effort Respiratory Depth Respiratory Pattern Blood Pressure 141/76 H 155/64 H 146/71 H Blood Pressure Mean 97 94 96 Blood Pressure Source Monitor Monitor Blood Pressure Position Supine Supine Blood Pressure Location Left Arm Left Arm Pulse Ox 100 99 99 Oxygen Delivery Method Room Air Room Air Room Air 11/01/23 15:37 11/01/23 15:37 11/01/23 15:49 Temperature 97.5 F L 97.5 F L 97.1 F L Temperature Source Oral Temporal Temporal Pulse Rate 75 70 66 Pulse Strength Respiratory Rate 17 16 17 Respiratory Effort Respiratory Depth Respiratory Pattern Blood Pressure 152/66 H 152/66 H 142/73 H Blood Pressure Mean 94 94 96 Blood Pressure Source Monitor Monitor Blood Pressure Position Supine Supine Blood Pressure Location Left Arm Left Arm Pulse Ox 98 98 98 Oxygen Delivery Method Room Air Room Air Room Air 11/01/23 16:00 11/01/23 16:00 11/01/23 16:03 Temperature 97.5 F L 97.5 F L 97.5 F L Temperature Source Oral Temporal Pulse Rate 66 67 73 Pulse Strength Respiratory Rate 19 H 18 19 H Respiratory Effort Respiratory Depth Respiratory Pattern Blood Pressure 139/86 H 139/86 H 139/68 H Blood Pressure Mean 103 103 91 Blood Pressure Source Blood Pressure Position Blood Pressure Location Pulse Ox 98 99 99 Oxygen Delivery Method Room Air Room Air 11/01/23 16:04 11/01/23 16:19 11/01/23 16:34 Temperature 97.5 F L 97 F L 98.3 F Temperature Source Temporal Oral Temporal Pulse Rate 70 69 71 Pulse Strength Respiratory Rate 17 24 H 16 Respiratory Effort Respiratory Depth Respiratory Pattern Blood Pressure 139/68 H 143/67 H 143/67 H Blood Pressure Mean 91 92 92 Blood Pressure Source Monitor Monitor Monitor Blood Pressure Position Supine Supine Supine Blood Pressure Location Left Arm Left Arm Left Arm Pulse Ox 97 100 97 Oxygen Delivery Method Room Air Room Air Room Air 11/01/23 16:49 11/01/23 17:19 11/01/23 17:49 Temperature 98.3 F 98.1 F 97.9 F Temperature Source Temporal Temporal Temporal Pulse Rate 71 83 87 Pulse Strength Respiratory Rate 16 22 H 25 H Respiratory Effort Respiratory Depth Respiratory Pattern Blood Pressure 138/71 H 158/75 H 158/81 H Blood Pressure Mean 93 102 106 Blood Pressure Source Monitor Monitor Monitor Blood Pressure Position Supine Supine Semi-Fowlers Blood Pressure Location Left Arm Left Arm Left Arm Pulse Ox 97 96 100 Oxygen Delivery Method Room Air Room Air Room Air 11/01/23 18:19 11/01/23 18:49 11/01/23 19:19 Temperature 98.9 F 98.6 F 98.5 F Temperature Source Temporal Temporal Temporal Pulse Rate 94 101 H 76 Pulse Strength Respiratory Rate 19 H 19 H 22 H Respiratory Effort Respiratory Depth Respiratory Pattern Blood Pressure 179/94 H 166/84 H 170/89 H Blood Pressure Mean 122 111 116 Blood Pressure Source Monitor Monitor Monitor Blood Pressure Position Semi-Fowlers Semi-Fowlers Semi-Fowlers Blood Pressure Location Left Arm Left Arm Left Arm Pulse Ox 100 100 99 Oxygen Delivery Method Room Air Room Air Room Air 11/01/23 18:00 11/01/23 19:49 11/01/23 20:15 Temperature Temperature Source Pulse Rate 91 Pulse Strength Normal (2+) Respiratory Rate 20 H Respiratory Effort Normal Non-Labored Respiratory Depth Normal Respiratory Pattern Normal Blood Pressure 148/80 H Blood Pressure Mean 102 Blood Pressure Source Monitor Blood Pressure Position Semi-Fowlers Blood Pressure Location Left Arm Pulse Ox 95 Oxygen Delivery Method Room Air Room Air 11/01/23 20:19 11/01/23 20:00 11/01/23 19:09 Temperature Temperature Source Pulse Rate 72 Pulse Strength Respiratory Rate 18 Respiratory Effort Normal Non-Labored Respiratory Depth Normal Respiratory Pattern Normal Blood Pressure 93/75 Blood Pressure Mean 81 Blood Pressure Source Monitor Blood Pressure Position Semi-Fowlers Blood Pressure Location Left Arm Pulse Ox 96 100 Oxygen Delivery Method Room Air Room Air Room Air 11/01/23 20:49 11/01/23 21:19 11/01/23 21:49 Temperature Temperature Source Pulse Rate 74 71 90 Pulse Strength Respiratory Rate 16 18 18 Respiratory Effort Respiratory Depth Respiratory Pattern Blood Pressure 151/67 H 149/64 H 174/76 H Blood Pressure Mean 95 92 108 Blood Pressure Source Monitor Monitor Monitor Blood Pressure Position Semi-Fowlers Semi-Fowlers Semi-Fowlers Blood Pressure Location Left Arm Left Arm Left Arm Pulse Ox 97 97 97 Oxygen Delivery Method Room Air Room Air Room Air 11/01/23 22:19 11/01/23 22:49 11/01/23 23:19 Temperature Temperature Source Pulse Rate 72 93 88 Pulse Strength Respiratory Rate 22 H 28 H 20 H Respiratory Effort Respiratory Depth Respiratory Pattern Blood Pressure 134/93 H 171/71 H 164/59 H Blood Pressure Mean 106 104 94 Blood Pressure Source Monitor Monitor Monitor Blood Pressure Position Semi-Fowlers Semi-Fowlers Semi-Fowlers Blood Pressure Location Left Arm Left Arm Left Arm Pulse Ox 98 98 96 Oxygen Delivery Method Room Air Room Air Room Air 11/02/23 00:00 11/02/23 00:00 11/02/23 00:19 Temperature 98.2 F Temperature Source Temporal Pulse Rate 93 97 Pulse Strength Respiratory Rate 16 22 H Respiratory Effort Normal Non-Labored Respiratory Depth Normal Respiratory Pattern Normal Blood Pressure 148/74 H 153/72 H Blood Pressure Mean 98 99 Blood Pressure Source Monitor Monitor Blood Pressure Position Semi-Fowlers Semi-Fowlers Blood Pressure Location Left Arm Left Arm Pulse Ox 97 97 Oxygen Delivery Method Room Air Room Air Room Air 11/02/23 01:19 11/02/23 02:19 11/02/23 03:19 Temperature Temperature Source Pulse Rate 92 81 91 Pulse Strength Respiratory Rate 16 19 H 18 Respiratory Effort Respiratory Depth Respiratory Pattern Blood Pressure 144/66 H 141/70 H 124/54 H Blood Pressure Mean 92 93 77 Blood Pressure Source Monitor Monitor Monitor Blood Pressure Position Semi-Fowlers Semi-Fowlers Semi-Fowlers Blood Pressure Location Left Arm Left Arm Left Arm Pulse Ox 97 98 97 Oxygen Delivery Method Room Air Room Air Room Air 11/02/23 04:00 11/02/23 04:19 11/02/23 05:19 Temperature Temperature Source Pulse Rate 81 83 Pulse Strength Respiratory Rate 15 16 Respiratory Effort Normal Non-Labored Respiratory Depth Normal Respiratory Pattern Normal Blood Pressure 115/48 L 114/50 L Blood Pressure Mean 70 71 Blood Pressure Source Monitor Monitor Blood Pressure Position Semi-Fowlers Semi-Fowlers Blood Pressure Location Left Arm Left Arm Pulse Ox 96 94 Oxygen Delivery Method Room Air Room Air Room Air 11/02/23 06:19 11/02/23 07:19 11/02/23 08:00 Temperature 98.2 F Temperature Source Temporal Pulse Rate 77 74 80 Pulse Strength Respiratory Rate 14 16 Respiratory Effort Respiratory Depth Respiratory Pattern Blood Pressure 110/54 L 133/69 H Blood Pressure Mean 72 90 Blood Pressure Source Monitor Monitor Blood Pressure Position Semi-Fowlers Semi-Fowlers Blood Pressure Location Left Arm Left Arm Pulse Ox 94 95 Oxygen Delivery Method Room Air Room Air 11/02/23 08:16 11/02/23 09:16 11/02/23 10:16 Temperature Temperature Source Pulse Rate 91 92 98 Pulse Strength Respiratory Rate 16 16 16 Respiratory Effort Respiratory Depth Respiratory Pattern Blood Pressure 146/74 H 143/76 H 126/55 H Blood Pressure Mean 98 98 78 Blood Pressure Source Monitor Monitor Monitor Blood Pressure Position Semi-Fowlers Semi-Fowlers Semi-Fowlers Blood Pressure Location Left Arm Left Arm Left Arm Pulse Ox 94 95 92 Oxygen Delivery Method Room Air Room Air Room Air 11/02/23 10:00 Temperature Temperature Source Pulse Rate Pulse Strength Normal (2+) Respiratory Rate Respiratory Effort Respiratory Depth Respiratory Pattern Blood Pressure Blood Pressure Mean Blood Pressure Source Blood Pressure Position Blood Pressure Location Pulse Ox Oxygen Delivery Method Weight Weight: 59.5 kg Body Mass Index (BMI) 21.0 EEG Results Procedure Details EEG Procedure Details: YUKI CAIN is a 87 year old F with a past medical history of , who presents for evaluation of Electroencephalogram on DATE at TIME NIHSS NIHSS Nursing Documentation NIHSS Nursing Documentation: Thrombolytic: Vital Signs & NIHSS Start: 11/01/23 14:49 Text: Assess and document vital signs and NIHSS Status: Active within 15 minutes of tenecteplase bolus administration Freq: [id number] Protocol: Activity Type Activity Date Activity User E-sign Co-sign Detail Recorded Client Recorded Date Recorded By Document 11/02/23 10:16 LW Desktop 11/02/23 11:08 LW 11/02/23 10:16 Vital Signs [Pulse] -Pulse Rate (60-100) 98 -Pulse Location Monitor [Respirations] -Respiratory Rate (12-18) 16 -Respiratory rate source Monitor -Pulse Oximetry 92 -Oxygen Delivery Method Room Air [Blood Pressure] -Blood Pressure (90/60-120/80) 126/55 H -Blood Pressure Mean 78 -Source Monitor -Position Semi-Fowlers -Blood Pressure Location Left Arm -Is the SBP > or = 180 No -Is the DBP > or = 105 No NIH Stroke Scale [NIHSS] A score of 0 is normal or asymptomatic . Total possible score is 42. Inpatient: RN or Physician to activate a stroke alert for onset of new stroke symptoms or with NIHSS increase >/= 3 points. Following change in neurological status, NIHSS will be performed per physician order or more frequently PRN. -1a. Level of Consciousness Alert; keenly responsive -1b. LOC Questions Answers one question correctly. -1c. LOC Commands Performs both tasks correctly . -2. Best Gaze Normal -3. Visual No visual loss -4. Facial Palsy Normal symmetrical movements -5a. Left Arm No drift; arm holds 90 (or 45 ) degrees for full 10 seconds -5b. Right Arm No drift; arm holds 90 (or 45 ) degrees for full 10 seconds -6a. Left Leg No drift; leg holds 30-degree position for full 5 seconds -6b. Right Leg No drift; leg holds 30-degree position for full 5 seconds -7. Limb Ataxia Absent -8. Sensory Normal; no sensory loss -9. Best Language Severe aphasia; -10. Dysarthria Normal -11. Extinction and Inattention No abnormality -Total 3 Query Text:A score of 0 is normal or asymptomatic. Total possible score is 42 . ED: Notify Physician for NIHSS increase by > / = 3 points. Inpatient: RN or Physician to activate a stroke alert for NIHSS increase of > / = 3 points. Lab / Micro Data 11/02/23 03:33 11/02/23 03:33 Labs: Laboratory Results - last 24 hr 11/01/23 12:20: WBC 8.1, RBC 4.11 L, Hgb 12.4, Hct 37.7, MCV 91.7, MCH 30.2, MCHC 32.9, RDW Std Deviation 43.7, RDW Coeff of Tal 13.0, Plt Count 193, MPV 10.3, Immature Gran % (Auto) 0.400, Neut % (Auto) 75.1 H, Lymph % (Auto) 15.1 L, [place] % (Auto) 7.6, Eos % (Auto) 1.1, Baso % (Auto) 0.7, Absolute Neuts (auto) 6.1, Absolute Lymphs (auto) 1.23, Nucleated RBC % 0, PT Cancelled, INR Cancelled, APTT Cancelled, Sodium 136, Potassium 5.9 H, Chloride 108 H, Carbon Dioxide 24.0, Anion Gap 4 L, BUN 23 H, Creatinine 1.11 H, Estim Creat Clear Calc 34.69, Est GFR (MDRD) Af Amer 60, Est GFR (MDRD) Non-Af 50 L, BUN/Creatinine Ratio 20.7 H, Glucose 85, Calcium 9.4, Troponin I High Sens 22 11/01/23 12:44: PT Cancelled, INR Cancelled, APTT Cancelled 11/01/23 13:35: PT 12.3, INR 0.9, APTT 33.6 11/01/23 15:03: Urine Color Straw, Urine Clarity Clear, Urine pH 8.0, Ur Specific [place] 1.010, Urine Protein Negative, Urine Glucose (UA) Normal, Urine Ketones Negative, Urine Occult Blood Negative, Urine Nitrite Negative, Urine Bilirubin Negative, Urine Urobilinogen Normal, Ur Leukocyte Esterase Negative, Urine RBC 0 SEEN, Urine WBC 0 SEEN, Ur Squamous Epith Cells 0 SEEN, Urine Bacteria 0 SEEN, Urine Mucus 0 SEEN 11/01/23 16:25: Troponin I High Sens 44, TSH 0.42 11/02/23 03:33: WBC 8.3, RBC 4.06 L, Hgb 12.2, Hct 36.7 L, MCV 90.4, MCH 30.0, MCHC 33.2, RDW Std Deviation 43.1, RDW Coeff of Tal 13.0, Plt Count 194, MPV 10.0, Immature Gran % (Auto) 0.400, Neut % (Auto) 79.7 H, Lymph % (Auto) 10.9 L, Valley % (Auto) 7.1, Eos % (Auto) 1.3, Baso % (Auto) 0.6, Absolute Neuts (auto) 6.7, Absolute Lymphs (auto) 0.91, Nucleated RBC % 0, Sodium 140, Potassium 3.9, Chloride 111 H, Carbon Dioxide 24.0, Anion Gap 5, BUN 20 H, Creatinine 1.10 H, Estim Creat Clear Calc 35.00, Est GFR (MDRD) Af Amer 61, Est GFR (MDRD) Non-Af 50 L, BUN/Creatinine Ratio 18.2, Glucose 115 H, Hemoglobin A1c 5.7 H, Calcium 8.2 L, Triglycerides 47, Cholesterol 169, LDL Cholesterol 95, VLDL Cholesterol 9, HDL Cholesterol 65 Imaging Radiology Impression Brain CT 11/01/23 12:17 IMPRESSION: No acute intracranial process identified. Chronic involutional and white matter changes. Electronically Signed: Christina Bell MD at 12:43 EDT , ADDENDUM: 11/01/23 1309 IMPRESSION: undefined Chest X-Ray 11/01/23 12:17 IMPRESSION: No acute cardiopulmonary process identified. Electronically Signed: Christina Bell MD at 13:51 EDT , Active Medications Active Medications Active Medications: Current Medications Generic Name Dose Route Start Last Admin Trade Name Freq PRN Reason Stop Dose Admin Acetaminophen 650 mg 11/01/23 18:12 Acetaminophen 325 Mg Tablet PO Q4H PRN PRN Pain 1-10 or Fever Atorvastatin Calcium 40 mg 11/01/23 22:00 11/01/23 20:46 Atorvastatin Calcium 40 Mg Tablet PO Not Given QHS MARCELO Diphenhydramine HCl 50 mg 11/01/23 18:12 Diphenhydramine 50 Mg/Ml Syringe IV X1 PRN Allergic Reaction Epinephrine HCl 0.3 mg 11/01/23 18:12 Epi Pen (Equiv) 0.3 Mg Syringe IM 11/02/23 15:47 X1 PRN Alleric Reaction Hydralazine HCl 5 mg 11/01/23 18:12 Hydralazine 20 Mg/Ml Vial IV Q30M PRN to maintain BP goals Nicardipine/Sodium Chloride 20 mg in 200 mls @ 50 mls/hr 11/01/23 18:12 Cardene-Gutierrez 20 Mg/200 Ml Soln CONT INF Q4H PRN See Instructions Protocol 5 MG/HR Famotidine 20 mg/ Sodium 10 mls @ 300 mls/hr 11/01/23 18:12 Chloride IV X1 PRN Allergic Reaction Labetalol HCl 10 - 20 mg 11/01/23 18:12 Labetalol (Prefilled) 20 Mg/4 Ml IV Q10M PRN PRN to Maintain BP Goals Methylprednisolone 125 mg 11/01/23 18:12 Methylprednisolone 125 Mg/2 Ml Vial IV X1 PRN Allergic Reaction Pantoprazole Sodium 40 mg 11/02/23 10:00 11/02/23 08:22 Pantoprazole Sodium 40 Mg Tablet PO 40 mg DAILY MARCELO Administration Sodium Chloride 10 ml 11/01/23 14:47 11/01/23 14:58 0.9% Saline Lock 10 Ml Syringe IV 10 ml UD PRN Administration Before/After Tenecteplase Administration Sodium Chloride 10 - 40 ml 11/01/23 18:06 0.9% Saline Lock 10 Ml Syringe IV UD PRN SALINE FLUSH
--- NOTE | 2023-11-02 12:24 | CON.PCM.CC_ITS ---
Assessment & Plan Assessment/Plan (1) Acute CVA (cerebrovascular accident): PLAN: Plan RECOMMENDATIONS: 1. Follow-up head imaging this afternoon. 2. Neurology follow-up. 3. PT/OT evaluations tomorrow 4. Swallow evaluation with dietary advancement. IMPRESSIONS: 1. Suspected CVA status post tenecteplase Continue routine monitoring per ICU protocol. Plan to obtain follow-up head imaging this afternoon. PT/OT evaluations tomorrow. Dietary advancement can be considered following speech evaluation. 2. History of chronic kidney disease/dementia/coronary artery disease/hypothyroidism Complicates care, management, recovery and prognosis. Continue home medication as indicated. This note was generated with CDNlion dictation software. It may contain incorrect words, spelling, and punctuation that were not noted in checking the note before signing. HPI Consult Data Date of Consult: 11/02/23 HPI Narrative Reason for Consultation: Stroke status post tenecteplase HPI Narrative: The patient is an 87-year-old female, with a history as outlined below, who presented on October 31 with aphasia. The patient has a known baseline history of dementia. The patient was evaluated the emergency department over concerns for an acute CVA. Initial CT head was negative. The patient was seen in consultation by tele neurology, who ultimately recommended administration of tenecteplase. Post administration, the patient was admitted to the medical intensive care unit, per protocol. Overnight, the patient has remained hemodynamically stable and is maintaining appropriate oxygen saturations on room air. She has no specific complaints this morning. Laboratory evaluation this morning was unremarkable. There are tentative plans for follow-up MRI this afternoon. ON LICENSE OF [facility] Medical History Angina pectoris Anxiety and depression Arthritis Atherosclerosis of coronary artery of [place] heart without angina pectoris Back pain Cardiology follow-up encounter Carpal tunnel syndrome, bilateral Chronic kidney disease (CKD) De Quervain's tenosynovitis, right Deep vein blood clot of right lower extremity (09/2013) Dementia Essential hypertension Forehead laceration Former smoker Gastric reflux Hyperlipemia Hypothyroidism Leg cramps Loss of consciousness Osteoarthritis Psoriatic arthritis Wolfe syndrome Skin cancer Stroke/cerebrovascular accident Syncope Syncope and collapse Tachycardia TIA (transient ischemic attack) (01/2015) Wears glasses Wears hearing aid Home Medications galantamine 8 mg 24 hr capsule,extended release 8 mg PO DAILY memory 06/06/21 [History Last Taken 09/12/22] memantine 10 mg tablet 10 mg PO BID memory 06/06/21 [History Last Taken 09/12/22] apremilast 30 mg tablet (Otezla) 30 mg PO DAILY 11/15/22 [History Last Taken Unknown] levothyroxine 112 mcg tablet 112 mcg PO DAILY 11/15/22 [History Last Taken Unknown] clopidogrel 75 mg tablet See Rx Instructions .Route .COMPLEX #90 tabs 12/23/22 [Rx Last Taken Unknown] Allergy/AdvReac Type Severity Reaction Status Date / Time amlodipine Allergy Leg Verified 11/01/23 12:18 Swelling amlodipine besylate Allergy leg Verified 11/01/23 12:18 [From Norvasc] swelling amoxicillin [Amoxicillin] Allergy Rash Verified 11/01/23 12:18 castor oil Allergy PT UNSURE Verified 11/01/23 12:18 OF REACTION enalapril maleate Allergy Other Verified 11/01/23 12:18 [From Vasotec] enalaprilat dihydrate Allergy Other Verified 11/01/23 12:18 [From Vasotec] Iodinated Contrast Media Allergy Other Verified 11/01/23 12:18 [Iodinated Contrast Media - IV Dye] iodine Allergy PT UNSURE Verified 11/01/23 12:18 OF REACTION lisinopril Allergy Other Verified 11/01/23 12:18 ranolazine [From Ranexa] Allergy Unknown Verified 11/01/23 12:18 Sulfa (Sulfonamide Allergy Swelling Verified 11/01/23 12:18 Antibiotics) sulfasalazine Allergy PT UNSURE Verified 11/01/23 12:18 OF REACTION Family History Father CVA (cerebral vascular accident) Mother Heart disease CVA (cerebral vascular accident) Hypertension Sister Diabetes Surgical History H/O: knee surgery (09/2013) History of appendectomy History of carpal tunnel surgery of left wrist History of carpal tunnel surgery of right wrist (~08/2022) History of hysterectomy History of left heart catheterization (08/24/15) History of percutaneous transluminal coronary angioplasty (1995) History of tonsillectomy and adenoidectomy Hx of cholecystectomy Social History household members: other details: son and [id number] housing: house current occupational status: retired Smoking Status: Former smoker how long ago did patient quit smoking: In her 20's alcohol intake: never substance use type: does not use caffeine: No what type of physical activity do you participate in: none frequency: 1-2 times per week ROS ROS Narrative 10 systems were reviewed with pertinent positives as noted in the HPI above. Physical Exam Const alert and no apparent distress General Appearance: cooperative HEENT normocephalic and head/scalp atraumatic Eyes PERRL, EOMs intact bilaterally and conjunctivae normal Neck supple General: trachea midline Chest inspection of chest normal Resp normal respiratory effort Auscultation: Negative for rales, rhonchi or wheezes Cardio regular rate and regular rhythm GI normal to inspection, nondistended, normoactive bowel sounds Extremity no clubbing, cyanosis or edema Skin no rashes or lesions noted Neuro Neuro Narrative: Waxing and waning expressive aphasia Psych Mood & Affect: flat affect Lab / Micro Data 11/02/23 03:33 11/02/23 03:33 Labs: Laboratory Results - last 24 hr 11/01/23 12:20: WBC 8.1, RBC 4.11 L, Hgb 12.4, Hct 37.7, MCV 91.7, MCH 30.2, MCHC 32.9, RDW Std Deviation 43.7, RDW Coeff of Tal 13.0, Plt Count 193, MPV 10.3, Immature Gran % (Auto) 0.400, Neut % (Auto) 75.1 H, Lymph % (Auto) 15.1 L, Stafford % (Auto) 7.6, Eos % (Auto) 1.1, Baso % (Auto) 0.7, Absolute Neuts (auto) 6.1, Absolute Lymphs (auto) 1.23, Nucleated RBC % 0, PT Cancelled, INR Cancelled, APTT Cancelled, Sodium 136, Potassium 5.9 H, Chloride 108 H, Carbon Dioxide 24.0, Anion Gap 4 L, BUN 23 H, Creatinine 1.11 H, Estim Creat Clear Calc 34.69, Est GFR (MDRD) Af Amer 60, Est GFR (MDRD) Non-Af 50 L, BUN/Creatinine Ratio 20.7 H, Glucose 85, Calcium 9.4, Troponin I High Sens 22 11/01/23 12:44: PT Cancelled, INR Cancelled, APTT Cancelled 11/01/23 13:35: PT 12.3, INR 0.9, APTT 33.6 11/01/23 15:03: Urine Color Straw, Urine Clarity Clear, Urine pH 8.0, Ur Spe cific [place] 1.010, Urine Protein Negative, Urine Glucose (UA) Normal, Urine Ketones Negative, Urine Occult Blood Negative, Urine Nitrite Negative, Urine Bilirubin Negative, Urine Urobilinogen Normal, Ur Leukocyte Esterase Negative, Urine RBC 0 SEEN, Urine WBC 0 SEEN, Ur Squamous Epith Cells 0 SEEN, Urine Bacteria 0 SEEN, Urine Mucus 0 SEEN 11/01/23 16:25: Troponin I High Sens 44, TSH 0.42 11/02/23 03:33: WBC 8.3, RBC 4.06 L, Hgb 12.2, Hct 36.7 L, MCV 90.4, MCH 30.0, MCHC 33.2, RDW Std Deviation 43.1, RDW Coeff of Tal 13.0, Plt Count 194, MPV 10.0, Immature Gran % (Auto) 0.400, Neut % (Auto) 79.7 H, Lymph % (Auto) 10.9 L, Stafford % (Auto) 7.1, Eos % (Auto) 1.3, Baso % (Auto) 0.6, Absolute Neuts (auto) 6.7, Absolute Lymphs (auto) 0.91, Nucleated RBC % 0, Sodium 140, Potassium 3.9, Chloride 111 H, Carbon Dioxide 24.0, Anion Gap 5, BUN 20 H, Creatinine 1.10 H, Estim Creat Clear Calc 35.00, Est GFR (MDRD) Af Amer 61, Est GFR (MDRD) Non-Af 50 L, BUN/Creatinine Ratio 18.2, Glucose 115 H, Hemoglobin A1c 5.7 H, Calcium 8.2 L, Triglycerides 47, Cholesterol 169, LDL Cholesterol 95, VLDL Cholesterol 9, HDL Cholesterol 65 Imaging Radiology Impression Brain CT 11/01/23 12:17 IMPRESSION: No acute intracranial process identified. Chronic involutional and white matter changes. Electronically Signed: Christina Bell MD at 12:43 EDT , ADDENDUM: 11/01/23 1309 IMPRESSION: undefined Chest X-Ray 11/01/23 12:17 IMPRESSION: No acute cardiopulmonary process identified. Electronically Signed: Christina Bell MD at 13:51 EDT Reading Location ID and State: [facility] / [place] Tel , Service support , Charges/Coding Visit Charges Inpatient E&M: 70415 Init Hosp L2
--- NOTE | 2023-11-02 14:12 | CASEMGMT ---
JOVAN SYED Assessment: Face to Face with pt for initial transition planning/care coordination assessment. JOVAN SYED introduced self and role at [facility], pt voices understanding and consents to assessment. Pt son, raymond and grandson in room, pt deferred assessment to her son and dil. Pt sitting up in bed in no distress. Care providers, pharmacy, and demographics verified/updated. Admitting Dx: Post TNK, stroke PCP:Jerod Specialists:Edna, rheum; WHG, cardio Preferred Pharmacy: [facility] Insurance: [facility] Prescription Benefit: yes LNOK: Polo and Adrienne Lewis, son and dtr in law; Daniel Lewis, son Living Arrangements: Pt lives with son and dil in a single story home with 1 step to enter with a grab bar. Son reports pt is I in ADL's typically. Pt is able to get own breakfast, do laundry and family gets groceries. Pt denies concerns at home. Transportation: Pt dil provides transportation. DME:cane, FWW, shower chair HHC/SNF: Denies hx of Pt son states they would like pt to return home pending therapy sanya. Pt has been on BR. Pt states no further concerns/needs. CM to follow therapy. Advised pt to ask CM if any further question/concerns/needs arise, voices understanding. Pt Son Goal:Home Plan: TBD pending therapy sanya Mathur RN, CM
--- NOTE | 2023-11-02 15:00 | MRI_ITS ---
STUDY: MRI BRAIN WITHOUT CONTRAST REASON FOR EXAM: Female, 87 years old. STROKE -- MRI 24 hours after IV thrombolytic administration TECHNIQUE: Standardized multiplanar fat and water weighted pulse sequences were obtained. COMPARISON: CT of the brain November 01, 2023 FINDINGS: . Moderate atrophy and periventricular white matter ischemic changes without mass effect or restricted diffusion. There is disproportionate dilatation of the lateral ventricles with respect cortical sulci raising question of communicating hydrocephalus or NPH. Normal bilateral basal ganglia. Normal thalami. There is no extra-axial fluid accumulation. Normal flow voids within the major intracranial circulation suggesting patency by spin echo criteria. Normal sella turcica, pituitary gland, infundibular stalk, optic chiasm and hypothalamus. Normal tectal plate and pineal gland. Normal midbrain, [place] and medulla. Normal cerebellum. Normal basal cisterns. Normal bilateral temporal bones. Normal bilateral internal auditory canals. Postsurgical changes of the orbits.. Normal visualized paranasal sinuses. Normal calvarium and skull base. Normal visualized soft tissue structures. Normal visualized upper cervical spine. MRI/Brain without Contrast IMPRESSION: Moderate atrophy and periventricular white matter ischemic change without evidence for acute infarct. Cannot exclude possibility of NPH. Electronically Signed: Kenyon De Paz MD at 16:18 EDT ,
--- NOTE | 2023-11-02 15:05 | NURSING ---
silver colored ring with 3 clear stones removed from patient & taken home by [id number], to MRI per bed with nurse
--- NOTE | 2023-11-02 20:17 | NURSING ---
Pt has set off bed exit alarm multiple times since start of shift; pt closes eyes and refuses to open them when being spoken to; refuses to follow commands and answer questions regarding NIH assessment. Pt observed moving all extremities and looking around room when this RN sat in room to document. Pt attempted to get up again, grabbed both bedrails and moved self to edge of bed. Pt finally stated I want to go over there, by the window, and just look out. RN attempted to perform NIH assessment again and pt closed her eyes and refused to communicate further. Bed exit alarm set on middle sensitivity.
--- NOTE | 2023-11-02 20:28 | PCM.HOSP.N ---
Hospitalist Note Patient with notable agitation, worse in the evenings per discussion with staff. Will order low dose seroquel q HS.
[2023-11-02] MEDS: QUEtiapine 25 MG Tablet PO (22:03)
[2023-11-02] MEDS: Atorvastatin Calcium 40 MG Tablet PO (22:04)
--- NOTE | 2023-11-02 22:07 | NURSING ---
Pt refusing to follow commands and complete NIH assessment; pt witnessed moving all extremities equally, demonstrates expressive aphasia when attempting to ask for certain things.
[2023-11-03] VITALS (9 sets, daily range): BP systolic 102–178; BP diastolic 55–84; PULSE 69–103; RESP 13–20; TEMP 36.4–36.6; O2SAT 96–100; BMI 21.0; BMI 20.9
--- NOTE | 2023-11-03 02:18 | NURSING ---
Pt closing eyes at physical assessment and appears to be pretending to be asleep and is refusing to complete remainder of NIH assessment.
--- NOTE | 2023-11-03 06:06 | NURSING ---
Pt refusing to answer/perform NIH assessment; is tearful, keeping eyes closed; speech is clear for what she is speaking, but is having expressive aphasia; moving all extremities equally. Continuously setting off the bed exit alarm.
--- NOTE | 2023-11-03 07:19 | PN.HOSP_ITS ---
Reason for Visit Reason for Visit: Diagnoses Cerebral infarction, unspecified (11/01/23) Subjective Subjective Patient seen per nursing staff patient was delirious during the night. Patient was evaluated by teleneurology acute ischemic stroke rule out Objective Data Objective Data Vital Signs: Vital Signs Temp Pulse Resp BP Pulse Ox O2 Del Method 97.9 F 83 15 178/72 H 96 Room Air 11/03/23 04:00 11/03/23 06:00 11/03/23 06:00 11/03/23 06:00 11/03/23 02:00 11/03/23 06:00 Oxygen Delivery Method Room Air Weight: 58.8 kg Body Mass Index (BMI) 20.9 Intake & Output: Intake and Output for Last 24 Hours 11/01/23 11/02/23 11/03/23 23:59 23:59 23:59 Intake Total 980 / 980 1900 / 1900 Output Total 1575 / 1575 1950 / 1950 1000 / 1000 Balance -595 / -595 -50 / -50 -1000 / -1000 Lab / Micro Data 11/02/23 03:33 11/02/23 03:33 Labs: Laboratory Results - last 24 hr 11/02/23 03:33: Hemoglobin A1c 5.7 H Radiography Diagnostic Testing: Radiology Impression Echocardiogram 11/01/23 18:12 Interpretation Summary Normal LV size. Left ventricular systolic function is normal. The left ventricular ejection fraction is 60 %. Bubble contrast study negative for right to left interatrial shunt. Ordering Physician: Jaime Ochoa Referring Physician: Matty Newsome Chi Performed By: Brandi Zamora and Student Head MRA 11/01/23 18:12 IMPRESSION: Normal MRA of the head Electronically Signed: Kenyon De Paz MD at 16:19 EDT , Neck MRA 11/01/23 18:12 IMPRESSION: Normal bilateral cervical carotid and vertebral arteries. Electronically Signed: Kenyon De Paz MD at 16:20 EDT Reading Location ID and State: [place] / [place] Tel , Service support , Brain MRI 11/02/23 15:00 IMPRESSION: Moderate atrophy and periventricular white matter ischemic change without evidence for acute infarct. Cannot exclude possibility of NPH. Electronically Signed: Kenyon De Paz MD at 16:18 EDT , Physical Exam Narrative GENERAL: cooperative, oriented to self and knows she is in the hospital HEENT: Atraumatic; normocephalic EYES; Anicteric, Normal Conjunctiva NECK; supple, normal thyroid, RESPIRATORY: Diminished to auscultation CARDIOVASCULAR: Regular S1 S2, GI: soft, normoactive bowel sounds, : No Renal angle tenderness; EXTREMITIES: No edema, no clubbing, MUSCULOSKELETAL: no muscle wasting NEURO: Awake; no lateralizing signs. SKIN: No Rash PSYCH; Flat affect Assessment & Plan Assessment/Plan (1) Stroke/cerebrovascular accident: QUALIFIERS: CVA mechanism: unspecified Qualified Code(s): I63.9 - Cerebral infarction, unspecified PLAN: Plan Patient is an 87-year-old lady with underlying history of dementia admitted with altered mental status with bilateral lower extremity weakness expressive aphasia as well as vertigo. Suspicion of acute ischemic stroke made patient did receive tenecteplase and subsequently admitted to the intensive care unit for further management 1. Advanced dementia with behavioral agitation Acute ischemic stroke ruled out ? Patient did receive tenecteplase subsequently admitted to the intensive care unit post tenecteplase CVA orders initiated. Consult was placed to teleneurology. As part of her management TSH hemoglobin A1c lipid panel and 2D echo ordered. Plan is to initiate antiplatelet therapy 24 hours after receiving tenecteplase ? Patient was evaluated by teleneurology with [facility] acute ischemic stroke ruled out 2. Acute metabolic encephalopathy ? Suspected to be secondary to underlying CVA management as discussed above ? Ischemic stroke rule out 3.Chronic kidney disease stage III ? Kidney function at baseline monitoring with daily BMPs 4. Dementia ? Patient is on Namenda 5. Coronary artery disease ? With previous PTCA. Patient was on clopidogrel prior to her admission 6. Hypothyroidism - Patient is on levothyroxine home dose continued 7. DVT prophylaxis ? Bilateral SCDs for now Time spent in the patient's overall evaluation,decision-making process, review of diagnostic data, adjustment of management, discussion with other providers, nursing nursing and ancillary staff involved in patient's care documentation,35 Minutes Charges/Coding Visit Charges Inpatient E&M: 54907 Subs Hosp L2
--- NOTE | 2023-11-03 07:57 | PCM.DC.SUM ---
Providers Date of Admission: 11/01/23 Date of Discharge: 11/03/23 Primary Care Physician: Dr. Matty Newsome MD Consultations 11/01/23 18:12 Consult: Staff Electronic Warfare Officer / Pulmonary Medicine Routine Consulting Provider: Pulmonary Medicine chey Donahue Reason for Consult: stroke for thrombolytic EMERGENT Consult: Yes MD Notified: Yes Date Notified: 11/01/23 Time Notified: 15:47 Method of Notification: Text Consult: Tele-Neurology Routine Consulting Provider: [facility] Reason for Consult: stroke for thrombolytic EMERGENT Consult: No Notified: Yes Date Notified: 11/01/23 Time Notified: 15:47 Method of Notification: ED Physician Initiated Nursing Unit Staff Notify [facility] of Tele-Neurology Consult: Yes Reason For Visit: POST TNK, STROKE Diagnosis Discharge Diagnosis (1) Stroke/cerebrovascular accident: Status: Acute Code(s): I63.9 - Cerebral infarction, unspecified Qualifiers: CVA mechanism: unspecified Qualified Code(s): I63.9 - Cerebral infarction, unspecified Plan Patient is an 87-year-old lady with underlying history of dementia admitted with altered mental status with bilateral lower extremity weakness expressive aphasia as well as vertigo. Suspicion of acute ischemic stroke made patient did receive tenecteplase and subsequently admitted to the intensive care unit for further management 1. Advanced dementia with behavioral agitation Acute ischemic stroke ruled out ? Patient did receive tenecteplase subsequently admitted to the intensive care unit post tenecteplase CVA orders initiated. Consult was placed to teleneurology. As part of her management TSH hemoglobin A1c lipid panel and 2D echo ordered. Plan is to initiate antiplatelet therapy 24 hours after receiving tenecteplase ? Patient was evaluated by teleneurology with [facility] acute ischemic stroke ruled out 2. Acute metabolic encephalopathy ? Suspected to be secondary to underlying CVA management as discussed above ? Ischemic stroke rule out 3.Chronic kidney disease stage III ? Kidney function at baseline monitoring with daily BMPs 4. Dementia ? Patient is on Namenda 5. Coronary artery disease ? With previous PTCA. Patient was on clopidogrel prior to her admission 6. Hypothyroidism - Patient is on levothyroxine home dose continued 7. DVT prophylaxis ? Bilateral SCDs for now Time spent in the patient's overall evaluation,decision-making process, review of diagnostic data, adjustment of management, discussion with other providers, nursing nursing and ancillary staff involved in patient's care documentation,35 Minutes Medications at Discharge Home Medications galantamine 8 mg 24 hr capsule,extended release 8 mg PO DAILY memory 06/06/21 memantine 10 mg tablet 10 mg PO BID memory 06/06/21 apremilast 30 mg tablet (Otezla) 30 mg PO DAILY 11/15/22 levothyroxine 112 mcg tablet 112 mcg PO DAILY 11/15/22 clopidogrel 75 mg tablet See Rx Instructions .Route .COMPLEX #90 tabs 12/23/22 Physical Exam Narrative GENERAL: cooperative, HEENT: Atraumatic; normocephalic EYES; Anicteric, Normal Conjunctiva NECK; supple, normal thyroid, RESPIRATORY: Diminished to auscultation CARDIOVASCULAR: Regular S1 S2, GI: soft, normoactive bowel sounds, : No Renal angle tenderness; EXTREMITIES: No edema, no clubbing, MUSCULOSKELETAL: no muscle wasting NEURO: Awake; no lateralizing signs. SKIN: No Rash PSYCH; Flat affect Weight / BMI Weight Weight: 58.8 kg Body Mass Index (BMI) 20.9 ABG / Lab / Microbiology Data 11/02/23 03:33 11/02/23 03:33 Laboratory: Laboratory Results - last 24 hr 11/02/23 03:33: Hemoglobin A1c 5.7 H Radiography Diagnostic Testing: Radiology Impression Echocardiogram 11/01/23 18:12 Interpretation Summary Normal LV size. Left ventricular systolic function is normal. The left ventricular ejection fraction is 60 %. Bubble contrast study negative for right to left interatrial shunt. Ordering Physician: Jaime Ochoa Referring Physician: Matty Newsome Chi Performed By: Brandi Zamora and Student Head MRA 11/01/23 18:12 IMPRESSION: Normal MRA of the head Electronically Signed: Kenyon De Paz MD at 16:19 EDT , Neck MRA 11/01/23 18:12 IMPRESSION: Normal bilateral cervical carotid and vertebral arteries. Electronically Signed: Kenyon De Paz MD at 16:20 EDT , Brain MRI 11/02/23 15:00 IMPRESSION: Moderate atrophy and periventricular white matter ischemic change without evidence for acute infarct. Cannot exclude possibility of NPH. Electronically Signed: Kenyon De Paz MD at 16:18 EDT , D/C Instructions Discharge Diet: No restrictions Discharge Activity: Return to Normal Activity Call your doctor if you observe: Fever of 101 or Higher, Shortness of breath, Fainting spells and Chest pain Meaningful Use Info Meaningful Use Diagnoses (Choose all that apply): None applicable Discharge Plan Admission Admit Date/Time: 11/01/23 15:46 Attending Provider: Quincy Wagner Primary Care Provider: Matty Newsome Chi Consulting Providers: Isreal Sky; Miles Hess; Chikis Alejandro; Henna Starr; Lindsey Allen; Chalino Atwood; Jaycee Lopez; Tremayne Tinajero; Danny Cates; Marleni Holguin; Hiro Hauser; Marcy Man; Levon Blanco; Ingrid Santana; Kumar Montana; Aaron Osborne; Johnny Lyles; Britta Villarreal; Valentin Serrano; Jaime Ochoa Discharge Orders/Prescriptions Prescriptions: Continued levothyroxine 112 mcg tablet 112 mcg PO DAILY Otezla 30 mg tablet 30 mg PO DAILY memantine 10 mg Tablet 10 mg PO BID galantamine 8 mg Capsule,Ext Rel. Pellets 24 Hr 8 mg PO DAILY clopidogrel 75 mg tablet See Rx Instructions .ROUTE .COMPLEX Qty: 90 3RF Dose Instruction: TAKE 1 TABLET DAILY FOR BLOOD THINNER Rx Instructions: TAKE 1 TABLET DAILY FOR BLOOD THINNER Referrals / Follow Up: Matty Newsome Chi, MD [Primary Care Provider] - Disposition Disposition (needs filled in before D/C Order can be placed): Home, Self Care Charges/Coding Visit Charges Inpatient E&M: 49335 Disch Hosp >30min
--- NOTE | 2023-11-03 08:47 | CASEMGMT ---
Social Work PHQ9 was not competed as documentation indicates pt was negative for stroke. THAD Tracy
[2023-11-03] MEDS: Pantoprazole Sodium 40 MG Tablet PO (09:21)
--- NOTE | 2023-11-03 10:52 | CASEMGMT ---
Addendum entered by Susan Marino 11/03/23 12:53: 1235- JOVAN SYED into pt room, pt son states he cannot take pt home like this as they are not home with her 20/02 and he does not feel she can be left alone. Pt lying in bed with eyes closed. He states they would like to pursue s/t SNF placement. Pt dil states she has been to [facility] for therapy in the past. JOVAN SYED made aware that a list can be provided to them of options. They are requesting [facility]. Updated SW. Son states pt is being tested for a UTI and questions if pt gets better if the plan can change. He is aware that it can should this be the case, and options of home with services can be looked at. Pt son and dil agreeable to plan. Original Note: JOVAN SYED into pt room, pt nurse present as well as pt son and dil. Pt in bed with eyes closed. Pt family requesting to speak to hospitalist per nurse. Family asks for RN KUNAL to come back after they speak with hospitalist. Family states they are not used to pt being like this and they need some answers before a dc plan is determined. JOVAN SYED to follow.
--- NOTE | 2023-11-03 13:26 | NURSING ---
report called to med-surg for transfer to room 323, family present & aware
[2023-11-03 13:37] LABS: Color, Urine Yellow (Yellow); Glucose, Dipstick Normal (Normal); Ketone-Dipstick Negative (Negative); Leukocyte Esterase-Dipstick 500 /ul (Negative); Nitrite-Dipstick Negative (Negative); Occult Blood-Urine 25 /ul (Negative); Protein-Dipstick 15 mg/dl (Negative); Urine Clarity Sl. Cloudy (Clear); Urine Urobilinogen Normal (Normal)
[2023-11-03 13:38] LABS: Urine Bilirubin Dipstick 1 mg/dL (Negative)
[2023-11-03 14:04] LABS: Bacteria 2+ /hpf (None Seen); Mucous, Urine RARE /hpf (<or=2+); Red Blood Cells-Urine 0-5 SEEN /hpf (0-5); Squamous Epithelial Cells - UA 0-5 SEEN /hpf (5-10); White Blood Cells 10-25 SEEN /hpf (0-5)
--- NOTE | 2023-11-03 14:53 | CASEMGMT ---
Social Work SW received referral from RNCM that pt's family is requesting short term SNF placement. SW met with pt's daughter in law Adrienne Lewis who states pt lives with son and daughter in law. Family does not feel pt can return home at this time but is hopeful she can return home when she has had some rehab. A list of SNF providers including quality and resource use data and consistent with the patient?s preferred geographic region, medical needs, and insurance network were provided from the [facility] Guide. [facility] provider [facility]. Referral sent to [facility]. SW will await determination of acceptance. Plan: [facility], pending acceptance THAD Tracy
[2023-11-03] MEDS: Ceftriaxone 1 GM/50 ML BAG IV (18:42)
[2023-11-03] MEDS: 0.9% Saline Lock 10 ML Syringe IV (18:42)
[2023-11-03] MEDS: QUEtiapine 25 MG Tablet PO ×2 (19:36→21:01)
[2023-11-03] MEDS: Atorvastatin Calcium 40 MG Tablet PO (19:36)
--- NOTE | 2023-11-03 20:30 | NURSING ---
Dr jung contacted. pt attempted to hit this nurse and pinch my arm. Pt very agitated. seraquil ordered
--- NOTE | 2023-11-03 22:44 | NURSING ---
Daughter called to check on mother. Informed daughter pt is attempting to hit and pinch the staff. Daughter said she is willing to come in and sit at any time.
[2023-11-04 05:22] VITALS: BMI 20.5
--- NOTE | 2023-11-04 07:34 | PCM.PN.HOSP ---
Reason for Visit Reason for Visit: Diagnoses Cerebral infarction, unspecified (11/01/23) Subjective Subjective Repeat urinalysis obtained the day prior came back consistent with acute cystitis patient subsequently started on ceftriaxone. Plan to discharge patient home discontinued after discussion with family plan is for patient to be discharged to a penitentiary facility Objective Data Objective Data Vital Signs: Vital Signs Temp Pulse Resp BP Pulse Ox O2 Del Method 97.8 F 103 H 18 148/84 H 100 Room Air 11/03/23 19:44 11/03/23 19:44 11/03/23 19:44 11/03/23 19:44 11/03/23 19:44 11/03/23 19:45 Oxygen Delivery Method Room Air Weight: 57.5 kg Body Mass Index (BMI) 20.5 Intake & Output: Intake and Output for Last 24 Hours 11/02/23 11/03/23 11/04/23 23:59 23:59 23:59 Intake Total 1900 / 1900 500 / 500 Output Total 1950 / 1950 1650 / 2050 1200 / 1200 Balance -50 / -50 -1150 / -1550 -1200 / -1200 Lab / Micro Data 11/02/23 03:33 11/02/23 03:33 Labs: Laboratory Results - last 24 hr 11/03/23 13:05: Urine Color Yellow, Urine Clarity Sl. Cloudy, Urine pH 5.0, Ur Specific Pierson 1.020, Urine Protein 15 H, Urine Glucose (UA) Normal, Urine Ketones Negative, Urine Occult Blood 25 H, Urine Nitrite Negative, Urine Bilirubin 1 H, Urine Urobilinogen Normal, Ur Leukocyte Esterase 500 H, Urine RBC 0-5 SEEN, Urine WBC 10-25 SEEN, Ur Squamous Epith Cells 0-5 SEEN, Urine Bacteria 2+, Urine Mucus RARE Physical Exam Narrative GENERAL: Patient is delirious HEENT: Atraumatic; normocephalic EYES; Anicteric, Normal Conjunctiva NECK; supple, normal thyroid, RESPIRATORY: Diminished to auscultation CARDIOVASCULAR: Regular S1 S2, GI: soft, normoactive bowel sounds, : No Renal angle tenderness; EXTREMITIES: No edema, no clubbing, MUSCULOSKELETAL: no muscle wasting NEURO: Awake; no lateralizing signs. SKIN: No Rash PSYCH; Flat affect Assessment & Plan Assessment/Plan (1) Stroke/cerebrovascular accident: QUALIFIERS: CVA mechanism: unspecified Qualified Code(s): I63.9 - Cerebral infarction, unspecified PLAN: Plan Patient is an 87-year-old lady with underlying history of dementia admitted with altered mental status with bilateral lower extremity weakness expressive aphasia as well as vertigo. Suspicion of acute ischemic stroke made patient did receive tenecteplase and subsequently admitted to the intensive care unit for further management 1. Advanced dementia with behavioral agitation Acute ischemic stroke ruled out ? Patient did receive tenecteplase subsequently admitted to the intensive care unit post tenecteplase CVA orders initiated. Consult was placed to teleneurology. As part of her management TSH hemoglobin A1c lipid panel and 2D echo ordered. Plan is to initiate antiplatelet therapy 24 hours after receiving tenecteplase ? Patient was evaluated by teleneurology with [facility] acute ischemic stroke ruled out 2. Acute metabolic encephalopathy ? Suspected to be secondary to underlying CVA management as discussed above ? Ischemic stroke rule out 3.Chronic kidney disease stage III ? Kidney function at baseline monitoring with daily BMPs 4. Dementia with behavioral agitation ? Patient is on Namenda ? Patient became delirious the night prior did receive Seroquel resulting in significant lethargy. Do suspect his agitation precipitated by urinary tract infection treatment of which is being discussed below 5. Coronary artery disease ? With previous PTCA. Patient was on clopidogrel prior to her admission 6. Hypothyroidism - Patient is on levothyroxine home dose continued 7. DVT prophylaxis ? Bilateral SCDs for now 8. Acute cystitis ? Patient started on ceftriaxone cultures sent 9. Physical deconditioning - Requested for PT OT eval and social work professor to assist with discharge planning Time spent in the patient's overall evaluation,decision-making process, review of diagnostic data, adjustment of management, discussion with other providers, nursing nursing and ancillary staff involved in patient's care documentation,50 Minutes Charges/Coding Visit Charges Inpatient E&M: 84348 Subs Hosp L3
[2023-11-04 08:00] VITALS: BP 150/81; PULSE 79; RESP 20; TEMP 36.8; O2SAT 100
[2023-11-04 08:12] LABS: Absolute Lymphocyte Count 1.18 X10^3/uL (0.83-4.51); Absolute Neutrophil Count 7.9 X10^3/uL (2.0-7.7); Basophil# 0.05 X10^3/uL; Basophil% 0.5 % (0-1); Eosinophil# 0.15 X10^3/uL; Eosinophils% 1.5 % (0-5); Hematocrit 43.6 % (37-47); Hemoglobin 14.3 g/dL (12.0-15.0); Lymphocyte # 1.18 X10^3/ul (0.83-4.51); Lymphocyte % 11.9 % (19-41); Mean Corp Hgb Conc 32.8 g/dL (32-36); Mean Corpuscular Hgb 30.6 pg (27.0-32.0); Mean Corpuscular Volume 93.4 fL (81-99); Mean Platelet Vol. 9.6 fl (6.2-12.0); Monocyte# 0.65 X10^3/uL; Monocyte% 6.5 % (0-10); NRBC Flagged by Analyzer 0 % (0-5); Neutrophil # 7.88 X10^3/uL (2.7-7.7); Neutrophil % 79.3 % (47-70); Platelet Count 196 K/mm3 (150-450); RBC Distribution Width CV 12.9 % (11.6-14.6); RBC Distribution Width SD 44.6 fl (35.1-43.9); Red Blood Count 4.67 M/mm3 (4.2-5.4); White Blood Count 9.9 K/mm3 (4.4-11.0)
[2023-11-04 08:16] VITALS: O2SAT 98
[2023-11-04 08:39] LABS: Anion Gap 5 (5-15); BUN 20 mg/dL (7-18); BUN/Creat Ratio 17.2 RATIO (10-20); Calcium,Total 9.3 mg/dL (8.5-10.1); Chloride 108 mmol/L (98-107); Creatinine, Serum 1.16 mg/dL (0.55-1.02); EST Glomerular Filtration Rate 47 mL/min (>60); Est Glom Filt Rate - Afr Amer 57 mL/min (>60); Estimated Creatinine Clearance 32.19 ml/min; Glucose 107 mg/dL (74-106); Magnesium 2.1 mg/dL (1.6-2.6); Potassium 3.9 mmol/L (3.5-5.1); Sodium Level 138 mmol/L (136-145)
[2023-11-04] MEDS: 0.9% Saline Lock 10 ML Syringe IV ×2 (08:47→22:51)
[2023-11-04] MEDS: Ceftriaxone 1 GM/50 ML BAG IV (08:47)
[2023-11-04] MEDS: ALPRAZolam 0.25 MG Tablet PO (08:47)
[2023-11-04] MEDS: Pantoprazole Sodium 40 MG Tablet PO (08:47)
--- NOTE | 2023-11-04 11:16 | CASEMGMT ---
Social Work SW spoke w/Polo and Adrienne in room, son and daughter in law, in regard to discharge plan. SW explained we have not heard back from [facility] yet. They are thinking pt does need to go somewhere for rehab at this point. If [facility] cannot accept pt, their next choices are 2. [facility] and 3. [facility]. SW explained we will follow up w/referrals for pt. Family then went on to express frustration w/pt's stay here. They state that since pt came in they asked for pt to be tested for a UTI, and it just finally happened yesterday. SW offered support, offered to call pt advocate, they were agreeable to this. SW did leave Jae, pt advocate, a message to follow up w/family. SW will continue to follow, will send additional referrals if [facility] cannot take pt. [facility]. DONNY Nicole
[2023-11-04 14:30] VITALS: BP 130/63; PULSE 97; RESP 16; TEMP 36.7; O2SAT 99
[2023-11-04 22:49] VITALS: BP 108/51; PULSE 75; RESP 16; TEMP 36.4; O2SAT 96
[2023-11-04] MEDS: QUEtiapine 25 MG Tablet PO (22:56)
[2023-11-04] MEDS: Atorvastatin Calcium 40 MG Tablet PO (22:56)
[2023-11-05 05:25] LABS: Absolute Lymphocyte Count 0.94 X10^3/uL (0.83-4.51); Absolute Neutrophil Count 7.5 X10^3/uL (2.0-7.7); Basophil# 0.05 X10^3/uL; Basophil% 0.5 % (0-1); Eosinophil# 0.26 X10^3/uL; Eosinophils% 2.7 % (0-5); Hematocrit 38.5 % (37-47); Hemoglobin 12.4 g/dL (12.0-15.0); Lymphocyte # 0.94 X10^3/ul (0.83-4.51); Lymphocyte % 9.9 % (19-41); Mean Corp Hgb Conc 32.2 g/dL (32-36); Mean Corpuscular Hgb 29.6 pg (27.0-32.0); Mean Corpuscular Volume 91.9 fL (81-99); Mean Platelet Vol. 10.3 fl (6.2-12.0); Monocyte# 0.77 X10^3/uL; Monocyte% 8.1 % (0-10); NRBC Flagged by Analyzer 0 % (0-5); Neutrophil # 7.47 X10^3/uL (2.7-7.7); Neutrophil % 78.5 % (47-70); Platelet Count 192 K/mm3 (150-450); RBC Distribution Width SD 43.9 fl (35.1-43.9); Red Blood Count 4.19 M/mm3 (4.2-5.4); White Blood Count 9.5 K/mm3 (4.4-11.0)
[2023-11-05 05:40] LABS: Anion Gap 6 (5-15); BUN 33 mg/dL (7-18); BUN/Creat Ratio 23.7 RATIO (10-20); Calcium,Total 8.9 mg/dL (8.5-10.1); Chloride 107 mmol/L (98-107); Creatinine, Serum 1.39 mg/dL (0.55-1.02); EST Glomerular Filtration Rate 38 mL/min (>60); Est Glom Filt Rate - Afr Amer 46 mL/min (>60); Estimated Creatinine Clearance 26.86 ml/min; Glucose 104 mg/dL (74-106); Phosphorus 4.3 mg/dL (2.5-4.9); Potassium 4.1 mmol/L (3.5-5.1); Sodium Level 136 mmol/L (136-145)
[2023-11-05 05:49] VITALS: BP 107/50; PULSE 77; RESP 18; TEMP 37.2; O2SAT 96
[2023-11-05 06:00] VITALS: BMI 20.6
--- NOTE | 2023-11-05 07:24 | PN.HOSP_ITS ---
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 Final Identification and sensitivities pending. Objective Data Objective Data Vital Signs: Vital Signs Temp Pulse Resp BP Pulse Ox O2 Del Method 98.9 F 77 18 107/50 L 96 Room Air 11/05/23 05:49 11/05/23 05:49 11/05/23 05:49 11/05/23 05:49 11/05/23 05:49 11/05/23 05:49 Oxygen Delivery Method Room Air Weight: 57.9 kg Body Mass Index (BMI) 20.6 Intake & Output: Intake and Output for Last 24 Hours 11/03/23 11/04/23 11/05/23 23:59 23:59 23:59 Intake Total 500 / 500 250 / 250 100 / 100 Output Total 1650 / 0 2200 / 2200 300 / 300 Balance -1150 / -1550 -1950 / -1950 -200 / -200 Lab / Micro Data 11/05/23 04:50 11/05/23 04:50 Labs: Laboratory Results - last 24 hr 11/04/23 08:00: WBC 9.9, RBC 4.67, Hgb 14.3, Hct 43.6, MCV 93.4, MCH 30.6, MCHC 32.8, RDW Std Deviation 44.6 H, RDW Coeff of Tal 12.9, Plt Count 196, MPV 9.6, Immature Gran % (Auto) 0.300, Neut % (Auto) 79.3 H, Lymph % (Auto) 11.9 L, Roosevelt % (Auto) 6.5, Eos % (Auto) 1.5, Baso % (Auto) 0.5, Absolute Neuts (auto) 7.9 H, Absolute Lymphs (auto) 1.18, Nucleated RBC % 0, Sodium 138, Potassium 3.9, Chloride 108 H, Carbon Dioxide 25.0, Anion Gap 5, BUN 20 H, Creatinine 1.16 H, Estim Creat Clear Calc 32.19, Est GFR (MDRD) Af Amer 57 L, Est GFR (MDRD) Non-Af 47 L, BUN/Creatinine Ratio 17.2, Glucose 107 H, Calcium 9.3, Magnesium 2.1 11/05/23 04:50: WBC 9.5, RBC 4.19 L, Hgb 12.4, Hct 38.5, MCV 91.9, MCH 29.6, MCHC 32.2, RDW Std Deviation 43.9, RDW Coeff of Tal 13.0, Plt Count 192, MPV 10.3, Immature Gran % (Auto) 0.300, Neut % (Auto) 78.5 H, Lymph % (Auto) 9.9 L, Roosevelt % (Auto) 8.1, Eos % (Auto) 2.7, Baso % (Auto) 0.5, Absolute Neuts (auto) 7.5, Absolute Lymphs (auto) 0.94, Nucleated RBC % 0, Sodium 136, Potassium 4.1, Chloride 107, Carbon Dioxide 23.0, Anion Gap 6, BUN 33 H, Creatinine 1.39 H, Estim Creat Clear Calc 26.86, Est GFR (MDRD) Af Amer 46 L, Est GFR (MDRD) Non-Af 38 L, BUN/Creatinine Ratio 23.7 H, Glucose 104, Calcium 8.9, Phosphorus 4.3, Magnesium 2.0 Micro: Microbiology 11/03/23 13:05 Urine Catheter - [place] Urine Culture - Preliminary GNR 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 SKIN: No Rash PSYCH; Flat affect Assessment & Plan Assessment/Plan (1) Stroke/cerebrovascular accident: QUALIFIERS: CVA mechanism: unspecified Qualified Code(s): I63.9 - Cerebral infarction, unspecified PLAN: Plan Patient is an 87-year-old lady with underlying history of dementia admitted with altered mental status with bilateral lower extremity weakness expressive aphasia as well as vertigo. Suspicion of acute ischemic stroke made patient did receive tenecteplase and subsequently admitted to the intensive care unit for further management 1. Advanced dementia with behavioral agitation Acute ischemic stroke ruled out ? Patient did receive tenecteplase subsequently admitted to the intensive care unit post tenecteplase CVA orders initiated. Consult was placed to teleneurology. As part of her management TSH hemoglobin A1c lipid panel and 2D echo ordered. Plan is to initiate antiplatelet therapy 24 hours after receiving tenecteplase ? Patient was evaluated by teleneurology with [facility] acute ischemic stroke ruled out 2. Acute metabolic encephalopathy ? Suspected to be secondary to underlying CVA management as discussed above ? Ischemic stroke rule out 3.Chronic kidney disease stage III ? Kidney function at baseline monitoring with daily BMPs 4. Dementia with behavioral agitation ? Patient is on Namenda ? Patient became delirious the night prior did receive Seroquel resulting in significant lethargy. Do suspect his agitation precipitated by urinary tract in fection treatment of which is being discussed below 5. Coronary artery disease ? With previous PTCA. Patient was on clopidogrel prior to her admission 6. Hypothyroidism - Patient is on levothyroxine home dose continued 7. DVT prophylaxis ? Bilateral SCDs for now 8. Acute cystitis ? Patient started on ceftriaxone cultures sent ? 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 Final Identification and sensitivities pending. 9. Physical deconditioning - Requested for PT OT eval and social insurance specialist to assist with discharge planning Time spent in the patient's overall evaluation,decision-making process, review of diagnostic data, adjustment of management, discussion with other providers, nursing nursing and ancillary staff involved in patient's care documentation, 35 Minutes Charges/Coding Visit Charges Inpatient E&M: 33479 Subs Hosp L2
[2023-11-05 08:30] VITALS: BP 115/65; PULSE 75; RESP 16; TEMP 36.6; O2SAT 97
[2023-11-05] MEDS: 0.9% Saline Lock 10 ML Syringe IV ×2 (10:38→21:28)
[2023-11-05] MEDS: Pantoprazole Sodium 40 MG Tablet PO (10:38)
[2023-11-05] MEDS: Ceftriaxone 1 GM/50 ML BAG IV (10:39)
[2023-11-05 14:34] VITALS: BP 120/55; PULSE 85; RESP 16; TEMP 36.6; O2SAT 98
[2023-11-05] MEDS: QUEtiapine 25 MG Tablet PO ×2 (16:01→21:28)
--- NOTE | 2023-11-05 16:27 | NURSING ---
Pt became agitated and anxious at about 1530. Pt was yelling out for help and hitting things on bedside table. director business Carmita called pt's son per pt request. Pt talked to son on room phone. This RN contacted hospitalist Dr Wagner. Dr Wagner ordered x1 dose of 25mg seroquel. This RN administered dose. Pt appears to be more calm at this time. Will continue to monitor.
[2023-11-05] MEDS: Haloperidol Lactate 5 MG/ML Vial 2 MG IM (18:33)
[2023-11-05 21:23] VITALS: BP 109/47; PULSE 83; RESP 18; TEMP 37.1; O2SAT 96
[2023-11-05] MEDS: Atorvastatin Calcium 40 MG Tablet PO (21:28)
[2023-11-06 04:24] VITALS: BP 112/53; PULSE 73; RESP 14; TEMP 36.6; O2SAT 97
[2023-11-06] MEDS: Menthol/Lanolin/Calamine/Znox 113 GM Tube 1 APPLIC TOPICAL ×2 (04:30→21:48)
[2023-11-06 05:39] LABS: Absolute Lymphocyte Count 1.04 X10^3/uL (0.83-4.51); Absolute Neutrophil Count 3.6 X10^3/uL (2.0-7.7); Basophil# 0.03 X10^3/uL; Basophil% 0.6 % (0-1); Eosinophil# 0.21 X10^3/uL; Eosinophils% 3.9 % (0-5); Hematocrit 37.3 % (37-47); Hemoglobin 12.5 g/dL (12.0-15.0); Lymphocyte # 1.04 X10^3/ul (0.83-4.51); Lymphocyte % 19.1 % (19-41); Mean Corp Hgb Conc 33.5 g/dL (32-36); Mean Corpuscular Hgb 30.7 pg (27.0-32.0); Mean Corpuscular Volume 91.6 fL (81-99); Mean Platelet Vol. 10.1 fl (6.2-12.0); Monocyte# 0.58 X10^3/uL; Monocyte% 10.6 % (0-10); NRBC Flagged by Analyzer 0 % (0-5); Neutrophil # 3.57 X10^3/uL (2.7-7.7); Neutrophil % 65.4 % (47-70); Platelet Count 193 K/mm3 (150-450); RBC Distribution Width CV 12.9 % (11.6-14.6); RBC Distribution Width SD 43.1 fl (35.1-43.9); Red Blood Count 4.07 M/mm3 (4.2-5.4); White Blood Count 5.5 K/mm3 (4.4-11.0)
[2023-11-06 06:04] LABS: Anion Gap 2 (5-15); BUN 30 mg/dL (7-18); BUN/Creat Ratio 20.1 RATIO (10-20); Calcium,Total 8.9 mg/dL (8.5-10.1); Chloride 105 mmol/L (98-107); Creatinine, Serum 1.49 mg/dL (0.55-1.02); EST Glomerular Filtration Rate 35 mL/min (>60); Est Glom Filt Rate - Afr Amer 43 mL/min (>60); Estimated Creatinine Clearance 25.23 ml/min; Glucose 105 mg/dL (74-106); Potassium 4.2 mmol/L (3.5-5.1); Sodium Level 135 mmol/L (136-145)
[2023-11-06] MEDS: Acetaminophen 325 MG Tablet 650 MG PO (07:00)
[2023-11-06 09:00] VITALS: RESP 18
[2023-11-06] MEDS: Ceftriaxone 1 GM/50 ML BAG IV (09:27)
[2023-11-06] MEDS: Pantoprazole Sodium 40 MG Tablet PO (09:40)
[2023-11-06 09:45] VITALS: BP 141/86; PULSE 88; RESP 16; TEMP 36.7; O2SAT 98
--- NOTE | 2023-11-06 09:59 | CASEMGMT ---
Discharge Planning: [facility] communicated via [facility] that they do not have any available beds at this time and declined pt. Referral sent to second choice [facility] via [facility]. Will follow for acceptance. Bailey Turner RN ACM
--- NOTE | 2023-11-06 10:29 | CASEMGMT ---
Discharge Planning: [facility] communicated via [facility] that they do not have beds and are unable to accept pt. Referral sent to [facility]. Will follow for acceptance. Bailey Turner RN ACM
[2023-11-06 14:00] VITALS: BP 146/61; PULSE 88; RESP 18; TEMP 36.3; O2SAT 98
[2023-11-06 16:37] VITALS: RESP 18
[2023-11-06 17:45] VITALS: BP 148/70; PULSE 81; RESP 18; TEMP 36.8; O2SAT 98
--- NOTE | 2023-11-06 18:07 | PN.HOSP_ITS ---
Reason for Visit Reason for Visit: Diagnoses Cerebral infarction, unspecified (11/01/23) Subjective Subjective Patient was seen and examined today, she is unable to carry on a conversation with this examiner, she does not have fluent speech. We are currently awaiting acceptance at [facility], there were no beds available at [facility] for the patient. Objective Data Objective Data Vital Signs: Vital Signs Temp Pulse Resp BP Pulse Ox O2 Del Method 97.4 F L 88 18 146/61 H 98 Room Air 11/06/23 14:00 11/06/23 14:00 11/06/23 16:37 11/06/23 14:00 11/06/23 14:00 11/06/23 16:37 Oxygen Delivery Method Room Air Weight: 57.9 kg Body Mass Index (BMI) 20.6 Intake & Output: Intake and Output for Last 24 Hours 11/04/23 11/05/23 11/06/23 23:59 23:59 23:59 Intake Total 250 / 250 550 / 550 350 / 350 Output Total 2200 / 2200 1825 / 1825 400 / 400 Balance -1950 / -1950 -1275 / -1275 -50 / -50 Medical Nutrition Assessment Dietitian: Malnutrition Criteria Met Start: 11/06/23 13:42 Freq: Status: Active Protocol: Document 11/06/23 13:42 SLA (Rec: 11/06/23 13:42 SLA Desktop) Nutrition Malnutrition Evidence of Malnutrition Exists Yes Malnutrition (severe): Acute Illness/Injury Evidenced By Suboptimal Energy Intake ( Severe),Weight Loss (Severe) Intake Problem Inadequate Oral Intake Status Inactive Problem Clinical Problem Acute Disease or Injury Related Malnutrition Etiology related to inadequate energy intake Signs/Symptoms as evidenced by <75% po intake of estimated nutritional needs and 2.7% unintentional wt loss x <5 days Status Active Problem Recommendation Dietitian Recommendations/Changes Continue liberal regular diet - consistency per GROMMET WORKER Add 4oz ensure plus high protein 4x/day w/ medpass for increased nutrition if consumed Add CIB w/ meals for increased nutrition at meals if consumed. Consider appetite stimulant to help encourage increased po intake at meals. Lab / Micro Data 11/06/23 05:14 11/06/23 05:14 Labs: Laboratory Results - last 24 hr 11/06/23 05:14: WBC 5.5, RBC 4.07 L, Hgb 12.5, Hct 37.3, MCV 91.6, MCH 30.7, MCH C 33.5, RDW Std Deviation 43.1, RDW Coeff of Tal 12.9, Plt Count 193, MPV 10.1, Immature Gran % (Auto) 0.400, Neut % (Auto) 65.4, Lymph % (Auto) 19.1, Linn % (Auto) 10.6 H, Eos % (Auto) 3.9, Baso % (Auto) 0.6, Absolute Neuts (auto) 3.6, Absolute Lymphs (auto) 1.04, Nucleated RBC % 0, Sodium 135 L, Potassium 4.2, Chloride 105, Carbon Dioxide 28.0, Anion Gap 2 L, BUN 30 H, Creatinine 1.49 H, Estim Creat Clear Calc 25.23, Est GFR (MDRD) Af Amer 43 L, Est GFR (MDRD) Non-Af 35 L, BUN/Creatinine Ratio 20.1 H, Glucose 105, Calcium 8.9 Micro: Microbiology 11/03/23 13:05 Urine Catheter - [place] Urine Culture - Final Escherichia coli Physical Exam Const alert and no apparent distress Constitutional Narrative: Patient is confused and unable to carry on a conversation General Appearance: cooperative, well kempt and well developed Orientation / Consciousness: awake HEENT normocephalic, head/scalp atraumatic and moist oral mucous membranes Eyes PERRL, EOMs intact bilaterally and conjunctivae normal Neck supple, no JVD, thyroid normal and no carotid bruits General: trachea midline Resp normal respiratory effort, no retractions, no use of accessory muscles and clear to auscultation bilaterally Auscultation: Negative for rales, rhonchi or wheezes Cardio S1 normal heart sound, S2 normal heart sound, no murmurs, no rub and no gallops Cardio Narrative: Heart rate and rhythm is irregular GI normal to inspection, nondistended, normoactive bowel sounds, soft to palpation, non-tender and non-distended Extremity no clubbing, cyanosis or edema Skin no rashes or lesions noted General Skin Exam: no breakdown Neuro CN's II-XII intact bilaterally Neuro Narrative: Patient is unable to carry on a conversation Sensorium / Orientation: awake and alert Psych Psych Narrative: Patient appears confused and unable to carry on a conversation Assessment & Plan Assessment/Plan (1) Irregular heart beat: PLAN: Plan 1. Dementia with behavioral disturbances and expressive aphasia-patient will need placement in a senior care facility, we are waiting acceptance from [facility]. PT and OT are seeing patient, I will place the patient back on memantine, she was taken off galantamine, I will need to consider placing her on Aricept-galantamine will be hard to resume due to nausea. #2 chronic kidney disease stage III-labs will be monitored as needed #3 coronary artery disease-patient will remain on Plavix which she was taking as an outpatient #4 hypothyroidism-patient will be placed back on Synthroid #5 cardiac arrhythmia-patient had PACs on her last EKG, no treatment needed at this time #6 acute cystitis-I will change the patient to oral Keflex Total clinical time spent by myself addressing the patient's medical issues, reviewing all of her data, and collaborating with patient's care team: 35 minutes Charges/Coding Visit Charges Inpatient E&M: 22020 Subs Hosp L2
[2023-11-06] MEDS: Ensure Plus High Protein 120 ML LIQUID PO ×2 (18:09→21:52)
[2023-11-06] MEDS: Memantine Hydrochloride 10 MG Tablet PO (21:47)
[2023-11-06] MEDS: Atorvastatin Calcium 40 MG Tablet PO (21:47)
[2023-11-06] MEDS: Cephalexin 250 MG Capsule PO (21:48)
[2023-11-06] MEDS: QUEtiapine 25 MG Tablet PO (21:52)
[2023-11-07] VITALS: BP 122/62; PULSE 81; RESP 16; TEMP 36.6; O2SAT 95
[2023-11-07 02:11] VITALS: BMI 20.5
[2023-11-07 05:13] VITALS: BP 110/56; PULSE 86; RESP 16; TEMP 37; O2SAT 94
[2023-11-07] MEDS: Levothyroxine 112 MCG Tablet PO (05:16)
[2023-11-07 07:14] LABS: Absolute Neutrophil Count 4.9 X10^3/uL (2.0-7.7); Basophil# 0.06 X10^3/uL; Basophil% 0.9 % (0-1); Eosinophil# 0.23 X10^3/uL; Eosinophils% 3.4 % (0-5); Hematocrit 35.6 % (37-47); Hemoglobin 11.7 g/dL (12.0-15.0); Lymphocyte % 14.6 % (19-41); Mean Corp Hgb Conc 32.9 g/dL (32-36); Mean Corpuscular Volume 91.3 fL (81-99); Monocyte# 0.64 X10^3/uL; Monocyte% 9.3 % (0-10); NRBC Flagged by Analyzer 0 % (0-5); Neutrophil # 4.91 X10^3/uL (2.7-7.7); Neutrophil % 71.5 % (47-70); Platelet Count 192 K/mm3 (150-450); RBC Distribution Width CV 12.9 % (11.6-14.6); RBC Distribution Width SD 42.7 fl (35.1-43.9); White Blood Count 6.9 K/mm3 (4.4-11.0)
[2023-11-07] MEDS: Pantoprazole Sodium 40 MG Tablet PO (09:58)
[2023-11-07] MEDS: Memantine Hydrochloride 10 MG Tablet PO (09:58)
[2023-11-07] MEDS: Clopidogrel Bisulfate 75 MG Tablet PO (09:58)
[2023-11-07] MEDS: Menthol/Lanolin/Calamine/Znox 113 GM Tube 1 APPLIC TOPICAL (09:58)
[2023-11-07] MEDS: Cephalexin 250 MG Capsule PO (09:58)
[2023-11-07] MEDS: Ensure Plus High Protein 120 ML LIQUID PO ×2 (09:58→14:49)
[2023-11-07 10:00] VITALS: BP 140/69; PULSE 99; RESP 15; TEMP 36.6; O2SAT 99
--- NOTE | 2023-11-07 10:52 | CASEMGMT ---
Social Work SW spoke w/Polo and Adrienne at the bedside(son and daughter in law). Pt is awake and alert, however seems confused. As per family, pt was better yesterday, and is more confused today. SW offeres support. SW let them know [facility] can take pt. Family is now asking if a referral can be sent to [facility], as they would prefer pt in [place]. SW explained we can make a referral, if [facility] can take then they will need to decide between [facility] and [facility]. SW will continue to follow. DONNY Nicole
--- NOTE | 2023-11-07 11:02 | CASEMGMT ---
Social Work This worker sent referral to [facility] in [place] inquiring if facility could accept patient for short term skilled care via [facility]. THAD Alaniz
[2023-11-07 13:19] LABS: Anion Gap 5 (5-15); BUN 37 mg/dL (7-18); BUN/Creat Ratio 29.1 RATIO (10-20); Calcium,Total 8.9 mg/dL (8.5-10.1); Chloride 109 mmol/L (98-107); Creatinine, Serum 1.27 mg/dL (0.55-1.02); EST Glomerular Filtration Rate 42 mL/min (>60); Est Glom Filt Rate - Afr Amer 51 mL/min (>60); Glucose 103 mg/dL (74-106); Potassium 4.6 mmol/L (3.5-5.1); Sodium Level 139 mmol/L (136-145)
--- NOTE | 2023-11-07 14:53 | TREXTCAR_ITS ---
Diet Diet Order/Speech Therapy: 11/02/23 11:43 Diet: Regular - General Food consistency:: Regular Liquid Consistency:: Regular/Thin Type of Dietary Supplement:: [place] Breakfast Is pt able to select menu?: No Diet Comments: total feed, thin liquids w/ straw Routine Orders/Code Status Code Status: DNRCC-A (no intubation) Therapies Weight Bearing: Full weight bearing Physical Therapy: Eval and Treat Occupational Therapy: Eval and Treat Problem/Diagnosis (1) Irregular heart beat: Status: Acute Code(s): I49.9 - Cardiac arrhythmia, unspecified Plan 1. Dementia with behavioral disturbances and expressive aphasia-patient will need placement in a retirement facility, we are waiting acceptance from [facility]. PT and OT are seeing patient, I will place the patient back on memantine, she was taken off galantamine, I will need to consider placing her on Aricept-galantamine will be hard to resume due to nausea. #2 chronic kidney disease stage III-labs will be monitored as needed #3 coronary artery disease-patient will remain on Plavix which she was taking as an outpatient #4 hypothyroidism-patient will be placed back on Synthroid #5 cardiac arrhythmia-patient had PACs on her last EKG, no treatment needed at this time #6 acute cystitis-I will change the patient to oral Keflex Total clinical time spent by myself addressing the patient's medical issues, reviewing all of her data, and collaborating with patient's care team: 35 minutes Allergies/Procedures Done in Hospital Allergies amlodipine Allergy (Verified 11/01/23 12:18) Leg Swelling amlodipine besylate [From Norvasc] Allergy (Verified 11/01/23 12:18) leg swelling amoxicillin [Amoxicillin] Allergy (Verified 11/01/23 12:18) Rash castor oil Allergy (Verified 11/01/23 12:18) PT UNSURE OF REACTION enalapril maleate [From Vasotec] Allergy (Verified 11/01/23 12:18) Other enalaprilat dihydrate [From Vasotec] Allergy (Verified 11/01/23 12:18) Other Iodinated Contrast Media [Iodinated Contrast Media - IV Dye] Allergy (Verified 11/01/23 12:18) Other iodine Allergy (Verified 11/01/23 12:18) PT UNSURE OF REACTION lisinopril Allergy (Verified 11/01/23 12:18) Other ranolazine [From Ranexa] Allergy (Verified 11/01/23 12:18) Unknown Sulfa (Sulfonamide Antibiotics) Allergy (Verified 11/01/23 12:18) Swelling sulfasalazine Allergy (Verified 11/01/23 12:18) PT UNSURE OF REACTION Procedures: None Type of Care/Length of Stay Estimated LOS: Convalescent Care Less Than 30 days Type of Care Needed: Skilled Rehab Potential: Good Prognosis: Good Additional Orders/Day of Discharge H&P will serve as current which was dated: 10/30/23 Day of Discharge: 11/07/23 Dietary and Speech Recommendations Dietitian Recommendations/Changes: Continue liberal regular diet - consistency per APPLICATIONS ENGINEER Add 4oz ensure plus high protein 4x/day w/ medpass for increased nutrition if consumed Add CIB w/ meals for increased nutrition at meals if consumed. Consider appetite stimulant to help encourage increased po intake at meals. Discharge Plan Admission Admit Date/Time: 11/01/23 15:46 Primary Reason for Your Visit: cystitis, dementia with behavorial disturbances Attending Provider: Deric Pinto Primary Care Provider: Matty Newsome Chi Consulting Providers: Jaime Ochoa; Isreal Sky; Miles Hess; Chikis Alejandro; Henna Starr; Lindsey Allen; Chalino Atwood; Jaycee Lopez; Tremayne Tinajero; Danny Cates; Marleni Holguin; Hiro Hauser; Marcy Man; Levon Blanco; Ingrid Santana; Kumar Montana; Aaron Osborne; Johnny Lyles; Britta Villarreal; Valentin Serrano; Quincy Wagner Discharge Orders/Prescriptions Prescriptions: New quetiapine 25 mg Tablet 25 mg PO QHS Qty: 0 0RF acetaminophen 325 mg Tablet 650 mg PO Q4H PRN PRN (Reason: Pain 1-10 Or Fever) Qty: 0 0RF cephalexin 250 mg Capsule 250 mg PO Q12 Qty: 0 0RF Rx Instructions: Administer for 11 doses then discontinue menthol-zinc oxide [Calmoseptine] 0.44-20.6 % Ointment 1 applic topical BID Qty: 0 0RF Protocol: *Topical Application Instructions APPLICATION INSTRUCTIONS: buttocks Ensure Plus High Protein 0.08 gram-1.5 kcal/mL Liquid 120 ml PO 4X/DAY Qty: 0 0RF donepezil [Aricept] 5 mg tablet 5 mg PO QHS Qty: 1 0RF Rx Instructions: 5 mg nightly x 10 days, then 10 mg nightly thereafter Continued levothyroxine 112 mcg tablet 112 mcg PO DAILY memantine 10 mg Tablet 10 mg PO BID clopidogrel 75 mg tablet See Rx Instructions .ROUTE .COMPLEX Qty: 90 3RF Dose Instruction: TAKE 1 TABLET DAILY FOR BLOOD THINNER Rx Instructions: TAKE 1 TABLET DAILY FOR BLOOD THINNER Discontinued Otezla 30 mg tablet 30 mg PO DAILY galantamine 8 mg Capsule,Ext Rel. Pellets 24 Hr 8 mg PO DAILY Referrals / Follow Up: Matty Newsome Chi, MD [Primary Care Provider] - Disposition Disposition (needs filled in before D/C Order can be placed): Nursing Home Facility
[2023-11-07 15:00] VITALS: BP 153/87; PULSE 109; RESP 16; TEMP 36.6; O2SAT 100
--- NOTE | 2023-11-07 15:08 | DS.PCM_ITS ---
Providers Date of Admission: 11/01/23 Date of Discharge: 11/07/23 Primary Care Physician: Dr. Matty Newsome MD Consultations 11/01/23 18:12 Consult: Lead Painter / Pulmonary Medicine Routine Consulting Provider: Pulmonary Medicine chey Donahue Reason for Consult: stroke for thrombolytic EMERGENT Consult: Yes MD Notified: Yes Date Notified: 11/01/23 Time Notified: 15:47 Method of Notification: Text Consult: Tele-Neurology Routine Consulting Provider: [facility] Reason for Consult: stroke for thrombolytic EMERGENT Consult: No Notified: Yes Date Notified: 11/01/23 Time Notified: 15:47 Method of Notification: ED Physician Initiated Nursing Unit Staff Notify [facility] of Tele-Neurology Consult: Yes Reason For Visit: POST TNK, STROKE Diagnosis Discharge Diagnosis (1) Irregular heart beat: Status: Acute Code(s): I49.9 - Cardiac arrhythmia, unspecified Plan 1. Dementia with behavioral disturbances and expressive aphasia-patient will need placement in a detention facility, we are waiting acceptance from [facility]. PT and OT are seeing patient, I will place the patient back on memantine, she was taken off galantamine, I will need to consider placing her on Aricept-galantamine will be hard to resume due to nausea. #2 chronic kidney disease stage III-labs will be monitored as needed #3 coronary artery disease-patient will remain on Plavix which she was taking as an outpatient #4 hypothyroidism-patient will be placed back on Synthroid #5 cardiac arrhythmia-patient had PACs on her last EKG, no treatment needed at this time #6 acute cystitis-I will change the patient to oral Keflex #7 acute severe protein and caloric malnutrition-related to inadequate energy intake as evidenced by less than 75% p.o. intake of estimated nutritional needs and 2.7% unintentional weight loss times less than 5 days-continue liberal regular diet, 4 ounces of Ensure plus high protein 4 times a day was added with med Pass for increased nutrition, appetite stimulant may have to be considered if patient's oral intake is poor Total clinical time spent by myself addressing the patient's medical issues, reviewing all of her data, and collaborating with patient's care team: 35 minutes Medications at Discharge Home Medications memantine 10 mg tablet 10 mg PO BID memory 06/06/21 levothyroxine 112 mcg tablet 112 mcg PO DAILY 11/15/22 clopidogrel 75 mg tablet See Rx Instructions .Route .COMPLEX #90 tabs 12/23/22 acetaminophen 325 mg tablet 650 mg (2 x 325 mg) PO Q4H PRN PRN Pain 1-10 Or Fever #0 tabs 11/07/23 cephalexin 250 mg capsule 250 mg PO Q12 #0 caps 11/07/23 donepezil 5 mg tablet (Aricept) 5 mg PO QHS #1 TAB 11/07/23 food supplemt, lactose-reduced 0.08 gram-1.5 kcal/mL oral liquid (Ensure Plus High Protein) 120 ml PO 4X/DAY #0 mL 11/07/23 menthol 0.44 %-zinc oxide 20.6 % topical ointment (Calmoseptine) 1 applic topical BID #0 grams 11/07/23 quetiapine 25 mg tablet 25 mg PO QHS #0 tabs 11/07/23 Hospital Course Operations None Procedures None Summary of Care Provided Minutes Spent on Discharge: 32 Hospital Course: This 86-year-old white female was seen in the emergency room at [facility] [place] with complaints of difficulty speaking and confusion, patient had a history of dementia and obtaining a history was difficult. Emergency room physician felt that the patient was having expressive aphasia. Patient however did have a baseline of expressive aphasia. Patient was seen by a telestroke neurologist, initially she was not felt to be a candidate for tenecteplase, once her [id number] came to the ER to evaluate the patient, [id number] felt that the patient's expressive aphasia was much worse and normally at baseline, the stroke neurologist was contacted again and the patient's son who is her power of welding machine tender agreed to the administration of tenecteplase. Patient was admitted to ICU, she was seen in follow-up by teleneurology and underwent an MRA of the head and neck as well as an MRI of the brain. The MRI of the head and neck were normal, the MRI of the brain did not show any evidence of acute infarct. Patient was transferred to [place] [id number] and seen by PT and OT, patient's family requested patient go to a detention facility for inpatient rehab services. On 11/07/2023, patient was seen and examined,alert and no apparent distress Constitutional Narrative: Patient is confused and unable to carry on a conversation General Appearance: cooperative, well kempt and well developed Orientation / Consciousness: awake HEENT normocephalic, head/scalp atraumatic and moist oral mucous membranes Eyes PERRL, EOMs intact bilaterally and conjunctivae normal Neck supple, no JVD, thyroid normal and no carotid bruits General: trachea midline Resp normal respiratory effort, no retractions, no use of accessory muscles and clear to auscultation bilaterally Auscultation: Negative for rales, rhonchi or wheezes Cardio S1 normal heart sound, S2 normal heart sound, no murmurs, no rub and no gallops Cardio Narrative: Heart rate and rhythm is irregular GI normal to inspection, nondistended, normoactive bowel sounds, soft to palpation, non-tender and non-distended Extremity no clubbing, cyanosis or edema Skin no rashes or lesions noted General Skin Exam: no breakdown Neuro CN's II-XII intact bilaterally Neuro Narrative: Patient is unable to carry on a conversation Sensorium / Orientation: awake and alert Psych Psych Narrative: Patient appears confused and unable to carry on a conversation Patient was transferred to an extended care facility in stable condition on 11/07/2023 Medical Records Data Medical Nutrition Assessment Dietitian: Malnutrition Criteria Met Start: 11/06/23 13:42 Freq: Status: Active Protocol: Document 11/06/23 13:42 [facility] (Rec: 11/06/23 13:42 [facility] Desktop) Nutrition Malnutrition Evidence of Malnutrition Exists Yes Malnutrition (severe): Acute Illness/Injury Evidenced By Suboptimal Energy Intake ( Severe),Weight Loss (Severe) Intake Problem Inadequate Oral Intake Status Inactive Problem Clinical Problem Acute Disease or Injury Related Malnutrition Etiology related to inadequate energy intake Signs/Symptoms as evidenced by <75% po intake of estimated nutritional needs and 2.7% unintentional wt loss x <5 days Status Active Problem Recommendation Dietitian Recommendations/Changes Continue liberal regular diet - consistency per SHORTHAND REPORTER Add 4oz ensure plus high protein 4x/day w/ medpass for increased nutrition if consumed Add CIB w/ meals for increased nutrition at meals if consumed. Consider appetite stimulant to help encourage increased po intake at meals. Weight / BMI Weight Weight: 57.9 kg Body Mass Index (BMI) 20.5 ABG / Lab / Microbiology Data 11/07/23 07:01 11/07/23 07:01 Laboratory: Laboratory Results - last 24 hr 11/07/23 07:01: WBC 6.9, RBC 3.90 L, Hgb 11.7 L, Hct 35.6 L, MCV 91.3, MCH 30.0, MCHC 32.9, RDW Std Deviation 42.7, RDW Coeff of Tal 12.9, Plt Count 192, MPV 10.0, Immature Gran % (Auto) 0.300, Neut % (Auto) 71.5 H, Lymph % (Auto) 14.6 L, [place] % (Auto) 9.3, Eos % (Auto) 3.4, Baso % (Auto) 0.9, Absolute Neuts (auto) 4 .9, Absolute Lymphs (auto) 1.00, Nucleated RBC % 0, Sodium 139, Potassium 4.6, Chloride 109 H, Carbon Dioxide 25.0, Anion Gap 5, BUN 37 H, Creatinine 1.27 H, Estim Creat Clear Calc 29.60, Est GFR (MDRD) Af Amer 51 L, Est GFR (MDRD) Non-Af 42 L, BUN/Creatinine Ratio 29.1 H, Glucose 103, Calcium 8.9 Microbiology: Microbiology 11/03/23 13:05 Urine Catheter - [place] Urine Culture - Final Escherichia coli D/C Instructions Discharge Diet: No restrictions Call your doctor if you observe: Fever of 101 or Higher, Shortness of breath, Fainting spells and Chest pain Meaningful Use Info Meaningful Use Diagnoses (Choose all that apply): Ischemic CVA CVA Therapy Assessed for PT,OT and/or ST?: Yes Ischemic Stroke Antithrombotic order at d/c?: Yes Dx of Atrial fib/flutter?: No Anticoagulant at discharge?: No Reason anticoagulant not ordered: Treatment not Indicated Statins at discharge?: Yes Primary Dx Acute Ischemic CVA?: Yes IV thrombolytic ordered during stay?: Yes Discharge Plan Admission Admit Date/Time: 11/01/23 15:46 Primary Reason for Your Visit: cystitis, dementia with behavorial disturbances Attending Provider: Deric Pinto Primary Care Provider: Matty Newsome Chi Consulting Providers: Jaime Ochoa; Isreal Sky; Miles Hess; Chikis Alejandro; Henna Starr; Lindsey Allen; Chalino Atwood; Jaycee Lopez; Tremayne Tinajero; Danny Cates; Marleni Holguin; Hiro Hauser; Marcy Man; Levon Blanco; Ingrid Santana; Kumar Montana; Aaron Osborne; Johnny Lyles; Britta Villarreal; Valentin Serrano; Quincy Wagner Discharge Orders/Prescriptions Prescriptions: New quetiapine 25 mg Tablet 25 mg PO QHS Qty: 0 0RF acetaminophen 325 mg Tablet 650 mg PO Q4H PRN PRN (Reason: Pain 1-10 Or Fever) Qty: 0 0RF cephalexin 250 mg Capsule 250 mg PO Q12 Qty: 0 0RF Rx Instructions: Administer for 11 doses then discontinue menthol-zinc oxide [Calmoseptine] 0.44-20.6 % Ointment 1 applic topical BID Qty: 0 0RF Protocol: *Topical Application Instructions APPLICATION INSTRUCTIONS: buttocks Ensure Plus High Protein 0.08 gram-1.5 kcal/mL Liquid 120 ml PO 4X/DAY Qty: 0 0RF donepezil [Aricept] 5 mg tablet 5 mg PO QHS Qty: 1 0RF Rx Instructions: 5 mg nightly x 10 days, then 10 mg nightly thereafter Continued levothyroxine 112 mcg tablet 112 mcg PO DAILY memantine 10 mg Tablet 10 mg PO BID clopidogrel 75 mg tablet See Rx Instructions .ROUTE .COMPLEX Qty: 90 3RF Dose Instruction: TAKE 1 TABLET DAILY FOR BLOOD THINNER Rx Instructions: TAKE 1 TABLET DAILY FOR BLOOD THINNER Discontinued Otezla 30 mg tablet 30 mg PO DAILY galantamine 8 mg Capsule,Ext Rel. Pellets 24 Hr 8 mg PO DAILY Referrals / Follow Up: Matty Newsome Chi, MD [Primary Care Provider] - Disposition Disposition (needs filled in before D/C Order can be placed): [facility]itentiary Facility Charges/Coding Visit Charges Inpatient E&M: 56532 Disch Hosp >30min
--- NOTE | 2023-11-07 15:28 | PHA.DC.MR.R ---
Pharmacy [place] Med Reconciliation Pharmacy Service has performed discharge medication reconciliation for this patient. The patient's discharge medication list was reviewed for discrepancies and discrepancies were resolved. Medications at Discharge Home Medications memantine 10 mg tablet 10 mg PO BID memory 06/06/21 levothyroxine 112 mcg tablet 112 mcg PO DAILY 11/15/22 clopidogrel 75 mg tablet See Rx Instructions .Route .COMPLEX #90 tabs 12/23/22 acetaminophen 325 mg tablet 650 mg (2 x 325 mg) PO Q4H PRN PRN Pain 1-10 Or Fever #0 tabs 11/07/23 cephalexin 250 mg capsule 250 mg PO Q12 #0 caps 11/07/23 donepezil 5 mg tablet (Aricept) 5 mg PO QHS #1 TAB 11/07/23 food supplemt, lactose-reduced 0.08 gram-1.5 kcal/mL oral liquid (Ensure Plus High Protein) 120 ml PO 4X/DAY #0 mL 11/07/23 menthol 0.44 %-zinc oxide 20.6 % topical ointment (Calmoseptine) 1 applic topical BID #0 grams 11/07/23 quetiapine 25 mg tablet 25 mg PO QHS #0 tabs 11/07/23
--- NOTE | 2023-11-07 15:29 | CASEMGMT ---
Addendum entered by Tiffanie Stokes 11/07/23 15:57: Social Work SW did call and confirm w/Chana at [facility] that she received discharge paperwork and aware of 6pm pickup time. DONNY Nicole Original Note: Social Work Pt is ready for discharge to [facility] today. SW completed the hospital exemption in the [employer] system. SW sent all discharge paperwork including COVID results to [facility]. SW set up 6pm ambulance w/Physicians. SW let [facility] know via JOVAN Garcia at the bedside aware. SW called son Polo, let him know pt is discharged and going to [facility] leaving at 6pm. Son aware and agreeable. No further needs, pt to [facility] skilled today. DONNY Nicole
--- NOTE | 2023-11-07 16:49 | NURSING ---
report called to christopher. scheduled p/u w/physicians is 1800
== END 2023-11-07 18:16 | disposition skilled nursing facility (03) | DRG 884 ==
LOC: ED 15:51 → ICU 11-02 05:00 → MS3 11-03 14:53
PROVIDERS: Family Medicine; Internal Medicine; Admitting Provider Internal Medicine; Emergency Provider Emergency Medicine; PCP Family Medicine Geriatric Medicine; Visit Provider Internal Medicine
DX: F03.C11 Unspecified dementia, severe, with agitation (principal); G93.41 Metabolic encephalopathy; E43 Unspecified severe protein-calorie malnutrition; R47.01 Aphasia; N30.00 Acute cystitis without hematuria; N18.32 Chronic kidney disease, stage 3b; I12.9 Hypertensive chronic kidney disease with stage 1 through stage 4 chronic kidney disease, or unspecified chronic kidney disease; E03.9 Hypothyroidism, unspecified; F32.A Depression, unspecified; I25.10 Atherosclerotic heart disease of native coronary artery without angina pectoris; E78.5 Hyperlipidemia, unspecified; F41.9 Anxiety disorder, unspecified; B96.20 Unspecified Escherichia coli [E. coli] as the cause of diseases classified elsewhere; I49.1 Atrial premature depolarization; R53.81 Other malaise; Z98.61 Coronary angioplasty status; Z68.20 Body mass index [BMI] 20.0-20.9, adult; Z79.02 Long term (current) use of antithrombotics/antiplatelets; Z79.899 Other long term (current) drug therapy; Z86.73 Personal history of transient ischemic attack (TIA), and cerebral infarction without residual deficits; Z87.891 Personal history of nicotine dependence; Z82.3 Family history of stroke
CPT/HCPCS: 36415; 70450; 70544; 70547; 70551; 71045; 80048; 80061; 81001; 83036; 83735; 84100; 84443; 84484; 85025; 85610; 85730; 87077; 87086; 87088; 87186; 87426; 92526; 92610; 93005; 93306; 97110; 97116; 97162; 97166; 97530; 97535; 97802; 99285; J3101; J7030; J7040; A4216

== ENCOUNTER → 2024-01-23 | Outpatient (CLI) | payer MEDICARE, OTHER, SELFPAY ==
[2024-01-23 12:30] LABS: Absolute Lymphocyte Count 0.96 X10^3/uL (0.83-4.51); Absolute Neutrophil Count 5.1 X10^3/uL (2.0-7.7); Basophil# 0.05 X10^3/uL; Basophil% 0.7 % (0-1); Eosinophil# 0.14 X10^3/uL; Hematocrit 34.1 % (37-47); Hemoglobin 10.8 g/dL (12.0-15.0); Lymphocyte # 0.96 X10^3/ul (0.83-4.51); Lymphocyte % 13.9 % (19-41); Mean Corp Hgb Conc 31.7 g/dL (32-36); Mean Corpuscular Hgb 31.8 pg (27.0-32.0); Mean Corpuscular Volume 100.3 fL (81-99); Mean Platelet Vol. 10.7 fl (6.2-12.0); Monocyte# 0.63 X10^3/uL; Monocyte% 9.1 % (0-10); NRBC Flagged by Analyzer 0 % (0-5); Neutrophil # 5.11 X10^3/uL (2.7-7.7); Platelet Count 192 K/mm3 (150-450); RBC Distribution Width CV 15.6 % (11.6-14.6); RBC Distribution Width SD 57.9 fl (35.1-43.9); White Blood Count 6.9 K/mm3 (4.4-11.0)
[2024-01-23 13:00] LABS: Vitamin D,25 Hydroxy 36.1 ng/mL
[2024-01-23 13:14] LABS: ALB/GLOB Ratio 1.2 RATIO (0.9-2.4); AST(SGOT) 25 U/L (15-37); Alanine Aminotransfer ALT/SGPT 28 U/L (13-56); Albumin, Serum 3.7 g/dL (3.2-5.0); Alkaline Phosphatase 70 U/L (45-117); Anion Gap 5 (5-15); BUN 41 mg/dL (7-18); BUN/Creat Ratio 33.6 RATIO (10-20); Calcium,Total 8.7 mg/dL (8.5-10.1); Chloride 112 mmol/L (98-107); Creatinine, Serum 1.22 mg/dL (0.55-1.02); EST Glomerular Filtration Rate 44 mL/min (>60); Est Glom Filt Rate - Afr Amer 54 mL/min (>60); Globulin 3.2 g/dL (2.2-4.2); Glucose 78 mg/dL (74-106); Potassium 4.5 mmol/L (3.5-5.1); Protein, Total 6.9 g/dL (6.4-8.2); Sodium Level 141 mmol/L (136-145); Thyroid Stim Hormone (TSH) 1.07 uIU/mL (0.358-3.74)
== END | disposition home or self-care (01) ==
LOC: LAB 11:04
PROVIDERS: PCP Family Medicine Geriatric Medicine; Referring Provider Family Medicine Geriatric Medicine; Visit Provider Family Medicine Geriatric Medicine
DX: I10 Essential (primary) hypertension (principal); E55.9 Vitamin D deficiency, unspecified
CPT/HCPCS: 36415; 80053; 82306; 84443; 85025

== ENCOUNTER → 2024-02-05 | Outpatient (CLI) | payer MEDICARE, OTHER, SELFPAY ==
[2024-02-05 12:43] LABS: Absolute Lymphocyte Count 1.07 X10^3/uL (0.83-4.51); Absolute Neutrophil Count 6.5 X10^3/uL (2.0-7.7); Basophil# 0.04 X10^3/uL; Basophil% 0.5 % (0-1); Eosinophil# 0.15 X10^3/uL; Eosinophils% 1.8 % (0-5); Hematocrit 33.4 % (37-47); Hemoglobin 10.8 g/dL (12.0-15.0); Lymphocyte # 1.07 X10^3/ul (0.83-4.51); Lymphocyte % 12.7 % (19-41); Mean Corp Hgb Conc 32.3 g/dL (32-36); Mean Corpuscular Hgb 32.3 pg (27.0-32.0); Mean Platelet Vol. 10.6 fl (6.2-12.0); Monocyte# 0.63 X10^3/uL; Monocyte% 7.5 % (0-10); NRBC Flagged by Analyzer 0 % (0-5); Neutrophil # 6.53 X10^3/uL (2.7-7.7); Neutrophil % 77.1 % (47-70); Platelet Count 192 K/mm3 (150-450); RBC Distribution Width CV 14.9 % (11.6-14.6); RET-HE 32.9 pg (30-35); Red Blood Count 3.34 M/mm3 (4.2-5.4); Reticulocyte Count 0.63 % (0.5-1.5); White Blood Count 8.5 K/mm3 (4.4-11.0)
[2024-02-05 13:02] LABS: Vitamin B12 803 pg/mL (211-911)
[2024-02-05 13:12] LABS: Ferritin 135 ng/mL (8-252); Iron 73 ug/dL (50-170); Iron Binding Capacity,Total 294 ug/dL (250-450); PERCENT IRON SATURATION 24.8 % (15.0-55.0)
== END | disposition home or self-care (01) ==
LOC: POLAB3 11:10
PROVIDERS: PCP Family Medicine Geriatric Medicine; Visit Provider Family Medicine Geriatric Medicine
DX: D50.9 Iron deficiency anemia, unspecified (principal); I10 Essential (primary) hypertension
CPT/HCPCS: 36415; 82607; 82728; 82746; 83540; 83550; 85025; 85045

== ENCOUNTER → 2024-02-09 | Outpatient (CLI) | payer MEDICARE, OTHER, SELFPAY | END | disposition home or self-care (01) | LOC: LABSPEC 11:51 | PROVIDERS: PCP Family Medicine Geriatric Medicine; Referring Provider Family Medicine Geriatric Medicine; Visit Provider Family Medicine Geriatric Medicine | DX: D50.9 Iron deficiency anemia, unspecified (principal); I10 Essential (primary) hypertension | CPT/HCPCS: 82274 ==

== ENCOUNTER 2024-03-18 18:13 | Observation (INO) | payer MEDICARE, OTHER, SELFPAY ==
[2024-03-18] VITALS (9 sets, daily range): BP systolic 148–178; BP diastolic 57–83; PULSE 67–86; RESP 13–21; TEMP 35.8–36.6; O2SAT 95–98; BMI 23.8
--- NOTE | 2024-03-18 19:04 | CT_ITS ---
EXAM: CT HEAD WITHOUT INTRAVENOUS CONTRAST CLINICAL INDICATION: mental status change TECHNIQUE: Multiple axial images were obtained of the head without intravenous contrast. This CT exam was performed using one or more of the following dose reduction techniques: automated exposure control, adjustment of the mA and/or kV according to patient size, and/or use of iterative reconstruction technique. COMPARISON: MRI brain, 11/02/2023 FINDINGS: BRAIN AND EXTRA-AXIAL SPACES: There is non-specific periventricular hypoattenuation which is most commonly related to chronic microvascular ischemic disease in a patient of this age. There is no mass, mass-effect, or shift of the midline structures. No evidence of acute infarct or acute intracranial hemorrhage. There is no evidence of pathologic extra-axial fluid. There is no hydrocephalus. Patent basal cisterns. BONES/JOINTS: No significant abnormality. No discrete lytic or blastic abnormalities. VASCULATURE: Arteriosclerosis. SINUSES: No significant findings. MASTOID AIR CELLS: No significant effusion. ORBITS: Bilateral ocular lens extraction presumptively for the treatment of cataracts. Otherwise, no acute orbital pathology. CT/Brain/Head without Contrast IMPRESSION: Chronic microvascular ischemic changes correlate with prior MRI. No evidence of acute infarct or hemorrhage. Electronically Signed: Tay Parry DO at 20:47 EDT ,
--- NOTE | 2024-03-18 19:04 | EKG12_ITS ---
Test Reason : DYSRHYTHMIA Blood Pressure : / mmHG Vent. Rate : 069 BPM Atrial Rate : 069 BPM P-R Int : 146 ms QRS Dur : 080 ms QT Int : 416 ms P-R-T Axes : 064 047 053 degrees QTc Int : 445 ms Normal sinus rhythm Normal ECG Confirmed by WENDI JOHNSON, DIETER ([id number]), assignment desk editor ANASTASIYA FOFANA ([id number]) on 03/22/2024 6:30:43 AM Referred By: Confirmed By:SETH ADAME MD
--- NOTE | 2024-03-18 19:05 | EX.ED.DYSGE1 ---
HPI History of Present Illness Chief Complaint: Complaint Detail of Chief Complaint: Mental status change Informant: patient and family Narrative Narrative: Patient presents to the emergency department via EMS from home. Patient apparently had a doctor's visit with her primary care physician today as family noticed that some changes in her that made them think she might have a urinary tract infection. Several months ago she had similar symptoms in and out of spending a week in the hospital with a UTI. Patient has been having some maybe some slurred speech and just seems off. She has history of dementia. Today they went to the PCP office and diagnosed with UTI and given a shot of an antibiotic. When she got home about 1:30 PM she went to sleep and then woke up more than 3 hours later and did not seem like herself. Her son tried to talk to her and she did not say anything to him he asked her to sit down she sat down but just was not responding so EMS was called. Per family member she seems to be more back to her baseline at this time. Patient is without complaints. 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/2013) Osteoarthritis Psoriatic arthritis Hypothyroidism Skin cancer Atherosclerosis of coronary artery of [place] heart without angina pectoris TIA (transient ischemic attack) (01/2015) Angina pectoris Tachycardia Hyperlipemia Home Medications ?Medication ?Instructions ?Recorded ?Last Taken ?Type memantine 10 mg tablet 10 mg PO BID memory 06/06/21 09/12/22 History clopidogrel 75 mg tablet See Rx Instructions .Route 12/23/22 Unknown Rx .COMPLEX #90 tabs food supplemt, lactose-reduced 120 ml PO 4X/DAY #0 mL 11/07/23 Unknown Rx 0.08 gram-1.5 kcal/mL oral liquid (Ensure Plus High Protein) acetaminophen 325 mg tablet 650 mg PO Q4H PRN PRN Pain 1-10 Or 02/14/24 Unknown History Fever donepezil 5 mg tablet (Aricept) 10 mg PO QHS 02/14/24 Unknown History levothyroxine 112 mcg tablet 100 mcg PO DAILY 02/14/24 Unknown History quetiapine 25 mg tablet 50 mg PO BID 02/14/24 Unknown History sertraline 50 mg tablet 50 mg PO DAILY 02/14/24 Unknown History ciprofloxacin HCl 250 mg tablet 250 mg PO Q12H 03/18/24 Unknown History (Cipro) Allergy/AdvReac Type Severity Reaction Status Date / Time amlodipine Allergy Leg Verified 03/18/24 18:24 Swelling amlodipine besylate (From Allergy leg Verified 03/18/24 18:24 Norvasc) swelling amoxicillin (Amoxicillin) Allergy Rash Verified 03/18/24 18:24 castor oil Allergy PT UNSURE Verified 03/18/24 18:24 OF REACTION enalapril maleate (From Allergy Other Verified 03/18/24 18:24 Vasotec) enalaprilat dihydrate (From Allergy Other Verified 03/18/24 18:24 Vasotec) Iodinated Contrast Media Allergy Other Verified 03/18/24 18:24 (Iodinated Contrast Media - IV Dye) iodine Allergy PT UNSURE Verified 03/18/24 18:24 OF REACTION lisinopril Allergy Other Verified 03/18/24 18:24 ranolazine (From Ranexa) Allergy Unknown Verified 03/18/24 18:24 Sulfa (Sulfonamide Allergy Swelling Verified 03/18/24 18:24 Antibiotics) sulfasalazine Allergy PT UNSURE Verified 03/18/24 18:24 OF REACTION Family History (Updated 02/15/24 @ 09:12 by Latonia Chin) Father CVA (cerebral vascular accident) Mother Heart disease CVA (cerebral vascular accident) Hypertension Myocardial infarction Diabetes Sister Diabetes Surgical History Cataract H/O angioplasty H/O laminectomy History of carpal tunnel surgery of right wrist (~08/2022) History of carpal tunnel surgery of left wrist History of left heart catheterization (08/24/15) H/O: knee surgery (09/2013) History of appendectomy Hx of cholecystectomy History of hysterectomy History of tonsillectomy and adenoidectomy History of percutaneous transluminal coronary angioplasty (1995) Social History household members: other details: son and [id number] housing: house current occupational status: retired Smoking Status: Former smoker how long ago did patient quit smoking: In her 20's alcohol intake: never substance use type: does not use caffeine: No what type of physical activity do you participate in: none frequency: 1-2 times per week ROS ROS ED Review of Systems ROS Unobtainable: other Constitutional Constitutional ED: Reports lethargy; Denies chills, fever(s), sweats or weight loss Eyes Eyes: Denies blurry vision, change in vision or diplopia ENT ENT ED: Denies rhinorrhea or sore throat Cardiovascular Cardiovascular: Denies chest pain, orthopnea or racing heartbeat Respiratory/Chest Respiratory/Chest: Denies cough, dyspnea, dyspnea on exertion, orthopnea or sputum Gastrointestinal Gastrointestinal: Denies abdominal pain, diarrhea, nausea or vomiting Genitourinary Genitourinary ED: Denies dysuria, hematuria or urinary frequency Musculoskeletal Musculoskeletal: Denies arthralgias, back pain, myalgias or neck pain Integumentary Denies abscess, Abrasions or rash Neurologic Neurologic: Reports other Details: Mental status change ; Denies headache(s) or weakness Psychiatric Psychiatric: Denies anxiety, depression or suicidal thoughts Endocrine Endocrinology: Denies polydipsia, polyphagia or polyuria Hematologic/Lymphatic Hematologic/Lymphatic: Denies easy bleeding, easy bruising or lymphadenopathy Allergic/Immunologic Allergic/Immunologic ED: Denies mouth swelling, tongue swelling or urticaria EXAM Physical Exam Const Vital Signs: 03/18/24 18:22 03/18/24 18:24 03/18/24 19:15 Temperature 96.5 F L 96.5 F L 97.7 F L Temperature Source Temporal Temporal Oral Pulse Rate 69 69 70 Respiratory Rate 16 16 14 Blood Pressure 178/57 H 178/57 H 168/71 H Blood Pressure Mean 97 97 103 Pulse Ox 98 98 97 Oxygen Delivery Method Room Air Room Air Room Air 03/18/24 20:00 03/18/24 21:15 03/18/24 22:00 Temperature 97.8 F 98 F Temperature Source Oral Oral Pulse Rate 67 79 86 Respiratory Rate 20 H 13 21 H Blood Pressure 168/83 H 149/64 H 151/75 H Blood Pressure Mean 111 92 100 Pulse Ox 97 98 97 Oxygen Delivery Method Room Air Room Air Positive well nourished and well developed General Appearance ED: well developed and NAD HEENT Reports TM's clear and moist mucous membranes normocephalic and atraumatic; Negative for trauma or tenderness Tympanic Membrane ED: Yes TM's clear Eyes PERRL and EOMs intact bilaterally General Eye ED: Negative for pale conjunctiva or scleral icterus Neck no lymphadenopathy, supple and no JVD General: Negative for tenderness Chest Wall inspection of chest normal and palpation of chest normal Chest: Negative for tenderness Resp normal respiratory effort and clear to auscultation bilaterally Effort and Inspection: Negative for respiratory distress or pain with movement Auscultation: Negative for rhonchi, wheezes or diminished lung sounds Cardio regular rate, regular rhythm, S1 normal heart sound, S2 normal heart sound and no murmurs Peripheral Pulses: pulses 2+ throughout GI normal to inspection, nondistended, normoactive bowel sounds, soft to palpation, non-tender, non-distended and no masses Back/Spine no CVA tenderness and no thoracic nor lumbar tenderness Extremity normal to inspection General Extremety ED: Negative for edema General Extremity: Negative for edema Neuro oriented x3, CN's II-XII intact bilaterally, no sensory deficits noted and gait normal Neuro Narrative: Finger-nose and heel fink testing within normal limits. No focal deficits noted on exam. There is no facial droop. NIH stroke scale is 0 Sensorium / Orientation: awake, alert, oriented to person, oriented to place and oriented to time Motor Exam: strength 5/5 throughout and strength abnormal Psych mental status grossly normal Skin no rashes or lesions noted and no wounds MDM MDM MDM Narrative Medical decision making narrative: Patient presents with a mental status change that is now mostly resolved. Patient's had some slurred speech for for 5 days and thought it might be due to a UTI as she behaved similarly in the past when she had a UTI. She was seen by primary care physician today who treated her for UTI with antibiotics. She had a spell after waking up after a 3-hour nap or so where she became somewhat unresponsive and was not following commands and was not speaking. Son called EMS. In the differential would be stroke or TIA versus infectious etiology or metabolic encephalopathy. Symptoms now mostly resolved therefore suspect possibility of TIA. CT scan of the brain without contrast was unremarkable. CBC with differential showed a white count of 6.7 with hemoglobin 10.4 and platelet count of 168. Chemistries unremarkable. Lactate was normal at 0.8. Troponin normal at 34. Urinalysis was normal. At this point etiology of symptoms unclear although mostly back to baseline at this time. Discussed case with hospitalist to evaluate patient for admission to complete TIA workup Lab Data Attestation: I reviewed the patient's lab results. Labs: Laboratory Results - last 24 hr 03/18/24 03/18/24 18:30 19:30 WBC 6.7 RBC 3.26 L Hgb 10.4 L Hct 32.5 L MCV 99.7 H MCH 31.9 MCHC 32.0 RDW Std Deviation 45.8 H RDW Coeff of Tal 12.4 Plt Count 168 MPV 10.5 Immature Gran % (Auto) 0.300 Neut % (Auto) 73.6 H Lymph % (Auto) 12.4 L [place] % (Auto) 10.0 Eos % (Auto) 3.0 Baso % (Auto) 0.7 Absolute Neuts (auto) 4.9 Absolute Lymphs (auto) 0.83 Nucleated RBC % 0 Sodium 140 Potassium 4.8 Chloride 110 H Carbon Dioxide 26.0 Anion Gap 4 L BUN 38 H Creatinine 1.16 H Est GFR (MDRD) Af Amer 57 L Est GFR (MDRD) Non-Af 47 L BUN/Creatinine Ratio 32.8 H Glucose 107 H Lactic Acid 0.8 Calcium 9.2 Troponin I High Sens 34 Urine Color Yellow Urine Clarity Clear Urine pH 7.0 Ur Specific [place] 1.005 Urine Protein Negative Urine Glucose (UA) Normal Urine Ketones Negative Urine Occult Blood Negative Urine Nitrite Negative Urine Bilirubin Negative Urine Urobilinogen Normal Ur Leukocyte Esterase Negative Urine RBC 0 SEEN Urine WBC 0 SEEN Ur Squamous Epith Cells 0 SEEN Urine Bacteria 0 SEEN Urine Mucus 0 SEEN Radiography Diagnostic Testing: Clinical Impression(s) from Imaging Studies Brain CT 03/18/24 19:04 IMPRESSION: Chronic microvascular ischemic changes correlate with prior MRI. No evidence of acute infarct or hemorrhage. Electronically Signed: Tay Parry DO at 20:47 EDT , EKG Initial EKG: Attestation: I personally reviewed and interpreted this EKG as follows: Comments: Sinus rhythm with rate of 69 bpm with no acute ST segment changes Discharge Plan Dx/Rx/DC Orders Clinical Impression: Acute alteration in mental status, Hypertension, Dementia Disposition Disposition: Acute Care Hospital [facility] Discharge Date/Time: 03/18/24 22:46
[2024-03-18] MEDS: 0.9% Normal Saline (1000mL) 1,000 ML 150 ML IV (19:14)
[2024-03-18 19:27] LABS: Absolute Lymphocyte Count 0.83 X10^3/uL (0.83-4.51); Absolute Neutrophil Count 4.9 X10^3/uL (2.0-7.7); Basophil# 0.05 X10^3/uL; Basophil% 0.7 % (0-1); Hematocrit 32.5 % (37-47); Hemoglobin 10.4 g/dL (12.0-15.0); Lymphocyte # 0.83 X10^3/ul (0.83-4.51); Lymphocyte % 12.4 % (19-41); Mean Corpuscular Hgb 31.9 pg (27.0-32.0); Mean Corpuscular Volume 99.7 fL (81-99); Mean Platelet Vol. 10.5 fl (6.2-12.0); Monocyte# 0.67 X10^3/uL; NRBC Flagged by Analyzer 0 % (0-5); Neutrophil % 73.6 % (47-70); Platelet Count 168 K/mm3 (150-450); RBC Distribution Width CV 12.4 % (11.6-14.6); RBC Distribution Width SD 45.8 fl (35.1-43.9); Red Blood Count 3.26 M/mm3 (4.2-5.4); White Blood Count 6.7 K/mm3 (4.4-11.0)
[2024-03-18 19:48] LABS: Anion Gap 4 (5-15); BUN 38 mg/dL (7-18); BUN/Creat Ratio 32.8 RATIO (10-20); Calcium,Total 9.2 mg/dL (8.5-10.1); Chloride 110 mmol/L (98-107); Creatinine, Serum 1.16 mg/dL (0.55-1.02); EST Glomerular Filtration Rate 47 mL/min (>60); Est Glom Filt Rate - Afr Amer 57 mL/min (>60); Glucose 107 mg/dL (74-106); Lactic Acid 0.8 mmol/L (0.4-1.9); Potassium 4.8 mmol/L (3.5-5.1); Sodium Level 140 mmol/L (136-145); Troponin-I HS 34 pg/mL (3.0-54.0)
[2024-03-18 19:53] LABS: Bacteria 0 SEEN /hpf (None Seen); Mucous, Urine 0 SEEN /hpf (<or=2+); Red Blood Cells-Urine 0 SEEN /hpf (0-5); Squamous Epithelial Cells - UA 0 SEEN /hpf (5-10); White Blood Cells 0 SEEN /hpf (0-5)
[2024-03-18 19:57] LABS: Color, Urine Yellow (Yellow); Glucose, Dipstick Normal (Normal); Ketone-Dipstick Negative (Negative); Leukocyte Esterase-Dipstick Negative /ul (Negative); Nitrite-Dipstick Negative (Negative); Occult Blood-Urine Negative /ul (Negative); Protein-Dipstick Negative (Negative); Specific Gravity, Urine 1.005 (1.002-1.030); Urine Bilirubin Dipstick Negative (Negative); Urine Clarity Clear (Clear); Urine Urobilinogen Normal (Normal)
--- NOTE | 2024-03-18 22:17 | HP.PCM_ITS ---
HPI - General General Date of Admission: 03/18/24 Date of Service: 03/18/24 Chief Complaint: Change in mental status HPI Narrative YUKI CAIN, is a 88 F who presents to the emergency room with chief complaint of altered mental status. Patient was seen by her primary care physician earlier today and diagnosed with acute urinary tract infection and treated with a dose of Rocephin and sent home from the office. On the way home she slept and continued to sleep for 3 hours. Upon awakening she was unable to speak coherently for approximately 2 hours and was brought to the emergency room for evaluation. Patient has significant past medical history of dementia and has recently been in the nursing facility for similar presentation with urinary tract infection which kept her debilitated there for 3 months. She has been at home for the last month and doing relatively well until today. Patient denies any chest pain, shortness of breath fevers or chills and/or nausea or vomiting. Patient has resumed speaking in the emergency department but according to her son is not at her baseline. She will be admitted for further evaluation and MRI in the morning. [facility] Medical History Irregular heart beat Chronic kidney disease (CKD) Essential hypertension Wears hearing aid Wears glasses Arthritis Back pain Loss of consciousness Syncope Gastric reflux Former smoker Leg cramps Cardiology follow-up encounter Carpal tunnel syndrome, bilateral De Quervain's tenosynovitis, right Forehead laceration Syncope and collapse Dementia Anxiety and depression Wolfe syndrome Deep vein blood clot of right lower extremity (09/2013) Osteoarthritis Psoriatic arthritis Hypothyroidism Skin cancer Atherosclerosis of coronary artery of [place] heart without angina pectoris TIA (transient ischemic attack) (01/2015) Angina pectoris Tachycardia Hyperlipemia Home Medications ?Medication ?Instructions ?Recorded ?Last Taken ?Type memantine 10 mg tablet 10 mg PO BID memory 06/06/21 09/12/22 History clopidogrel 75 mg tablet See Rx Instructions .Route 12/23/22 Unknown Rx .COMPLEX #90 tabs food supplemt, lactose-reduced 120 ml PO 4X/DAY #0 mL 11/07/23 Unknown Rx 0.08 gram-1.5 kcal/mL oral liquid (Ensure Plus High Protein) acetaminophen 325 mg tablet 650 mg PO Q4H PRN PRN Pain 1-10 Or 02/14/24 Unknown History Fever donepezil 5 mg tablet (Aricept) 10 mg PO QHS 02/14/24 Unknown History levothyroxine 112 mcg tablet 100 mcg PO DAILY 02/14/24 Unknown History quetiapine 25 mg tablet 50 mg PO BID 02/14/24 Unknown History sertraline 50 mg tablet 50 mg PO DAILY 02/14/24 Unknown History ciprofloxacin HCl 250 mg tablet 250 mg PO Q12H 03/18/24 Unknown History (Cipro) Allergy/AdvReac Type Severity Reaction Status Date / Time amlodipine Allergy Leg Verified 03/18/24 18:24 Swelling amlodipine besylate (From Allergy leg Verified 03/18/24 18:24 Norvasc) swelling amoxicillin (Amoxicillin) Allergy Rash Verified 03/18/24 18:24 castor oil Allergy PT UNSURE Verified 03/18/24 18:24 OF REACTION enalapril maleate (From Allergy Other Verified 03/18/24 18:24 Vasotec) enalaprilat dihydrate (From Allergy Other Verified 03/18/24 18:24 Vasotec) Iodinated Contrast Media Allergy Other Verified 03/18/24 18:24 (Iodinated Contrast Media - IV Dye) iodine Allergy PT UNSURE Verified 03/18/24 18:24 OF REACTION lisinopril Allergy Other Verified 03/18/24 18:24 ranolazine (From Ranexa) Allergy Unknown Verified 03/18/24 18:24 Sulfa (Sulfonamide Allergy Swelling Verified 03/18/24 18:24 Antibiotics) sulfasalazine Allergy PT UNSURE Verified 03/18/24 18:24 OF REACTION Family History (Updated 02/15/24 @ 09:12 by Latonia Chin) Father CVA (cerebral vascular accident) Mother Heart disease CVA (cerebral vascular accident) Hypertension Myocardial infarction Diabetes Sister Diabetes Surgical History Cataract H/O angioplasty H/O laminectomy History of carpal tunnel surgery of right wrist (~08/2022) History of carpal tunnel surgery of left wrist History of left heart catheterization (08/24/15) H/O: knee surgery (09/2013) History of appendectomy Hx of cholecystectomy History of hysterectomy History of tonsillectomy and adenoidectomy History of percutaneous transluminal coronary angioplasty (1995) Social History household members: other details: son and [id number] housing: house current occupational status: retired Smoking Status: Former smoker how long ago did patient quit smoking: In her 20's alcohol intake: never substance use type: does not use caffeine: No what type of physical activity do you participate in: none frequency: 1-2 times per week ROS Constitutional Constitutional: Denies chills or fever(s) Eyes Eyes: Denies blurry vision ENT HEENT: Denies abnormal hearing Cardiovascular Cardiovascular: Denies chest pain Respiratory/Chest Respiratory/Chest: Denies shortness of breath at rest Genitourinary Genitourinary: Denies dysuria Musculoskeletal Musculoskeletal: Denies back pain Neurologic Neurologic: Reports abnormal speech and confusion; Denies headache(s), numbness, sensory deficit or tingling Psychiatric Psychiatric: Denies anxiety Vital Signs Vital Signs Vital Signs: 03/18/24 18:22 03/18/24 18:24 03/18/24 19:15 Temperature 96.5 F L 96.5 F L 97.7 F L Temperature Source Temporal Temporal Oral Pulse Rate 69 69 70 Respiratory Rate 16 16 14 Blood Pressure 178/57 H 178/57 H 168/71 H Blood Pressure Mean 97 97 103 Pulse Ox 98 98 97 Oxygen Delivery Method Room Air Room Air Room Air 03/18/24 20:00 03/18/24 21:15 Temperature 97.8 F Temperature Source Oral Pulse Rate 67 79 Respiratory Rate 20 H 13 Blood Pressure 168/83 H 149/64 H Blood Pressure Mean 111 92 Pulse Ox 97 98 Oxygen Delivery Method Room Air Physical Exam Const alert General Appearance: cooperative and well developed Orientation / Consciousness: confused HEENT normocephalic and head/scalp atraumatic Eyes PERRL and EOMs intact bilaterally Neck no lymphadenopathy General: trachea midline Lymph Lymphatic: no lymphadenopathy noted Resp normal respiratory effort, normal air movement and clear to auscultation bilaterally Cardio regular rate, regular rhythm, S1 normal heart sound, S2 normal heart sound and no murmurs GI normal to inspection, nondistended, normoactive bowel sounds Extremity normal capillary refill Skin General Skin Exam: no breakdown Neuro CN's II-XII intact bilaterally, no focal motor deficits and no sensory deficits noted Speech: speech abnormal Details: Positive for other (PRESSURED AND SLOW) Motor Exam: strength 5/5 throughout Psych Appearance: appropriate Results Lab / Micro Data 03/18/24 18:30 03/18/24 18:30 Labs: Laboratory Results - last 24 hr 03/18/24 18:30: WBC 6.7, RBC 3.26 L, Hgb 10.4 L, Hct 32.5 L, MCV 99.7 H, MCH 31.9, MCHC 32.0, RDW Std Deviation 45.8 H, RDW Coeff of Tal 12.4, Plt Count 168, MPV 10.5, Immature Gran % (Auto) 0.300, Neut % (Auto) 73.6 H, Lymph % (Auto) 12.4 L, [place] % (Auto) 10.0, Eos % (Auto) 3.0, Baso % (Auto) 0.7, Absolute Neuts (auto) 4.9, Absolute Lymphs (auto) 0.83, Nucleated RBC % 0, Sodium 140, Potassium 4.8, Chloride 110 H, Carbon Dioxide 26.0, Anion Gap 4 L, BUN 38 H, C reatinine 1.16 H, Est GFR (MDRD) Af Amer 57 L, Est GFR (MDRD) Non-Af 47 L, B UN/Creatinine Ratio 32.8 H, Glucose 107 H, Lactic Acid 0.8, Calcium 9.2, Troponin I High Sens 34 03/18/24 19:30: Urine Color Yellow, Urine Clarity Clear, Urine pH 7.0, Ur Specific [place] 1.005, Urine Protein Negative, Urine Glucose (UA) Normal, Urine Ketones Negative, Urine Occult Blood Negative, Urine Nitrite Negative, Urine Bilirubin Negative, Urine Urobilinogen Normal, Ur Leukocyte Esterase Negative, Urine RBC 0 SEEN, Urine WBC 0 SEEN, Ur Squamous Epith Cells 0 SEEN, Urine Bacteria 0 SEEN, Urine Mucus 0 SEEN Imaging Radiology Impression Brain CT 03/18/24 19:04 IMPRESSION: Chronic microvascular ischemic changes correlate with prior MRI. No evidence of acute infarct or hemorrhage. Electronically Signed: Tay Parry DO at 20:47 EDT , Assessment & Plan Assessment/Plan (1) Dementia: (2) Hypertension: (3) Acute alteration in mental status: PLAN: Plan 1. change in mental status?admit patient for observation to progressive care unit, neurologic checks per routine, order MRI noncontrast head in a.m. Patient had previously had MRI similarly done in October 2023 with no acute findings at that time. If patient continues to progress and is back to her baseline it would be appropriate to discharge her back to home 2. Hypertension?continue routine home medications 3. Dementia?continue monitoring neurologic evaluations as above, consider the patient moderately demented based on history obtained from son. 4. DVT prophylaxis?low molecular weight heparin Charges/Coding Visit Charges OBSV E&M: [id number] Observ/hosp same date L2
--- NOTE | 2024-03-19 05:55 | MRI_ITS ---
EXAM: MR HEAD WITHOUT INTRAVENOUS CONTRAST CLINICAL INDICATION: Altered mental status TECHNIQUE: Multiplanar and multisequence MR images of the brain were obtained without intravenous contrast. COMPARISON: MRI brain without contrast 11/02/2023. FINDINGS: BRAIN AND EXTRA-AXIAL SPACES: No diffusion restriction to suspect acute or subacute ischemic infarct. No remote cortical-based ischemic infarct. Multiple T2 FLAIR hyperintensity foci in the periventricular white matter are chronic white matter ischemic changes. No intra- or extra-axial hemorrhage. No intracranial mass or mass effect. Posterior fossa structures are unremarkable. No hydrocephalus. Basal cisterns are patent. SELLA: Unremarkable. Normal sella turcica, pituitary gland, infundibular stalk, optic chiasm and hypothalamus. AUDITORY SYSTEM: Unremarkable. The internal auditory canals are patent. BONES/JOINTS: Unremarkable. No discrete lytic or blastic abnormalities. SINUSES: Unremarkable as visualized. Clear. MASTOID AIR CELLS: Unremarkable as visualized. Clear. ORBITS: Unremarkable as visualized. Both globes, extraocular muscles, optic nerves and retrobulbar fat appear unremarkable. VASCULATURE: Unremarkable as visualized. Normal flow voids in the major intracranial circulation. MRI/Brain without Contrast IMPRESSION: 1. No MRI evidence of acute or subacute ischemic infarct or remote cortical-based ischemic infarct. 2. Multiple chronic periventricular white matter ischemic changes in both cerebral hemispheres. 3. No significant interval change when compared to 11/02/2023. Electronically Signed: Juan Carlos Vieira MD at 11:34 EDT ,
[2024-03-19 06:22] VITALS: BP 147/59; PULSE 81; RESP 16; TEMP 36.6; O2SAT 97
[2024-03-19 07:08] LABS: Absolute Lymphocyte Count 0.83 X10^3/uL (0.83-4.51); Basophil# 0.05 X10^3/uL; Basophil% 0.6 % (0-1); Eosinophil# 0.16 X10^3/uL; Eosinophils% 2.1 % (0-5); Hematocrit 32.7 % (37-47); Hemoglobin 10.6 g/dL (12.0-15.0); Lymphocyte # 0.83 X10^3/ul (0.83-4.51); Lymphocyte % 10.7 % (19-41); Mean Corp Hgb Conc 32.4 g/dL (32-36); Mean Corpuscular Hgb 31.8 pg (27.0-32.0); Mean Corpuscular Volume 98.2 fL (81-99); Mean Platelet Vol. 10.3 fl (6.2-12.0); Monocyte# 0.67 X10^3/uL; Monocyte% 8.6 % (0-10); NRBC Flagged by Analyzer 0 % (0-5); Neutrophil # 6.01 X10^3/uL (2.7-7.7); Neutrophil % 77.6 % (47-70); Platelet Count 189 K/mm3 (150-450); RBC Distribution Width CV 12.5 % (11.6-14.6); RBC Distribution Width SD 44.7 fl (35.1-43.9); Red Blood Count 3.33 M/mm3 (4.2-5.4); White Blood Count 7.8 K/mm3 (4.4-11.0)
[2024-03-19 07:46] LABS: Anion Gap 3 (5-15); BUN 30 mg/dL (7-18); BUN/Creat Ratio 27.3 RATIO (10-20); Calcium,Total 8.7 mg/dL (8.5-10.1); Chloride 114 mmol/L (98-107); EST Glomerular Filtration Rate 50 mL/min (>60); Est Glom Filt Rate - Afr Amer 61 mL/min (>60); Glucose 95 mg/dL (74-106); Potassium 4.7 mmol/L (3.5-5.1); Sodium Level 141 mmol/L (136-145)
[2024-03-19 08:13] VITALS: BP 139/68; PULSE 78; RESP 17; TEMP 36.8; O2SAT 93
[2024-03-19] MEDS: Ciprofloxacin 250 MG Tablet PO (09:47)
[2024-03-19] MEDS: Enoxaparin 40 MG/0.4 ML Syringe SC (09:47)
[2024-03-19] MEDS: Clopidogrel Bisulfate 75 MG Tablet PO (09:48)
[2024-03-19] MEDS: Memantine Hydrochloride 10 MG Tablet PO (09:48)
[2024-03-19] MEDS: QUEtiapine 25 MG Tablet 50 MG PO (09:48)
[2024-03-19] MEDS: Sertraline 50 MG Tablet PO (09:48)
--- NOTE | 2024-03-19 12:37 | CASEMGMT ---
JOVAN SYED updated that patient will be discharging today. JOVAN SYED called son and daughter in law and discuss plans at discharge. Family wishes for patient to discharge home. Reviewed progress with therapy, no therapy recommended. Family had no further questions or concerns.
[2024-03-19 12:39] VITALS: O2SAT 96
[2024-03-19 13:28] VITALS: BP 126/75; PULSE 86; RESP 18; TEMP 36.4; O2SAT 96
--- NOTE | 2024-03-19 14:03 | PCM.DC ---
Discharge Instructions Diet Discharge Diet: No restrictions Activity Discharge Activity: - (Increase activity as tolerated) Follow Up Care Test Results: Test results from this visit will be discussed in further detail at your follow-up appointment, if applicable. Discharge Plan Admission Admit Date/Time: 03/18/24 22:24 Primary Reason for Your Visit: Altered mental status and concern for UTI Attending Provider: aHrper Meza Primary Care Provider: Matty Newsome [employer] Providers: Lorne Donald Instructions Patient Instructions: ED Fall Prevention Discharge Orders/Prescriptions Prescriptions: Continued levothyroxine 112 mcg tablet 100 mcg PO DAILY sertraline 50 mg tablet 50 mg PO DAILY acetaminophen 325 mg tablet 650 mg PO Q4H PRN PRN (Reason: Pain 1-10 Or Fever) donepezil [Aricept] 5 mg tablet 10 mg PO QHS quetiapine 25 mg tablet 50 mg PO BID memantine 10 mg Tablet 10 mg PO BID Ensure Plus High Protein 0.08 gram-1.5 kcal/mL Liquid 120 ml PO 4X/DAY Qty: 0 0RF ciprofloxacin HCl [Cipro] 250 mg tablet 250 mg PO Q12H 6 Days Qty: 12 0RF clopidogrel 75 mg tablet See Rx Instructions .ROUTE .COMPLEX Qty: 90 3RF Dose Instruction: TAKE 1 TABLET DAILY FOR BLOOD THINNER Rx Instructions: TAKE 1 TABLET DAILY FOR BLOOD THINNER Referrals / Follow Up: Matty Newsome Chi, MD [Primary Care Provider] - Within 1 Week Disposition Disposition (needs filled in before D/C Order can be placed): Home, Self Care
--- NOTE | 2024-03-19 14:14 | DS.PCM_ITS ---
Providers Date of Admission: 03/18/24 Date of Discharge: 03/19/24 Primary Care Physician: Dr. Matty Newsome MD Reason For Visit: MENTAL STATUS CHANGE Diagnosis Discharge Diagnosis (1) Dementia: Status: Acute Code(s): F03.90 - Unspecified dementia, unspecified severity, without behavioral disturbance, psychotic disturbance, mood disturbance, and anxiety (2) Hypertension: Status: Chronic Code(s): I10 - Essential (primary) hypertension (3) Acute alteration in mental status: Status: Acute Code(s): R41.82 - Altered mental status, unspecified (4) UTI (urinary tract infection): Status: Acute Code(s): N39.0 - Urinary tract infection, site not specified Plan # UTI causing metabolic encephalopathy # CAD # Hypertension # CKD unclear subtype # History of erosive esophagitis # History of a TIA Medications at Discharge Home Medications memantine 10 mg tablet 10 mg PO BID memory 06/06/21 clopidogrel 75 mg tablet See Rx Instructions .Route .COMPLEX #90 tabs 12/23/22 food supplemt, lactose-reduced 0.08 gram-1.5 kcal/mL oral liquid (Ensure Plus High Protein) 120 ml PO 4X/DAY #0 mL 11/07/23 acetaminophen 325 mg tablet 650 mg PO Q4H PRN PRN Pain 1-10 Or Fever 02/14/24 donepezil 5 mg tablet (Aricept) 10 mg PO QHS 02/14/24 levothyroxine 112 mcg tablet 100 mcg PO DAILY 02/14/24 quetiapine 25 mg tablet 50 mg PO BID 02/14/24 sertraline 50 mg tablet 50 mg PO DAILY 02/14/24 ciprofloxacin HCl 250 mg tablet (Cipro) 250 mg PO Q12H 6 days #12 tabs 03/19/24 Hospital Course Summary of Care Provided Minutes Spent on Discharge: 25 Hospital Course: Per HPI: YUKI CAIN, is a 88 F who presents to the emergency room with chief complaint of altered mental status. Patient was seen by her primary care physician earlier today and diagnosed with acute urinary tract infection and treated with a dose of Rocephin and sent home from the office. On the way home she slept and continued to sleep for 3 hours. Upon awakening she was unable to speak coherently for approximately 2 hours and was brought to the emergency room for evaluation. Patient has significant past medical history of dementia and has recently been in the nursing facility for similar presentation with urinary tract infection which kept her debilitated there for 3 months. She has been at home for the last month and doing relatively well until today. Patient denies any chest pain, shortness of breath fevers or chills and/or nausea or vomiting. Patient has resumed speaking in the emergency department but according to her son is not at her baseline. She will be admitted for further evaluation and MRI in the morning. INTERVAL HISTORY: Patient on Cipro, her urine from 03/18 preliminarily growing E. coli. Patient improved overnight with antibiotics and supportive care, MRI with no acute process. Labs overall unremarkable. He was suspected that metabolic encephalopathy secondary to UTI, continue antibiotics. Patient deemed to be back at baseline per her report since she was discharged home with family with instructions to continue ciprofloxacin. Physical Exam Narrative General: Alert, no apparent distress HEENT: Atraumatic, normocephalic Eyes: extraocular movements grossly intact Neck: Supple Respiratory: normal respiratory effort Cardiovascular: no edema appreciated GI: nondistended Extremities: Moving all extremities Neuro: No overt focal neurological deficits Psych: Cooperative Weight / BMI Weight Weight: 68.946 kg Body Mass Index (BMI) 23.8 ABG / Lab / Microbiology Data 03/19/24 06:33 03/19/24 06:33 Laboratory: Laboratory Results - last 24 hr 03/18/24 18:30: WBC 6.7, RBC 3.26 L, Hgb 10.4 L, Hct 32.5 L, MCV 99.7 H, MCH 31.9, MCHC 32.0, RDW Std Deviation 45.8 H, RDW Coeff of Tal 12.4, Plt Count 168, MPV 10.5, Immature Gran % (Auto) 0.300, Neut % (Auto) 73.6 H, Lymph % (Auto) 12.4 L, [place] % (Auto) 10.0, Eos % (Auto) 3.0, Baso % (Auto) 0.7, Absolute Neuts (auto) 4.9, Absolute Lymphs (auto) 0.83, Nucleated RBC % 0, Sodium 140, Potassium 4.8, Chloride 110 H, Carbon Dioxide 26.0, Anion Gap 4 L, BUN 38 H, C reatinine 1.16 H, Est GFR (MDRD) Af Amer 57 L, Est GFR (MDRD) Non-Af 47 L, B UN/Creatinine Ratio 32.8 H, Glucose 107 H, Lactic Acid 0.8, Calcium 9.2, Troponin I High Sens 34 03/18/24 19:30: Urine Color Yellow, Urine Clarity Clear, Urine pH 7.0, Ur Specific [place] 1.005, Urine Protein Negative, Urine Glucose (UA) Normal, Urine Ketones Negative, Urine Occult Blood Negative, Urine Nitrite Negative, Urine Bilirubin Negative, Urine Urobilinogen Normal, Ur Leukocyte Esterase Negative, Urine RBC 0 SEEN, Urine WBC 0 SEEN, Ur Squamous Epith Cells 0 SEEN, Urine Bacteria 0 SEEN, Urine Mucus 0 SEEN 03/19/24 06:33: WBC 7.8, RBC 3.33 L, Hgb 10.6 L, Hct 32.7 L, MCV 98.2, MCH 31.8, MCHC 32.4, RDW Std Deviation 44.7 H, RDW Coeff of Tal 12.5, Plt Count 189, MPV 10.3, Immature Gran % (Auto) 0.400, Neut % (Auto) 77.6 H, Lymph % (Auto) 10.7 L, [place] % (Auto) 8.6, Eos % (Auto) 2.1, Baso % (Auto) 0.6, Absolute Neuts (auto) 6.0, Absolute Lymphs (auto) 0.83, Nucleated RBC % 0, Sodium 141, Potassium 4.7, Chloride 114 H, Carbon Dioxide 24.0, Anion Gap 3 L, BUN 30 H, Creatinine 1.10 H, Estim Creat Clear Calc 35.70, Est GFR (MDRD) Af Amer 61, Est GFR (MDRD) Non-Af 50 L, BUN/Creatinine Ratio 27.3 H, Glucose 95, Calcium 8.7 Radiography Diagnostic Testing: Radiology Impression Brain CT 03/18/24 19:04 IMPRESSION: Chronic microvascular ischemic changes correlate with prior MRI. No evidence of acute infarct or hemorrhage. Electronically Signed: Tay Parry DO at 20:47 EDT , Brain MRI 03/19/24 05:55 IMPRESSION: 1. No MRI evidence of acute or subacute ischemic infarct or remote cortical-based ischemic infarct. 2. Multiple chronic periventricular white matter ischemic changes in both cerebral hemispheres. 3. No significant interval change when compared to 11/02/2023. Electronically Signed: Juan Carlos Vieira MD at 11:34 EDT , D/C Instructions Discharge Diet: No restrictions Meaningful Use Info Meaningful Use Meaningful Use Diagnoses (Choose all that apply): None applicable Ischemic Stroke Statin Dosing Therapy Reference: STATIN DOSE THERAPY REFERENCE: * Patients > 75 years receive moderate or high dose statin therapy. * Patients 75 years or YOUNGER should receive HIGH intensity statin dose unless contraindicated. You will be required to document reason for non-treatment if statin daily dose does not meet guidelines. HIGH DOSE STATIN THERAPY DAILY Atorvastatin > than or = to 40 mg Rosuvastatin > than or = to 20 mg Amlodipine + Atorvastatin > than or = to 2.5/40 mg Ezetimibe + Simvastatin 10/80 mg Simvastatin 80mg Discharge Plan Admission Admit Date/Time: 03/18/24 22:24 Primary Reason for Your Visit: Altered mental status and concern for UTI Attending Provider: Harper Meza Primary Care Provider: Matty Newsome Chi Consulting Providers: Lorne Donald Instructions Patient Instructions: ED Fall Prevention Discharge Orders/Prescriptions Prescriptions: Continued levothyroxine 112 mcg tablet 100 mcg PO DAILY sertraline 50 mg tablet 50 mg PO DAILY acetaminophen 325 mg tablet 650 mg PO Q4H PRN PRN (Reason: Pain 1-10 Or Fever) donepezil [Aricept] 5 mg tablet 10 mg PO QHS quetiapine 25 mg tablet 50 mg PO BID memantine 10 mg Tablet 10 mg PO BID Ensure Plus High Protein 0.08 gram-1.5 kcal/mL Liquid 120 ml PO 4X/DAY Qty: 0 0RF ciprofloxacin HCl [Cipro] 250 mg tablet 250 mg PO Q12H 6 Days Qty: 12 0RF clopidogrel 75 mg tablet See Rx Instructions .ROUTE .COMPLEX Qty: 90 3RF Dose Instruction: TAKE 1 TABLET DAILY FOR BLOOD THINNER Rx Instructions: TAKE 1 TABLET DAILY FOR BLOOD THINNER Referrals / Follow Up: Matty Newsome Chi, MD [Primary Care Provider] - Within 1 Week Disposition Disposition (needs filled in before D/C Order can be placed): Home, Self Care Charges/Coding Visit Charges Inpatient E&M: 83878 Disch Hosp
--- NOTE | 2024-03-19 14:28 | CHAPLAIN ---
Type of Pastoral Visit _x__ Initial Visit ___ Follow-up Visit ___ On-call Visit ___ General Patient Visit ___ Spiritual Assessment ___ Family Conference ___ Bereavement ___ Rapid Response ___ Code Blue ___ Other (describe below) Pastoral Care Referral From _x__ Patient ___ Family ___ Nurse ___ Physician ___ Computer Peripheral Equipment Operator ___ Aircraft Shipping Checker ___ Other (describe below) Sacrament/Intervention _x__ Active listening ___ Anointing ___ Protestant ___ Bereavement ___ Communion ___ Chantelle exploration ___ _x__ Life review _x__ Prayer ___ Reconciliation ___ Sacrament of Sick _x__ Supportive presence ___ Wedding ___ Other (describe below) Pastoral Comments patient was sitting up in the chair and alert; pt is pleasant but did not appear to grasp why she was in the hospital or what was happening here; pt does answer questions but sometimes struggled with remembering facts about her family or her life; pt was able to continue in the conversation but was unable to confirm details; pt stated that a prayer would be acceptable
== END 2024-03-19 14:14 | disposition home or self-care (01) ==
LOC: ED 22:16 → PCU 22:39
PROVIDERS: Admitting Provider Family Medicine; Emergency Provider Emergency Medicine; PCP Family Medicine Geriatric Medicine; Visit Provider Internal Medicine
DX: N39.0 Urinary tract infection, site not specified (principal); F03.90 Unspecified dementia, unspecified severity, without behavioral disturbance, psychotic disturbance, mood disturbance, and anxiety; I25.10 Atherosclerotic heart disease of native coronary artery without angina pectoris; E78.5 Hyperlipidemia, unspecified; Z87.891 Personal history of nicotine dependence; N18.9 Chronic kidney disease, unspecified; R47.81 Slurred speech; I12.9 Hypertensive chronic kidney disease with stage 1 through stage 4 chronic kidney disease, or unspecified chronic kidney disease; R41.82 Altered mental status, unspecified; Z79.899 Other long term (current) drug therapy; Z79.02 Long term (current) use of antithrombotics/antiplatelets; G93.41 Metabolic encephalopathy; M25.552 Pain in left hip
CPT/HCPCS: 36415; 70450; 70551; 73502; 80048; 80053; 81001; 83605; 84484; 85025; 87086; 93005; 96360; 96361; 96372; 97162; 97802; 99221; 99283; A4216; G0378

== ENCOUNTER → 2024-03-18 | Outpatient (CLI) | payer MEDICARE, OTHER, SELFPAY ==
[2024-03-18 12:37] LABS: Absolute Lymphocyte Count 0.72 X10^3/uL (0.83-4.51); Absolute Neutrophil Count 6.3 X10^3/uL (2.0-7.7); Basophil# 0.06 X10^3/uL; Basophil% 0.8 % (0-1); Eosinophil# 0.15 X10^3/uL; Eosinophils% 1.9 % (0-5); Hematocrit 33.3 % (37-47); Hemoglobin 10.6 g/dL (12.0-15.0); Lymphocyte # 0.72 X10^3/ul (0.83-4.51); Lymphocyte % 9.2 % (19-41); Mean Corp Hgb Conc 31.8 g/dL (32-36); Mean Corpuscular Hgb 31.5 pg (27.0-32.0); Mean Corpuscular Volume 99.1 fL (81-99); Mean Platelet Vol. 10.4 fl (6.2-12.0); Monocyte# 0.55 X10^3/uL; NRBC Flagged by Analyzer 0 % (0-5); Neutrophil # 6.34 X10^3/uL (2.7-7.7); Neutrophil % 80.8 % (47-70); Platelet Count 170 K/mm3 (150-450); RBC Distribution Width CV 12.5 % (11.6-14.6); RBC Distribution Width SD 45.6 fl (35.1-43.9); Red Blood Count 3.36 M/mm3 (4.2-5.4); White Blood Count 7.8 K/mm3 (4.4-11.0)
--- NOTE | 2024-03-18 12:50 | RAD_ITS ---
STUDY: X-RAY - PELVIS AND LEFT HIP REASON FOR EXAM: Female, 88 years old. LEFT HIP PAIN. TECHNIQUE: 3 views of the pelvis and hip. COMPARISON: Comparison is made with prior study dated February 10, 2015. FINDINGS: Moderate amount of fecal material is seen in the colon. Normal visualized soft tissue structures. There is narrowing with cortical sclerosis and osteophyte formation of the sacroiliac joint consistent with degenerative osteoarthritic changes. Normal bilateral superior and inferior pubic rami. There are degenerative changes of the pubic symphysis with articular narrowing and sclerosis. Normal bilateral ischial tuberosities. Normal visualized femoral head. There is osteoarthritic spur formation of the acetabular rim. There is moderate articular joint space narrowing of the hip. RAD/HIP, UNI W/ Pelvis 2-3 Views IMPRESSION: Moderate degree of joint space narrowing. Electronically Signed: Edvin Greco MD at 13:13 EDT ,
[2024-03-18 13:40] LABS: AST(SGOT) 32 U/L (15-37); Alanine Aminotransfer ALT/SGPT 27 U/L (13-56); Albumin, Serum 3.5 g/dL (3.2-5.0); Alkaline Phosphatase 82 U/L (45-117); Anion Gap 4 (5-15); BUN 42 mg/dL (7-18); BUN/Creat Ratio 35.9 RATIO (10-20); Calcium,Total 8.6 mg/dL (8.5-10.1); Chloride 109 mmol/L (98-107); Creatinine, Serum 1.17 mg/dL (0.55-1.02); EST Glomerular Filtration Rate 47 mL/min (>60); Est Glom Filt Rate - Afr Amer 56 mL/min (>60); Globulin 3.5 g/dL (2.2-4.2); Glucose 97 mg/dL (74-106); Potassium 5.1 mmol/L (3.5-5.1); Sodium Level 140 mmol/L (136-145)
== END | disposition home or self-care (01) ==
PROVIDERS: PCP Family Medicine Geriatric Medicine; Referring Provider Family Medicine Geriatric Medicine; Visit Provider Family Medicine Geriatric Medicine
DX: I10 Essential (primary) hypertension (principal); N39.0 Urinary tract infection, site not specified; M25.552 Pain in left hip
CPT/HCPCS: 36415; 73502; 80053; 85025; 87086; 87088; 87186

== ENCOUNTER 2024-05-27 00:15 | Emergency (ER) | payer MEDICARE, OTHER, SELFPAY ==
[2024-05-27 00:20] VITALS: BP 161/81; PULSE 79; RESP 18; TEMP 37; O2SAT 100; BMI 23.8
--- NOTE | 2024-05-27 00:21 | EDS_ITS ---
HPI History of Present Illness Chief Complaint: Confusion Detail of Chief Complaint: Visual hallucinations and confusion Informant: family (Apparently daughter called and spoke with nurse.) and EMS Onset/Context/Timing Onset: Today Context: Sudden Onset Timing: - (Unknown) Quality: Reported visual hallucinations and confusion Current Severity: Unable to determine patient has dementia Maximum Severity: Unable to determine patient has dementia Worsened by: Unknown Relieved by: Unknown Associated Symptoms Associated Symptoms: Patient denies everything Narrative Narrative: Patient is a 88-year-old woman with history of urinary tract infections, dementia, hypertension, coronary artery disease with angioplasty 1995, TIA, hyperlipidemia, iron deficiency anemia due to erosive esophagitis who presents because of confusion that is worse than normal and visual hallucinations. When patient was asked why she is here she looked at the nurse and me and did not respond. When asked specific questions with regards to review of systems she denied everything. 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/2013) Osteoarthritis Psoriatic arthritis Hypothyroidism Skin cancer Atherosclerosis of coronary artery of [place] heart without angina pectoris TIA (transient ischemic attack) (01/2015) Angina pectoris Tachycardia Hyperlipemia Home Medications ?Medication ?Instructions ?Recorded ?Last Taken ?Type clopidogrel 75 mg tablet See Rx Instructions .Route 12/23/22 Unknown Rx .COMPLEX #90 tabs food supplemt, lactose-reduced 120 ml PO 4X/DAY #0 mL 11/07/23 Unknown Rx 0.08 gram-1.5 kcal/mL oral liquid (Ensure Plus High Protein) acetaminophen 325 mg tablet 650 mg PO Q4H PRN PRN Pain 1-10 Or 02/14/24 Unknown History Fever donepezil 5 mg tablet (Aricept) 10 mg PO QHS 02/14/24 Unknown History donepezil 10 mg tablet 10 mg PO DAILY 05/27/24 Unknown History levothyroxine 100 mcg tablet 100 mcg PO DAILY 05/27/24 Unknown History quetiapine 50 mg tablet 50 mg PO BID 05/27/24 Unknown History Allergy/AdvReac Type Severity Reaction Status Date / Time amlodipine Allergy Leg Verified 03/18/24 18:24 Swelling amlodipine besylate (From Allergy leg Verified 03/18/24 18:24 Norvasc) swelling amoxicillin (Amoxicillin) Allergy Rash Verified 03/18/24 18:24 castor oil Allergy PT UNSURE Verified 03/18/24 18:24 OF REACTION enalapril maleate (From Allergy Other Verified 03/18/24 18:24 Vasotec) enalaprilat dihydrate (From Allergy Other Verified 03/18/24 18:24 Vasotec) Iodinated Contrast Media Allergy Other Verified 03/18/24 18:24 (Iodinated Contrast Media - IV Dye) iodine Allergy PT UNSURE Verified 03/18/24 18:24 OF REACTION lisinopril Allergy Other Verified 03/18/24 18:24 ranolazine (From Ranexa) Allergy Unknown Verified 03/18/24 18:24 Sulfa (Sulfonamide Allergy Swelling Verified 03/18/24 18:24 Antibiotics) sulfasalazine Allergy PT UNSURE Verified 03/18/24 18:24 OF REACTION Family History Father CVA (cerebral vascular accident) Mother Heart disease CVA (cerebral vascular accident) Hypertension Myocardial infarction Diabetes Sister Diabetes Surgical History Cataract H/O angioplasty H/O laminectomy History of carpal tunnel surgery of right wrist (~08/2022) History of carpal tunnel surgery of left wrist History of left heart catheterization (08/24/15) H/O: knee surgery (09/2013) History of appendectomy Hx of cholecystectomy History of hysterectomy History of tonsillectomy and adenoidectomy History of percutaneous transluminal coronary angioplasty (1995) Social History household members: other details: son and [id number] housing: house current occupational status: retired Smoking Status: Former smoker how long ago did patient quit smoking: In her 20's alcohol intake: never substance use type: does not use caffeine: No what type of physical activity do you participate in: none frequency: 1-2 times per week ROS ROS ED Review of Systems ROS Unobtainable: due to mental status EXAM Physical Exam Const Vital Signs: 05/27/24 00:20 05/27/24 01:14 Temperature 98.6 F 98.4 F Temperature Source Oral Pulse Rate 79 78 Respiratory Rate 18 18 Blood Pressure 161/81 H 159/80 H Blood Pressure Mean 107 106 Pulse Ox 100 98 Oxygen Delivery Method Room Air Positive well nourished and well developed General Appearance ED: well developed, NAD and pallor; Negative for cyanotic or diaphoretic HEENT Reports moist mucous membranes HEENT Narrative: Head atraumatic and normocephalic. Ears normal. Nares patent. Mucosa moist. Eyes PERRL and EOMs intact bilaterally General Eye ED: Negative for pale conjunctiva or scleral icterus Neck no lymphadenopathy, supple and no JVD Resp normal respiratory effort and clear to auscultation bilaterally Resp Narrative: Pulse ox is 99% on room air. Cardio regular rate, regular rhythm, S1 normal heart sound, S2 normal heart sound and no murmurs GI normal to inspection, nondistended, normoactive bowel sounds, non-distended and no masses; Negative for non-tender or hepatosplenomegaly Palpation: soft and tender suprapubic Back/Spine no CVA tenderness Extremity normal to inspection General Extremety ED: Negative for edema or tenderness General Extremity: Negative for edema Neuro No oriented x3 and CN's II-XII intact bilaterally Neuro Narrative: Awake and probably alert Psych mental status grossly normal Skin no rashes or lesions noted, no wounds and No skin turgor normal General Skin Exam: pallor; Negative for jaundice MDM MDM MDM Narrative Medical decision making narrative: Suspect patient's altered mental status and visual hallucinations is probably due to UTI complicating underlying dementia. History & Record Review Additional record(s) reviewed:: Prior inpatient record (Admitted October 2023 for CVA.Admitted May 2021 for coronary artery disease.), Prior outpatient record (Referral by Dr. Joseph for carpal tunnel August 2021) and Prior labs (Patient has chronic anemia. Creatinine is slightly elevated and varies between 1.17 and 1.10 with an estimated GFR between 47 and 50.) Lab Data Attestation: I reviewed the patient's lab results. Lab results narrative: CBC reveals anemia. Review of prior records indicates patient has chronic anemia. Results are unchanged and prior. Urine is negative. Comprehensive metabolic panel is remarkable for an elevated BUN to creatinine ratio 26:1. BUN and creatinine are elevated at 35 and 1.33. Estimated GFR is 40. Labs: Laboratory Results - last 24 hr 05/27/24 05/27/24 00:35 00:43 WBC 7.2 RBC 3.59 L Hgb 11.0 L Hct 34.5 L MCV 96.1 MCH 30.6 MCHC 31.9 L RDW Std Deviation 46.9 H RDW Coeff of Tal 13.2 Plt Count 197 MPV 10.3 Immature Gran % (Auto) 0.400 Neut % (Auto) 68.4 Lymph % (Auto) 18.7 L [place] % (Auto) 8.6 Eos % (Auto) 3.1 Baso % (Auto) 0.8 Absolute Neuts (auto) 4.9 Absolute Lymphs (auto) 1.34 Nucleated RBC % 0 Sodium 141 Potassium 4.2 Chloride 111 H Carbon Dioxide 25.0 Anion Gap 5 BUN 35 H Creatinine 1.33 H Estim Creat Clear Calc 29.53 Est GFR (MDRD) Af Amer 49 L Est GFR (MDRD) Non-Af 40 L BUN/Creatinine Ratio 26.3 H Glucose 100 Lactic Acid 1.0 Calcium 8.6 Total Bilirubin 0.30 AST 33 ALT 24 Alkaline Phosphatase 84 Total Protein 6.8 Albumin 3.5 Globulin 3.3 Albumin/Globulin Ratio 1.1 Urine Color Yellow Urine Clarity Clear Urine pH 6.0 Ur Specific [place] 1.020 Urine Protein Negative Urine Glucose (UA) Normal Urine Ketones Negative Urine Occult Blood 10 H Urine Nitrite Negative Urine Bilirubin Negative Urine Urobilinogen Normal Ur Leukocyte Esterase Negative Urine RBC 0 SEEN Urine WBC 0 SEEN Ur Squamous Epith Cells 0 SEEN Urine Bacteria 0 SEEN Urine Mucus 0 SEEN Treatment and Re-Evaluation :: There is no infectious cause i.e. UTI elevated white count. If metabolic panel is normal suspect this is due to her dementia. CT of the head was not obtained since she does not have a focal neurologic exam. Comments:: Daughter was informed of results. Recommended follow-up with her primary care physician, Dr. Newsome regarding medication for dementia and hallucinations. Discharge Plan Triage Chief Complaint: Confusion ED Provider: Herbie Kern Dx/Rx/DC Orders Clinical Impression: Dementia, Hyperlipemia, Essential hypertension, Anemia, Formed visual hallucinations, Mild renal insufficiency Instructions: Delirium and Dementia Prescriptions: No Action acetaminophen 325 mg tablet 650 mg PO Q4H PRN PRN (Reason: Pain 1-10 Or Fever) donepezil [Aricept] 5 mg tablet 10 mg PO QHS Ensure Plus High Protein 0.08 gram-1.5 kcal/mL Liquid 120 ml PO 4X/DAY Qty: 0 0RF levothyroxine 100 mcg tablet 100 mcg PO DAILY quetiapine 50 mg tablet 50 mg PO BID donepezil 10 mg tablet 10 mg PO DAILY clopidogrel 75 mg tablet See Rx Instructions .ROUTE .COMPLEX Qty: 90 3RF Dose Instruction: TAKE 1 TABLET DAILY FOR BLOOD THINNER Rx Instructions: TAKE 1 TABLET DAILY FOR BLOOD THINNER Primary Care Provider: Matty Newsome Chi Referrals: Matty Newsome Chi, MD [Primary Care Provider] - 1 Week if not improving Print Language: Mauritanian Disposition Disposition: Home, Self Care
[2024-05-27 00:39] LABS: Bacteria 0 SEEN /hpf (None Seen); Mucous, Urine 0 SEEN /hpf (<or=2+); Red Blood Cells-Urine 0 SEEN /hpf (0-5); Squamous Epithelial Cells - UA 0 SEEN /hpf (5-10); White Blood Cells 0 SEEN /hpf (0-5)
[2024-05-27 00:42] LABS: Color, Urine Yellow (Yellow); Glucose, Dipstick Normal (Normal); Ketone-Dipstick Negative (Negative); Leukocyte Esterase-Dipstick Negative /ul (Negative); Nitrite-Dipstick Negative (Negative); Occult Blood-Urine 10 /ul (Negative); Protein-Dipstick Negative (Negative); Urine Bilirubin Dipstick Negative (Negative); Urine Clarity Clear (Clear); Urine Urobilinogen Normal (Normal)
--- OUTSIDE RECORDS SUMMARY | 2024-05-27 00:43 | XMS RPT_ITS | CCD ---
Author Organization [facility] Care Team Providers Care [place] Cr[place] Operator Name Role Phone Shabnam De Leon Unavailable Shabnam De Leon Unavailable DeFinis, Harumi Y Unavailable Unavailable JOVAN Rodriguez, Candelaria Jeronimo Unavailable Unavailabl e Shabnam De Leon Unavailable Allergies Allergy Classification Reported Allergen(s) Allergy Type Date of Onset Reaction(s) Facility (5 sources) amLODIPine drug allergy 1 edema [facility] Work Phone: [phone] (5 sources) amoxicillin drug allergy 1 rash [facility] Work Phone: [phone] (5 sources) enalapril drug allergy 1 Leg edema, disoriented [facility] Work Phone: [phone] (5 sources) iodine drug allergy 1 prolonged sneezing [facility] Work Phone: [phone] (5 sources) lisinopril drug allergy 1 [facility] Work Phone: [phone] (5 sources) ranolazine drug allergy 6 Passed out with this [facility] Work Phone: [phone] (5 sources) sulfaSALAzine drug allergy 1 lips swollen [facility] Work Phone: [phone] (10 sources) RENAX (MULTIPLE VITAMINS-MINERALS -FA TABS); Translations: [RENAX (MULTIPLE VITAMINS-MINERALS -FA TABS)] allergy to substance 1 passed out [facility] Work Phone: [phone] (5 sources) RENAX drug allergy 1 passed out [facility] Work Phone: Medications Completed/Discontinued Medications Medication Drug Class(es) Dates Sig (Normalized) Sig (Original) APREMILAST (5 sources) Start: 08-09-2016 OTEZLA 10 & 20 & 30 MG TBPK as directed, pt will be starting soon for psoriatic arthritis APREMILAST [id number] Ruddy Howard MD aspirin 81 mg oral tablet (20 sources) Nonsteroidal Anti-inflammatory Drug Start: 02-15-2011 take 1 tablet by mouth twice daily ASPIRIN 325 MG TABS One tablet by mouth twice daily ASPIRIN [id number] Audrey Garzon PA-C Start: 02-15-2011 ASPIRIN 325 MG TABS one tablet every other day ASPIRIN [id number] Audrey Garzon PA-C Start: 02-15-2011 take 1 tablet by luis alfredo th once daily ASPIRIN 81 MG TABS One tablet by mouth daily ASPIRIN [id number] Gabriela Arenas Start: 02-15-2011 take 1 tablet by luis alfredo th once daily ASPIRIN 81 MG TABS One tablet by mouth daily ASPIRIN [id number] Gabriela Arenas Start: 02-15-2011 take 1 tablet by luis alfredo th once daily ASPIRIN EC 81 MG TBEC One tablet by mouth daily ASPIRIN [id number] Ruddy Howard MD atorvastatin 80 mg oral tablet (15 sources) HMG-CoA Reductase Inhibitor Start: 02-15-2011 take 1 tablet by mouth once daily LIPITOR 80 MG TABS One tablet by mouth daily ATORVASTATIN CALCIUM [id number] Adrienne Haines RN Start: 02-15-2011 take 1 tablet by luis alfredo th once daily ATORVASTATIN CALCIUM 40 MG TABS One tablet by mouth daily ATORVASTATIN CALCIUM [id number] Audrey Garzon PA-C biotin (5 sources) Start: 08-09-2016 take 1 tablet by mouth once daily BIOTIN FORTE TABS One tablet by mouth daily BIOTIN TABS [id number] Ruddy Howard MD CALCIUM CARBONATE-VITAMIN D CAPS (10 sources) Start: 02-15-2011 take 1 tablet by mouth once daily CALCIUM CARBONATE-VITAMIN D CAPS 1500Mg-200 U, One tablet by mouth daily CALCIUM CARBONATE-VITAMIN D CAPS [id number] Gabriela Arenas Start: 02-15-2011 End: 07-15-2014 take 1 tablet by mouth once daily CALCIUM CARBONATE-VITAMIN D CAPS 1500Mg-200 U, One tablet by mouth daily CALCIUM CARBONATE-VITAMIN D CAPS [id number] Ruddy Howard MD carbidopa 25 mg / levodopa 100 mg oral tablet (3 sources) Aromatic Amino Acid Decarboxylation Inhibitor Start: 03-14-2017 take 1 tablet by mouth three times daily CARBIDOPA-LEVODOPA 25-100 MG TABS One tablet by mouth three times daily CARBIDOPA-LEVODOPA [id number] Ruddy Howard MD clopidogrel 75 mg oral tablet (15 sources) P2Y12 Platelet Inhibitor Start: 02-15-2011 take 1 tablet by mouth once daily PLAVIX 75 MG TABS One tablet by mouth daily CLOPIDOGREL BISULFATE [id number] Deric Meadows COMPUTER SOFTWARE ENGINEER-C Start: 12-28-2010 PLAVIX TABS 20 06/04/31 CLOPIDOGREL BISULFATE TABS [id number] Lauren Martinez Start: 12-28-2010 End: 02-15-2011 PLAVIX TABS 02/15 CLOPIDOGREL BISULFATE TABS [id number] Gabriela Joeward cycloSPORINE 0.5 mg/ml ophthalmic suspension (5 sources) Calcineurin Inhibitor Immunosuppressant Start: 08-09-2016 RESTASIS 0.05 % EMUL as directed CYCLOSPORINE [id number] Ruddy Howard MD Start: 08-09-2016 RESTASIS 0.05 % EMUL as directed CYCLOSPORINE [id number] Ruddy Howard MD diphenhydrAMINE hydrochloride 25 mg oral tablet (20 sources) Histamine-1 Receptor Antagonist Start: 08-19-2015 End: 02-11-2016 take 1 tablet by mouth at bedtime BENADRYL 25 MG TABS One tablet by mouth at bedtime on 08/22/14 and 08/23/14 for heart cath on 08/24/14 DIPHENHYDRAMINE HCL [id number] Audrey Garzon PA-C Start: 06-20-2012 End: 02-11-2016 take 1 tablet by mouth at bedtime BENADRYL 25 MG TABS One tablet by mouth at bedtime on 08/22/14 and 08/23/14 for heart cath on 08/24/14 DIPHENHYDRAMINE HCL [id number] Ruddy Howard MD Start: 06-20-2012 End: 12-12-2012 BENADRYL 25 MG TABS 1 tablet by mouth at bedtime on 06/27 and 06/28 for heart cath on 06/29/12 DIPHENHYDRAMINE HCL [id number] Audrey Garzon PA-C DULoxetine 60 mg delayed release oral capsule (15 sources) Serotonin and Norepinephrine Reuptake Inhibitor Start: 02-15-2011 End: 06-12-2012 take 1 tablet by mouth once daily CYMBALTA 60 MG CPEP One tablet by mouth daily DULOXETINE HCL [id number] Ruddy Howard MD Start: 12-28-2010 CYMBALTA CPEP DULOXETINE HCL CPEP 13137876551 Lauren Martinez ergocalciferol 87379 unt oral capsule (10 sources) Provitamin D2 Compound Start: 08-09-2016 take 1 tablet by mouth every week VITAMIN D (ERGOCALCIFEROL) 41387 UNIT CAPS One tablet by mouth weekly ERGOCALCIFEROL [id number] Ruddy Howard MD Start: 06-18-2013 take 1 tablet by luis alfredo th every week VITAMIN D (ERGOCALCIFEROL) 89772 UNIT CAPS One tablet by mouth weekly ERGOCALCIFEROL [id number] Ruddy Howard MD [id number] (2 sources) Start: 12-12-2012 take 1 tablet by mouth once daily FOLTX 2.5-25-2 MG TABS One tablet by mouth daily [id number] Audrey Garzon PA-C Start: 12-12-2012 End: 01-03-2014 take 1 tablet by mouth once daily FOLTX 2.5-25-2 MG TABS One tablet by luis alfredo th daily [id number] Audrey Garzon PA-C [id number] TABS (1 source) Start: 02-15-2011 take 1 tablet by mouth once daily FOLTX TABS Vitamin B complex, One tablet by mouth daily [id number] TABS [id number] Gabriela Arenas famotidine 40 mg oral tablet (3 sources) Histamine-2 Receptor Antagonist Start: 03-14-2017 take 1 tablet by mouth once daily FAMOTIDINE 40 MG TABS One tablet by mouth daily FAMOTIDINE [id number] Ruddy Howard MD folic acid / vitamin B 12 / vitamin B6 (12 sources) Vitamin B12 Start: 12-12-2012 End: 01-03-2014 take 1 tablet by mouth once daily FOLTX 2.5-25-2 MG TABS One tablet by mouth daily [id number] Audrey Garzon PA-C Start: 12-12-2012 take 1 tablet by luis alfredo th once daily FOLTX 2.5-25-2 MG TABS One tablet by luis alfredo th daily [id number] Audrey Garzon PA-C Start: 02-15-2011 take 1 tablet by luis alfredo th once daily FOLTX TABS Vitamin B complex, One tablet by mouth daily [id number] TABS [id number] Gabriela Arenas gabapentin 100 mg oral capsule (10 sources) Anti-epileptic Agent Start: 01-03-2014 End: 08-06-2015 take 1 tablet by mouth once daily GABAPENTIN 100 MG CAPS One tablet by mouth daily GABAPENTIN 05910125688 Ruddy Howard MD hydroxychloroquine sulfate 200 mg oral tablet (5 sources) Antirheumatic Agent Start: 02-15-2011 take 1 tablet by mouth twice daily PLAQUENIL 200 MG TABS One tablet by mouth twice daily HYDROXYCHLOROQUINE SULFATE [id number] Gabriela Arenas 24 hr isosorbide mononitrate 30 mg extended release oral tablet (15 sources) Start: 07-02-2012 take 1 tablet by mouth twice daily ISOSORBIDE MONONITRATE ER 30 MG [id number] One tablet by mouth twice daily ISOSORBIDE MONONITRATE [id number] Ruddy Howard MD Start: 07-02-2012 take 1 tablet by luis alfredo th once daily ISOSORBIDE MONONITRATE ER 30 MG [id number] One tablet by mouth daily (Imdur) ISOSORBIDE MONONITRATE [id number] Ruddy Howard MD Start: 07-02-2012 take 1 tablet by luis alfredo th once daily IMDUR 30 MG [id number] One tablet by mouth daily ISOSORBIDE MONONITRATE [id number] Ruddy Howard MD magnesium oxide 400 mg oral tablet (3 sources) Start: 03-14-2017 take 1 tablet by mouth once daily MAGNESIUM OXIDE 400 MG TABS One tablet by mouth daily MAGNESIUM OXIDE [id number] Ruddy Howard MD 24 hr metoprolol succinate 25 mg extended release oral tablet (15 sources) beta-Adrenergic Shiva Start: 02-15-2011 TOPROL XL 25 MG [id number] 1/2 tablet daily METOPROLOL SUCCINATE [id number] Ruddy Howard MD Start: 02-15-2011 TOPROL XL 25 M G [id number] 1/2 tablet daily METOPROLOL SUCCINATE [id number] Ruddy Howard MD Start: 12-28-2010 End: 02-15-2011 METOPROLOL TARTRATE TABS 201 08/04/30 METOPROLOL TARTRATE TABS [id number] Gabriela Arenas METRONIDAZOLE GEL (10 sources) Nitroimidazole Antimicrobial Start: 02-15-2011 End: 01-03-2014 METROGEL GEL 0.75% - 1% topical as directed METRONIDAZOLE GEL [id number] Audrey Garzon PA-C Start: 02-15-2011 METROGEL GEL 0 .75% - 1% topical as directed METRONIDAZOLE GEL 45863871616 Gabriela Arenas MULTIPLE VITAMIN (8 sources) Start: 02-15-2011 take 1 tablet by mouth once daily MULTIVITAMINS TABS One tablet by mouth daily MULTIPLE VITAMIN [id number] Gabriela Arenas Start: 02-15-2011 End: 07-15-2014 take 1 tablet by mouth once daily MULTIVITAMINS TABS One tablet by mouth daily MULTIPLE VITAMIN [id number] Ruddy Howard MD MULTIPLE VITAMIN (2 sources) Start: 02-15-2011 take 1 tablet by mouth once daily MULTIVITAMINS TABS One tablet by mouth daily MULTIPLE VITAMIN [id number] Gabriela Arenas Start: 02-15-2011 End: 07-15-2014 take 1 tablet by mouth once daily MULTIVITAMINS TABS One tablet by mouth daily MULTIPLE VITAMIN [id number] Ruddy Howard MD nitrofurantoin 100 mg oral tablet (13 sources) Start: 02-15-2011 End: 12-12-2012 take 1 tablet by mouth once daily MACROBID 100 MG CAPS One tablet by mouth daily NITROFURANTOIN MONOHYD MACRO [id number] Gabriela Arenas Start: 12-28-2010 MACROBID CAPS NITROFURANTOIN MONOHYD MACRO CAPS [id number] Lauren Martinez nitrofurantoin, macrocrystals 25 mg / nitrofurantoin, monohydrate 75 mg oral capsule (2 sources) Nitrofuran Antibacterial Start: 02-15-2011 End: 12-12-2012 take 1 tablet by mouth once daily MACROBID 100 MG CAPS One tablet by mouth daily NITROFURANTOIN MONOHYD MACRO [id number] Gabriela Arenas 24 hr nitroglycerin 0.3 mg/hr transdermal system (20 sources) Nitrate Vasodilator Start: 01-13-2012 End: 07-02-2012 apply 0.3 mg transdermal route every hour at bedtime NITRO-DUR 0.3 MG/HR PT24 apply 1 patch topically in the am and remove at bedtime NITROGLYCERIN [id number] Ruddy Howard MD Start: 01-13-2012 NITRO-DUR 0.3 MG/HR PT24 apply 1 patch topically in the am and remove at bedtime NITROGLYCERIN [id number] Ruddy Howard MD Start: 01-13-2012 End: 07-02-2012 NITRO-DUR 0.3 MG/HR PT24 avelina ly 1 patch topically in the am and remove at bedtime NITROGLYCERIN [id number] Macie Johnson RN Start: 12-30-2011 MINITRAN 0.4 M G/HR PT24 apply during the day and off at night NITROGLYCERIN [id number] Ruddy Howard MD Start: 12-30-2011 MINITRAN 0.4 M G/HR PT24 apply during the day and off at night NITROGLYCERIN [id number] Ruddy Howard MD Start: 02-15-2011 MINITRAN 0.2 M G/HR PT24 Apply every morning & remove at night NITROGLYCERIN [id number] Gabriela Arenas Start: 02-15-2011 NITROSTAT 0.4 MG SUBL 1 tablet under tongue every 5 min up to 3 X NITROGLYCERIN [id number] Ruddy Howard MD Start: 02-15-2011 MINITRAN 0.2 M G/HR PT24 Apply every morning & remove at night NITROGLYCERIN [id number] Gabriela Arenas predniSONE 20 mg oral tablet (20 sources) Corticosteroid Start: 06-20-2012 End: 02-11-2016 PREDNISONE 20 MG TABS take one tablet by mouth on 08/22/15 and 08/23/15 PREDNISONE [id number] Ruddy Howard MD 12 hr ranolazine 500 mg extended release oral tablet (10 sources) Anti-anginal Start: 08-24-2015 End: 01-06-2016 take 1 tablet by mouth twice daily at mealtime RANEXA 500 MG [id number] One tablet by mouth twice daily with food RANOLAZINE [id number] Ruddy Howard MD Start: 08-24-2015 take 1 tablet by luis alfredo th twice daily at mealtime RANEXA 500 MG [id number] One tablet by mouth twice daily with food RANOLAZINE [id number] Ruddy Howard MD Start: 08-24-2015 End: 01-06-2016 take 1 tablet by mouth twice daily at mealtime RANEXA 500 MG [id number] One tablet by mouth twice daily with food RANOLAZINE [id number] Candelaria Rodriguez RN selenium sulfide 25 mg/ml medicated shampoo (10 sources) Start: 02-15-2011 End: 01-03-2014 SELENIUM SULFIDE 2.5 % LOTN Apply as directed SELENIUM SULFIDE [id number] Audrey Garzon PA-C levothyroxine sodium 0.1 mg oral tablet (15 sources) l-Thyroxi ne Start: 02-15-2011 take 1 tablet by mouth once daily SYNTHROID 100 MCG TABS One tablet by mouth daily LEVOTHYROXINE SODIUM [id number] Gabriela Areans Start: 02-15-2011 take 1 tablet by luis alfredo th once daily SYNTHROID 100 MCG TABS One tablet by mouth daily LEVOTHYROXINE SODIUM [id number] Gabriela Arenas Start: 12-28-2010 LEVOTHROID TAB S LEVOTHYROXINE SODIUM TABS [id number] Lauren Martinez Start: 12-28-2010 End: 02-15-2011 LEVOTHROID TABS 2 LEVOTHYROXINE SODIUM TABS [id number] Gabriela Arenas triamcinolone acetonide 0.001 mg/mg topical ointment (15 sources) Corticosteroid Start: 02-15-2011 End: 01-03-2014 TRIAMCINOLONE ACETONIDE 0.1 % OINT Apply as directed TRIAMCINOLONE ACETONIDE [id number] Ruddy Howard MD Problems Active Problems Problem Classification Problem Date Documented Date Episodic/Chronic Coronary atherosclerosis and other heart disease (20 sources) Coronary atherosclerosis; Translations: [Coronary arteriosclerosis] Onset: 02-15-2011 02-04-2016 Chronic Disorders of lipid metabolism (5 sources) Hyperlipidemia; Translations: [Hyperlipidemia, unspecified] Onset: 02-15-2011 02-15-2011 Chronic Esophageal disorders (5 sources) Gastroesophageal reflux disease; Translations: [Gastro-esophageal reflux disease without esophagitis] Onset: 02-15-2011 02-15-2011 Chronic Osteoarthritis (5 sources) Osteoarthritis of knee; Translations: [Osteoarthritis of knee, unspecified] Onset: 06-05-2013 06-10-2013 Chronic Transient cerebral ischemia (5 sources) Transient cerebral ischemia; Translations: [Transient cerebral ischemic attack, unspecified] Onset: 02-15-2011 02-15-2011 Chronic Unclassified (1 source) Long-term drug therapy; Translations: [Other chcf (current) drug therapy] Onset: 02-15-2011 02-15-2011 Past or Other Problems Problem Classification Problem Date Documented Da te Episodic/Chronic Cardiac dysrhythmias (10 sources) Tachycardia; Translations: [Palpitations] Onset: 06-18-2013 06-18-2013 Episodic Coronary atherosclerosis and other heart disease (5 sources) Coronary angioplasty status; Translations: [Coronary angioplasty status] Onset: 02-15-2011 02-15-2011 Episodic Nonspecific chest pain (5 sources) Chest pain, unspecified; Translations: [Chest pain, unspecified] Onset: 02-15-2011 02-15-2011 Episodic Other aftercare (4 sources) Other terminal operator (current) drug therapy; Translations: [Other chcf (current) drug therapy] Onset: 02-15-2011 02-15-2011 Episodic Other circulatory disease (5 sources) Abnormal result of cardiovascular function study, unspecified; Translations: [Abnormal result of cardiovascular function study, unspecified] Onset: 02-15-2011 02-15-2011 Episodic Other connective tissue disease (5 sources) Pes anserinus tendinitis and bursitis; Translations: [Other specified enthesopathies of unspecified lower limb, excluding foot] Onset: 06-05-2013 06-10-2013 Episodic Other non-traumatic joint disorders (5 sources) Knee pain; Translations: [Pain in right knee] Onset: 06-05-2013 06-10-2013 Episodic Residual codes; unclassified (1 source) Family history of ischemic heart disease and other diseases of the circulatory system; Translations: [Family history of ischemic heart disease and other diseases of the circulatory system] 01-03-2014 Episodic Residual codes; unclassified (1 source) FH: Hypertension; Translations: [Family history of ischemic heart disease and other diseases of the circulatory system] 01-03-2014 Episodic Unclassified (13 sources) Family history of stroke; Translations: [Family history of ischemic heart disease and other diseases of the circulatory system] 01-03-2014 Episodic Results Test Name Value Interpretation Reference Range Facil ity Office Visiton 03-14-2017 Documentation of current medications (procedure) Done Invalid Interpretation Code [facility] Work Phone: [phone] Fall risk assessment Yes [facility] Work Phone: [phone] Protein mass conc Done [facility] Work Phone: [phone] Replaced Document: Viki Romero CG Observationson 03-14-2017 EKG QRS axis 54 deg [facility] Work Phone: [phone] electrocardiogram interpretation Sinus Rhythm - frequent PAC s # PACs = 2.WITHIN NORMAL LIMITS Invalid Interpretation Code [facility] Work Phone: [phone] GE use only - for [employer] import when terms are not otherwise specified 393 ms Invalid Interpretation Code [facility] Work Phone: [phone] Interpretation Sinus Rhythm - frequent PAC s # PACs = 2.WITHIN NORMAL LIMITS [facility] Work Phone: [phone] P [place] 73 deg [facility] Work Phone: [phone] P wave axis, electrocardiogram 73 deg Invalid Interpretation Code [facility] Work Phone: [phone] AL Interval 126 ms [facility] Work Phone: [phone] AL interval, electrocardiogram 126 ms Invalid Interpretation Code [facility] Work Phone: [phone] Pulse (Heart Rate) 87 /min Invalid Interpretation Code [facility] Work Phone: [phone] QRS axis, electrocardiogram 54 deg Invalid Interpretation Code [facility] Work Phone: [phone] QRS Duration 90 ms [facility] Work Phone: [phone] QRS duration, electrocardiogram 90 ms Invalid Interpretation Code [facility] Work Phone: [phone] QT Interval new path ms [facility] Work Phone: [phone] QT interval, electrocardiogram new path ms Invalid Interpretation Code [facility] Work Phone: [phone] QTc Guzman 393 ms [facility] Work Phone: [phone] T [place] 53 deg [facility] Work Phone: [phone] T wave axis, electrocardiogram 53 deg Invalid Interpretation Code [facility] Work Phone: [phone] Chart Maintenanceon 03-09-20 17 Left ventricular Ejection fraction 55-60 [facility] Work Phone: [phone] Office Visiton 08-09-2016 Documentation of current medications (procedure) Done Invalid Interpretation Code [facility] Work Phone: [phone] Lab Report: Basic Metabolic Profile (BMP)on 08-06-2015 Anion gap 1 mmol/L Low 5-15 [facility] Work Phone: [phone] Anion gap molar conc 1 mmol/L Low 5-[address] [address] [facility] Work Phone: [phone] BUN/Creatinine Ratio 16.5 RATIO 10-[address] [facility] [facility] Work Phone: [phone] Calcium 8.7 mg/dL 8.5-10.1 [facility] Work Phone: [phone] Chloride 105 mmol/L 98-107 [facility] Work Phone: [phone] CO2 30.0 mmol/L Invalid Interpretation Code 21.0-32.0 [facility] Work Phone: [phone] CO2 ppres (BldV) 30.0 mmol/L 21.0-32.0 [facility] Work Phone: [phone] Creatinine 1.03 mg/dL 0.55-1.20 [facility] Work Phone: [phone] eGFR (non-black) 67 mL/min/{1.73_m 2} Invalid Interpretation Code >60 [facility] Work Phone: [phone] eGFR (non-black) 55 mL/min/{1.73_m 2} Low >60 [facility] Work Phone: [phone] EST GFR - AA 67 mL/min >60 [facility] Work Phone: [phone] Glucose 115 mg/dL High 70-110 [facility] Work Phone: [phone] Glucose mass conc 115 mg/dL High 70-110 [facility] Work Phone: [phone] Potassium 4.5 mmol/L 3.5-5.1 [facility] Work Phone: [phone] Sodium 136 mmol/L 136-145 [facility] Work Phone: [phone] Urea nitrogen 17 mg/dL 7-18 [facility] Work Phone: [phone] Lab Report: CBC-Complete Blo od Cnt No Diffon 08-06-2015 Erythrocyte distribution width Ratio (RBC) 12.5 % 11.6-14.6 [facility] Work [phone] Erythrocyte distribution width Ratio (RBC) 43.1 fL 35.1-43.9 [facility] Work Phone: [phone] Erythrocytes (RBC) 4.40 10*6/uL Invalid Interpretation Code 4.2-5.4 [facility] Work Phone: [phone] Hematocrit (HCT) 41.3 % Invalid Interpretation Code 37-47 [facility] Work Phone: [phone] Hematocrit Volume Fraction (Bld) 41.3 % 37-47 [facility] Work Phone: [phone] Hemoglobin (HGB) 13.2 g/dL 12.0-15.0 [facility] Work Phone: [phone] MCH 30.0 pg Invalid Interpretation Code 27.0-32.0 [facility] Work Phone: [phone] MCH Entitic mass (RBC) 30.0 pg 27.0-32.0 [facility] Work Phone: [phone] MCHC 32.0 G/GL Invalid Interpretation Code 32-36 [facility] Work Phone: [phone] MCHC mass conc (RBC) 32.0 G/GL 32-[address] [facility] [address] [facility] Work Phone: [phone] MCV 93.9 fL Invalid Interpretation Code 81-99 [facility] Work Phone: [phone] MCV Entitic volume (RBC) 93.9 fL 81-99 [facility] Work Phone: [phone] Platelet mean volume Entitic volume (Bld) 9.8 fL 6.2-12.0 [facility] Work Phone: [phone] Platelets 223 10*3/mm3 Invalid Interpretation Code 150-450 [facility] Work Phone: [phone] Platelets #/vol (Bld) 223 10*3/mm3 150-450 [facility] Work Phone: [phone] PMV by Lenin 9.8 fL Invalid Interpretation Code 6.2-12.0 [facility] Work Phone: [phone] RBC #/vol (Bld) 4.40 10*6/uL 4.2-5.4 [facility] Work Phone: [phone] RDW-CA 12.5 % Invalid Interpretation Code 11.6-14.6 [facility] Work Phone: [phone] red blood cell distribution width, size density 43.1 fL Invalid Interpretation Code 35.1-43.9 [facility] Work Phone: [phone] WBC #/vol (Bld) 6.4 10*3/uL 4.4-11.0 [facility] Work Phone: [phone] WBC (Leukocytes) 6.4 10*3/uL Invalid Interpretation Code 4.4-11.0 [facility] Work Phone: [phone] Office Visiton 08-06-2015 Tobacco smoking status NHIS Former smoker [facility] Work Phone: [phone] Tobacco use CPHS Former smoker Invalid Interpretation Code [facility] Work Phone: [phone] Replaced Document: Midmark E CG Observationson 08-06-2015 electrocardiogram interpretation Sinus Rhythm -Short AL syndrome Kiran = 114BORDERLINE RHYTHM Invalid Interpretation Code [facility] Work Phone: [phone] GE use only - for [employer] import when terms are not otherwise specified 391 ms Invalid Interpretation Code [facility] Work Phone: [phone] P wave axis, electrocardiogram 78 deg Invalid Interpretation Code [facility] Work Phone: [phone] AL interval, electrocardiogram 114 ms Invalid Interpretation Code [facility] Work Phone: [phone] Pulse (Heart Rate) 80 /min Invalid Interpretation Code [facility] Work Phone: [phone] QRS axis, electrocardiogram 47 deg Invalid Interpretation Code [facility] Work Phone: [phone] QRS duration, electrocardiogram 92 ms Invalid Interpretation Code [facility] Work Phone: [phone] QT interval, electrocardiogram new path ms Invalid Interpretation Code [facility] Work Phone: [phone] T wave axis, electrocardiogram 63 deg Invalid Interpretation Code [facility] Work Phone: [phone] Lab Report: Lipid Profileon 08-01-2015 Cholesterol 141 mg/dL 200 [facility] Work Phone: [phone] HDL Cholesterol 77 mg/dL [facility] Work Phone: [phone] LDL Cholesterol 56 mg/dL 0-130 [facility] Work Phone: [phone] Triglyceride 39 mg/dL [facility] [facility] Work Phone: [phone] very low density lipoproteins 8 mg/dL 5-40 [facility] Work Phone: [phone] Lab Report: Liver Profileon 08-01-2015 Alanine aminotransferase (ALT) 31 U/L 12-78 [facility] Work Phone: [phone] Albumin 3.6 g/dL 3.4-5.0 [facility] Work Phone: [phone] Alkaline phosphatase (ALP) 76 U/L Invalid Interpretation Code 50-136 [facility] Work Phone: [phone] ALP enzyme act/vol (Bld) 76 U/L 50-136 [facility] Work Phone: [phone] Aspartate aminotransferase (AST) 34 U/L 15-37 [facility] Work Phone: [phone] Bilirubin (direct) 0.12 mg/dL 0.00-0.30 [facility] Work Phone: Bilirubin (total) 0.40 mg/dL 0.20-1.00 [facility] Work Phone: [phone] Globulin 3.3 g/dL Invalid Interpretation Code 2.3-3.5 [facility] Work Phone: [phone] Globulin mass conc (S) 3.3 g/dL 2.3-3.5 [facility] Work Phone: [phone] Protein 6.9 g/dL 6.4-8.2 [facility] Work Phone: [phone] Office Visiton 07-15-2014 cardiac risk group C [facility] Work Phone: [phone] General cardiovascular disease 10Y risk [#] [place] N/A [facility] Work Phone: [phone] Lab Report: CBCDon 4 Absolute Neutrophil count 3.7 X10 3/UL Normal 2.0-7.7 [facility] Work Phone: [phone] ANC 3.7 X10 3/UL Normal 2.0-7.7 [facility] Work Phone: [phone] Basophils/100 leukocytes 0.7 % Normal 0-1 [facility] Work Phone: [phone] Basophils/100 WBC (Bld) 0.7 % Normal 0-1 [facility] Work Phone: [phone] Eosinophils/100 leukocytes 3.9 % Normal 0-5 [facility] Work Phone: [phone] Eosinophils/100 WBC (Bld) 3.9 % Normal 0-5 [facility] Work Phone: [phone] Lymphocytes/100 leukocytes 18.9 % Low 19-41 [facility] Work Phone: [phone] Lymphocytes/100 WBC (Bld) 18.9 % Low 19-41 [facility] Work Phone: [phone] Monocytes/100 leukocytes 10.4 % High 0-10 [facility] Work Phone: [phone] Monocytes/100 WBC (Bld) 10.4 % High 0-10 [facility] Work Phone: [phone] Neutrophils/100 leukocytes 66.1 % Normal 47-70 [facility] Work Phone: [phone] Neutrophils/100 WBC (Bld) 66.1 % Normal 47-70 [facility] Work Phone: [phone] Lab Report: CMPon 06-13-2014 Albumin/Globulin Ratio 1.2 {ratio} Normal 0.9-2.4 [facility] Work Phone: [phone] Lab Report: PTon 07-09-2012 INR Coag RelTime (PPP) 1.0 {INR} Normal [facility] Work Phone: [phone] INR in blood by coagulation 1.0 {INR} Normal [facility] Work Phone: [phone] prothrombin time, actual/normal, ratio 12.3 SECONDS Normal 11.9-14.4 [facility] Work Phone: [phone] PTP 12.3 SECONDS Normal 11.9-14.4 [facility] Work Phone: [phone] Lab Report: PTTon 07-09-2012 aPTT 31.5 s Normal 24.1-36.2 [facility] Work Phone: [phone] Replaced Document: Viki Romero CG Observationson 06-25-2012 Pulse (Heart Rate) 393 ms Invalid Interpretation Code [facility] Work Phone: [phone] Lab Report: VITDon 2 vitamin D 25-hydroxy, serum 26.5 ng/mL Low 30.0-100.0 [facility] Work Phone: [phone] VITD 26.5 ng/mL Low 30.0-100.0 [facility] Work Phone: [phone] Lab Report: TSHon 08-17-2011 Thyroid stimulating hormone (TSH) 1.53 u[iU]/mL Normal 0.358-3.74 [facility] Work Phone: [phone] Vital Signs Date Time Vital Sign Value Performing Clinician Christiano zapata 03-14-2017 15:16-0400 Heart rate 87 /min Shabnam Smith [facility] Work Phone: 03-14-2017 14:48-0400 BMI (Body Mass Index) 25.04 kg/m2 Shabnam [facility]ises [facility] Work Phone: 03-14-2017 14:48-0400 BP Diastolic 60 mm[Hg] Sh[facility] Work Phone: 03-14-2017 14:48-0400 BP Systolic 120 mm[Hg] Shabnam [facility] Work Phone: 03-14-2017 14:48-0400 Height 165.1 cm Shabnam [facility] Work Phone: 03-14-2017 14:48-0400 Pulse (Heart Rate) 64 /min Shabnam [facility] Work Phone: 03-14-2017 14:48-0400 Respiratory Rate 20 /min Shabnam [facility] Work Phone: 03-14-2017 14:48-0400 Weight 68.27 kg Shabnam [facility] Work Phone: 08-09-2016 09:50-0500 BMI (Body Mass Index) 25.62 kg/m2 [facility] Work Phone: 08-09-2016 09:50-0500 BP Diastolic 60 mm[Hg] [facility] Work Phone: 08-09-2016 09:50-0500 BP Systolic 110 mm[Hg] [facility] Work Phone: 08-09-2016 09:50-0500 BSA (Body Surface Area) 1.77 m2 [facility] Work Phone: 08-09-2016 09:50-0500 Pulse (Heart Rate) 96 /min [facility] Work Phone: 08-09-2016 09:50-0500 Respiratory Rate 20 /min [facility] Work Phone: 08-09-2016 09:50-0500 Weight 69.85 kg Candelaria Rodriguez RN [facility] Work Phone: 08-06-2015 11:11-0500 Height 165.1 cm Candelaria Rodriguez RN [facility] Work Phone: 06-25-2012 11:19-0500 Heart rate 393 ms Shabnam De Leon [facility] Work Phone: Procedures Date Procedure Procedure Detail Performing Clinician Start: 03-14-2017 End: 03-14-2017 Follow Up Appt 6 months Kandace Fuentes Start: 03-14-2017 End: 03-14-2017 MARITA Howard MD Start: 08-09-2016 End: 08-09-2016 Follow Up Appt 6 months Kandace Fuentes Start: 08-09-2016 End: 08-09-2016 MARITA Howard MD Start: 02-11-2016 End: 02-11-2016 DIRECTOR COMMUNICATIONS Audrey Garzon PA-C Work Phone: Start: 02-11-2016 End: 02-11-2016 Follow Up Appt 6 months Audrey lan PA-C Work Phone: Start: 02-01-2016 End: 03-14-2017 *Hepatic Function Panel Kandace Fuentes Start: 02-01-2016 End: 03-14-2017 Lipid panel [AGGREGATE] Kandace Fuentes Start: 08-06-2015 End: 08-06-2015 *BMP Ruddy Howard MD Start: 08-06-2015 End: 08-06-2015 CBC W Auto Differential panel - Blood Ruddy Howard MD Start: 08-06-2015 End: 08-07-2015 Chest x-ray Ruddy Howard MD Start: 08-06-2015 End: 08-06-2015 Electrocardiogram, complete Ruddy Leyva i, MD Start: 08-06-2015 End: 08-06-2015 Follow Up Appt 6 months Kandace Fuentes Start: 08-06-2015 End: 08-31-2015 Left Heart Cath Ruddy Howard MD Start: 08-06-2015 End: 08-06-2015 MMM Ruddy Howard MD Start: 07-22-2015 End: 08-03-2015 *Hepatic Function Panel Kandace Fuentes Start: 07-22-2015 End: 08-03-2015 Lipid panel [AGGREGATE] Kandace Fuentes Start: 01-27-2015 End: 01-27-2015 DIRECTOR COMMUNICATIONS Audrey Garzon PA-C Work Phone: Start: 01-27-2015 End: 01-28-2015 Documentation of current medications Ruddy Howard MD Start: 01-27-2015 End: 01-27-2015 Electrocardiogram, complete Audrey Gore PA-C Work Phone: Start: 01-27-2015 End: 01-27-2015 Follow Up Appt 6 months Audrey lan PA-C Work Phone: Start: 12-27-2014 End: 01-19-2015 *Hepatic Function Panel Kandace Fuentes Start: 12-27-2014 End: 01-19-2015 Lipid panel [AGGREGATE] Kandace Fuentes Start: 07-15-2014 End: 07-15-2014 Follow Up Appt 6 months Kandace Fuentes Start: 07-15-2014 End: 07-15-2014 MARITA Howard MD Start: 01-03-2014 End: 01-03-2014 DIRECTOR COMMUNICATIONS Audrey Garzon PA-C Work Phone: Start: 01-03-2014 End: 01-03-2014 Follow Up Appt 6 months Audrey lan PA-C Work Phone: Start: 12-18-2013 End: 06-17-2014 *Hepatic Function Panel Kandace Fuentes Start: 12-18-2013 End: 06-20-2014 Lipid panel [AGGREGATE] Kandace Fuentes Start: 11-28-2013 End: 12-18-2013 *Hepatic Function Panel Kandace Fuentes Start: 11-28-2013 End: 12-17-2013 Lipid panel [AGGREGATE] Kandace Fuentes Start: 06-30-2013 End: 07-01-2013 *Hepatic Function Panel Kandace Fuentes Start: 06-30-2013 End: 07-01-2013 Lipid panel [AGGREGATE] Kandace Fuentes Start: 06-18-2013 End: 06-18-2013 Luke, esther Leyva i, MD Start: 06-18-2013 End: 06-18-2013 Follow Up Appt 6 months Kandace Fuentes Start: 06-18-2013 End: 06-18-2013 MARITA Howard MD Start: 12-29-2012 End: 01-05-2013 *Hepatic Function Panel Kandace Fuentes Start: 12-29-2012 End: 01-05-2013 Lipid panel [AGGREGATE] Kandace Fuentes Start: 12-12-2012 End: 12-12-2012 DIRECTOR COMMUNICATIONS Audrey Garzon PA-C Work Phone: Start: 12-12-2012 End: 12-12-2012 eRx Transmitted during this visit (Medicare only) Audrey Garzon PA-C Work Phone: Start: 12-12-2012 End: 12-12-2012 Follow Up Appt 6 months Audrey lan PA-C Work Phone: Start: 12-12-2012 End: 12-12-2012 Follow Up Appt Other Audrey zacarias PA-C Work Phone: Start: 06-30-2012 End: 07-12-2012 *Hepatic Function Panel Kandace Fuentes Start: 06-30-2012 End: 07-12-2012 Lipid panel [AGGREGATE] Kandace Fuentes Start: 06-28-2012 End: 07-04-2012 Left Heart Cath Ruddy Howard MD Start: 06-25-2012 End: 07-04-2012 *BMP Ruddy Howard MD Start: 06-25-2012 End: 07-04-2012 aPTT Ruddy Howard MD Start: 06-25-2012 End: 07-04-2012 CBC W Auto Differential panel - Blood Ruddy Howard MD Start: 06-25-2012 End: 07-04-2012 Chest x-ray Ruddy Howard MD Start: 06-25-2012 End: 07-04-2012 Coagulation factor induced.INR assay in platelet poor plasma Ruddy Howard MD Start: 06-25-2012 End: 06-25-2012 Electrocardiogram, complete Ruddy Leyva i, MD Start: 06-12-2012 End: 06-12-2012 Follow Up Appt 6 months Kandace Fuentes Start: 02-15-2012 End: 12-12-2012 *Hepatic Function Panel Kandace Fuentes Start: 02-15-2012 End: 12-12-2012 Lipid panel [AGGREGATE] Kandace Fuentes Start: 12-30-2011 End: 01-13-2012 *Hepatic Function Panel Kandace Fuentes Start: 12-30-2011 End: 12-30-2011 Follow Up Appt 3 months Kandace Fuentes Start: 12-30-2011 End: 01-13-2012 Lipid panel [AGGREGATE] Kandace Fuentes Plan of Treatment Date Care Activity Detail Author Start: 09-15-2017 End: 09-15-2017 Appointment Appointment [facility] Work Phone: Start: 03-14-2017 End: 03-14-2017 Appointment Appointment [facility] Work Phone: Start: 03-14-2017 End: 03-14-2017 Electrocardiogram, complete EKG (In office) [facility] Work Phone: Start: 03-14-2017 End: 03-14-2017 Follow Up Appt 6 months Follow Up Appt 6 months [facility] Work Phone: Start: 03-14-2017 End: 03-14-2017 MMM MMM [facility] Work Phone: Start: 03-10-2017 End: 03-10-2017 Appointment Appointment [facility] Work Phone: Start: 08-09-2016 End: 08-09-2016 Follow Up Appt 6 months Follow Up Appt 6 months [facility] Work Phone: Start: 08-09-2016 End: 08-09-2016 MMM MMM [facility] Work Phone: Start: 02-11-2016 End: 02-11-2016 DIRECTOR COMMUNICATIONS DIRECTOR COMMUNICATIONS [facility] Work Phone: Start: 02-11-2016 End: 02-11-2016 Follow Up Appt 6 months Follow Up Appt 6 months [facility] Work Phone: Start: 02-01-2016 End: 03-14-2017 *Hepatic Function Panel *Hepatic Function Panel [facility] Work Phone: Start: 02-01-2016 End: 03-14-2017 Lipid panel [AGGREGATE] *Lipid Profile CC PCP [facility] Work Phone: Start: 08-06-2015 End: 08-06-2015 *BMP *BMP [facility] Work Phone: Start: 08-06-2015 End: 08-06-2015 CBC W Auto Differential panel - Blood *CBC without Diff [facility] Work Phone: Start: 08-06-2015 End: 08-07-2015 Chest x-ray X-Ray, Chest, PA & Lateral [facility] Work Phone: Start: 08-06-2015 End: 08-06-2015 Electrocardiogram, complete EKG (In office) [facility] Work Phone: Start: 08-06-2015 End: 08-06-2015 Follow Up Appt 6 months Follow Up Appt 6 months [facility] Work Phone: Start: 08-06-2015 End: 08-06-2015 Left Heart Cath Left Heart Cath [facility] Work Phone: Start: 08-06-2015 End: 08-06-2015 MMM MMM [facility] Work Phone: Start: 07-22-2015 End: 08-03-2015 *Hepatic Function Panel *Hepatic Function Panel [facility] Work Phone: Start: 07-22-2015 End: 08-03-2015 Lipid panel [AGGREGATE] *Lipid Profile CC PCP [facility] Work Phone: Start: 01-27-2015 End: 01-27-2015 DIRECTOR COMMUNICATIONS DIRECTOR COMMUNICATIONS [facility] Work Phone: Start: 01-27-2015 End: 01-27-2015 Electrocardiogram, complete EKG (In office) [facility] Work Phone: Start: 01-27-2015 End: 01-27-2015 Follow Up Appt 6 months Follow Up Appt 6 months [facility] Work Phone: Start: 12-27-2014 End: 01-19-2015 *Hepatic Function Panel *Hepatic Function Panel [facility] Work Phone: Start: 12-27-2014 End: 01-19-2015 Lipid panel [AGGREGATE] *Lipid Profile CC PCP [facility] Work Phone: Start: 07-15-2014 End: 07-15-2014 Follow Up Appt 6 months Follow Up Appt 6 months [facility] Work Phone: Start: 07-15-2014 End: 07-15-2014 MMM MMM [facility] Work Phone: Start: 01-03-2014 End: 01-03-2014 DIRECTOR COMMUNICATIONS DIRECTOR COMMUNICATIONS [facility] Work Phone: Start: 01-03-2014 End: 01-03-2014 Follow Up Appt 6 months Follow Up Appt 6 months [facility] Work Phone: Start: 12-18-2013 End: 06-17-2014 *Hepatic Function Panel *Hepatic Function Panel [facility] Work Phone: Start: 12-18-2013 End: 06-13-2014 Lipid panel [AGGREGATE] *Lipid Profile CC PCP [facility] Work Phone: Start: 11-28-2013 End: 12-18-2013 *Hepatic Function Panel *Hepatic Function Panel [facility] Work Phone: Start: 11-28-2013 End: 12-17-2013 Lipid panel [AGGREGATE] *Lipid Profile CC PCP [facility] Work Phone: Start: 06-30-2013 End: 07-01-2013 *Hepatic Function Panel *Hepatic Function Panel [facility] Work Phone: Start: 06-30-2013 End: 07-01-2013 Lipid panel [AGGREGATE] *Lipid Profile CC PCP [facility] Work Phone: Start: 06-18-2013 End: 06-18-2013 Electrocardiogram, complete EKG (In office) [facility] Work Phone: Start: 06-18-2013 End: 06-18-2013 Follow Up Appt 6 months Follow Up Appt 6 months [facility] Work Phone: Start: 06-18-2013 End: 06-18-2013 MMM MMM [facility] Work Phone: Start: 12-29-2012 End: 01-05-2013 *Hepatic Function Panel *Hepatic Function Panel [facility] Work Phone: Start: 12-29-2012 End: 01-05-2013 Lipid panel [AGGREGATE] *Lipid Profile [facility] Work Phone: Start: 12-12-2012 End: 12-12-2012 DIRECTOR COMMUNICATIONS DIRECTOR COMMUNICATIONS [facility] Work Phone: Start: 12-12-2012 End: 12-12-2012 Follow Up Appt 6 months Follow Up Appt 6 months [facility] Work Phone: Start: 12-12-2012 End: 12-12-2012 Follow Up Appt Other Follow Up Appt Other [facility] Work Phone: Start: 06-30-2012 End: 07-12-2012 *Hepatic Function Panel *Hepatic Function Panel [facility] Work Phone: Start: 06-30-2012 End: 07-12-2012 Lipid panel [AGGREGATE] *Lipid Profile [facility] Work Phone: Start: 06-28-2012 End: 06-20-2012 Left Heart Cath Left Heart Cath [facility] Work Phone: Start: 06-25-2012 End: 07-04-2012 *BMP *BMP [facility] Work Phone: Start: 06-25-2012 End: 07-04-2012 aPTT *PTT-Partial Thromboplastin Time [facility] Work Phone: Start: 06-25-2012 End: 07-04-2012 aPTT Coag time (PPP) *PTT-Partial Thromboplastin Time [facility] Work Phone: Start: 06-25-2012 End: 07-04-2012 CBC W Auto Differential panel - Blood *CBC without Diff [facility] Work Phone: Start: 06-25-2012 End: 07-04-2012 Chest x-ray X-Ray, Chest, PA & Lateral [employer] Work Phone: Start: 06-25-2012 End: 07-04-2012 Coagulation factor induced.INR assay in platelet poor plasma *PT/INR [facility] Work Phone: Start: 06-25-2012 End: 06-25-2012 Electrocardiogram, complete EKG (In office) [facility] Work Phone: Start: 06-12-2012 End: 06-12-2012 Follow Up Appt 6 months Follow Up Appt 6 months [facility] Work Phone: Start: 02-15-2012 End: 12-12-2012 *Hepatic Function Panel *Hepatic Function Panel [facility] Work Phone: Start: 02-15-2012 End: 12-12-2012 Lipid panel [AGGREGATE] *Lipid Profile [facility] Work Phone: Start: 12-30-2011 End: 01-13-2012 *Hepatic Function Panel *Hepatic Function Panel [facility] Work Phone: Start: 12-30-2011 End: 12-30-2011 Follow Up Appt 3 months Follow Up Appt 3 months [facility] Work Phone: Start: 12-30-2011 End: 01-13-2012 Lipid panel [AGGREGATE] *Lipid Profile [facility] Work Phone: Patient Education HYPERLIPIDEMIA , CORONARY%20ARTERY%20DISEAS E%20IN%20WOMEN, CHEST%20PAIN [facility] Work Phone: Additional Source Comments FOR RECORDS PERTAINING TO PATIENTS WHO ARE OR HAVE BEEN ENROLLED IN A CHEMICAL DEPENDENCY/SUBSTANCEABUSE PROGRAM, SOME INFORMATION MAY BE OMITTED. This clinical summary was aggregated from multiple sources. Caution should be exercised in using it in the provision of clinical care. This summary normalizes information from multiple sources, and as a consequence, information in this document may materially change the coding, format and clinical context of patient data. In addition, data may be omitted in some cases. CLINICAL DECISIONS SHOULD BE BASED ON THE PRIMARY CLINICAL RECORDS. [facility]. provides no warranty or guarantee of the accuracy or completeness of information in this document.
[2024-05-27 00:52] LABS: Absolute Lymphocyte Count 1.34 X10^3/uL (0.83-4.51); Absolute Neutrophil Count 4.9 X10^3/uL (2.0-7.7); Basophil# 0.06 X10^3/uL; Basophil% 0.8 % (0-1); Eosinophil# 0.22 X10^3/uL; Eosinophils% 3.1 % (0-5); Hematocrit 34.5 % (37-47); Lymphocyte # 1.34 X10^3/ul (0.83-4.51); Lymphocyte % 18.7 % (19-41); Mean Corp Hgb Conc 31.9 g/dL (32-36); Mean Corpuscular Hgb 30.6 pg (27.0-32.0); Mean Corpuscular Volume 96.1 fL (81-99); Mean Platelet Vol. 10.3 fl (6.2-12.0); Monocyte# 0.62 X10^3/uL; Monocyte% 8.6 % (0-10); NRBC Flagged by Analyzer 0 % (0-5); Neutrophil % 68.4 % (47-70); Platelet Count 197 K/mm3 (150-450); RBC Distribution Width CV 13.2 % (11.6-14.6); RBC Distribution Width SD 46.9 fl (35.1-43.9); Red Blood Count 3.59 M/mm3 (4.2-5.4); White Blood Count 7.2 K/mm3 (4.4-11.0)
[2024-05-27 01:09] LABS: ALB/GLOB Ratio 1.1 RATIO (0.9-2.4); AST(SGOT) 33 U/L (15-37); Alanine Aminotransfer ALT/SGPT 24 U/L (13-56); Albumin, Serum 3.5 g/dL (3.2-5.0); Alkaline Phosphatase 84 U/L (45-117); Anion Gap 5 (5-15); BUN 35 mg/dL (7-18); BUN/Creat Ratio 26.3 RATIO (10-20); Calcium,Total 8.6 mg/dL (8.5-10.1); Chloride 111 mmol/L (98-107); Creatinine, Serum 1.33 mg/dL (0.55-1.02); EST Glomerular Filtration Rate 40 mL/min (>60); Est Glom Filt Rate - Afr Amer 49 mL/min (>60); Estimated Creatinine Clearance 29.53 ml/min; Globulin 3.3 g/dL (2.2-4.2); Glucose 100 mg/dL (74-106); Potassium 4.2 mmol/L (3.5-5.1); Protein, Total 6.8 g/dL (6.4-8.2); Sodium Level 141 mmol/L (136-145)
[2024-05-27 01:14] VITALS: BP 159/80; PULSE 78; RESP 18; TEMP 36.9; O2SAT 98
== END 2024-05-27 02:06 | disposition home or self-care (01) ==
PROVIDERS: Emergency Provider Emergency Medicine; PCP Family Medicine Geriatric Medicine; Visit Provider Emergency Medicine
DX: F03.90 Unspecified dementia, unspecified severity, without behavioral disturbance, psychotic disturbance, mood disturbance, and anxiety (principal); I25.10 Atherosclerotic heart disease of native coronary artery without angina pectoris; N18.9 Chronic kidney disease, unspecified; I12.9 Hypertensive chronic kidney disease with stage 1 through stage 4 chronic kidney disease, or unspecified chronic kidney disease; D64.9 Anemia, unspecified; E78.5 Hyperlipidemia, unspecified; Z79.899 Other long term (current) drug therapy; Z86.73 Personal history of transient ischemic attack (TIA), and cerebral infarction without residual deficits; Z87.891 Personal history of nicotine dependence
CPT/HCPCS: 80053; 81001; 83605; 85025; 99285; P9612; A4216

== ENCOUNTER → 2024-05-28 | Outpatient (CLI) | payer MEDICARE, OTHER, SELFPAY ==
--- OUTSIDE RECORDS SUMMARY | 2024-05-28 17:33 | XMS RPT_ITS | CCD ---
Author Organization [facility] Care Team Providers Care Roof Promenade Tile Setter Name Role Phone Shabnam De Leon Unavailable Shabnam De Leon Unavailable DeFinis, Harumi Y Unavailable Unavailable JOVAN Rodriguez, Candelaria Jeronimo Unavailable Unavailabl e Shabnam De Leon Unavailable Allergies Allergy Classification Reported Allergen(s) Allergy Type Date of Onset Reaction(s) Facility (5 sources) amLODIPine drug allergy 1 edema [facility] Work Phone: [phone] (5 sources) amoxicillin drug allergy 1 rash [facility] Work Phone: [phone] (5 sources) enalapril drug allergy 1 Leg edema, disoriented [facility] Work Phone: [phone] (5 sources) iodine drug allergy 1 prolonged sneezing [facility] Work Phone: [phone] (5 sources) lisinopril drug allergy 1 [facility] Work Phone: [phone] (5 sources) ranolazine drug allergy 6 Passed out with this [facility] Work Phone: [phone] (5 sources) sulfaSALAzine drug allergy 1 lips swollen [facility] Work Phone: [phone] (10 sources) RENAX (MULTIPLE VITAMINS-MINERALS -FA TABS); Translations: [RENAX (MULTIPLE VITAMINS-MINERALS -FA TABS)] allergy to substance 1 passed out [facility] Work Phone: [phone] (5 sources) RENAX drug allergy 1 passed out [facility] Work Phone: Medications Completed/Discontinued Medications Medication Drug Class(es) Dates Sig (Normalized) Sig (Original) APREMILAST (5 sources) Start: 08-09-2016 OTEZLA 10 & 20 & 30 MG TBPK as directed, pt will be starting soon for psoriatic arthritis APREMILAST [id number] Ruddy Howard MD aspirin 81 mg oral tablet (20 sources) Nonsteroidal Anti-inflammatory Drug Start: 02-15-2011 take 1 tablet by mouth twice daily ASPIRIN 325 MG TABS One tablet by mouth twice daily ASPIRIN [id number] Audrey Garzon PA-C Start: 02-15-2011 ASPIRIN 325 MG TABS one tablet every other day ASPIRIN [id number] Audrey Garzon PA-C Start: 02-15-2011 take 1 tablet by luis alfredo th once daily ASPIRIN 81 MG TABS One tablet by mouth daily ASPIRIN [id number] Gabriela Arenas Start: 02-15-2011 take 1 tablet by luis alfredo th once daily ASPIRIN 81 MG TABS One tablet by mouth daily ASPIRIN [id number] Gabriela Arenas Start: 02-15-2011 take 1 tablet by luis alfredo th once daily ASPIRIN EC 81 MG TBEC One tablet by mouth daily ASPIRIN [id number] Ruddy Howard MD atorvastatin 80 mg oral tablet (15 sources) HMG-CoA Reductase Inhibitor Start: 02-15-2011 take 1 tablet by mouth once daily LIPITOR 80 MG TABS One tablet by mouth daily ATORVASTATIN CALCIUM [id number] Adrienne Haines RN Start: 02-15-2011 take 1 tablet by luis alfredo th once daily ATORVASTATIN CALCIUM 40 MG TABS One tablet by mouth daily ATORVASTATIN CALCIUM [id number] Audrey Garzon PA-C biotin (5 sources) Start: 08-09-2016 take 1 tablet by mouth once daily BIOTIN FORTE TABS One tablet by mouth daily BIOTIN TABS [id number] Ruddy Howard MD CALCIUM CARBONATE-VITAMIN D CAPS (10 sources) Start: 02-15-2011 take 1 tablet by mouth once daily CALCIUM CARBONATE-VITAMIN D CAPS 1500Mg-200 U, One tablet by mouth daily CALCIUM CARBONATE-VITAMIN D CAPS [id number] Gabriela Arenas Start: 02-15-2011 End: 07-15-2014 take 1 tablet by mouth once daily CALCIUM CARBONATE-VITAMIN D CAPS 1500Mg-200 U, One tablet by mouth daily CALCIUM CARBONATE-VITAMIN D CAPS [id number] Ruddy Howard MD carbidopa 25 mg / levodopa 100 mg oral tablet (3 sources) Aromatic Amino Acid Decarboxylation Inhibitor Start: 03-14-2017 take 1 tablet by mouth three times daily CARBIDOPA-LEVODOPA 25-100 MG TABS One tablet by mouth three times daily CARBIDOPA-LEVODOPA [id number] Ruddy Howard MD clopidogrel 75 mg oral tablet (15 sources) P2Y12 Platelet Inhibitor Start: 02-15-2011 take 1 tablet by mouth once daily PLAVIX 75 MG TABS One tablet by mouth daily CLOPIDOGREL BISULFATE [id number] Deric Meadows INSERT MOLDING OPERATOR-C Start: 12-28-2010 PLAVIX TABS 20 06/04/31 CLOPIDOGREL BISULFATE TABS [id number] Lauren Martinez Start: 12-28-2010 End: 02-15-2011 PLAVIX TABS 02/15 CLOPIDOGREL BISULFATE TABS [id number] Gabriela Joeward cycloSPORINE 0.5 mg/ml ophthalmic suspension (5 sources) Calcineurin Inhibitor Immunosuppressant Start: 08-09-2016 RESTASIS 0.05 % EMUL as directed CYCLOSPORINE [id number] Ruddy Howard MD Start: 08-09-2016 RESTASIS 0.05 % EMUL as directed CYCLOSPORINE [id number] Ruddy Howard MD diphenhydrAMINE hydrochloride 25 mg oral tablet (20 sources) Histamine-1 Receptor Antagonist Start: 08-19-2015 End: 02-11-2016 take 1 tablet by mouth at bedtime BENADRYL 25 MG TABS One tablet by mouth at bedtime on 08/22/14 and 08/23/14 for heart cath on 08/24/14 DIPHENHYDRAMINE HCL [id number] Audrey Garzon PA-C Start: 06-20-2012 End: 02-11-2016 take 1 tablet by mouth at bedtime BENADRYL 25 MG TABS One tablet by mouth at bedtime on 08/22/14 and 08/23/14 for heart cath on 08/24/14 DIPHENHYDRAMINE HCL [id number] Ruddy Howard MD Start: 06-20-2012 End: 12-12-2012 BENADRYL 25 MG TABS 1 tablet by mouth at bedtime on 06/27 and 06/28 for heart cath on 06/29/12 DIPHENHYDRAMINE HCL [id number] Audrey Garzon PA-C DULoxetine 60 mg delayed release oral capsule (15 sources) Serotonin and Norepinephrine Reuptake Inhibitor Start: 02-15-2011 End: 06-12-2012 take 1 tablet by mouth once daily CYMBALTA 60 MG CPEP One tablet by mouth daily DULOXETINE HCL [id number] Ruddy Howard MD Start: 12-28-2010 CYMBALTA CPEP DULOXETINE HCL CPEP [id number] Lauren Martinez ergocalciferol 49366 unt oral capsule (10 sources) Provitamin D2 Compound Start: 08-09-2016 take 1 tablet by mouth every week VITAMIN D (ERGOCALCIFEROL) 85989 UNIT CAPS One tablet by mouth weekly ERGOCALCIFEROL [id number] Ruddy Howard MD Start: 06-18-2013 take 1 tablet by luis alfredo th every week VITAMIN D (ERGOCALCIFEROL) 01293 UNIT CAPS One tablet by mouth weekly ERGOCALCIFEROL [id number] Ruddy Howard MD [id number] (2 sources) Start: 12-12-2012 take 1 tablet by mouth once daily FOLTX 2.5-25-2 MG TABS One tablet by mouth daily [id number] Audrey Garzon PA-C Start: 12-12-2012 End: 01-03-2014 take 1 tablet by mouth once daily FOLTX 2.5-25-2 MG TABS One tablet by luis alfredo th daily [id number] Audrey Garzon PA-C [id number] TABS (1 source) Start: 02-15-2011 take 1 tablet by mouth once daily FOLTX TABS Vitamin B complex, One tablet by mouth daily [id number] TABS [id number] Gabriela Arenas famotidine 40 mg oral tablet (3 sources) Histamine-2 Receptor Antagonist Start: 03-14-2017 take 1 tablet by mouth once daily FAMOTIDINE 40 MG TABS One tablet by mouth daily FAMOTIDINE [id number] Ruddy Howard MD folic acid / vitamin B 12 / vitamin B6 (12 sources) Vitamin B12 Start: 12-12-2012 End: 01-03-2014 take 1 tablet by mouth once daily FOLTX 2.5-25-2 MG TABS One tablet by mouth daily [id number] Audrey Garzon PA-C Start: 12-12-2012 take 1 tablet by luis alfredo th once daily FOLTX 2.5-25-2 MG TABS One tablet by luis alfredo th daily [id number] Audrey Garzon PA-C Start: 02-15-2011 take 1 tablet by luis alfredo th once daily FOLTX TABS Vitamin B complex, One tablet by mouth daily [id number] TABS [id number] Gabriela Arenas gabapentin 100 mg oral capsule (10 sources) Anti-epileptic Agent Start: 01-03-2014 End: 08-06-2015 take 1 tablet by mouth once daily GABAPENTIN 100 MG CAPS One tablet by mouth daily GABAPENTIN [id number] Ruddy Howard MD hydroxychloroquine sulfate 200 mg oral tablet (5 sources) Antirheumatic Agent Start: 02-15-2011 take 1 tablet by mouth twice daily PLAQUENIL 200 MG TABS One tablet by mouth twice daily HYDROXYCHLOROQUINE SULFATE [id number] Gabriela Arenas 24 hr isosorbide mononitrate 30 mg extended release oral tablet (15 sources) Start: 07-02-2012 take 1 tablet by mouth twice daily ISOSORBIDE MONONITRATE ER 30 MG [id number] One tablet by mouth twice daily ISOSORBIDE MONONITRATE [id number] Ruddy Howard MD Start: 07-02-2012 take 1 tablet by luis alfredo th once daily ISOSORBIDE MONONITRATE ER 30 MG [id number] One tablet by mouth daily (Imdur) ISOSORBIDE MONONITRATE [id number] Ruddy Howard MD Start: 07-02-2012 take 1 tablet by luis alfredo th once daily IMDUR 30 MG [id number] One tablet by mouth daily ISOSORBIDE MONONITRATE [id number] Ruddy Howard MD magnesium oxide 400 mg oral tablet (3 sources) Start: 03-14-2017 take 1 tablet by mouth once daily MAGNESIUM OXIDE 400 MG TABS One tablet by mouth daily MAGNESIUM OXIDE [id number] Ruddy Howard MD 24 hr metoprolol succinate 25 mg extended release oral tablet (15 sources) beta-Adrenergic Shiva Start: 02-15-2011 TOPROL XL 25 MG [id number] 1/2 tablet daily METOPROLOL SUCCINATE [id number] Ruddy Howard MD Start: 02-15-2011 TOPROL XL 25 M G [id number] 1/2 tablet daily METOPROLOL SUCCINATE [id number] Ruddy Howard MD Start: 12-28-2010 End: 02-15-2011 METOPROLOL TARTRATE TABS 201 08/04/30 METOPROLOL TARTRATE TABS [id number] Gabriela Arenas METRONIDAZOLE GEL (10 sources) Nitroimidazole Antimicrobial Start: 02-15-2011 End: 01-03-2014 METROGEL GEL 0.75% - 1% topical as directed METRONIDAZOLE GEL [id number] Audrey Garzon PA-C Start: 02-15-2011 METROGEL GEL 0 .75% - 1% topical as directed METRONIDAZOLE GEL [id number] Gabriela Arenas MULTIPLE VITAMIN (8 sources) Start: 02-15-2011 take 1 tablet by mouth once daily MULTIVITAMINS TABS One tablet by mouth daily MULTIPLE VITAMIN [id number] Gabriela Arenas Start: 02-15-2011 End: 07-15-2014 take 1 tablet by mouth once daily MULTIVITAMINS TABS One tablet by mouth daily MULTIPLE VITAMIN [id number] Ruddy Howard MD MULTIPLE VITAMIN (2 sources) Start: 02-15-2011 take 1 tablet by mouth once daily MULTIVITAMINS TABS One tablet by mouth daily MULTIPLE VITAMIN [id number] Gabriela Arenas Start: 02-15-2011 End: 07-15-2014 take 1 tablet by mouth once daily MULTIVITAMINS TABS One tablet by mouth daily MULTIPLE VITAMIN [id number] Ruddy Howard MD nitrofurantoin 100 mg oral tablet (13 sources) Start: 02-15-2011 End: 12-12-2012 take 1 tablet by mouth once daily MACROBID 100 MG CAPS One tablet by mouth daily NITROFURANTOIN MONOHYD MACRO [id number] Gabriela Arenas Start: 12-28-2010 MACROBID CAPS NITROFURANTOIN MONOHYD MACRO CAPS [id number] Lauren Martinez nitrofurantoin, macrocrystals 25 mg / nitrofurantoin, monohydrate 75 mg oral capsule (2 sources) Nitrofuran Antibacterial Start: 02-15-2011 End: 12-12-2012 take 1 tablet by mouth once daily MACROBID 100 MG CAPS One tablet by mouth daily NITROFURANTOIN MONOHYD MACRO [id number] Gabriela Arenas 24 hr nitroglycerin 0.3 mg/hr transdermal system (20 sources) Nitrate Vasodilator Start: 01-13-2012 End: 07-02-2012 apply 0.3 mg transdermal route every hour at bedtime NITRO-DUR 0.3 MG/HR PT24 apply 1 patch topically in the am and remove at bedtime NITROGLYCERIN [id number] Ruddy Howard MD Start: 01-13-2012 NITRO-DUR 0.3 MG/HR PT24 apply 1 patch topically in the am and remove at bedtime NITROGLYCERIN [id number] Ruddy Howard MD Start: 01-13-2012 End: 07-02-2012 NITRO-DUR 0.3 MG/HR PT24 avelina ly 1 patch topically in the am and remove at bedtime NITROGLYCERIN [id number] Macie Johnson RN Start: 12-30-2011 MINITRAN 0.4 M G/HR PT24 apply during the day and off at night NITROGLYCERIN [id number] Ruddy Howard MD Start: 12-30-2011 MINITRAN 0.4 M G/HR PT24 apply during the day and off at night NITROGLYCERIN [id number] Ruddy Howard MD Start: 02-15-2011 MINITRAN 0.2 M G/HR PT24 Apply every morning & remove at night NITROGLYCERIN [id number] Gabriela Arenas Start: 02-15-2011 NITROSTAT 0.4 MG SUBL 1 tablet under tongue every 5 min up to 3 X NITROGLYCERIN [id number] Ruddy Howard MD Start: 02-15-2011 MINITRAN 0.2 M G/HR PT24 Apply every morning & remove at night NITROGLYCERIN [id number] Gabriela Arenas predniSONE 20 mg oral tablet (20 sources) Corticosteroid Start: 06-20-2012 End: 02-11-2016 PREDNISONE 20 MG TABS take one tablet by mouth on 08/22/15 and 08/23/15 PREDNISONE [id number] Ruddy Howard MD 12 hr ranolazine 500 mg extended release oral tablet (10 sources) Anti-anginal Start: 08-24-2015 End: 01-06-2016 take 1 tablet by mouth twice daily at mealtime RANEXA 500 MG [id number] One tablet by mouth twice daily with food RANOLAZINE [id number] Ruddy Howard MD Start: 08-24-2015 take 1 tablet by luis alfredo th twice daily at mealtime RANEXA 500 MG [id number] One tablet by mouth twice daily with food RANOLAZINE [id number] Ruddy Howard MD Start: 08-24-2015 End: 01-06-2016 take 1 tablet by mouth twice daily at mealtime RANEXA 500 MG [id number] One tablet by mouth twice daily with food RANOLAZINE [id number] Candelaria Rodriguez RN selenium sulfide 25 mg/ml medicated shampoo (10 sources) Start: 02-15-2011 End: 01-03-2014 SELENIUM SULFIDE 2.5 % LOTN Apply as directed SELENIUM SULFIDE [id number] Audrey Garzon PA-C levothyroxine sodium 0.1 mg oral tablet (15 sources) l-Thyroxi ne Start: 02-15-2011 take 1 tablet by mouth once daily SYNTHROID 100 MCG TABS One tablet by mouth daily LEVOTHYROXINE SODIUM [id number] Gabriela Arenas Start: 02-15-2011 take 1 tablet by luis alfredo th once daily SYNTHROID 100 MCG TABS One tablet by mouth daily LEVOTHYROXINE SODIUM [id number] Gabriela Arenas Start: 12-28-2010 LEVOTHROID TAB S LEVOTHYROXINE SODIUM TABS [id number] Lauren Martinez Start: 12-28-2010 End: 02-15-2011 LEVOTHROID TABS 2 LEVOTHYROXINE SODIUM TABS [id number] Gabriela Arenas triamcinolone acetonide 0.001 mg/mg topical ointment (15 sources) Corticosteroid Start: 02-15-2011 End: 01-03-2014 TRIAMCINOLONE ACETONIDE 0.1 % OINT Apply as directed TRIAMCINOLONE ACETONIDE [id number] Ruddy Howard MD Problems Active Problems Problem [...] (1 source) Long-term drug therapy; Translations: [Other longterm (current) drug therapy] Onset: 02-15-2011 02-15-2011 Past [...] 02-15-2011 Episodic Other aftercare (4 sources) Other watermelon harvesting supervisor (current) drug therapy; Translations: [Other longterm (current) drug therapy] Onset: 02-15-2011 02-15-2011 Episodic [...] (procedure) Done Invalid Interpretation Code [facility] Work Phone: [phone] Fall risk assessment Yes [facility] Work Phone: [phone] Protein mass conc Done [facility] Work Phone: [phone] Replaced Document: Viki Romero CG Observationson 03-14-2017 EKG QRS axis 54 deg [facility] Work Phone: [phone] electrocardiogram interpretation Sinus Rhythm - frequent PAC s # PACs = 2.WITHIN NORMAL LIMITS Invalid Interpretation Code [facility] Work Phone: [phone] GE use only - for [employer] import when terms are not otherwise specified 393 ms Invalid Interpretation Code [facility] Work Phone: [phone] Interpretation Sinus Rhythm - frequent PAC s # PACs = 2.WITHIN NORMAL LIMITS [facility] Work Phone: [phone] P [place] 73 deg [facility] Work Phone: [phone] P wave axis, electrocardiogram 73 deg Invalid Interpretation Code [facility] Work Phone: [phone] [place] Interval 126 ms [facility] Work Phone: [phone] [place] interval, electrocardiogram 126 ms Invalid Interpretation Code [facility] Work Phone: [phone] Pulse (Heart Rate) 87 /min Invalid Interpretation Code [facility] Work Phone: [phone] QRS axis, electrocardiogram 54 deg Invalid Interpretation Code [facility] Work Phone: [phone] QRS Duration 90 ms [facility] Work Phone: [phone] QRS duration, electrocardiogram 90 ms Invalid Interpretation Code [facility] Work Phone: [phone] QT Interval new path ms [facility] Work Phone: [phone] QT interval, electrocardiogram new path ms Invalid Interpretation Code [facility] Work Phone: [phone] QTc Guzman 393 ms [facility] Work Phone: [phone] T [place] 53 deg [facility] Work Phone: [phone] T wave axis, electrocardiogram 53 deg Invalid Interpretation Code [facility] Work Phone: [phone] Chart Maintenanceon 03-09-20 17 Left ventricular Ejection fraction 55-60 [facility] Work Phone: [phone] Office Visiton 08-09-2016 Documentation of current medications (procedure) Done Invalid Interpretation Code [facility] Work Phone: [phone] Lab Report: Basic Metabolic Profile (BMP)on 08-06-2015 Anion gap 1 mmol/L Low 5-15 [facility] Work Phone: [phone] Anion gap molar conc 1 mmol/L Low 5-[address] Work Phone: [phone] BUN/Creatinine Ratio 16.5 RATIO 10-[address] [facility] Work Phone: [phone] Calcium 8.7 mg/dL 8.5-10.1 [facility] Work Phone: [phone] Chloride 105 mmol/L 98-107 [facility] Work Phone: [phone] CO2 30.0 mmol/L Invalid Interpretation Code 21.0-32.0 [facility] Work Phone: [phone] CO2 ppres (BldV) 30.0 mmol/L 21.0-32.0 [facility] Work Phone: [phone] Creatinine 1.03 mg/dL 0.55-1.20 [facility] Work Phone: [phone] eGFR (non-black) 67 mL/min/{1.73_m 2} Invalid Interpretation Code >60 [facility] Work Phone: [phone] eGFR (non-black) 55 mL/min/{1.73_m 2} Low >60 [facility] Work Phone: [phone] EST GFR - AA 67 mL/min >60 [facility] Work Phone: [phone] Glucose 115 mg/dL High 70-110 [facility] Work Phone: [phone] Glucose [...] distribution width Ratio (RBC) 12.5 % 11.6-14.6 [facility] Work [phone] Erythrocyte distribution width Ratio (RBC) 43.1 fL 35.1-43.9 [facility] Work Phone: [phone] Erythrocytes (RBC) 4.40 10*6/uL Invalid Interpretation Code 4.2-5.4 [facility] Work Phone: [phone] Hematocrit (HCT) 41.3 % Invalid Interpretation Code 37-47 [facility] Work Phone: [phone] Hematocrit Volume Fraction (Bld) 41.3 % 37-47 [facility] Work [phone] Hemoglobin (HGB) 13.2 g/dL 12.0-15.0 [facility] Work Phone: [phone] MCH 30.0 pg Invalid Interpretation Code 27.0-32.0 [facility] Work Phone: [phone] MCH Entitic mass (RBC) 30.0 pg 27.0-32.0 [facility] Work Phone: [phone] MCHC 32.0 G/GL Invalid Interpretation Code 32-36 [facility] Work Phone: [phone] MCHC mass conc (RBC) 32.0 G/GL 32-[address] [facility] Work Phone: [phone] MCV 93.9 fL Invalid Interpretation Code 81-99 [facility] Work Phone: [phone] MCV Entitic volume (RBC) 93.9 fL 81-99 [facility] Work Phone: [phone] Platelet mean volume Entitic volume (Bld) 9.8 fL 6.2-12.0 [facility] Work Phone: [phone] Platelets 223 10*3/mm3 Invalid Interpretation Code 150-450 [facility] Work Phone: [phone] Platelets #/vol (Bld) 223 10*3/mm3 150-450 [facility] Work Phone: [phone] PMV by Lenin 9.8 fL Invalid Interpretation Code 6.2-12.0 [facility] Work Phone: [phone] RBC #/vol (Bld) 4.40 10*6/uL 4.2-5.4 [facility] Work Phone: [phone] RDW-CA 12.5 % Invalid Interpretation Code 11.6-14.6 [facility] Work Phone: [phone] red blood cell distribution width, size density 43.1 fL Invalid Interpretation Code 35.1-43.9 [facility] Work Phone: [phone] WBC #/vol (Bld) 6.4 10*3/uL 4.4-11.0 [facility] Work Phone: [phone] WBC (Leukocytes) 6.4 10*3/uL Invalid Interpretation Code 4.4-11.0 [facility] Work Phone: [phone] Office Visiton 08-06-2015 Tobacco smoking status NHIS Former smoker [facility] Work Phone: [phone] Tobacco use CPHS Former smoker Invalid Interpretation Code [facility] Work Phone: [phone] Replaced Document: Midmark E CG Observationson 08-06-2015 electrocardiogram interpretation Sinus Rhythm -Short [place] syndrome Kiran = 114BORDERLINE RHYTHM Invalid Interpretation Code [facility] Work Phone: [phone] GE use only - for [employer] import when terms are not otherwise specified 391 ms Invalid Interpretation Code [facility] Work Phone: [phone] P wave axis, electrocardiogram 78 deg Invalid Interpretation Code [facility] Work Phone: [phone] [place] interval, electrocardiogram 114 ms Invalid Interpretation Code [facility] Work Phone: [phone] Pulse (Heart Rate) 80 /min Invalid Interpretation Code [facility] Work Phone: [phone] QRS axis, electrocardiogram 47 deg Invalid Interpretation Code [facility] Work Phone: [phone] QRS duration, electrocardiogram 92 ms Invalid Interpretation Code [facility] Work Phone: [phone] QT interval, electrocardiogram new path ms Invalid Interpretation Code [facility] Work Phone: [phone] T wave axis, electrocardiogram 63 deg Invalid Interpretation Code [facility] Work Phone: [phone] Lab Report: Lipid Profileon 08-01-2015 Cholesterol 141 mg/dL 200 [facility] Work Phone: [phone] HDL Cholesterol 77 mg/dL [facility] Work Phone: [phone] LDL Cholesterol 56 mg/dL 0-130 [facility] Work Phone: [phone] Triglyceride 39 mg/dL [facility] Work Phone: [phone] very low density lipoproteins 8 mg/dL 5-40 [facility] Work Phone: [phone] Lab Report: Liver Profileon 08-01-2015 Alanine aminotransferase (ALT) 31 U/L 12-78 [facility] Work Phone: [phone] Albumin 3.6 g/dL 3.4-5.0 [facility] Work Phone: [phone] Alkaline phosphatase (ALP) 76 U/L Invalid Interpretation Code 50-136 [facility] Work Phone: [phone] ALP enzyme act/vol (Bld) 76 U/L 50-136 [facility] Work Phone: [phone] Aspartate aminotransferase (AST) 34 U/L 15-37 [facility] Work Phone: [phone] Bilirubin (direct) 0.12 mg/dL 0.00-0.30 [facility] Work Phone: Bilirubin (total) 0.40 mg/dL 0.20-1.00 [facility] Work Phone: [phone] Globulin 3.3 g/dL Invalid Interpretation Code 2.3-3.5 [facility] Work Phone: [phone] Globulin mass conc (S) 3.3 g/dL 2.3-3.5 [facility] Work Phone: [phone] Protein 6.9 g/dL 6.4-8.2 [facility] Work Phone: [phone] Office Visiton 07-15-2014 cardiac risk group C [facility] Work Phone: [phone] General cardiovascular disease 10Y risk [#] [place] N/A [facility] Work Phone: [phone] Lab Report: CBCDon 4 Absolute Neutrophil count 3.7 X10 3/UL Normal 2.0-7.7 [facility] Work Phone: [phone] ANC 3.7 X10 3/UL Normal 2.0-7.7 [facility] Work Phone: [phone] Basophils/100 leukocytes 0.7 % Normal 0-1 [facility] Work Phone: [phone] Basophils/100 WBC (Bld) 0.7 % Normal 0-1 [facility] Work Phone: [phone] Eosinophils/100 leukocytes 3.9 % Normal 0-5 [facility] Work Phone: [phone] Eosinophils/100 WBC (Bld) 3.9 % Normal 0-5 [facility] Work Phone: [phone] Lymphocytes/100 leukocytes 18.9 % Low 19-41 [facility] Work Phone: [phone] Lymphocytes/100 WBC (Bld) 18.9 % Low 19-41 [facility] Work Phone: [phone] Monocytes/100 leukocytes 10.4 % High 0-10 [facility] Work Phone: [phone] Monocytes/100 WBC (Bld) 10.4 % High 0-10 [facility] Work Phone: [phone] Neutrophils/100 leukocytes 66.1 % Normal 47-70 [facility] Work Phone: [phone] Neutrophils/100 WBC (Bld) 66.1 % Normal 47-70 [facility] Work Phone: [phone] Lab Report: CMPon 06-13-2014 Albumin/Globulin Ratio 1.2 {ratio} Normal 0.9-2.4 [facility] Work Phone: [phone] Lab Report: PTon 07-09-2012 INR Coag RelTime (PPP) 1.0 {INR} Normal [facility] Work Phone: [phone] INR in blood by coagulation 1.0 {INR} Normal [facility] Work Phone: [phone] prothrombin time, actual/normal, ratio 12.3 SECONDS Normal 11.9-14.4 [facility] Work Phone: [phone] PTP 12.3 SECONDS Normal 11.9-14.4 [facility] Work Phone: [phone] Lab Report: PTTon 07-09-2012 aPTT 31.5 s Normal 24.1-36.2 [facility] Work Phone: [phone] Replaced Document: Viki Romero CG Observationson 06-25-2012 Pulse (Heart Rate) 393 ms Invalid Interpretation Code [facility] Work Phone: [phone] Lab Report: VITDon 2 vitamin D 25-hydroxy, serum 26.5 ng/mL Low 30.0-100.0 [facility] Work Phone: [phone] VITD 26.5 ng/mL Low 30.0-100.0 [facility] Work Phone: [phone] Lab Report: TSHon 08-17-2011 Thyroid stimulating hormone (TSH) 1.53 u[iU]/mL Normal 0.358-3.74 [facility] Work Phone: [phone] Vital Signs Date Time Vital Sign Value Performing Clinician Christiano zapata 03-14-2017 15:16-0400 Heart rate 87 /min Shabnam Smith [facility] Work Phone: 03-14-2017 14:48-0400 BMI [...] 09:50-0500 Weight 69.85 kg Candelaria Rodriguez RN [facility] Work Phone: 08-06-2015 11:11-0500 Height 165.1 cm Candelaria Rodriguez RN [facility] Work Phone: 06-25-2012 11:19-0500 Heart rate 393 ms Shabnam De Leon [facility] Work Phone: Procedures Date Procedure Procedure Detail Performing Clinician Start: 03-14-2017 End: 03-14-2017 Follow Up Appt 6 months Kandace Fuentes Start: 03-14-2017 End: 03-14-2017 MARITA Howard MD Start: 08-09-2016 End: 08-09-2016 Follow Up Appt 6 months Kandace Fuentes Start: 08-09-2016 End: 08-09-2016 MARITA Howard MD Start: 02-11-2016 End: 02-11-2016 MINE LABORER Audrey Garzon PA-C Work Phone: Start: 02-11-2016 [...] [AGGREGATE] Kandace Fuentes Start: 01-27-2015 End: 01-27-2015 MINE LABORER Audrey Garzon PA-C Work Phone: Start: 01-27-2015 [...] MARITA Howard MD Start: 01-03-2014 End: 01-03-2014 MINE LABORER Audrey Garzon PA-C Work Phone: Start: 01-03-2014 [...] 06-30-2013 End: 07-01-2013 Lipid panel [AGGREGATE] Kandace Funetes Start: 06-18-2013 End: 06-18-2013 Luke, esther Leyva i, MD Start: 06-18-2013 End: 06-18-2013 Follow Up Appt 6 months Kandace Fuentes Start: 06-18-2013 End: 06-18-2013 MARITA Howard MD Start: 12-29-2012 End: 01-05-2013 *Hepatic Function Panel Kandace Fuentes Start: 12-29-2012 End: 01-05-2013 Lipid panel [AGGREGATE] Kandace Fuentes Start: 12-12-2012 End: 12-12-2012 MINE LABORER Audrey Garzon PA-C Work Phone: Start: 12-12-2012 [...] MD Start: 06-25-2012 End: 06-25-2012 Electrocardiogram, complete uRddy Leyva i, MD Start: 06-12-2012 End: 06-12-2012 [...] Author Start: 09-15-2017 End: 09-15-2017 Appointment Appointment [facility] Work Phone: Start: 03-14-2017 End: 03-14-2017 Appointment Appointment [facility] Work Phone: Start: 03-14-2017 End: 03-14-2017 Electrocardiogram, complete EKG (In office) [facility] Work Phone: Start: 03-14-2017 End: 03-14-2017 Follow Up Appt 6 months Follow Up Appt 6 months [facility] Work Phone: Start: 03-14-2017 End: 03-14-2017 MMM MMM [facility] Work Phone: Start: 03-10-2017 End: 03-10-2017 Appointment Appointment [facility] Work Phone: Start: 08-09-2016 End: 08-09-2016 Follow Up Appt 6 months Follow Up Appt 6 months [facility] Work Phone: Start: 08-09-2016 End: 08-09-2016 MMM MMM [facility] Work Phone: Start: 02-11-2016 End: 02-11-2016 MINE LABORER MINE LABORER [facility] Work Phone: Start: 02-11-2016 End: 02-11-2016 Follow Up Appt 6 months Follow Up Appt 6 months [facility] Work Phone: Start: 02-01-2016 End: 03-14-2017 *Hepatic Function Panel *Hepatic Function Panel [facility] Work Phone: Start: 02-01-2016 End: 03-14-2017 Lipid panel [AGGREGATE] *Lipid Profile CC PCP [facility] Work Phone: Start: 08-06-2015 End: 08-06-2015 *BMP *BMP [facility] Work Phone: Start: 08-06-2015 End: 08-06-2015 CBC W Auto Differential panel - Blood *CBC without Diff [facility] Work Phone: Start: 08-06-2015 End: 08-07-2015 Chest x-ray X-Ray, Chest, PA & Lateral [facility] Work Phone: Start: 08-06-2015 End: 08-06-2015 Electrocardiogram, complete EKG (In office) [facility] Work Phone: Start: 08-06-2015 End: 08-06-2015 Follow Up Appt 6 months Follow Up Appt 6 months [facility] Work Phone: Start: 08-06-2015 End: 08-06-2015 Left Heart Cath Left Heart Cath [facility] Work Phone: Start: 08-06-2015 End: 08-06-2015 MMM MMM [facility] Work Phone: Start: 07-22-2015 End: 08-03-2015 *Hepatic Function Panel *Hepatic Function Panel [facility] Work Phone: Start: 07-22-2015 End: 08-03-2015 Lipid panel [AGGREGATE] *Lipid Profile CC PCP [facility] Work Phone: Start: 01-27-2015 End: 01-27-2015 MINE LABORER MINE LABORER [facility] Work Phone: Start: 01-27-2015 End: 01-27-2015 Electrocardiogram, complete EKG (In office) [facility] Work Phone: Start: 01-27-2015 End: 01-27-2015 Follow Up Appt 6 months Follow Up Appt 6 months [facility] Work Phone: Start: 12-27-2014 End: 01-19-2015 *Hepatic Function Panel *Hepatic Function Panel [facility] Work Phone: Start: 12-27-2014 End: 01-19-2015 Lipid panel [AGGREGATE] *Lipid Profile CC PCP [facility] Work Phone: Start: 07-15-2014 End: 07-15-2014 Follow Up Appt 6 months Follow Up Appt 6 months [facility] Work Phone: Start: 07-15-2014 End: 07-15-2014 MMM MMM [facility] Work Phone: Start: 01-03-2014 End: 01-03-2014 MINE LABORER MINE LABORER [facility] Work Phone: Start: 01-03-2014 End: 01-03-2014 Follow Up Appt 6 months Follow Up Appt 6 months [facility] Work Phone: Start: 12-18-2013 End: 06-17-2014 *Hepatic Function Panel *Hepatic Function Panel [facility] Work Phone: Start: 12-18-2013 End: 06-13-2014 Lipid panel [AGGREGATE] *Lipid Profile CC PCP [facility] Work Phone: Start: 11-28-2013 End: 12-18-2013 *Hepatic Function Panel *Hepatic Function Panel [facility] Work Phone: Start: 11-28-2013 End: 12-17-2013 Lipid panel [AGGREGATE] *Lipid Profile CC PCP [facility] Work Phone: Start: 06-30-2013 End: 07-01-2013 *Hepatic Function Panel *Hepatic Function Panel [facility] Work Phone: Start: 06-30-2013 End: 07-01-2013 Lipid panel [AGGREGATE] *Lipid Profile CC PCP [facility] Work Phone: Start: 06-18-2013 End: 06-18-2013 Electrocardiogram, complete EKG (In office) [facility] Work Phone: Start: 06-18-2013 End: 06-18-2013 Follow Up Appt 6 months Follow Up Appt 6 months [facility] Work Phone: Start: 06-18-2013 End: 06-18-2013 MMM MMM [facility] Work Phone: Start: 12-29-2012 End: 01-05-2013 *Hepatic Function Panel *Hepatic Function Panel [facility] Work Phone: Start: 12-29-2012 End: 01-05-2013 Lipid panel [AGGREGATE] *Lipid Profile [facility] Work Phone: Start: 12-12-2012 End: 12-12-2012 MINE LABORER MINE LABORER [facility] Work Phone: Start: 12-12-2012 End: [...] 06-20-2012 Left Heart Cath Left Heart Cath [facility] Work Phone: Start: 06-25-2012 End: 07-04-2012 *BMP *BMP [facility] Work Phone: Start: 06-25-2012 End: 07-04-2012 aPTT *PTT-Partial Thromboplastin Time [facility] Work Phone: Start: 06-25-2012 End: 07-04-2012 aPTT Coag time (PPP) *PTT-Partial Thromboplastin Time [facility] Work Phone: Start: 06-25-2012 End: 07-04-2012 CBC W Auto Differential panel - Blood *CBC without Diff [facility] Work Phone: Start: 06-25-2012 End: 07-04-2012 Chest x-ray X-Ray, Chest, PA & Lateral [facility] Work Phone: Start: 06-25-2012 End: 07-04-2012 Coagulation factor induced.INR assay in platelet poor plasma *PT/INR [facility] Work Phone: Start: 06-25-2012 End: 06-25-2012 Electrocardiogram, complete EKG (In office) [facility] Work Phone: Start: 06-12-2012 End: 06-12-2012 Follow Up Appt 6 months Follow Up Appt 6 months [facility] Work Phone: Start: 02-15-2012 End: 12-12-2012 *Hepatic Function Panel *Hepatic Function Panel [facility] Work Phone: Start: 02-15-2012 End: 12-12-2012 Lipid panel [AGGREGATE] *Lipid Profile [facility] Work Phone: Start: 12-30-2011 End: 01-13-2012 *Hepatic Function Panel *Hepatic Function Panel [facility] Work Phone: Start: 12-30-2011 End: 12-30-2011 Follow Up Appt 3 months Follow Up Appt 3 months [facility] Work Phone: Start: 12-30-2011 End: 01-13-2012 Lipid panel [AGGREGATE] *Lipid Profile [facility] Work Phone: Patient Education HYPERLIPIDEMIA , CORONARY%20ARTERY%20DISEAS E%20IN%20WOMEN, CHEST%20PAIN [facility] Work Phone: Additional Source Comments [...] BE BASED ON THE PRIMARY CLINICAL RECORDS. [facility] provides no warranty or guarantee of the accuracy or completeness of information in this document.
== END | disposition home or self-care (01) ==
LOC: POLAB3 12:03
PROVIDERS: PCP Family Medicine Geriatric Medicine; Visit Provider Family Medicine Geriatric Medicine
DX: N39.0 Urinary tract infection, site not specified (principal)
CPT/HCPCS: 87077; 87086; 87088; 87186